=== PATIENT | male | born 1980 | race Caucasian/White ===

== ENCOUNTER 2016-11-18 11:23 | Emergency (ER) | payer BC ==
[~2016-11-18] VITALS: Ht 182.9 cm; Wt 100.0 kg
[2016-11-18 11:23] VITALS: BP 131/85; PULSE 87; RESP 16; TEMP 98.5; O2SAT 97
[~2016-11-18 11:23] MED LIST: ACET500T3 PO; ACIDCAP PO; AMIT100T2 PO; AMIT25TA9 PO; BECL0.07 INH; BENT20TA PO; BUDE9TAB PO; BUTACAP4 PO; CEPH500C PO; CIAL5TAB PO; CITA20TA4 PO; CLIN1CAP6 PO; CLON2TAB PO; CYCL1TAB29 PO; GABA300C5 PO; HUMIKIT SQ; HYDR200T3 PO; IMUR50TA PO; KLON2TAB PO; LEVE500 PO; LEVO-168 PO; MUPI2CRE3 TOP; ONDA1TAB17 PO; PHEN300C3 PO; PILO5TAB3 PO; PRED-503 PO; TAMS5CAP PO; TYLETAB34 PO
[2016-11-18 11:25] VITALS: BP 131/85; PULSE 94; RESP 16; O2SAT 98
[2016-11-18] MEDS ORDERED: SODIUM CHLORIDE 0.9% FLUSH 5 ML FLUSH IVF PRN (11:45)
--- NOTE | 2016-11-18 11:47 | PD ---
HPI Chief Complaint: Syncope/Near-Syncope Time Seen by Provider: 11:43 Travel History International Travel<30 days: No Contact w/Intl Traveler<30days: No Traveled to known affect area: No History of Present Illness HPI 36-year-old male presents to the emergency department for evaluation of generalized weakness. Patient states that he was at his doctor's office when he got weak and slid down the wall. He denies any loss of consciousness or syncope. Patient does report a history of the same. He also reports history of left leg paresthesias and has been ongoing intimately for a year. The patient does report a mild migraine headache, which she states is chronic for him. He denies any chest pain. No shortness of breath. He complains of abdominal pain which is chronic for him as well. He was seen here November 04, 2016 for his abdominal pain. Patient states he has an outpatient CT ordered for his abdominal aorta. Patient does report history Lupus, ankylosing spondylitis, Crohn's disease, rheumatoid arthritis. The patient is followed by his last trimmer, Dr. Gimenez. [facility] Past Medical History Hx Anticoagulant Therapy: No Arthritis: Yes (RA) Asthma: Yes Autoimmune Disease: Yes (RA, LUPUS) Blood Disorders: No Anxiety: Yes Depression: Yes Cancer: Yes (thyroid ) Cardiovascular Problems: Yes (VASCULITIS ) Chemotherapy: Yes (FOR LUPUS) Chest Pain: No Congestive Heart Failure: No COPD: No Cerebrovascular Accident: No Diabetes: No Diminished Hearing: No Endocrine: Yes (LUPUS, ) Gastrointestinal Disorders: Yes (Chrohn's) GERD: Yes Genitourinary: Yes Headaches: Yes Hiatal Hernia: Yes Immune Disorder: Yes (LUPUS; RA; CROHN'S) Implanted Vascular Access Dvce: No Kidney Stones: No Musculoskeletal: Yes (ANKYLOSING SPONDYLITIS NECK AND LOWER BACK) Neurologic: Yes (BELLS PALSY LEFT FACE, ARACHNOIDAL CYST LEFT POSTERIOR NECK) Psychiatric: No Reproductive: No Respiratory: Yes (ASTHMA) Immunizations Current: Yes Migraines: Yes Pancreatitis: Yes Seizures: Yes Sleep Apnea: No Thyroid Disease: Yes Tetanus Vaccination: < 5 Years Influenza Vaccination: Yes PNEUMOCCOCAL Vaccine (Year): 1 Past Surgical History Abdominal Surgery: No Arteriovenous Shunt: No Cardiac Surgery: No Ear Surgery: No Endocrine Surgery: No Eye Surgery: No Genitourinary Surgery: No Gynecologic Surgery: No Hysterectomy: No Insulin Pump: No Joint Replacement: No Neurologic Surgery: No Oral Surgery: No Pacemaker: No Thoracic Surgery: No Other Surgery: No Social History Alcohol Use: No Tobacco Use: No Substance Use: No Allergies-Medications (Allergen,Severity, Reaction): Coded Allergies: Cat Dander (Verified Allergy, Mild, Cough, 11/18/16) Morphine (Verified Allergy, Mild, Rash, 11/18/16) Reported Meds & Prescriptions Reported Meds & Active Scripts Active Bentyl (Dicyclomine HCl) 20 Mg Tab 20 Mg PO TID Flexeril (Cyclobenzaprine HCl) 10 Mg Tab 10 Mg PO TID Clindamycin (Clindamycin HCl) 300 Mg Cap 600 Mg PO Q8H Reported Dilantin (Phenytoin Extended) 100 Mg Cap 300 Mg PO HS Amitriptyline (Amitriptyline HCl) 50 Mg Tab 50 Mg PO HS Esuprkiujr-Ohccvmw-Txeuyaac 50-325-40 Mg Cap 1 Cap PO Q6HR PRN Do not exceed 6 capsules/day. Tylenol-Codeine #3 (Acetaminophen-Codeine) 300-30 mg Tab 1 Tab PO TID PRN Acetaminophen 500 Mg Tab 1,000 Mg PO Q6H PRN Mupirocin (Mupirocin Calcium (Topical)) 2 % Cre 1 Applic TOP DAILY PRN Apply to face Acidophilus (Lactobacillus Acidophilus) 1 Cap Cap 1 Cap PO DAILY Cialis (Tadalafil) 5 Mg Tab 5 Mg PO DAILY Do not exceed 1 dose/day. Ondansetron (Ondansetron HCl) 8 Mg Tab 8 Mg PO TID Uceris ER 24 HR (Budesonide) 9 Mg Valentina 9 Mg PO DAILY Amitriptyline (Amitriptyline HCl) 25 Mg Tab 25 Mg PO AM Clonazepam 2 Mg Tab 2 Mg PO BID Pilocarpine 5 Mg Tab 5 Mg PO Q8HR Citalopram (Citalopram Hydrobromide) 20 Mg Tab 20 Mg PO DAILY Imuran (Azathioprine) 50 Mg Tab 50 Mg PO TID Hazardous agent: use appropriate precautions for handling and disposal. Levothyroxine (Levothyroxine Sodium) 112 Mcg Tab 112 Mcg PO DAILY Flomax (Tamsulosin HCl) 0.4 Mg Cap 0.4 Mg PO BID Gabapentin 300 Mg Cap 600 Mg PO TID Humira Pen Crohns 6-Pack Inj (Adalimumab Pen Crohns 6-Pack Inj) 40 Mg/0.8 Ml Pen 40 Mg SQ [id number] Deltasone (Prednisone) 20 Mg Tab 30 Mg PO HS Hydroxychloroquine (Hydroxychloroquine Sulfate) 200 Mg Tab 200 Mg PO DAILY Take with food Review of Systems Except as stated in HPI: all other systems reviewed are Neg Physical Exam Narrative GENERAL: Well-developed well-nourished male patient, afebrile. SKIN: Warm and dry. HEAD: Normocephalic. Atraumatic. ENT: Mucosa pink and moist. No erythema or exudates. No uvular edema. No uvular , palatal, or tonsillar deviation. Airway patent. Nasal turbinates appear normal without nasal blood, purulent drainage or septal hematoma. Bilateral tympanic membranes are clear without erythema or perforation. EYES: No scleral icterus. No injection or drainage. NECK: Supple, trachea midline. No JVD or lymphadenopathy. CARDIOVASCULAR: Regular rate and rhythm without murmurs, gallops, or rubs. RESPIRATORY: Breath sounds equal bilaterally. No accessory muscle use. Lungs sounds are clear to auscultation. GASTROINTESTINAL: Abdomen soft and nondistended. Patient have tenderness over the left lower and upper quadrants. MUSCULOSKELETAL: No cyanosis, or edema. Bilateral upper and lower extremity strength 5/5. All extremities are neurovascularly intact. BACK: Nontender without obvious deformity. No CVA tenderness. NEUROLOGICAL: Awake and alert. Cranial nerves II through XII intact. Motor and sensory grossly within normal limits. Five out of 5 muscle strength in all muscle groups. Normal speech. Finger to nose is normal bilaterally. Heel-to- reyna is normal bilaterally. Data Data Last Documented VS Vital Signs Date Time Temp Pulse Resp B/P Pulse Ox O2 Delivery O2 Flow Rate FiO2 11/18/16 11:25 94 16 131/85 98 Room Air 11/18/16 11:23 98.5 Orders Electrocardiogram (11/18/16 ) Complete Blood Count With Diff (11/18/16 11:39) Comprehensive Metabolic Panel (11/18/16 11:39) Magnesium (Mg) (11/18/16 11:39) Ckmb (Isoenzyme) Profile (11/18/16 11:39) Troponin I (11/18/16 11:39) Urinalysis - C+S If Indicated (11/18/16 11:39) Ecg Monitoring (11/18/16 11:39) Iv Access Insert/Monitor (11/18/16 11:39) Oximetry (11/18/16 11:39) Sodium Chloride 0.9% Flush (Ns Flush) (11/18/16 11:45) Acetamin-Codeine 300-30 Mg (Tylenol-Code (11/18/16 12:45) CKMB (11/18/16 11:55) CKMB% (11/18/16 11:55) Labs Laboratory Tests Test 11/18/16 11:55 White Blood Count 5.9 TH/MM3 Red Blood Count 4.53 MIL/MM3 Hemoglobin 14.0 GM/DL Hematocrit 40.9 % Mean Corpuscular Volume 90.3 FL Mean Corpuscular Hemoglobin 30.8 PG Mean Corpuscular Hemoglobin 34.1 % Concent Red Cell Distribution Width 15.0 % Platelet Count 165 TH/MM3 Mean Platelet Volume 8.1 FL Neutrophils (%) (Auto) 62.0 % Lymphocytes (%) (Auto) 29.0 % Monocytes (%) (Auto) 5.6 % Eosinophils (%) (Auto) 3.0 % Basophils (%) (Auto) 0.4 % Neutrophils # (Auto) 3.7 TH/MM3 Lymphocytes # (Auto) 1.7 TH/MM3 Monocytes # (Auto) 0.3 TH/MM3 Eosinophils # (Auto) 0.2 TH/MM3 Basophils # (Auto) 0.0 TH/MM3 CBC Comment DIFF FINAL Differential Comment Sodium Level 145 MEQ/L Potassium Level 4.3 MEQ/L Chloride Level 113 MEQ/L Carbon Dioxide Level 24.6 MEQ/L Anion Gap 7 MEQ/L Blood Urea Nitrogen 14 MG/DL Creatinine 0.85 MG/DL Estimat Glomerular Filtration 101 ML/MIN Rate Random Glucose 90 MG/DL Calcium Level 8.3 MG/DL Magnesium Level 2.4 MG/DL Total Bilirubin 0.3 MG/DL Aspartate Amino Transf 23 U/L (AST/SGOT) Alanine Aminotransferase 23 U/L (ALT/SGPT) Alkaline Phosphatase 45 U/L Total Creatine Kinase 129 U/L Creatine Kinase MB LESS THAN 0.5 NG/ML Troponin I LESS THAN 0.02 NG/ML Total Protein 6.7 GM/DL Albumin 4.1 GM/DL MDM Medical Decision Making Medical Screen Exam Complete: Yes Emergency Medical Condition: Yes Medical Record Reviewed: Yes Differential Diagnosis Electrolyte abnormality versus chronic weakness versus chronic abdominal pain versus migraine headache versus cardiac arrhythmia versus ACS Narrative Course 36-year-old male presents to the emergency department for evaluation of generalized weakness. Patient does report a history of the same. Patient also complains of chronic abdominal pain. Based on recent CT of the abdomen/pelvis done on November 12 which showed no acute abnormality. EKG shows sinus rhythm without acute ST changes. CBC, CMP, CK, troponin, magnesium, UA are ordered and pending. CBC is unremarkable. CMP shows no acute abnormalities. CK is 129, CK-MB is less than 0.5. Troponin is less than 0.02. Magnesium is 2.4. UA is still pending, however, patient states he would like to leave. He has an appointment with a neurologist today that he would like to see. Patient is stable for discharge. He is instructed to follow-up as planned. Patient's return for any acute worsening of symptoms. Patient is agreeable to this plan. Diagnosis Primary Impression: Left-sided muscle weakness Referrals: Primary Care Physician call for appointment Patient Instructions: General Instructions, Weakness (ED) Additional Instructions: Follow up with your primary care physician. Return to the emergency department for any acute worsening of symptoms. Med/Other Pt SpecificInfo: No Change to Meds Disposition: 01 DISCHARGE HOME Condition: Stable Cassy Ireland Nov 18, 2016 11:47
[2016-11-18 12:19] LABS: AUTOMATED NEUTROPHIL # 3.7 TH/MM3 (1.8-7.7); BASOPHIL % 0.4 % (0.0-2.0); EOSINOPHIL # 0.2 TH/MM3 (0-0.4); HEMATOCRIT 40.9 % (39.0-51.0); HEMO FLAGS DIFF FINAL; LYMPHOCYTE # 1.7 TH/MM3 (1.0-4.8); MEAN CELL VOLUME 90.3 FL (80.0-100.0); MEAN CORPUSCULAR HEMOGLOBIN 30.8 PG (27.0-34.0); MEAN CORPUSCULAR HGB CONC 34.1 % (32.0-36.0); MONO % 5.6 % (0.0-8.0); PLATELET COUNT 165 TH/MM3 (150-450); RED BLOOD COUNT 4.53 MIL/MM3 (4.50-5.90); WHITE BLOOD COUNT 5.9 TH/MM3 (4.0-11.0)
[2016-11-18] MEDS ORDERED: DILA100C PO (12:44)
[2016-11-18] MEDS ORDERED: AMIT50TA3 PO (12:44)
[2016-11-18 12:45] LABS: ALKALINE PHOSPHATASE 45 U/L (45-117); ALT (GPT) 23 U/L (12-78); ANION GAP 7 MEQ/L (5-15); AST (GOT) 23 U/L (15-37); BICARBONATE 24.6 MEQ/L (21.0-32.0); BLOOD UREA NITROGEN 14 MG/DL (7-18); CHLORIDE 113 MEQ/L (98-107); CREATINE KINASE 129 U/L (39-308); GLOMERULAR FILTRATION RATE 101 ML/MIN (>89); MAGNESIUM 2.4 MG/DL (1.5-2.5); POTASSIUM 4.3 MEQ/L (3.5-5.1); SODIUM (NA) 145 MEQ/L (136-145); TOTAL BILIRUBIN ADULT 0.3 MG/DL (0.2-1.0)
[2016-11-18] MEDS ORDERED: ACETAMINOPHEN/CODEINE 300 MG/30 MG TAB PO ONE (12:45)
[2016-11-18 12:58] LABS: CKMB LESS THAN 0.5 NG/ML (0.5-3.6)
[2016-11-18 13:25] VITALS: BP 138/83; PULSE 86; RESP 16; O2SAT 99
--- NOTE | 2016-11-19 12:07 | EKG ---
Date Performed: 11/18/2016 Time Performed: 11:33:40 PTAGE: 36 years EKG: Sinus rhythm MINIMAL VOLTAGE CRITERIA FOR LVH, CONSIDER NORMAL VARIANT BORDERLINE ECG PREVIOUS TRACING : 11/12/2016 15.54 DOCTOR: Michael Perez Interpretating Date/Time 11/19/2016 12:06:47
== END 2016-11-18 14:32 | disposition home or self-care (01) ==
LOC: NEPC 11:23
DX: M62.81 Muscle weakness (generalized) (principal)
CPT/HCPCS: 80053; 82550; 82552; 83735; 84484; 85025; 93005

== ENCOUNTER 2017-02-19 16:11 | Emergency (ER) | payer BC ==
[~2017-02-19] VITALS: Ht 182.9 cm; Wt 105.9 kg
[~2017-02-19 16:11] MED LIST changes: -AMIT100T2 PO; +AMIT50TA3 PO; -BECL0.07 INH; -CEPH500C PO; +DILA100C PO; -KLON2TAB PO; -PHEN300C3 PO
[2017-02-19 16:13] VITALS: BP 145/100; PULSE 101; RESP 16; TEMP 97.9; O2SAT 96
[2017-02-19] MEDS ORDERED: PANT40TA3 PO (16:39)
[2017-02-19] MEDS ORDERED: META1TAB19 PO (16:39)
[2017-02-19] MEDS ORDERED: HUMI40KI SQ (16:39)
[2017-02-19] MEDS ORDERED: HYDR-3583 PO (16:39)
[2017-02-19] MEDS ORDERED: [UNRECOGNIZED DRUG - CODE] IM (16:39)
[2017-02-19] MEDS ORDERED: PRED50 PO ×3 (16:39→17:34)
[2017-02-19] MEDS ORDERED: CYCL1TAB29 PO (16:39)
[2017-02-19] MEDS ORDERED: DICL1TAB63 PO (16:39)
[2017-02-19] MEDS ORDERED: SODIUM CHLOR 0.9% 1000 ML INJ 1,000 ML IV SCH (16:48)
--- NOTE | 2017-02-19 16:55 | PD ---
HPI Chief Complaint: Pain: Acute or Chronic Time Seen by Provider: 16:34 Travel History International Travel<30 days: No Contact w/Intl Traveler<30days: No Traveled to known affect area: No History of Present Illness HPI 36-year-old male history of multiple autoimmune diagnoses including ankylosing spondylitis, Crohn's, lupus arrives complaining of arthralgias epigastric pain and rash. She is placed on a steroid taper several days prior. He notes some benefit initially however yesterday and today he has been feeling aforementioned symptoms more prominently. He believes it may be due to rapid steroid taper. He also notes Lortab has been less efficacious. He arrives to ER for tx as Drs Rolf and Marty were unable to accommodate him with appointments today. He notes prior diagnosis pancreatitis as well. No etoh or tb. He has been exercising occasionally which he states helps and he might start [employer] as well. Pt states stressful states tend to precipitate autoimmune flares. PFSH Past Medical History Hx Anticoagulant Therapy: No Arthritis: Yes (RA) Asthma: Yes Autoimmune Disease: Yes (RA, LUPUS) Blood Disorders: No Anxiety: Yes Depression: Yes Cancer: Yes (Thyroid ) Cardiovascular Problems: Yes (VASCULITIS ) Chemotherapy: Yes (For lupus) Chest Pain: No Congestive Heart Failure: No COPD: No Cerebrovascular Accident: No Diabetes: No Diminished Hearing: No Endocrine: Yes (LUPUS, ) Gastrointestinal Disorders: Yes (Chrohn's) GERD: Yes Genitourinary: Yes Headaches: Yes Hiatal Hernia: Yes Immune Disorder: Yes (Lupus, Prasad's palsy, vasculitis) Implanted Vascular Access Dvce: No Kidney Stones: No Musculoskeletal: Yes (ANKYLOSING SPONDYLITIS NECK AND LOWER BACK) Neurologic: Yes (BELLS PALSY LEFT FACE, ARACHNOIDAL CYST LEFT POSTERIOR NECK) Psychiatric: No Reproductive: No Respiratory: Yes (ASTHMA) Immunizations Current: Yes Migraines: Yes Pancreatitis: Yes Seizures: Yes Sleep Apnea: No Thyroid Disease: Yes Tetanus Vaccination: < 5 Years Influenza Vaccination: Yes PNEUMOCCOCAL Vaccine (Year): 1 Past Surgical History Abdominal Surgery: No Arteriovenous Shunt: No Cardiac Surgery: No Ear Surgery: No Endocrine Surgery: No Eye Surgery: No Genitourinary Surgery: No Gynecologic Surgery: No Hysterectomy: No Insulin Pump: No Joint Replacement: No Neurologic Surgery: No Oral Surgery: No Pacemaker: No Thoracic Surgery: No Other Surgery: No Social History Alcohol Use: No Tobacco Use: No Substance Use: No Allergies-Medications (Allergen,Severity, Reaction): Coded Allergies: Cat Dander (Verified Allergy, Mild, Cough, 02/19/17) Morphine (Verified Allergy, Mild, Rash, 02/19/17) Reported Meds & Prescriptions Reported Meds & Active Scripts Active Prednisone 50 Mg Tab 50 Mg PO DIRECTED Prednisone 50 Mg Tab 50 Mg PO DAILY Prednisone 20 Mg Tab 20 Mg PO ONCE Percocet (Oxycodone-Acetaminophen) 7.5-325 mg Tab 1 Tab PO Q6H PRN Reported Butorphanol Inj (Butorphanol Tartrate) 1 Mg/Ml Soln 1 Mg IM Q6HR PRN Hydrocodone-Acetaminophen 10-325 mg Tab 1 Tab PO Q6H PRN Pantoprazole (Pantoprazole Sodium) 40 Mg Tab 40 Mg PO DAILY Metaxalone 800 Mg Tab 800 Mg PO TID Flexeril (Cyclobenzaprine HCl) 10 Mg Tab 10 Mg PO BID Diclofenac-Misoprostol 75-0.2 Mg Tab 1 Tab PO BID Humira 2-Pack Inj (Adalimumab 2-Pack Inj) 40 Mg/0.8 Ml Syr 40 Mg SQ Q14D Dilantin (Phenytoin Extended) 100 Mg Cap 300 Mg PO HS Amitriptyline (Amitriptyline HCl) 50 Mg Tab 50 Mg PO HS Buduxaqtaw-Vyqatji-Keodngzz 50-325-40 Mg Cap 1 Cap PO Q6HR PRN Do not exceed 6 capsules/day. Cialis (Tadalafil) 5 Mg Tab 5 Mg PO DAILY Do not exceed 1 dose/day. Ondansetron (Ondansetron HCl) 8 Mg Tab 8 Mg PO Q8HR PRN Uceris ER 24 HR (Budesonide) 9 Mg Valentina 9 Mg PO DAILY Amitriptyline (Amitriptyline HCl) 25 Mg Tab 25 Mg PO AM Clonazepam 2 Mg Tab 2 Mg PO BID Pilocarpine 5 Mg Tab 5 Mg PO TID PRN Citalopram (Citalopram Hydrobromide) 20 Mg Tab 20 Mg PO DAILY Imuran (Azathioprine) 50 Mg Tab 50 Mg PO TID Hazardous agent: use appropriate precautions for handling and disposal. Levothyroxine (Levothyroxine Sodium) 112 Mcg Tab 112 Mcg PO DAILY Flomax (Tamsulosin HCl) 0.4 Mg Cap 0.4 Mg PO BID Gabapentin 300 Mg Cap 600 Mg PO TID Hydroxychloroquine (Hydroxychloroquine Sulfate) 200 Mg Tab 200 Mg PO DAILY Take with food Review of Systems Except as stated in HPI: all other systems reviewed are Neg General / Constitutional: No: Fever Gastrointestinal: Positive: Abdominal Pain (epigastric pain) Physical Exam Narrative GENERAL: 36 yo M, WNWD, mild distress SKIN: Warm and dry. Malar rash present. HEAD: Atraumatic. Normocephalic. EYES: Pupils equal and round. No scleral icterus. No injection or drainage. ENT: No nasal bleeding or discharge. Mucous membranes pink and moist. NECK: Trachea midline. No JVD. CARDIOVASCULAR: Regular rate and rhythm. RESPIRATORY: No accessory muscle use. Clear to auscultation. Breath sounds equal bilaterally. GASTROINTESTINAL: Abdomen soft, non-tender, nondistended. epigastric tenderness present. no peritonitis. MUSCULOSKELETAL: Extremities without clubbing, cyanosis, or edema. No obvious deformities. NEUROLOGICAL: Awake and alert. No obvious cranial nerve deficits. Motor grossly within normal limits. Five out of 5 muscle strength in the arms and legs. Normal speech. PSYCHIATRIC: Appropriate mood and affect; insight and judgment normal. Data Data Last Documented VS Vital Signs Date Time Temp Pulse Resp B/P Pulse Ox O2 Delivery O2 Flow Rate FiO2 02/19/17 17:45 82 16 165/88 98 Room Air 02/19/17 16:13 97.9 VS noted Orders Complete Blood Count With Diff (02/19/17 16:48) Comprehensive Metabolic Panel (02/19/17 16:48) Lipase (02/19/17 16:48) Iv Access Insert/Monitor (02/19/17 16:48) Ecg Monitoring (02/19/17 16:48) Oximetry (02/19/17 16:48) Hydromorphone Pf Inj (Dilaudid Pf Inj) (02/19/17 17:00) Ondansetron Inj (Zofran Inj) (02/19/17 17:00) Sodium Chlor 0.9% 1000 Ml Inj (Ns 1000 M (02/19/17 16:48) Sodium Chloride 0.9% Flush (Ns Flush) (02/19/17 17:00) Al-Mag Hy-Si 40-40-4 Mg/Ml Liq (Mag-Al P (02/19/17 17:00) Lidocaine 2% Viscous (Xylocaine 2% Visco (02/19/17 17:00) Methylprednisolone So Succ Inj (Solumedr (02/19/17 17:00) Potassium Chloride (Kcl) (02/19/17 17:45) Labs Laboratory Tests Test 02/19/17 16:35 White Blood Count 4.8 TH/MM3 Red Blood Count 4.68 MIL/MM3 Hemoglobin 13.6 GM/DL Hematocrit 40.1 % Mean Corpuscular Volume 85.7 FL Mean Corpuscular Hemoglobin 29.1 PG Mean Corpuscular Hemoglobin 34.0 % Concent Red Cell Distribution Width 12.0 % Platelet Count 164 TH/MM3 Mean Platelet Volume 8.5 FL Neutrophils (%) (Auto) 40.2 % Lymphocytes (%) (Auto) 44.2 % Monocytes (%) (Auto) 7.7 % Eosinophils (%) (Auto) 7.1 % Basophils (%) (Auto) 0.8 % Neutrophils # (Auto) 1.9 TH/MM3 Lymphocytes # (Auto) 2.2 TH/MM3 Monocytes # (Auto) 0.4 TH/MM3 Eosinophils # (Auto) 0.3 TH/MM3 Basophils # (Auto) 0.0 TH/MM3 CBC Comment DIFF FINAL Differential Comment Sodium Level 143 MEQ/L Potassium Level 3.3 MEQ/L Chloride Level 104 MEQ/L Carbon Dioxide Level 28.2 MEQ/L Anion Gap 11 MEQ/L Blood Urea Nitrogen 7 MG/DL Creatinine 0.95 MG/DL Estimat Glomerular Filtration 89 ML/MIN Rate Random Glucose 119 MG/DL Calcium Level 8.3 MG/DL Total Bilirubin 0.4 MG/DL Aspartate Amino Transf 15 U/L (AST/SGOT) Alanine Aminotransferase 23 U/L (ALT/SGPT) Alkaline Phosphatase 54 U/L Total Protein 6.8 GM/DL Albumin 3.8 GM/DL Lipase 130 U/L [facility] Medical Decision Making Medical Screen Exam Complete: Yes Emergency Medical Condition: Yes Medical Record Reviewed: Yes Differential Diagnosis autoimmune flare, pancreatitis, infectious disease process Narrative Course CBC & BMP Diagram 02/19/17 16:35 LFTs and lipase normal Pain controlled, 1L NS. Potassium replenished. Pt is well acquainted with his disease processes and medical managements thereof. Scripts and follow up as below. Diagnosis Primary Impression: Syndromic multisystem autoimmune disease Referrals: DR MEYERS call for appointment Shantanu Bansal MD call for appointment Additional Instructions: You have a choice when it comes to health care, and we are glad that you chose [facility]. Hopefully, we have met your expectations on today's visit. You are welcome to return to [facility] at any time, as we are committed to meeting the health care needs of our community. Med/Other Pt SpecificInfo: Prescription(s) given Scripts Prednisone 50 Mg Tab50 Mg PO DIRECTED #18 TAB Ref 0 Prov:Shadi Saba MD 02/19/17 Prednisone 20 Mg Tab20 Mg PO ONCE #10 TAB Ref 0 Prov:Shadi Saba MD 02/19/17 Oxycodone-Acetaminophen (Percocet)7.5-325 mg Tab1 Tab PO Q6H PRN (PAIN SCALE 6 TO 10) #20 TAB Ref 0 Prov:Shadi Saba MD 02/19/17 Disposition: 01 DISCHARGE HOME Condition: Stable Shadi Saba MD Feb 19, 2017 16:55
[2017-02-19 17:00] VITALS: O2SAT 98
[2017-02-19] MEDS ORDERED: HYDROmorphone HCL PF 2 MG/ML VIAL IVS ONE (17:00)
[2017-02-19] MEDS ORDERED: ALUMINUM/MAGNESIUM/SIMETH 30 ML CUP PO ONE (17:00)
[2017-02-19] MEDS ORDERED: LIDOCAINE VISCOUS 2% SOLN 15 ML UDC PO ONE (17:00)
[2017-02-19] MEDS ORDERED: methylPREDNISolone SOD SUCC 125 MG/2 ML VIAL IV PUSH ONE (17:00)
[2017-02-19] MEDS ORDERED: SODIUM CHLORIDE 0.9% FLUSH 10 ML FLUSH IV FLUSH PRN (17:00)
[2017-02-19] MEDS ORDERED: ONDANSETRON HCL 4 MG/2 ML VIAL IVP ONE (17:00)
[2017-02-19 17:01] LABS: AUTOMATED NEUTROPHIL # 1.9 TH/MM3 (1.8-7.7); BASOPHIL % 0.8 % (0.0-2.0); EOSINOPHIL # 0.3 TH/MM3 (0-0.4); EOSINOPHIL % 7.1 % (0.0-4.0); HEMATOCRIT 40.1 % (39.0-51.0); HEMO FLAGS DIFF FINAL; LYMPH % 44.2 % (9.0-44.0); LYMPHOCYTE # 2.2 TH/MM3 (1.0-4.8); MEAN CELL VOLUME 85.7 FL (80.0-100.0); MEAN CORPUSCULAR HEMOGLOBIN 29.1 PG (27.0-34.0); MONO % 7.7 % (0.0-8.0); NEUT % 40.2 % (16.0-70.0); PLATELET COUNT 164 TH/MM3 (150-450); RED BLOOD COUNT 4.68 MIL/MM3 (4.50-5.90); WHITE BLOOD COUNT 4.8 TH/MM3 (4.0-11.0)
[2017-02-19 17:11] LABS: CHLORIDE 104 MEQ/L (98-107); POTASSIUM 3.3 MEQ/L (3.5-5.1); SODIUM (NA) 143 MEQ/L (136-145)
[2017-02-19 17:15] LABS: ANION GAP 11 MEQ/L (5-15); BICARBONATE 28.2 MEQ/L (21.0-32.0); BLOOD UREA NITROGEN 7 MG/DL (7-18)
[2017-02-19 17:18] LABS: ALT (GPT) 23 U/L (12-78); AST (GOT) 15 U/L (15-37); GLOMERULAR FILTRATION RATE 89 ML/MIN (>89)
[2017-02-19 17:19] LABS: TOTAL BILIRUBIN ADULT 0.4 MG/DL (0.2-1.0)
[2017-02-19 17:21] LABS: ALKALINE PHOSPHATASE 54 U/L (45-117)
[2017-02-19] MEDS ORDERED: PRED10PA2 PO (17:27)
[2017-02-19] MEDS ORDERED: PERC7.5T13 PO (17:27)
[2017-02-19] MEDS ORDERED: PRED20 PO (17:31)
[2017-02-19 17:45] VITALS: BP 165/88; PULSE 82; RESP 16; O2SAT 98
[2017-02-19] MEDS ORDERED: POTASSIUM CHLORIDE 20 MEQ CONTROLLED RELEASE TAB PO ONE (17:45)
== END 2017-02-19 18:10 | disposition home or self-care (01) ==
LOC: PHED 16:11
DX: M35.8 Other specified systemic involvement of connective tissue (principal); M25.50 Pain in unspecified joint; R10.13 Epigastric pain; R21 Rash and other nonspecific skin eruption; Z86.2 Personal history of diseases of the blood and blood-forming organs and certain disorders involving the immune mechanism; Z87.19 Personal history of other diseases of the digestive system; Z87.39 Personal history of other diseases of the musculoskeletal system and connective tissue; Z87.09 Personal history of other diseases of the respiratory system; Z86.59 Personal history of other mental and behavioral disorders; Z85.850 Personal history of malignant neoplasm of thyroid; Z86.79 Personal history of other diseases of the circulatory system; Z86.69 Personal history of other diseases of the nervous system and sense organs
CPT/HCPCS: 80053; 83690; 85025; 96361; 96374; 96375; 99284; J1170; J2405; J2930; J7030; 99214; G0463

== ENCOUNTER 2017-02-25 15:50 | Observation (INO) | payer BC ==
[~2017-02-25] VITALS: Ht 182.9 cm; Wt 103.7 kg
[~2017-02-25 15:50] MED LIST changes: -ACET500T3 PO; -ACIDCAP PO; -BENT20TA PO; -CLIN1CAP6 PO; +DICL1TAB63 PO; +HUMI40KI SQ; -HUMIKIT SQ; +HYDR-3583 PO; -LEVE500 PO; +META1TAB19 PO; -MUPI2CRE3 TOP; +PANT40TA3 PO; +PERC7.5T13 PO; -PRED-503 PO; +PRED20 PO; +PRED50 PO; -TYLETAB34 PO; +[UNRECOGNIZED DRUG - CODE] IM
[2017-02-25 16:08] VITALS: BP 146/109; PULSE 140; RESP 20; TEMP 97.9; O2SAT 100
[2017-02-25] MEDS ORDERED: SODIUM CHLOR 0.9% 1000 ML INJ 1,000 ML IV SCH (16:23)
[2017-02-25] MEDS ORDERED: SODIUM CHLORIDE 0.9% FLUSH 10 ML FLUSH IV FLUSH PRN ×2 (16:30→18:30)
[2017-02-25] MEDS ORDERED: DICYCLOMINE HCL 20 MG/2 ML VIAL IM ONE (16:30)
[2017-02-25 16:46] LABS: AUTOMATED NEUTROPHIL # 13.1 TH/MM3 (1.8-7.7); EOSINOPHIL % 0.2 % (0.0-4.0); HEMATOCRIT 43.6 % (39.0-51.0); HEMO FLAGS DIFF FINAL; LYMPH % 9.1 % (9.0-44.0); LYMPHOCYTE # 1.3 TH/MM3 (1.0-4.8); MEAN CELL VOLUME 87.7 FL (80.0-100.0); MEAN CORPUSCULAR HEMOGLOBIN 28.7 PG (27.0-34.0); MEAN CORPUSCULAR HGB CONC 32.7 % (32.0-36.0); MONO % 2.8 % (0.0-8.0); NEUT % 87.9 % (16.0-70.0); PLATELET COUNT 217 TH/MM3 (150-450); RED BLOOD COUNT 4.97 MIL/MM3 (4.50-5.90); RED CELL DISTRIBUTION WIDTH 12.4 % (11.6-17.2); WHITE BLOOD COUNT 14.8 TH/MM3 (4.0-11.0)
--- NOTE | 2017-02-25 16:47 | PD ---
HPI Chief Complaint: General Weakness Time Seen by Provider: 16:14 Travel History International Travel<30 days: No Contact w/Intl Traveler<30days: No Traveled to known affect area: No History of Present Illness HPI 36 yo male arrives complaining of total body pain though predominantly involving the hands and knees and feet. He reports a history of multiple autoimmune disorders. At the time of the patient's prior visit He stated Dr. Bansal Placed him on a steroid taper prior to arrival at 150 mg daily followed by 100 mg followed by 50 mg. He states that only massive doses of steroids can effectively manage his pain. On today's visit the patient notes he was sent here directly by Dr. Ferguson, his histology tech, stating she could not confer additional expertise as the patient was on such large doses of steroids area the patient's Imuran dose was increased from 50 mg twice a day to 100 mg twice a day. Following discharge from the prior visit the aggressive steroid taper was prescribed after the patient reported he would most certainly follow-up this week and that he had multiple times previously been dosed on prednisone at similar levels. PFSH Past Medical History Medical History: Denies Significant Hx Hx Anticoagulant Therapy: No Arthritis: Yes (RA) Asthma: Yes Autoimmune Disease: Yes (RA, LUPUS) Blood Disorders: No Anxiety: Yes Depression: Yes Cancer: Yes (Thyroid ) Cardiovascular Problems: Yes (VASCULITIS ) Chemotherapy: Yes (For lupus) Chest Pain: No Congestive Heart Failure: No COPD: No Cerebrovascular Accident: No Diabetes: No Diminished Hearing: No Endocrine: Yes (LUPUS, ) Gastrointestinal Disorders: Yes (Chrohn's) GERD: Yes Genitourinary: Yes Headaches: Yes Hiatal Hernia: Yes Immune Disorder: Yes (Lupus, Prasad's palsy, vasculitis) Implanted Vascular Access Dvce: No Kidney Stones: No Musculoskeletal: Yes (ANKYLOSING SPONDYLITIS NECK AND LOWER BACK) Neurologic: Yes (BELLS PALSY LEFT FACE, ARACHNOIDAL CYST LEFT POSTERIOR NECK) Psychiatric: No Reproductive: No Respiratory: Yes (ASTHMA) Immunizations Current: Yes Migraines: Yes Pancreatitis: Yes Seizures: Yes Sleep Apnea: No Thyroid Disease: Yes Tetanus Vaccination: < 5 Years Influenza Vaccination: Yes PNEUMOCCOCAL Vaccine (Year): 1 Past Surgical History Surgical History: No Previous Surgery Abdominal Surgery: No Arteriovenous Shunt: No Cardiac Surgery: No Ear Surgery: No Endocrine Surgery: No Eye Surgery: No Genitourinary Surgery: No Gynecologic Surgery: No Hysterectomy: No Insulin Pump: No Joint Replacement: No Neurologic Surgery: No Oral Surgery: No Pacemaker: No Thoracic Surgery: No Other Surgery: No Social History Alcohol Use: No Tobacco Use: No Substance Use: No Allergies-Medications (Allergen,Severity, Reaction): Coded Allergies: Cat Dander (Verified Allergy, Mild, Cough, 02/25/17) Morphine (Verified Allergy, Mild, Rash, 02/25/17) Reported Meds & Prescriptions Reported Meds & Active Scripts Active Prednisone 50 Mg Tab 50 Mg PO DIRECTED Prednisone 20 Mg Tab 20 Mg PO ONCE Percocet (Oxycodone-Acetaminophen) 7.5-325 mg Tab 1 Tab PO Q6H PRN Reported Pantoprazole (Pantoprazole Sodium) 40 Mg Tab 40 Mg PO DAILY Metaxalone 800 Mg Tab 800 Mg PO TID Flexeril (Cyclobenzaprine HCl) 10 Mg Tab 10 Mg PO BID Diclofenac-Misoprostol 75-0.2 Mg Tab 1 Tab PO BID Humira 2-Pack Inj (Adalimumab 2-Pack Inj) 40 Mg/0.8 Ml Syr 40 Mg SQ Q14D Dilantin (Phenytoin Extended) 100 Mg Cap 300 Mg PO HS Amitriptyline (Amitriptyline HCl) 50 Mg Tab 50 Mg PO HS Uljclinmgs-Roykunx-Gujvohsh 50-325-40 Mg Cap 1 Cap PO Q6HR PRN Do not exceed 6 capsules/day. Cialis (Tadalafil) 5 Mg Tab 5 Mg PO DAILY Do not exceed 1 dose/day. Ondansetron (Ondansetron HCl) 8 Mg Tab 8 Mg PO Q8HR PRN Uceris ER 24 HR (Budesonide) 9 Mg Valentina 9 Mg PO DAILY Amitriptyline (Amitriptyline HCl) 25 Mg Tab 25 Mg PO AM Clonazepam 2 Mg Tab 2 Mg PO BID Pilocarpine 5 Mg Tab 5 Mg PO TID PRN Citalopram (Citalopram Hydrobromide) 20 Mg Tab 20 Mg PO DAILY Imuran (Azathioprine) 50 Mg Tab 100 Mg PO BID Hazardous agent: use appropriate precautions for handling and disposal. Levothyroxine (Levothyroxine Sodium) 112 Mcg Tab 112 Mcg PO DAILY Flomax (Tamsulosin HCl) 0.4 Mg Cap 0.4 Mg PO BID Gabapentin 300 Mg Cap 600 Mg PO TID Hydroxychloroquine (Hydroxychloroquine Sulfate) 200 Mg Tab 200 Mg PO DAILY Take with food Review of Systems Except as stated in HPI: all other systems reviewed are Neg General / Constitutional: No: Fever Musculoskeletal: Positive: Myalgias, Arthralgias, Pain Physical Exam Narrative GENERAL: 36-year-old male well-nourished well-developed no obvious distress. SKIN: Focused skin assessment warm/dry. Bimalar facial rash. HEAD: Atraumatic. Normocephalic. EYES: Pupils equal and round. No scleral icterus. No injection or drainage. ENT: No nasal bleeding or discharge. Mucous membranes pink and moist. NECK: Trachea midline. No JVD. CARDIOVASCULAR: Regular rate and rhythm. No murmur appreciated. RESPIRATORY: No accessory muscle use. Clear to auscultation. Breath sounds equal bilaterally. GASTROINTESTINAL: Diffuse guarding. Use tenderness. Nonspecific. MUSCULOSKELETAL: No obvious deformities. No clubbing. No cyanosis. No erythema tenderness deformity about the hands ankles knees elbows or feet. NEUROLOGICAL: Awake and alert. No obvious cranial nerve deficits. Motor grossly within normal limits. Normal speech. PSYCHIATRIC: Appropriate mood and affect; insight and judgment normal. Data Data Last Documented VS Vital Signs Date Time Temp Pulse Resp B/P Pulse Ox O2 Delivery O2 Flow Rate FiO2 02/25/17 16:31 20 99 Room Air 02/25/17 16:08 97.9 140 146/109 Vital signs reviewed and the pulse is 72 at time of d/w Dr Thomson Orders Complete Blood Count With Diff (02/25/17 16:23) Comprehensive Metabolic Panel (02/25/17 16:23) Lipase (02/25/17 16:23) Iv Access Insert/Monitor (02/25/17 16:23) Ecg Monitoring (02/25/17 16:23) Oximetry (02/25/17 16:23) Sodium Chlor 0.9% 1000 Ml Inj (Ns 1000 M (02/25/17 16:23) Sodium Chloride 0.9% Flush (Ns Flush) (02/25/17 16:30) Dicyclomine Inj (Bentyl Inj) (02/25/17 16:30) Methylprednisolone So Succ Inj (Solumedr (02/25/17 17:00) Hydromorphone Pf Inj (Dilaudid Pf Inj) (02/25/17 17:00) Admit Order (Ed Use Only) (02/25/17 17:59) Labs Laboratory Tests Test 02/25/17 02/25/17 16:31 16:35 Erythrocyte Sedimentation Rate 1 mm/hr White Blood Count 14.8 TH/MM3 Red Blood Count 4.97 MIL/MM3 Hemoglobin 14.3 GM/DL Hematocrit 43.6 % Mean Corpuscular Volume 87.7 FL Mean Corpuscular Hemoglobin 28.7 PG Mean Corpuscular Hemoglobin 32.7 % Concent Red Cell Distribution Width 12.4 % Platelet Count 217 TH/MM3 Mean Platelet Volume 7.7 FL Neutrophils (%) (Auto) 87.9 % Lymphocytes (%) (Auto) 9.1 % Monocytes (%) (Auto) 2.8 % Eosinophils (%) (Auto) 0.2 % Basophils (%) (Auto) 0.0 % Neutrophils # (Auto) 13.1 TH/MM3 Lymphocytes # (Auto) 1.3 TH/MM3 Monocytes # (Auto) 0.4 TH/MM3 Eosinophils # (Auto) 0.0 TH/MM3 Basophils # (Auto) 0.0 TH/MM3 CBC Comment DIFF FINAL Differential Comment Sodium Level 141 MEQ/L Potassium Level 4.0 MEQ/L Chloride Level 104 MEQ/L Carbon Dioxide Level 28.4 MEQ/L Anion Gap 9 MEQ/L Blood Urea Nitrogen 14 MG/DL Creatinine 0.84 MG/DL Estimat Glomerular Filtration 103 ML/MIN Rate Random Glucose 119 MG/DL Calcium Level 8.5 MG/DL Total Bilirubin 0.4 MG/DL Aspartate Amino Transf 11 U/L (AST/SGOT) Alanine Aminotransferase 20 U/L (ALT/SGPT) Alkaline Phosphatase 53 U/L Total Protein 7.3 GM/DL Albumin 3.9 GM/DL Lipase 98 U/L [facility] Medical Decision Making Medical Screen Exam Complete: Yes Emergency Medical Condition: Yes Differential Diagnosis Nonspecific exacerbation of autoimmune disease Narrative Course The case was discussed with Dr. Bansal. Dr. Ferguson was paged however never returned the call. Dr. Bansal states the patient has a diagnosis of lupus disease made at the [facility]. He's also been worked up at [facility] in [place] where a diagnosis of lupus was made. This patient evidently suffers with a severe variant and has required large doses of steroids previously. Prior to the patient's admission today he had been on 150 mg tapered down to 100 and then to 50mg/day. This was the patient's second course of aggressive steroid administration. Dr. Bansal reports the patient has had benefit previously from hospital admission with every 6 hours 100 mg IV methylprednisolone dosing. In this scenario will provide the same for the patient. Case discussed with Dr. Thomson for the [facility] hospitalist service. CBC & BMP Diagram 02/25/17 16:35 LFTs normal Lipase normal Diagnosis Primary Impression: Autoimmune disease Admitting Information Admitting Physician Requests: Observation Additional Instructions: You have a choice when it comes to health care, and we are glad that you chose [facility]. Hopefully, we have met your expectations on today's visit. You are welcome to return to [facility] at any time, as we are committed to meeting the health care needs of our community. Shadi Saba MD Feb 25, 2017 16:47
[2017-02-25 16:55] LABS: CHLORIDE 104 MEQ/L (98-107); SODIUM (NA) 141 MEQ/L (136-145)
[2017-02-25 16:58] LABS: ANION GAP 9 MEQ/L (5-15); BICARBONATE 28.4 MEQ/L (21.0-32.0)
[2017-02-25 16:59] LABS: BLOOD UREA NITROGEN 14 MG/DL (7-18)
[2017-02-25] MEDS ORDERED: HYDROmorphone HCL PF 1 MG/ML VIAL IV PUSH ONE ×2 (17:00→19:15)
[2017-02-25] MEDS ORDERED: methylPREDNISolone SOD SUCC 125 MG/2 ML VIAL IV PUSH ONE (17:00)
[2017-02-25 17:01] LABS: ALT (GPT) 20 U/L (12-78); AST (GOT) 11 U/L (15-37); GLOMERULAR FILTRATION RATE 103 ML/MIN (>89)
[2017-02-25 17:03] LABS: TOTAL BILIRUBIN ADULT 0.4 MG/DL (0.2-1.0)
[2017-02-25 17:04] LABS: ALKALINE PHOSPHATASE 53 U/L (45-117)
[2017-02-25 18:27] VITALS: O2SAT 100
[2017-02-25] MEDS ORDERED: NALOXONE HCL 0.4 MG/ML AMP IV PRN (18:30)
[2017-02-25] MEDS ORDERED: BISACODYL 10 MG SUPP RECTAL PRN (18:30)
[2017-02-25] MEDS ORDERED: KETOROLAC TROMETHAMINE 30 MG/ML (IVP) VIAL IV PUSH PRN (19:30)
[2017-02-25 20:06] VITALS: BP 156/84; TEMP 98.3
[2017-02-25 20:20] VITALS: BP 154/99; PULSE 68; RESP 20; TEMP 97.1; O2SAT 96
[2017-02-25] MEDS ORDERED: DOCUSATE SODIUM 100 MG CAP PO PRN (21:00)
[2017-02-25] MEDS ORDERED: ACETAMINOPHEN 325 MG TAB PO PRN (21:00)
[2017-02-25] MEDS ORDERED: CALCIUM CARBONATE 500 MG CHEWABLE TAB CHEW PRN (21:00)
[2017-02-25] MEDS ORDERED: MAGNESIUM HYDROXIDE SUSP 30 ML CUP PO PRN (21:00)
[2017-02-25] MEDS: SODIUM CHLORIDE 0.9% FLUSH 10 ML FLUSH IV FLUSH SCH (21:00)
[2017-02-25] MEDS ORDERED: ONDANSETRON HCL 4 MG/2 ML VIAL IV PRN (21:00)
[2017-02-25] MEDS ORDERED: ALUMINUM/MAGNESIUM/SIMETH 30 ML CUP PO PRN (21:00)
[2017-02-25] MEDS ORDERED: oxyCODONE/ACETAMINOPHEN 7.5 MG/325 MG TAB PO PRN (23:00)
[2017-02-26] VITALS: BP 154/99; PULSE 84; RESP 20; TEMP 96.2; O2SAT 99
[2017-02-26] MEDS: methylPREDNISolone SOD SUCC 125 MG/2 ML VIAL IV PUSH SCH ×5 (00:17→21:47)
[2017-02-26] MEDS: PHENYTOIN SODIUM 100 MG CAP PO SCH ×2 (00:19→21:42)
[2017-02-26] MEDS: HYDROmorphone HCL PF 1 MG/ML VIAL IV PUSH PRN ×3 (00:22→11:33)
[2017-02-26] MEDS: oxyCODONE/ACETAMINOPHEN 7.5 MG/325 MG TAB PO PRN ×4 (05:57→21:45)
[2017-02-26] MEDS: SODIUM CHLORIDE 0.9% FLUSH 10 ML FLUSH IV FLUSH SCH ×2 (06:05→21:47)
[2017-02-26 06:11] LABS: BASOPHIL % 0.1 % (0.0-2.0); HEMO FLAGS DIFF FINAL; LYMPHOCYTE # 0.8 TH/MM3 (1.0-4.8); MEAN CORPUSCULAR HEMOGLOBIN 30.4 PG (27.0-34.0); MEAN CORPUSCULAR HGB CONC 34.6 % (32.0-36.0); NEUT % 91.9 % (16.0-70.0); PLATELET COUNT 185 TH/MM3 (150-450); RED BLOOD COUNT 4.54 MIL/MM3 (4.50-5.90); RED CELL DISTRIBUTION WIDTH 12.3 % (11.6-17.2); WHITE BLOOD COUNT 14.1 TH/MM3 (4.0-11.0)
[2017-02-26 06:17] LABS: CHLORIDE 105 MEQ/L (98-107); SODIUM (NA) 142 MEQ/L (136-145)
[2017-02-26 06:22] LABS: ANION GAP 10 MEQ/L (5-15); BICARBONATE 27.3 MEQ/L (21.0-32.0)
[2017-02-26 06:23] LABS: BLOOD UREA NITROGEN 16 MG/DL (7-18)
[2017-02-26 06:24] LABS: GLOMERULAR FILTRATION RATE 119 ML/MIN (>89)
[2017-02-26 08:00] VITALS: BP 146/105; PULSE 72; RESP 22; TEMP 96.3; O2SAT 96
[2017-02-26 12:00] VITALS: BP 148/90; PULSE 60; RESP 20; TEMP 97; O2SAT 96
[2017-02-26] MEDS ORDERED: ASPIRIN 325 MG/CAFFEINE 40 MG/BUTALBITAL 50 MG CAP PO PRN (12:45)
[2017-02-26] MEDS: AMITRIPTYLINE HCL 25 MG TAB PO SCH (12:45)
[2017-02-26] MEDS ORDERED: PILOCARPINE HCL 5 MG TAB PO PRN (12:45)
--- NOTE | 2017-02-26 12:59 | HHI.HP ---
[facility] Primary Care Physician Shantanu Bansal MD Admission Diagnosis SLE Exacerbation Diagnoses: Chief Complaint: Joint pains Travel History International Travel<30 Days: No Contact w/Intl Traveler <30 Da: No Traveled to Known Affected Are: No History of Present Illness This is a 36 yo male who presented to the emergency department complaining of generalized pain predominantly involving the hands, knees and ankles. He reports a history of multiple autoimmune disorders SLE, rheumatoid arthritis and vasculitis. Started last when he developed malar rash and initiated on high-dose prednisone 150 mg daily tapered every 3 days. Imuran was also increased from 50 mg twice a day to 100 mg twice a day . He states that his pain is not any better and was recommended by Dr. Ferguson, his assistant foreman to present to the emergency department. Denies fever, chills, cough, UTI symptoms and diarrhea. According to his PCP Dr. Bansal, patient has severe variant and required large doses of steroids in the past which helped him. He was started on methylprednisolone 100 g IV every 6 hours and patient reports of improved symptoms at least 50%. I have left a message for his assistant foreman to return my call Review of Systems Constitutional: DENIES: Diaphoretic episodes, Fatigue, Fever, Weight gain, Weight loss, Chills, Dizziness, Change in appetite, Night Sweats Endocrine: DENIES: Heat/cold intolerance, Polydipsia, Polyuria, Polyphagia Eyes: DENIES: Blurred vision, Diplopia, Vision loss, Photosensitivity Ears, nose, mouth, throat: DENIES: Tinnitus, Vertigo, Throat pain, Hoarseness, Epistaxis, Odynophagia Respiratory: DENIES: Cough, Wheezing, Hemoptysis, Sputum production, Shortness of breath Cardiovascular: DENIES: Chest pain, Palpitations, Syncope, Dyspnea on Exertion , PND, Lower Extremity Edema, Orthopnea, Claudication Gastrointestinal: COMPLAINS OF: Nausea, DENIES: Abdominal pain, Black stools, Bloody stools, Constipation, Diarrhea, Vomiting, Difficulty Swallowing, Anorexia Genitourinary: DENIES: Urinary frequency, Urinary incontinence, Urgency, Hematuria, Dysuria, Nocturia, Penile Discharge Musculoskeletal: COMPLAINS OF: Joint pain, Muscle aches, Stiffness, Joint Swelling, Back pain, Neck pain Integumentary: COMPLAINS OF: Rash Neurologic: DENIES: Headache, Localized weakness, Seizures, Tremor, Poor Balance Psychiatric: DENIES: Anxiety, Confusion, Depression, Hallucinations, Agitation , Suicidal Ideation, Homicidal Ideation, Delusions Past Family Social History Past Medical History As previously mentioned. History of asthma, anxiety, depression, thyroid cancer , Crohn's, GERD, migraines, Prasad's palsy, ankylosing spondylitis involving the neck and lower back, arachnoid cyst left posterior neck, pancreatitis and seizure disorder Past Surgical History Left wrist surgery Reported Medications Prednisone 50 Mg Tab 50 Mg PO DIRECTED Prednisone 20 Mg Tab 20 Mg PO ONCE Percocet (Oxycodone-Acetaminophen) 7.5-325 mg Tab 1 Tab PO Q6H PRN Pantoprazole (Pantoprazole Sodium) 40 Mg Tab 40 Mg PO DAILY Metaxalone 800 Mg Tab 800 Mg PO TID Flexeril (Cyclobenzaprine HCl) 10 Mg Tab 10 Mg PO BID Diclofenac-Misoprostol 75-0.2 Mg Tab 1 Tab PO BID Humira 2-Pack Inj (Adalimumab 2-Pack Inj) 40 Mg/0.8 Ml Syr 40 Mg SQ Q14D Dilantin (Phenytoin Extended) 100 Mg Cap 300 Mg PO HS Amitriptyline (Amitriptyline HCl) 50 Mg Tab 50 Mg PO HS Fdvxltiyhe-Sauzoil-Ueahbxoc 50-325-40 Mg Cap 1 Cap PO Q6HR PRN Do not exceed 6 capsules/day. Cialis (Tadalafil) 5 Mg Tab 5 Mg PO DAILY Do not exceed 1 dose/day. Ondansetron (Ondansetron HCl) 8 Mg Tab 8 Mg PO Q8HR PRN Uceris ER 24 HR (Budesonide) 9 Mg Valentina 9 Mg PO DAILY Amitriptyline (Amitriptyline HCl) 25 Mg Tab 25 Mg PO AM Clonazepam 2 Mg Tab 2 Mg PO BID Pilocarpine 5 Mg Tab 5 Mg PO TID PRN Citalopram (Citalopram Hydrobromide) 20 Mg Tab 20 Mg PO DAILY Imuran (Azathioprine) 50 Mg Tab 100 Mg PO BID Hazardous agent: use appropriate precautions for handling and disposal. Levothyroxine (Levothyroxine Sodium) 112 Mcg Tab 112 Mcg PO DAILY Flomax (Tamsulosin HCl) 0.4 Mg Cap 0.4 Mg PO BID Gabapentin 300 Mg Cap 600 Mg PO TID Hydroxychloroquine (Hydroxychloroquine Sulfate) 200 Mg Tab 200 Mg PO DAILY Take with food Allergies: Coded Allergies: Cat Dander (Verified Allergy, Mild, Cough, 02/25/17) Morphine (Verified Allergy, Mild, Rash, 02/25/17) Family History Lupus Social History Does not smoke or drink Physical Exam Vital Signs Vital Signs Date Time Temp Pulse Resp B/P Pulse Ox O2 Delivery O2 Flow Rate FiO2 02/26/17 12:00 97.0 60 20 148/90 96 02/26/17 08:00 96.3 72 22 146/105 96 02/26/17 00:00 96.2 84 20 154/99 99 02/25/17 20:20 97.1 68 20 154/99 96 02/25/17 20:08 71 20 98 02/25/17 20:06 98.3 71 2 156/84 98 02/25/17 18:27 100 02/25/17 16:31 20 99 Room Air 02/25/17 16:08 97.9 140 20 146/109 100 Physical Exam GENERAL: This is a well-nourished, well-developed patient, in no apparent distress. SKIN: No rashes, ecchymoses or lesions. Cool and dry. HEAD: Atraumatic. Normocephalic. No temporal or scalp tenderness. EYES: Pupils equal round and reactive. Extraocular motions intact. No scleral icterus. No injection or drainage. ENT: Nose without bleeding, purulent drainage or septal hematoma. Throat without erythema, tonsillar hypertrophy or exudate. Uvula midline. Airway patent. NECK: Trachea midline. No JVD or lymphadenopathy. Supple, nontender, no meningeal signs. CARDIOVASCULAR: Regular rate and rhythm without murmurs, gallops, or rubs. RESPIRATORY: Clear to auscultation. Breath sounds equal bilaterally. No wheezes , rales, or rhonchi. GASTROINTESTINAL: Abdomen soft, non-tender, nondistended.. No guarding. MUSCULOSKELETAL: Extremities without clubbing, cyanosis, or edema. Proximal PIPs slightly swollen and tender but not warm and red. No calf tenderness. Negative Homans sign bilaterally. NEUROLOGICAL: Awake and alert. Left facial droop. Motor and sensory grossly within normal limits. Five out of 5 muscle strength in all muscle groups. Normal speech. Laboratory Laboratory Tests Test 02/25/17 02/25/17 02/26/17 16:31 16:35 05:30 Erythrocyte Sedimentation Rate 1 White Blood Count 14.8 14.1 Red Blood Count 4.97 4.54 Hemoglobin 14.3 13.8 Hematocrit 43.6 40.0 Mean Corpuscular Volume 87.7 88.0 Mean Corpuscular Hemoglobin 28.7 30.4 Mean Corpuscular Hemoglobin 32.7 34.6 Concent Red Cell Distribution Width 12.4 12.3 Platelet Count 217 185 Mean Platelet Volume 7.7 8.1 Neutrophils (%) (Auto) 87.9 91.9 Lymphocytes (%) (Auto) 9.1 6.0 Monocytes (%) (Auto) 2.8 2.0 Eosinophils (%) (Auto) 0.2 0.0 Basophils (%) (Auto) 0.0 0.1 Neutrophils # (Auto) 13.1 13.0 Lymphocytes # (Auto) 1.3 0.8 Monocytes # (Auto) 0.4 0.3 Eosinophils # (Auto) 0.0 0.0 Basophils # (Auto) 0.0 0.0 CBC Comment DIFF FINAL DIFF FINAL Differential Comment Sodium Level 141 142 Potassium Level 4.0 4.0 Chloride Level 104 105 Carbon Dioxide Level 28.4 27.3 Anion Gap 9 10 Blood Urea Nitrogen 14 16 Creatinine 0.84 0.74 Estimat Glomerular Filtration 103 119 Rate Random Glucose 119 153 Calcium Level 8.5 8.5 Total Bilirubin 0.4 Aspartate Amino Transf 11 (AST/SGOT) Alanine Aminotransferase 20 (ALT/SGPT) Alkaline Phosphatase 53 Total Protein 7.3 Albumin 3.9 Lipase 98 C-Reactive Protein LESS THAN 0.29 Result Diagram: 02/26/1752902/26/17529 Assessment and Plan Problem List: (1) RA (rheumatoid arthritis) ICD Code: M06.9 Status: Acute (2) Autoimmune disease ICD Code: M35.9 Status: Acute Assessment and Plan This is a 36 yo male who presented to the emergency department complaining of generalized pain predominantly involving the hands, knees and ankles. He reports a history of multiple autoimmune disorders SLE, rheumatoid arthritis and vasculitis. Started last when he developed malar rash and initiated on high-dose prednisone 150 mg daily tapered every 3 days. Imuran was also increased from 50 mg twice a day to 100 mg twice a day . He states that his pain is not any better and was recommended by Dr. Ferguson, his assistant foreman to present to the emergency department. Denies fever, chills, cough, UTI symptoms and diarrhea. According to his PCP Dr. Bansal, patient has severe variant and required large doses of steroids in the past which helped him. He was started on methylprednisolone 100 g IV every 6 hours and patient reports of improved symptoms at least 50%. Acute exacerbation of chronic pain involving hands, knees and ankle joints with a history of SLE, rheumatoid arthritis and vasculitis. He is clinically improving on high-dose IV methylprednisolone daily which we will continue for another day. He will be also on Imuran and pain management with Percocet. Counseled regarding narcotics. Awaiting return call from his assistant foreman. Of note he has normal ESR and CRP Leukocytosis and hyperglycemia likely secondary to steroid use. We'll continue to monitor Chronic medical conditions of asthma, anxiety, depression, thyroid cancer, Crohn 's, GERD, migraines, Prasad's palsy, ankylosing spondylitis involving the neck and lower back, arachnoid cyst left posterior neck, pancreatitis and seizure disorder. Stable continue outpatient medications as appropriate DVT prophylaxis with SCD and early ambulation Discussed Condition With Patient Jas Alejandra MD Feb 26, 2017 12:59
[2017-02-26] MEDS: METAXALONE 800 MG TAB PO SCH ×2 (13:00→18:04)
[2017-02-26] MEDS: TAMSULOSIN HCL 0.4 MG CAP PO SCH ×2 (13:37→21:43)
[2017-02-26] MEDS: CITALOPRAM HYDROBROMIDE 20 MG TAB PO SCH (13:37)
[2017-02-26] MEDS: azaTHIOprine 50 MG TAB PO SCH ×2 (13:38→21:44)
[2017-02-26] MEDS: GABAPENTIN 300 MG CAP PO SCH ×2 (13:38→18:04)
[2017-02-26] MEDS: HYDROXYCHLOROQUINE SULFATE 200 MG TAB PO SCH (13:38)
[2017-02-26] MEDS: PANTOPRAZOLE SOD 40 MG DELAYED RELEASE TAB PO SCH (13:38)
[2017-02-26] MEDS: clonazePAM 1 MG TAB PO PRN (13:39)
[2017-02-26] MEDS ORDERED: BUDESONIDE 9 MG PO SCH (13:45)
[2017-02-26] MEDS ORDERED: ACETAMIN 325 MG/BUTALBITAL 50 MG/CAFFEINE 40 MG TAB PO PRN (15:30)
[2017-02-26 16:00] VITALS: BP 138/89; PULSE 71; RESP 20; TEMP 96.6; O2SAT 98
[2017-02-26 20:00] VITALS: BP 149/83; PULSE 70; RESP 20; TEMP 96.4; O2SAT 96
[2017-02-26] MEDS ORDERED: AMITRIPTYLINE HCL 50 MG TAB PO SCH (21:00)
[2017-02-26] MEDS ORDERED: DICLOFENAC MISOPROSTOL PO SCH (21:00)
[2017-02-26] MEDS: CYCLOBENZAPRINE HCL 10 MG TAB PO SCH (21:42)
[2017-02-26] MEDS: MISOPROSTOL 100 MCG TAB PO SCH (21:44)
[2017-02-26] MEDS: DICLOFENAC SODIUM 75 MG DELAYED RELEASE TAB PO SCH (21:44)
[2017-02-27] VITALS: BP 147/93; PULSE 70; RESP 20; TEMP 96.2; O2SAT 98
[2017-02-27] MEDS ORDERED: LEVOTHYROXINE SODIUM 112 MCG TAB PO SCH (06:00)
[2017-02-27] MEDS ORDERED: methylPREDNISolone SOD SUCC 40 MG/1 ML VIAL IV PUSH SCH (06:00)
[2017-02-27] MEDS: oxyCODONE/ACETAMINOPHEN 7.5 MG/325 MG TAB PO PRN ×2 (06:40→10:34)
[2017-02-27 07:50] VITALS: BP 150/88; PULSE 50; RESP 18; TEMP 96.6; O2SAT 98
[2017-02-27] MEDS ORDERED: OXYC1TAB35 PO (08:23)
--- NOTE | 2017-02-27 08:24 | HHI.DCPOC ---
Discharge Care Plan Diagnosis: (1) RA (rheumatoid arthritis) (2) Autoimmune disease Your Health Problems Are: Difficulty with ADL Inflammation Chronic Pain Goals to Promote Your Health * To prevent worsening of your condition and complications * To maintain your health at the optimal level Directions to Meet Your Goals Take your medications as prescribed Follow your dietary instruction Follow activity as directed Keep your appointments as scheduled Take your immunizations and boosters as scheduled If your symptoms worsen call your PCP, if no PCP go to Urgent Care Center or Emergency Room Smoking is Dangerous to Your Health. Avoid second hand smoke Call the 24-hour hour crisis hotline for domestic abuse at Jas Alejandra MD Feb 27, 2017 08:24
--- NOTE | 2017-02-27 08:28 | HHI.PR ---
Subjective Remarks Follow-up joint pains. Much improved states he is ready to go home. He has prednisone at home aware he has to take 40 mg daily for one week then taper by 10 mg every week until seen by Dr. Gimenez in 2 weeks. He is requesting pain medicine as he has been counseled regarding narcotics. Objective Vitals Vital Signs Date Time Temp Pulse Resp B/P Pulse Ox O2 Delivery O2 Flow Rate FiO2 02/27/17 07:50 96.6 50 18 150/88 98 02/27/17 00:00 96.2 70 20 147/93 98 02/26/17 20:00 96.4 70 20 149/83 96 02/26/17 16:00 96.6 71 20 138/89 98 02/26/17 12:00 97.0 60 20 148/90 96 I/O 02/26/17 02/26/17 02/26/17 02/27/17 02/27/17 02/27/17 07:00 15:00 23:00 07:00 15:00 23:00 Intake Total 480 ml 800 ml 960 ml 60 ml Output Total 450 ml Balance 30 ml 800 ml 960 ml 60 ml Intake Oral 480 ml 800 ml 960 ml 60 ml IV Total 0 ml 0 ml Output Urine Total 450 ml # Voids 2 4 2 1 # Bowel Movements 0 1 1 0 Result Diagram: 02/26/1752902/26/17 0530 Objective Remarks GENERAL: This is a well-nourished, well-developed patient, in no apparent distress. SKIN: No rashes, ecchymoses or lesions. Cool and dry. HEAD: Atraumatic. Normocephalic. No temporal or scalp tenderness. EYES: Pupils equal round and reactive. Extraocular motions intact. No scleral icterus. No injection or drainage. ENT: Nose without bleeding, purulent drainage or septal hematoma. Throat without erythema, tonsillar hypertrophy or exudate. Uvula midline. Airway patent. NECK: Trachea midline. No JVD or lymphadenopathy. Supple, nontender, no meningeal signs. CARDIOVASCULAR: Regular rate and rhythm without murmurs, gallops, or rubs. RESPIRATORY: Clear to auscultation. Breath sounds equal bilaterally. No wheezes , rales, or rhonchi. GASTROINTESTINAL: Abdomen soft, non-tender, nondistended. No guarding. MUSCULOSKELETAL: Extremities without clubbing, cyanosis, or edema. Proximal PIPs improved swelling and tenderness not warm and red. No calf tenderness. Negative Homans sign bilaterally. NEUROLOGICAL: Awake and alert. Left facial droop. Motor and sensory grossly within normal limits. Five out of 5 muscle strength in all muscle groups. Normal speech. Procedures None A/P Problem List: (1) RA (rheumatoid arthritis) ICD Code: M06.9 Status: Chronic (2) Autoimmune disease ICD Code: M35.9 Status: Acute Assessment and Plan This is a 36 yo male who presented to the emergency department complaining of generalized pain predominantly involving the hands, knees and ankles. He reports a history of multiple autoimmune disorders SLE, rheumatoid arthritis and vasculitis. Started last when he developed malar rash and initiated on high-dose prednisone 150 mg daily tapered every 3 days. Imuran was also increased from 50 mg twice a day to 100 mg twice a day . He states that his pain is not any better and was recommended by Dr. Ferguson, his potato seed cutter to present to the emergency department. Denies fever, chills, cough, UTI symptoms and diarrhea. According to his PCP Dr. Bansal, patient has severe variant and required large doses of steroids in the past which helped him. He was started on methylprednisolone 100 g IV every 6 hours and patient reports of improved symptoms at least 50%. Acute exacerbation of chronic pain involving hands, knees and ankle joints with a history of SLE, rheumatoid arthritis and vasculitis. He is much improved on high-dose IV methylprednisolone which will be switched to prednisone 40 mg daily taper by 10 mg every week until seen by rheumatology in 2 weeks. He will be also on Imuran and pain management with Percocet. Counseled regarding narcotics. Leukocytosis and hyperglycemia likely secondary to steroid use. We'll continue to monitor Chronic medical conditions of asthma, anxiety, depression, thyroid cancer, Crohn 's, GERD, migraines, Prasad's palsy, ankylosing spondylitis involving the neck and lower back, arachnoid cyst left posterior neck, pancreatitis and seizure disorder. Stable continue outpatient medications as appropriate DVT prophylaxis with SCD and early ambulation Discharge Planning Discharge patient to home Condition on discharge: Improved Regular Diet as tolerated Ad Marifer activity no driving Rx written: Percocet Follow-up with primary care physician in one week, rheumatology in 2 weeks Jas Alejandra MD Feb 27, 2017 08:28
[2017-02-27] MEDS ORDERED: predniSONE 20 MG TAB PO SCH (09:00)
[2017-02-27] MEDS ORDERED: TADALAFIL 5 MG PO SCH (09:00)
[2017-02-27] MEDS: AMITRIPTYLINE HCL 25 MG TAB PO SCH (09:00)
[2017-02-27] MEDS: SODIUM CHLORIDE 0.9% FLUSH 10 ML FLUSH IV FLUSH SCH (09:57)
[2017-02-27] MEDS: DICLOFENAC SODIUM 75 MG DELAYED RELEASE TAB PO SCH (09:58)
[2017-02-27] MEDS: PANTOPRAZOLE SOD 40 MG DELAYED RELEASE TAB PO SCH (09:59)
[2017-02-27] MEDS: METAXALONE 800 MG TAB PO SCH (09:59)
[2017-02-27] MEDS: GABAPENTIN 300 MG CAP PO SCH (10:00)
[2017-02-27] MEDS: HYDROXYCHLOROQUINE SULFATE 200 MG TAB PO SCH (10:00)
[2017-02-27] MEDS: CYCLOBENZAPRINE HCL 10 MG TAB PO SCH (10:00)
[2017-02-27] MEDS: TAMSULOSIN HCL 0.4 MG CAP PO SCH (10:00)
[2017-02-27] MEDS: CITALOPRAM HYDROBROMIDE 20 MG TAB PO SCH (10:01)
[2017-02-27] MEDS: clonazePAM 1 MG TAB PO PRN (10:01)
[2017-02-27] MEDS: azaTHIOprine 50 MG TAB PO SCH (10:01)
[2017-02-27] MEDS: MISOPROSTOL 100 MCG TAB PO SCH (10:03)
== END 2017-02-27 12:00 | disposition home or self-care (01) ==
LOC: PHED 15:50 → PHEDA 18:03 → PH3B 20:19
PROVIDERS: ADMIT Internal Medicine; ATTEND Internal Medicine
DX: M06.9 Rheumatoid arthritis, unspecified (principal); M32.9 Systemic lupus erythematosus, unspecified; I77.6 Arteritis, unspecified; D72.829 Elevated white blood cell count, unspecified; R73.9 Hyperglycemia, unspecified; J45.909 Unspecified asthma, uncomplicated; F41.9 Anxiety disorder, unspecified; F32.9 Major depressive disorder, single episode, unspecified; K21.9 Gastro-esophageal reflux disease without esophagitis; G43.909 Migraine, unspecified, not intractable, without status migrainosus; G40.909 Epilepsy, unspecified, not intractable, without status epilepticus; K85.90 Acute pancreatitis without necrosis or infection, unspecified; M45.9 Ankylosing spondylitis of unspecified sites in spine; G51.0 Bell's palsy; Z85.850 Personal history of malignant neoplasm of thyroid; Z79.51 Long term (current) use of inhaled steroids; Z88.5 Allergy status to narcotic agent; Z91.09 Other allergy status, other than to drugs and biological substances; Z87.19 Personal history of other diseases of the digestive system
CPT/HCPCS: 80048; 80053; 82948; 83690; 85025; 85652; 86038; 86140; 96361; 96372; 96374; 96375; 97162; 99284; G0378; G8987; G8988; J0500; J1170; J2930; J7030; J7500; J7512

== ENCOUNTER 2017-03-18 16:16 | Emergency (ER) | payer BC ==
[~2017-03-18] VITALS: Ht 182.9 cm; Wt 120.7 kg
[~2017-03-18 16:16] MED LIST changes: -HYDR-3583 PO; +OXYC1TAB35 PO; -[UNRECOGNIZED DRUG - CODE] IM
[2017-03-18 16:22] VITALS: PULSE 118; RESP 16; TEMP 98; O2SAT 100
[2017-03-18] MEDS ORDERED: SODIUM CHLOR 0.9% 1000 ML INJ 1,000 ML IV SCH (16:49)
[2017-03-18] MEDS ORDERED: PRED5TAB PO (17:00)
[2017-03-18] MEDS ORDERED: HYDROmorphone HCL PF 1 MG/ML VIAL IVS ONE (17:00)
[2017-03-18] MEDS ORDERED: SODIUM CHLORIDE 0.9% FLUSH 10 ML FLUSH IV FLUSH PRN (17:00)
[2017-03-18] MEDS ORDERED: ONDANSETRON HCL 4 MG/2 ML VIAL IVP ONE (17:00)
[2017-03-18] MEDS ORDERED: TRAM50TA PO (17:02)
[2017-03-18] MEDS ORDERED: TYLETAB34 PO (17:02)
[2017-03-18 17:11] VITALS: BP 140/101; PULSE 104; RESP 16; O2SAT 100
[2017-03-18] MEDS ORDERED: IOHEXOL 350 MG/ML 10 ML VIAL (for RAD DIAG) IV ONE (17:18)
[2017-03-18 17:23] LABS: AUTOMATED NEUTROPHIL # 6.4 TH/MM3 (1.8-7.7); BASOPHIL % 0.5 % (0.0-2.0); EOSINOPHIL # 0.2 TH/MM3 (0-0.4); EOSINOPHIL % 2.9 % (0.0-4.0); HEMO FLAGS DIFF FINAL; LYMPH % 16.7 % (9.0-44.0); LYMPHOCYTE # 1.4 TH/MM3 (1.0-4.8); MEAN CELL VOLUME 85.9 FL (80.0-100.0); MEAN CORPUSCULAR HEMOGLOBIN 29.5 PG (27.0-34.0); MEAN CORPUSCULAR HGB CONC 34.3 % (32.0-36.0); MONO % 3.6 % (0.0-8.0); NEUT % 76.3 % (16.0-70.0); PLATELET COUNT 206 TH/MM3 (150-450); RED BLOOD COUNT 4.77 MIL/MM3 (4.50-5.90); RED CELL DISTRIBUTION WIDTH 12.7 % (11.6-17.2); WHITE BLOOD COUNT 8.3 TH/MM3 (4.0-11.0)
[2017-03-18 17:40] LABS: CHLORIDE 107 MEQ/L (98-107); POTASSIUM 3.7 MEQ/L (3.5-5.1); SODIUM (NA) 143 MEQ/L (136-145)
[2017-03-18 17:44] LABS: ANION GAP 7 MEQ/L (5-15); BICARBONATE 28.7 MEQ/L (21.0-32.0); BLOOD UREA NITROGEN 11 MG/DL (7-18)
[2017-03-18 17:47] LABS: ALT (GPT) 23 U/L (12-78); AST (GOT) 14 U/L (15-37); GLOMERULAR FILTRATION RATE 97 ML/MIN (>89)
[2017-03-18 17:48] LABS: TOTAL BILIRUBIN ADULT 0.3 MG/DL (0.2-1.0)
[2017-03-18 17:50] LABS: ALKALINE PHOSPHATASE 52 U/L (45-117)
--- NOTE | 2017-03-18 17:50 | PD ---
HPI Chief Complaint: GI Complaint Time Seen by Provider: 16:29 Travel History International Travel<30 days: No Contact w/Intl Traveler<30days: No Traveled to known affect area: No History of Present Illness HPI This is a 36-year-old male who was a history of multiple autoimmune disorders including lupus, rheumatoid arthritis, Crohn's disease and vasculitis who presents to the emergency department with left-sided abdominal pain, moderate severity, constant for over a week, associated with loose stools. He says he's had about 20 watery stools today. He denies any blood in his stool. He denies any fevers or chills. He says this feels similar to when he said Crohn's flares in the past. He recently was hospitalized in the setting of a lupus flare during which she had joint pains and a malar rash. He was on high dose steroids at that time. He's been tapered down and currently he is taking 5 mg of prednisone per day. He follows with Dr. Bansal who saw him a week ago in the setting of his abdominal discomfort and ordered a plain film of the abdomen which was reassuring. At that time he put him on ciprofloxacin, Flagyl and Lortab the patient's symptoms are only getting worse. PFSH Past Medical History Hx Anticoagulant Therapy: No Arthritis: Yes (Rheumatoid Arthritis) Asthma: No Autoimmune Disease: Yes (lupus, RA, crohns disease, Vasculitis) Blood Disorders: No Anxiety: Yes Depression: Yes Heart Rhythm Problems: No Cancer: Yes (thyroid , used radioactive iodine) Cardiovascular Problems: No High Cholesterol: No Chemotherapy: Yes (Imuran) Chest Pain: No Congestive Heart Failure: No COPD: No Cerebrovascular Accident: No Diabetes: No Diminished Hearing: No Endocrine: Yes Gastrointestinal Disorders: Yes (Chrohn's) GERD: No Genitourinary: No Headaches: Yes Hiatal Hernia: No Immune Disorder: Yes Implanted Vascular Access Dvce: No Kidney Stones: No Musculoskeletal: No Neurologic: No Psychiatric: No Reproductive: No Respiratory: No Immunizations Current: Yes Migraines: Yes Pancreatitis: Yes Radiation Therapy: No Renal Failure: No Seizures: Yes Sickle Cell Disease: No Sleep Apnea: No Thyroid Disease: Yes Ulcer: Yes PNEUMOCCOCAL Vaccine (Year): 1 Past Surgical History Abdominal Surgery: No AICD: No Arteriovenous Shunt: No Cardiac Surgery: No Ear Surgery: No Endocrine Surgery: No Eye Surgery: No Genitourinary Surgery: No Gynecologic Surgery: No Hysterectomy: No Insulin Pump: No Joint Replacement: No Neurologic Surgery: No Oral Surgery: No Pacemaker: No Thoracic Surgery: No Other Surgery: Yes (Left hand surgery Aug 2016) Social History Alcohol Use: No Tobacco Use: No Substance Use: No Allergies-Medications (Allergen,Severity, Reaction): Coded Allergies: Cat Dander (Verified Allergy, Mild, Cough, 03/18/17) Morphine (Verified Allergy, Mild, Rash, 03/18/17) Reported Meds & Prescriptions Reported Meds & Active Scripts Active Reported Tramadol (Tramadol HCl) 50 Mg Tab 50 Mg PO Q6H PRN Tylenol-Codeine #3 (Acetaminophen-Codeine) 300-30 mg Tab 1 Tab PO Q4H PRN Prednisone 5 Mg Tab 5 Mg PO DAILY Pantoprazole (Pantoprazole Sodium) 40 Mg Tab 40 Mg PO DAILY Metaxalone 800 Mg Tab 800 Mg PO TID Flexeril (Cyclobenzaprine HCl) 10 Mg Tab 10 Mg PO BID Diclofenac-Misoprostol 75-0.2 Mg Tab 1 Tab PO BID Humira 2-Pack Inj (Adalimumab 2-Pack Inj) 40 Mg/0.8 Ml Syr 40 Mg SQ Q14D Dilantin (Phenytoin Extended) 100 Mg Cap 300 Mg PO HS Amitriptyline (Amitriptyline HCl) 50 Mg Tab 50 Mg PO HS Dsxyvaphim-Dpafznb-Aawuigzq 50-325-40 Mg Cap 1 Cap PO Q6HR PRN Do not exceed 6 capsules/day. Cialis (Tadalafil) 5 Mg Tab 5 Mg PO DAILY Do not exceed 1 dose/day. Ondansetron (Ondansetron HCl) 8 Mg Tab 8 Mg PO Q8HR PRN Amitriptyline (Amitriptyline HCl) 25 Mg Tab 25 Mg PO AM Clonazepam 2 Mg Tab 2 Mg PO BID Pilocarpine 5 Mg Tab 5 Mg PO TID PRN Citalopram (Citalopram Hydrobromide) 20 Mg Tab 20 Mg PO DAILY Imuran (Azathioprine) 50 Mg Tab 100 Mg PO BID Hazardous agent: use appropriate precautions for handling and disposal. Levothyroxine (Levothyroxine Sodium) 112 Mcg Tab 112 Mcg PO DAILY Flomax (Tamsulosin HCl) 0.4 Mg Cap 0.4 Mg PO BID Gabapentin 300 Mg Cap 600 Mg PO TID Hydroxychloroquine (Hydroxychloroquine Sulfate) 200 Mg Tab 200 Mg PO DAILY Take with food Review of Systems Except as stated in HPI: all other systems reviewed are Neg Physical Exam Narrative GENERAL:Well appearing, no acute distress SKIN: Focused skin assessment warm and dry. HEAD: Atraumatic. Normocephalic. EYES: Pupils equal and round. No injection or drainage. ENT: Moist mucous membranes NECK: Trachea midline. CARDIOVASCULAR: Regular rate and rhythm. No murmur appreciated. RESPIRATORY: Clear to auscultation. Breath sounds equal bilaterally. GASTROINTESTINAL: Abdomen soft, tender to palpation in the left upper quadrant and left lower quadrants with no rebound or guarding. MUSCULOSKELETAL: No obvious deformities. NEUROLOGICAL: Awake and alert. No obvious cranial nerve deficits. Moving all extremities. PSYCHIATRIC: Appropriate mood and affect; insight and judgment normal. Data Data Last Documented VS Vital Signs Date Time Temp Pulse Resp B/P Pulse Ox O2 Delivery O2 Flow Rate FiO2 03/18/17 17:56 105 16 136/100 97 Room Air 03/18/17 16:22 98.0 Orders Complete Blood Count With Diff (03/18/17 16:49) Comprehensive Metabolic Panel (03/18/17 16:49) Lipase (03/18/17 16:49) Urinalysis - C+S If Indicated (03/18/17 16:49) Ct Abd/Pel W Iv Contrast(Rout) (03/18/17 16:49) Iv Access Insert/Monitor (03/18/17 16:49) Ecg Monitoring (03/18/17 16:49) Oximetry (03/18/17 16:49) Ondansetron Inj (Zofran Inj) (03/18/17 17:00) Sodium Chlor 0.9% 1000 Ml Inj (Ns 1000 M (03/18/17 16:49) Sodium Chloride 0.9% Flush (Ns Flush) (03/18/17 17:00) Hydromorphone Pf Inj (Dilaudid Pf Inj) (03/18/17 17:00) Iohexol 350 Inj (Omnipaque 350 Inj) (03/18/17 17:18) Methylprednisolone So Succ Inj (Solumedr (03/18/17 18:00) Labs Laboratory Tests Test 03/18/17 17:05 White Blood Count 8.3 TH/MM3 Red Blood Count 4.77 MIL/MM3 Hemoglobin 14.1 GM/DL Hematocrit 41.0 % Mean Corpuscular Volume 85.9 FL Mean Corpuscular Hemoglobin 29.5 PG Mean Corpuscular Hemoglobin 34.3 % Concent Red Cell Distribution Width 12.7 % Platelet Count 206 TH/MM3 Mean Platelet Volume 7.7 FL Neutrophils (%) (Auto) 76.3 % Lymphocytes (%) (Auto) 16.7 % Monocytes (%) (Auto) 3.6 % Eosinophils (%) (Auto) 2.9 % Basophils (%) (Auto) 0.5 % Neutrophils # (Auto) 6.4 TH/MM3 Lymphocytes # (Auto) 1.4 TH/MM3 Monocytes # (Auto) 0.3 TH/MM3 Eosinophils # (Auto) 0.2 TH/MM3 Basophils # (Auto) 0.0 TH/MM3 CBC Comment DIFF FINAL Differential Comment Sodium Level 143 MEQ/L Potassium Level 3.7 MEQ/L Chloride Level 107 MEQ/L Carbon Dioxide Level 28.7 MEQ/L Anion Gap 7 MEQ/L Blood Urea Nitrogen 11 MG/DL Creatinine 0.88 MG/DL Estimat Glomerular Filtration 97 ML/MIN Rate Random Glucose 103 MG/DL Calcium Level 8.1 MG/DL Total Bilirubin 0.3 MG/DL Aspartate Amino Transf 14 U/L (AST/SGOT) Alanine Aminotransferase 23 U/L (ALT/SGPT) Alkaline Phosphatase 52 U/L Total Protein 7.0 GM/DL Albumin 3.7 GM/DL Lipase 131 U/L MDM Medical Decision Making Medical Screen Exam Complete: Yes Emergency Medical Condition: Yes Medical Record Reviewed: Yes (patient has a history of multiple autoimmune conditions including SLE, rheumatoid arthritis, vasculitis and Crohn's disease. He was recently admitted to the hospital in the setting of a lupus flare and was on high-dose steroids) Interpretation(s) Tachycardic, afebrile No leukocytosis Electrolytes are reassuring Lipase is normal Last 24 hours Impressions Abdomen/Pelvis CT 03/18/17 0128 Signed Impressions: Service Date/Time: Saturday, March 18, 2017 17:08 - CONCLUSION: Tiny fat-containing umbilical hernia. Occasional colonic diverticula. No acute CT findings Trevor Galvan MD Differential Diagnosis Crohn's flare, abscess, fistula, bowel obstruction, colitis Narrative Course This is a 36-year-old male who presents to the emergency department with a complicated medical history reporting that he has left-sided abdominal pain which is been persistent despite completing treatment with ciprofloxacin, Flagyl and supplemental opiates. He follows with Dr. Bansal who seems to know him well. He had an abdominal x-ray performed earlier this week which was reassuring. He was sent here today because his symptoms are persistent despite outpatient treatment. He was placed on a monitor and an IV was established. Labs are obtained which are all reassuring. We discussed risks versus benefits of CT imaging as he rarely has acute findings however given his refractory symptoms despite treatment, we elected to pursue imaging to ensure he doesn't have a complication of Crohn's disease. CT imaging was reassuring. I suggested patient follow-up with Dr. Bansal tomorrow morning and see if Dr. Bansal wants to put him on pulse steroids. He was given a dose of same at all here in the emergency Department. Otherwise I don't think he meets criteria for admission. Patient will be discharged home. Diagnosis Primary Impression: Chronic abdominal pain Patient Instructions: General Instructions Additional Instructions: If you develop severe or worsening abdominal pain, fever>100.4, persistent vomiting or inability to eat or drink return to the emergency department immediately. Follow up with your primary care physician in 1-2 days for a check-up. Med/Other Pt SpecificInfo: No Change to Meds Disposition: 01 DISCHARGE HOME Condition: Stable Anne Krause MD March 18, 2017 17:50
[2017-03-18 17:56] VITALS: BP 136/100; PULSE 105; RESP 16; O2SAT 97
--- NOTE | 2017-03-18 17:58 | RADHPO ---
EXAM DATE/TIME: 03/18/2017 17:08 [facility] COMPARISON: No previous studies available for comparison. INDICATIONS : Left side abdomen pain with nausea, vomiting, and diarrhea. IV CONTRAST: 100 cc Omnipaque 350 (iohexol) IV ORAL CONTRAST: No oral contrast ingested. RADIATION DOSE: 20.60 CTDIvol (mGy) MEDICAL HISTORY : Crohn's disease. Pancreatitis. Rheumatoid arthritis.Lupus. SURGICAL HISTORY : None. ENCOUNTER: Initial ACUITY: 4 - 6 days PAIN SCALE: 8/10 LOCATION: Left abdomen TECHNIQUE: Volumetric scanning of the abdomen and pelvis was performed. Using automated exposure control and ad justment of the mA and/or kV according to patient size, radiation dose was kept as low as reasonably achievable to obtain optimal diagnostic quality images. FINDINGS: LOWER LUNGS: The visualized lower lungs are clear. LIVER: Homogeneous density without lesion. There is no dilation of the biliary tree. No calcified gallston es. SPLEEN: Normal size without lesion. PANCREAS: Within normal limits. KIDNEYS: Normal in size and shape. There is no mass, stone or hydronephrosis. ADRENAL GLANDS: Within normal limits. VASCULAR: There is no aortic aneurysm. BOWEL/MESENTERY: Occasional distal colonic diverticula. No evidence of abnormal dilatation, wall thickening or focal i nflammatory changes. ABDOMINAL WALL: Small fat containing umbilical hernia without evidence of incarceration. RETROPERITONEUM: There is no lymphadenopathy. BLADDER: No wall thickening or mass. REPRODUCTIVE: Within normal limits. INGUINAL: There is no lymphadenopathy or hernia. MUSCULOSKELETAL: Within normal limits for patient age. CONCLUSION: Tiny fat-containing umbilical hernia. Occasional colonic diverticula. No acute CT findings Trevor Galvan MD on March 18, 2017 at 17:52 Board Certified Radiologist. This report was verified electronically.
[2017-03-18] MEDS ORDERED: methylPREDNISolone SOD SUCC 125 MG/2 ML VIAL IV PUSH ONE (18:00)
== END 2017-03-18 18:37 | disposition home or self-care (01) ==
LOC: PHED 16:16
DX: R10.9 Unspecified abdominal pain (principal); G89.29 Other chronic pain; K50.90 Crohn's disease, unspecified, without complications; M32.9 Systemic lupus erythematosus, unspecified; E07.9 Disorder of thyroid, unspecified
CPT/HCPCS: 74177; 80053; 83690; 85025; 96361; 96374; 96375; 99284; J1170; J2405; J2930; J7030; Q9967

== ENCOUNTER 2017-04-12 18:09 | Emergency (ER) | payer BC ==
[~2017-04-12] VITALS: Ht 182.9 cm; Wt 103.0 kg
[2017-04-12] VITALS (8 sets, daily range): BP systolic 108–174; BP diastolic 77–102; PULSE 88–112; RESP 18; TEMP 97.9–98.3; O2SAT 97–100
[~2017-04-12 18:09] MED LIST changes: -BUDE9TAB PO; -OXYC1TAB35 PO; -PERC7.5T13 PO; -PRED20 PO; -PRED50 PO; +PRED5TAB PO; +TRAM50TA PO; +TYLETAB34 PO
[2017-04-12] MEDS ORDERED: GABA600T PO (18:37)
[2017-04-12] MEDS ORDERED: PROT40TA PO (18:37)
[2017-04-12] MEDS ORDERED: PRED50 PO (18:37)
[2017-04-12] MEDS ORDERED: FOLI400T PO (18:49)
[2017-04-12] MEDS ORDERED: METH2.5T PO (18:49)
[2017-04-12] MEDS ORDERED: SODIUM CHLOR 0.9% 1000 ML INJ 1,000 ML IV SCH ×2 (19:14→21:00)
[2017-04-12] MEDS ORDERED: ONDANSETRON HCL 4 MG/2 ML VIAL IVP ONE (19:15)
[2017-04-12] MEDS ORDERED: HYDROmorphone HCL PF 1 MG/ML VIAL IVS ONE (19:15)
[2017-04-12] MEDS ORDERED: SODIUM CHLORIDE 0.9% FLUSH 10 ML FLUSH IV FLUSH PRN (19:15)
--- NOTE | 2017-04-12 19:21 | PD ---
HPI Chief Complaint: GI Complaint Time Seen by Provider: 19:14 Travel History International Travel<30 days: No Contact w/Intl Traveler<30days: No Traveled to known affect area: No History of Present Illness HPI The patient is a 37-year-old male who comes in complaining of left upper quadrant pain and bleeding from his mouth. The patient has had this pain in the abdomen for approximately 10 years. He has lupus, ankylosing spondylitis and Crohn's disease. He has been worked up extensively by [facility] and is currently seeing the [facility] for his abdominal pain. He states he has had "too many" CAT scans. The bleeding from the mouth has been going on for years as well, it is from the gums. Both the abdominal pain and bleeding of the mouth of increased in this way came in today. He is a patient of Dr. Dobbins. He states he may want to go to [place] to be seen for this. He states he is nauseated but not vomiting today, he states he took his Zofran before that happens. PFSH Past Medical History Hx Anticoagulant Therapy: No Arthritis: Yes (Rheumatoid Arthritis) Asthma: No Autoimmune Disease: Yes (lupus, RA, crohns disease, Vasculitis) Blood Disorders: No Anxiety: Yes Depression: Yes Heart Rhythm Problems: No Cancer: Yes (thyroid , used radioactive iodine) Cardiovascular Problems: No High Cholesterol: No Chemotherapy: Yes (Imuran) Chest Pain: No Congestive Heart Failure: No COPD: No Cerebrovascular Accident: No Diabetes: No Diminished Hearing: No Endocrine: Yes Gastrointestinal Disorders: Yes (Chrohn's) GERD: No Genitourinary: No Headaches: Yes Hiatal Hernia: No Hypertension: No (WHEN IN PAIN ONLY) Immune Disorder: Yes Implanted Vascular Access Dvce: No Kidney Stones: No Musculoskeletal: No Neurologic: No Psychiatric: No Reproductive: No Respiratory: No Immunizations Current: Yes Migraines: Yes Pancreatitis: Yes Radiation Therapy: No Renal Failure: No Seizures: Yes Sickle Cell Disease: No Sleep Apnea: No Thyroid Disease: Yes Ulcer: Yes PNEUMOCCOCAL Vaccine (Year): 1 Past Surgical History Abdominal Surgery: No AICD: No Arteriovenous Shunt: No Cardiac Surgery: No Ear Surgery: No Endocrine Surgery: No Eye Surgery: No Genitourinary Surgery: No Gynecologic Surgery: No Hysterectomy: No Insulin Pump: No Joint Replacement: No Neurologic Surgery: No Oral Surgery: No Pacemaker: No Thoracic Surgery: No Other Surgery: Yes (Left hand surgery Aug 2016) Social History Alcohol Use: No Tobacco Use: No Substance Use: No Allergies-Medications (Allergen,Severity, Reaction): Coded Allergies: Cat Dander (Verified Allergy, Mild, Cough, 04/12/17) Morphine (Verified Allergy, Mild, Rash, 04/12/17) Reported Meds & Prescriptions Reported Meds & Active Scripts Active Reported Folic Acid 400 Mcg Tab Unknown Dose PO DAILY Methotrexate 2.5 Mg Tab 4 Tab PO Q7D Prednisone 50 Mg Tab 50 Mg PO DIRECTED TAPER DOSE Gabapentin 600 Mg Tab 600 Mg PO TID Protonix (Pantoprazole Sodium) 40 Mg Tab 40 Mg PO AC LUNCH Tramadol (Tramadol HCl) 50 Mg Tab 50 Mg PO Q6H PRN Tylenol-Codeine #3 (Acetaminophen-Codeine) 300-30 mg Tab 1 Tab PO Q4H PRN Prednisone 5 Mg Tab 5 Mg PO DAILY Metaxalone 800 Mg Tab 800 Mg PO TID Flexeril (Cyclobenzaprine HCl) 10 Mg Tab 10 Mg PO BID Diclofenac-Misoprostol 75-0.2 Mg Tab 1 Tab PO BID Humira 2-Pack Inj (Adalimumab 2-Pack Inj) 40 Mg/0.8 Ml Syr 40 Mg SQ Q14D Dilantin (Phenytoin Extended) 100 Mg Cap 300 Mg PO HS Amitriptyline (Amitriptyline HCl) 50 Mg Tab 50 Mg PO HS Exuazihkhs-Btbkgwi-Cxmhfngi 50-325-40 Mg Cap 1 Cap PO Q6HR PRN Do not exceed 6 capsules/day. Cialis (Tadalafil) 5 Mg Tab 5 Mg PO DAILY Do not exceed 1 dose/day. Ondansetron (Ondansetron HCl) 8 Mg Tab 8 Mg PO Q8HR PRN Amitriptyline (Amitriptyline HCl) 25 Mg Tab 25 Mg PO HS Clonazepam 2 Mg Tab 2 Mg PO BID Pilocarpine 5 Mg Tab 5 Mg PO TID PRN Citalopram (Citalopram Hydrobromide) 20 Mg Tab 20 Mg PO DAILY Imuran (Azathioprine) 50 Mg Tab 100 Mg PO BID Hazardous agent: use appropriate precautions for handling and disposal. Levothyroxine (Levothyroxine Sodium) 112 Mcg Tab 112 Mcg PO DAILY Flomax (Tamsulosin HCl) 0.4 Mg Cap 0.4 Mg PO BID Hydroxychloroquine (Hydroxychloroquine Sulfate) 200 Mg Tab 200 Mg PO DAILY Take with food Review of Systems Except as stated in HPI: all other systems reviewed are Neg Physical Exam Narrative GENERAL: The patient is alert, oriented 3 in moderate apparent distress with his abdominal pain. He appears to be moderately dehydrated. His vital signs show pulse rate of 112 with blood pressure 136/102 but are otherwise normal. SKIN: Focused skin assessment warm/dry. HEAD: Atraumatic. Normocephalic. EYES: Pupils equal and round. No scleral icterus. No injection or drainage. ENT: No nasal bleeding or discharge. Mucous membranes pink and moist. There is bleeding from the gums. NECK: Trachea midline. No JVD. CARDIOVASCULAR: Regular rate and rhythm. No murmur appreciated. RESPIRATORY: No accessory muscle use. Clear to auscultation. Breath sounds equal bilaterally. GASTROINTESTINAL: Abdomen soft, with tenderness to direct palpation in the left upper quadrant, nondistended. Hepatic and splenic margins not palpable. No guarding or rebound is present. MUSCULOSKELETAL: No obvious deformities. No clubbing. No cyanosis. No edema. NEUROLOGICAL: Awake and alert. No obvious cranial nerve deficits. Motor grossly within normal limits. Normal speech. PSYCHIATRIC: Appropriate mood and affect; insight and judgment normal. Data Data Last Documented VS Vital Signs Date Time Temp Pulse Resp B/P Pulse Ox O2 Delivery O2 Flow Rate FiO2 04/12/17 22:51 92 18 108/77 99 Room Air 04/12/17 18:17 98.3 Orders Complete Blood Count With Diff (04/12/17 19:14) Comprehensive Metabolic Panel (04/12/17 19:14) Lipase (04/12/17 19:14) Urinalysis - C+S If Indicated (04/12/17 19:14) Iv Access Insert/Monitor (04/12/17 19:14) Ecg Monitoring (04/12/17 19:14) Oximetry (04/12/17 19:14) Ondansetron Inj (Zofran Inj) (04/12/17 19:15) Sodium Chlor 0.9% 1000 Ml Inj (Ns 1000 M (04/12/17 19:14) Sodium Chloride 0.9% Flush (Ns Flush) (04/12/17 19:15) Hydromorphone Pf Inj (Dilaudid Pf Inj) (04/12/17 19:15) Prothrombin Time / Inr (Pt) (04/12/17 20:47) Act Partial Throm Time (Ptt) (04/12/17 20:47) Sodium Chlor 0.9% 1000 Ml Inj (Ns 1000 M (04/12/17 21:00) Mri Abdomen W&W/O Contrast (04/12/17 ) Lorazepam Inj (Ativan Inj) (04/12/17 22:00) Gadodiamide Pf Inj (Omniscan Pf Inj) (04/12/17 22:43) Labs Laboratory Tests Test 04/12/17 04/12/17 19:20 21:04 White Blood Count 10.0 TH/MM3 Red Blood Count 4.07 MIL/MM3 Hemoglobin 11.9 GM/DL Hematocrit 35.5 % Mean Corpuscular Volume 87.1 FL Mean Corpuscular Hemoglobin 29.2 PG Mean Corpuscular Hemoglobin 33.5 % Concent Red Cell Distribution Width 14.9 % Platelet Count 190 TH/MM3 Mean Platelet Volume 7.7 FL Neutrophils (%) (Auto) 60.5 % Lymphocytes (%) (Auto) 32.2 % Monocytes (%) (Auto) 5.8 % Eosinophils (%) (Auto) 1.3 % Basophils (%) (Auto) 0.2 % Neutrophils # (Auto) 6.1 TH/MM3 Lymphocytes # (Auto) 3.2 TH/MM3 Monocytes # (Auto) 0.6 TH/MM3 Eosinophils # (Auto) 0.1 TH/MM3 Basophils # (Auto) 0.0 TH/MM3 CBC Comment DIFF FINAL Differential Comment Urine Color YELLOW Urine Turbidity CLEAR Urine pH 5.5 Urine Specific [place] 1.025 Urine Protein NEG mg/dL Urine Glucose (UA) NEG mg/dL Urine Ketones NEG mg/dL Urine Occult Blood NEG Urine Nitrite NEG Urine Bilirubin NEG Urine Leukocyte Esterase NEG Urine Squamous Epithelial 0-5 /hpf Cells Urine Mucus OCC /lpf Microscopic Urinalysis Comment CULT NOT INDICATED Sodium Level 144 MEQ/L Potassium Level 3.6 MEQ/L Chloride Level 109 MEQ/L Carbon Dioxide Level 26.8 MEQ/L Anion Gap 8 MEQ/L Blood Urea Nitrogen 26 MG/DL Creatinine 0.91 MG/DL Estimat Glomerular Filtration 93 ML/MIN Rate Random Glucose 97 MG/DL Calcium Level 8.5 MG/DL Total Bilirubin 0.5 MG/DL Aspartate Amino Transf 14 U/L (AST/SGOT) Alanine Aminotransferase 20 U/L (ALT/SGPT) Alkaline Phosphatase 50 U/L Total Protein 6.5 GM/DL Albumin 3.9 GM/DL Lipase 265 U/L Prothrombin Time 11.4 SEC Prothromb Time International 1.0 RATIO Ratio Activated Partial 23.6 SEC Thromboplast Time MDM Medical Decision Making Medical Screen Exam Complete: Yes Emergency Medical Condition: Yes Medical Record Reviewed: Yes Interpretation(s) The urine is normal. The CBC shows a hemoglobin of 11.9 and hematocrit of 35.5 but is otherwise unremarkable. The complete metabolic profile shows a BUN of 26 but is otherwise normal. The lipase is normal. The MRI shows no acute intra -abdominal process. There is scattered uncomplicated colonic diverticulosis and a tiny umbilical hernia containing only fat. Differential Diagnosis Anemia, intractable abdominal pain, colitis, exacerbation of Crohn's disease, platelet abnormality, coagulopathy Narrative Course The patient has abdominal pain etiology undetermined. He also has bleeding from his gums. It is now 11:12 PM and the gum bleeding has subsided considerably. Plan: The patient will follow-up with Dr. Bansal on Thursday. He is given Percocet 5/325 #15 tablets. He states he has plenty of Zofran at home. Diagnosis Primary Impression: Abdominal pain of unknown etiology Additional Impression: Bleeding gums Additional Instructions: As we discussed, follow-up with Dr. Bansal on Thursday. Med/Other Pt SpecificInfo: Prescription(s) given Scripts Oxycodone-Acetaminophen (Percocet)5-325 mg Tab1 Tab PO Q4H PRN (PAIN) #15 TAB Ref 0 Prov:Ward Peter MD 04/12/17 Disposition: 01 DISCHARGE HOME Condition: Stable Ward Peter MD April 12, 2017 19:21
[2017-04-12 19:42] LABS: AUTOMATED NEUTROPHIL # 6.1 TH/MM3 (1.8-7.7); BASOPHIL % 0.2 % (0.0-2.0); BLOOD, URINE NEG (NEG); EOSINOPHIL # 0.1 TH/MM3 (0-0.4); EOSINOPHIL % 1.3 % (0.0-4.0); GLUCOSE,URINE NEG (NEG); HEMATOCRIT 35.5 % (39.0-51.0); HEMO FLAGS DIFF FINAL; KETONE, URINE NEG (NEG); LYMPH % 32.2 % (9.0-44.0); LYMPHOCYTE # 3.2 TH/MM3 (1.0-4.8); MEAN CELL VOLUME 87.1 FL (80.0-100.0); MEAN CORPUSCULAR HEMOGLOBIN 29.2 PG (27.0-34.0); MEAN CORPUSCULAR HGB CONC 33.5 % (32.0-36.0); MONO % 5.8 % (0.0-8.0); NEUT % 60.5 % (16.0-70.0); NITRITE,URINE NEG (NEG); PH, URINE 5.5 (5.0-8.5); PLATELET COUNT 190 TH/MM3 (150-450); RED BLOOD COUNT 4.07 MIL/MM3 (4.50-5.90); RED CELL DISTRIBUTION WIDTH 14.9 % (11.6-17.2)
[2017-04-12 19:52] LABS: CHLORIDE 109 MEQ/L (98-107); POTASSIUM 3.6 MEQ/L (3.5-5.1); SODIUM (NA) 144 MEQ/L (136-145)
[2017-04-12 19:56] LABS: ANION GAP 8 MEQ/L (5-15); BICARBONATE 26.8 MEQ/L (21.0-32.0); BLOOD UREA NITROGEN 26 MG/DL (7-18)
[2017-04-12 19:58] LABS: ALT (GPT) 20 U/L (12-78); AST (GOT) 14 U/L (15-37)
[2017-04-12 19:59] LABS: GLOMERULAR FILTRATION RATE 93 ML/MIN (>89)
[2017-04-12 20:00] LABS: TOTAL BILIRUBIN ADULT 0.5 MG/DL (0.2-1.0)
[2017-04-12 20:01] LABS: ALKALINE PHOSPHATASE 50 U/L (45-117)
[2017-04-12 20:14] LABS: MUCUS URINE OCC /lpf (OCC); SQUAMOUS EPITHELIAL CELL URINE 0-5 /hpf (0-5); URINE COLOR YELLOW (YELLW/STRAW)
[2017-04-12 20:16] LABS: COMMENT (UR) CULT NOT INDICATED; CULTURE IF INDICATED CULT NOT INDICATED
[2017-04-12 21:31] LABS: APTT (PATIENT) 23.6 SEC (24.3-30.1); PROTHROMBIN TIME - PATIENT 11.4 SEC (9.8-11.6)
[2017-04-12] MEDS ORDERED: LORazepam 2 MG/ML VIAL IV PUSH ONE (22:00)
[2017-04-12] MEDS ORDERED: GADODIAMIDE PF 287 MG/ML 20 ML VIAL (for RAD MRI) IV ONE (22:43)
--- NOTE | 2017-04-12 22:52 | RADHPO ---
EXAM DATE/TIME: 04/12/2017 22:13 [facility] COMPARISON: CT ABDOMEN & PELVIS W CONTRAST, March 18, 2017, 17:08. INDICATIONS : Abdominal pain. Left upper quadrant pain. Vomiting blood. Blood in stool. CONTRAST: 20 cc Omniscan (gadodiamide) IV MEDICAL HISTORY : Hyperthyroidism. Crohn's disease. Lupus. SURGICAL HISTORY : Orthopedic. ENCOUNTER: [facility] ACUITY: > 1 year PAIN SCORE: 4/10 LOCATION: Left upper quadrant TECHNIQUE: Multiplanar, multisequence magnetic resonance imaging of the abdomen was performed without and with i ntravenous contrast. FINDINGS: LIVER: Normal size with normal signal intensity. No lesion is identified. Portal vein is within normal limi ts. BILIARY: There is no intra- or extra-hepatic biliary ductal dilatation. Gallbladder contains no stones. SPLEEN: Within normal limits. PANCREAS: Within normal limits. ADRENALS: Within normal limits. KIDNEYS: Normal size and signal intensity. There is no hydronephrosis or mass. OTHER: Aorta is nonaneurysmal. There is no lymphadenopathy. Tiny umbilical hernia containing only fat is not ed. Scattered uncomplicated colonic diverticula are noted. CONCLUSION: 1. No acute intra-abdominal process. 2. Scattered uncomplicated colonic diverticulosis. 3. Tiny umbilical hernia containing only fat. Sanjiv Caceres MD on April 12, 2017 at 22:47 Board Certified Radiologist. This report was verified electronically.
[2017-04-12] MEDS ORDERED: PERC5TAB12 PO (23:13)
[2017-04-12] MEDS ORDERED: HYDROmorphone HCL PF 1 MG/ML VIAL IVP ONE (23:15)
[2017-04-12] MEDS ORDERED: ONDANSETRON HCL 4 MG/2 ML VIAL IV ONE (23:15)
== END 2017-04-13 00:09 | disposition home or self-care (01) ==
LOC: PHED 18:09
DX: R10.9 Unspecified abdominal pain (principal); K06.8 Other specified disorders of gingiva and edentulous alveolar ridge; M45.9 Ankylosing spondylitis of unspecified sites in spine; M32.9 Systemic lupus erythematosus, unspecified; K50.90 Crohn's disease, unspecified, without complications; M06.9 Rheumatoid arthritis, unspecified; I77.6 Arteritis, unspecified; F41.8 Other specified anxiety disorders; K85.90 Acute pancreatitis without necrosis or infection, unspecified
CPT/HCPCS: 74183; 80053; 81001; 83690; 85025; 85610; 85730; 96361; 96374; 96375; 96376; 99285; A9579; J1170; J2060; J2405; J7030

== ENCOUNTER 2017-04-15 15:27 | Emergency (ER) | payer BC ==
[~2017-04-15 15:27] MED LIST changes: +FOLI400T PO; -GABA300C5 PO; +GABA600T PO; +METH2.5T PO; -PANT40TA3 PO; +PERC5TAB12 PO; +PRED50 PO; +PROT40TA PO
[2017-04-15 15:30] VITALS: BP 137/99; PULSE 123; RESP 16; TEMP 97.8; O2SAT 97
[2017-04-15] MEDS ORDERED: SODIUM CHLOR 0.9% 1000 ML INJ 1,000 ML IV SCH (16:27)
[2017-04-15] MEDS ORDERED: HYDROmorphone HCL PF 2 MG/ML VIAL IVS ONE (16:30)
[2017-04-15] MEDS ORDERED: ONDANSETRON HCL 4 MG/2 ML VIAL IVP ONE (16:30)
[2017-04-15] MEDS ORDERED: ALUMINUM/MAGNESIUM/SIMETH 30 ML CUP PO ONE (16:30)
[2017-04-15] MEDS ORDERED: SODIUM CHLORIDE 0.9% FLUSH 10 ML FLUSH IV FLUSH PRN (16:30)
[2017-04-15] MEDS ORDERED: LIDOCAINE VISCOUS 2% SOLN 15 ML UDC PO ONE (16:30)
[2017-04-15 16:51] LABS: AUTOMATED NEUTROPHIL # 4.9 TH/MM3 (1.8-7.7); BASOPHIL % 0.3 % (0.0-2.0); EOSINOPHIL # 0.2 TH/MM3 (0-0.4); EOSINOPHIL % 2.2 % (0.0-4.0); HEMATOCRIT 35.7 % (39.0-51.0); HEMO FLAGS DIFF FINAL; LYMPH % 27.6 % (9.0-44.0); LYMPHOCYTE # 2.2 TH/MM3 (1.0-4.8); MEAN CORPUSCULAR HEMOGLOBIN 28.8 PG (27.0-34.0); MEAN CORPUSCULAR HGB CONC 32.7 % (32.0-36.0); MONO % 7.7 % (0.0-8.0); NEUT % 62.2 % (16.0-70.0); PLATELET COUNT 189 TH/MM3 (150-450); RED BLOOD COUNT 4.05 MIL/MM3 (4.50-5.90); RED CELL DISTRIBUTION WIDTH 14.2 % (11.6-17.2); WHITE BLOOD COUNT 7.9 TH/MM3 (4.0-11.0)
[2017-04-15 16:57] VITALS: O2SAT 98
[2017-04-15 17:02] LABS: CHLORIDE 107 MEQ/L (98-107); POTASSIUM 3.7 MEQ/L (3.5-5.1); SODIUM (NA) 143 MEQ/L (136-145)
[2017-04-15 17:06] LABS: ANION GAP 8 MEQ/L (5-15); BICARBONATE 28.3 MEQ/L (21.0-32.0)
[2017-04-15 17:19] LABS: ALKALINE PHOSPHATASE 47 U/L (45-117); ALT (GPT) 23 U/L (12-78); AST (GOT) 13 U/L (15-37); BLOOD UREA NITROGEN 12 MG/DL (7-18); GLOMERULAR FILTRATION RATE 100 ML/MIN (>89); TOTAL BILIRUBIN ADULT 0.5 MG/DL (0.2-1.0)
--- NOTE | 2017-04-15 17:23 | PD ---
HPI Chief Complaint: Abdominal Pain Time Seen by Provider: 15:44 Travel History International Travel<30 days: No Contact w/Intl Traveler<30days: No Traveled to known affect area: No History of Present Illness HPI 37-year-old male returns to the ER complaining of today what initially was a sensation of feeling overheated and dizziness after working outside in the hot sun. He walked up a flight of stairs and became pale and diaphoretic. He was also dizzy at that time. His coworkers mandated to come to the ER. He states he ate a normal lunch of mixed fruit, cheese sticks and crackers and water. He states he drinks water on the order of 4 L per day. He is well known to our department suffering with rheumatologic disease presumably lupus although there has been some vague regarding a actual diagnosis. He takes large doses of steroids at 100 mg daily or more. His most recent steroid usage just 2 weeks ago. At the conclusion of the initial exam narrative the patient notes that he has abdominal pain as well. He states it's constant. He states that severe. It's in the region of the right abdomen. He has MRI of the abdomen with and without contrast from 2 days ago which is normal. A CT scan from approx 1 month prior was normal. PFSH Past Medical History Hx Anticoagulant Therapy: No Arthritis: Yes (Rheumatoid Arthritis) Asthma: No Autoimmune Disease: Yes (lupus, RA, crohns disease, Vasculitis) Blood Disorders: No Anxiety: Yes Depression: Yes Heart Rhythm Problems: No Cancer: Yes (thyroid , used radioactive iodine) Cardiovascular Problems: No High Cholesterol: No Chemotherapy: Yes (Imuran) Chest Pain: No Congestive Heart Failure: No COPD: No Cerebrovascular Accident: No Diabetes: No Diminished Hearing: No Endocrine: Yes Gastrointestinal Disorders: Yes (Chrohn's) GERD: No Genitourinary: No Headaches: Yes Hiatal Hernia: No Heparin Induced Thrombocytopen: No Hypertension: No (WHEN IN PAIN ONLY) Immune Disorder: Yes Implanted Vascular Access Dvce: No Kidney Stones: No Musculoskeletal: No Neurologic: No Psychiatric: No Reproductive: No Respiratory: No Immunizations Current: Yes Migraines: Yes Pancreatitis: Yes Radiation Therapy: No Renal Failure: No Seizures: Yes Sickle Cell Disease: No Sleep Apnea: No Thyroid Disease: Yes Ulcer: Yes PNEUMOCCOCAL Vaccine (Year): 1 Past Surgical History Abdominal Surgery: No AICD: No Arteriovenous Shunt: No Cardiac Surgery: No Ear Surgery: No Endocrine Surgery: No Eye Surgery: No Genitourinary Surgery: No Gynecologic Surgery: No Hysterectomy: No Insulin Pump: No Joint Replacement: No Neurologic Surgery: No Oral Surgery: No Pacemaker: No Thoracic Surgery: No Other Surgery: Yes (Left hand surgery Aug 2016) Social History Alcohol Use: No Tobacco Use: No Substance Use: No Allergies-Medications (Allergen,Severity, Reaction): Coded Allergies: Cat Dander (Verified Allergy, Mild, Cough, 04/12/17) Morphine (Verified Allergy, Mild, Rash, 04/12/17) Reported Meds & Prescriptions Reported Meds & Active Scripts Active Percocet (Oxycodone-Acetaminophen) 5-325 mg Tab 1 Tab PO Q4H PRN Reported Folic Acid 400 Mcg Tab Unknown Dose PO DAILY Methotrexate 2.5 Mg Tab 4 Tab PO Q7D Prednisone 50 Mg Tab 50 Mg PO DIRECTED TAPER DOSE Gabapentin 600 Mg Tab 600 Mg PO TID Protonix (Pantoprazole Sodium) 40 Mg Tab 40 Mg PO AC LUNCH Tramadol (Tramadol HCl) 50 Mg Tab 50 Mg PO Q6H PRN Tylenol-Codeine #3 (Acetaminophen-Codeine) 300-30 mg Tab 1 Tab PO Q4H PRN Prednisone 5 Mg Tab 5 Mg PO DAILY Metaxalone 800 Mg Tab 800 Mg PO TID Flexeril (Cyclobenzaprine HCl) 10 Mg Tab 10 Mg PO BID Diclofenac-Misoprostol 75-0.2 Mg Tab 1 Tab PO BID Humira 2-Pack Inj (Adalimumab 2-Pack Inj) 40 Mg/0.8 Ml Syr 40 Mg SQ Q14D Dilantin (Phenytoin Extended) 100 Mg Cap 300 Mg PO HS Amitriptyline (Amitriptyline HCl) 50 Mg Tab 50 Mg PO HS Zvnylhtwoh-Abitoxk-Gzsgdkvo 50-325-40 Mg Cap 1 Cap PO Q6HR PRN Do not exceed 6 capsules/day. Cialis (Tadalafil) 5 Mg Tab 5 Mg PO DAILY Do not exceed 1 dose/day. Ondansetron (Ondansetron HCl) 8 Mg Tab 8 Mg PO Q8HR PRN Amitriptyline (Amitriptyline HCl) 25 Mg Tab 25 Mg PO HS Clonazepam 2 Mg Tab 2 Mg PO BID Pilocarpine 5 Mg Tab 5 Mg PO TID PRN Citalopram (Citalopram Hydrobromide) 20 Mg Tab 20 Mg PO DAILY Imuran (Azathioprine) 50 Mg Tab 100 Mg PO BID Hazardous agent: use appropriate precautions for handling and disposal. Levothyroxine (Levothyroxine Sodium) 112 Mcg Tab 112 Mcg PO DAILY Flomax (Tamsulosin HCl) 0.4 Mg Cap 0.4 Mg PO BID Hydroxychloroquine (Hydroxychloroquine Sulfate) 200 Mg Tab 200 Mg PO DAILY Take with food Review of Systems Except as stated in HPI: all other systems reviewed are Neg General / Constitutional: No: Fever Gastrointestinal: Positive: Abdominal Pain Physical Exam Narrative GENERAL: 37 yo F, WNWD, NAD, speaking full sentences SKIN: Warm and dry. HEAD: Atraumatic. Normocephalic. EYES: Pupils equal and round. No scleral icterus. No injection or drainage. ENT: No nasal bleeding or discharge. Mucous membranes pink and moist. NECK: Trachea midline. No JVD. CARDIOVASCULAR: Tachycardia. Regular. RESPIRATORY: No accessory muscle use. Clear to auscultation. Breath sounds equal bilaterally. GASTROINTESTINAL: Abdomen soft, non-tender, nondistended. Hepatic and splenic margins not palpable. MUSCULOSKELETAL: Extremities without clubbing, cyanosis, or edema. No obvious deformities. NEUROLOGICAL: Awake and alert. No obvious cranial nerve deficits. Motor grossly within normal limits. Five out of 5 muscle strength in the arms and legs. Normal speech. PSYCHIATRIC: Appropriate mood and affect; insight and judgment normal. Data Data Last Documented VS Vital Signs Date Time Temp Pulse Resp B/P Pulse Ox O2 Delivery O2 Flow Rate FiO2 04/15/17 16:57 98 Room Air 04/15/17 15:30 97.8 123 16 137/99 VS reviewed Orders Complete Blood Count With Diff (04/15/17 16:27) Comprehensive Metabolic Panel (04/15/17 16:27) Lipase (04/15/17 16:27) Iv Access Insert/Monitor (04/15/17 16:27) Ecg Monitoring (04/15/17 16:27) Oximetry (04/15/17 16:27) Hydromorphone Pf Inj (Dilaudid Pf Inj) (04/15/17 16:30) Ondansetron Inj (Zofran Inj) (04/15/17 16:30) Sodium Chlor 0.9% 1000 Ml Inj (Ns 1000 M (04/15/17 16:27) Sodium Chloride 0.9% Flush (Ns Flush) (04/15/17 16:30) Electrocardiogram (04/15/17 16:27) Chest, Single Ap (04/15/17 16:27) Al-Mag Hy-Si 40-40-4 Mg/Ml Liq (Mag-Al P (04/15/17 16:30) Lidocaine 2% Viscous (Xylocaine 2% Visco (04/15/17 16:30) Labs Laboratory Tests Test 04/15/17 16:41 White Blood Count 7.9 TH/MM3 Red Blood Count 4.05 MIL/MM3 Hemoglobin 11.7 GM/DL Hematocrit 35.7 % Mean Corpuscular Volume 88.0 FL Mean Corpuscular Hemoglobin 28.8 PG Mean Corpuscular Hemoglobin 32.7 % Concent Red Cell Distribution Width 14.2 % Platelet Count 189 TH/MM3 Mean Platelet Volume 7.5 FL Neutrophils (%) (Auto) 62.2 % Lymphocytes (%) (Auto) 27.6 % Monocytes (%) (Auto) 7.7 % Eosinophils (%) (Auto) 2.2 % Basophils (%) (Auto) 0.3 % Neutrophils # (Auto) 4.9 TH/MM3 Lymphocytes # (Auto) 2.2 TH/MM3 Monocytes # (Auto) 0.6 TH/MM3 Eosinophils # (Auto) 0.2 TH/MM3 Basophils # (Auto) 0.0 TH/MM3 CBC Comment DIFF FINAL Differential Comment Sodium Level 143 MEQ/L Potassium Level 3.7 MEQ/L Chloride Level 107 MEQ/L Carbon Dioxide Level 28.3 MEQ/L Anion Gap 8 MEQ/L Random Glucose 109 MG/DL Calcium Level 8.2 MG/DL Albumin 3.6 GM/DL Lipase 160 U/L MDM Medical Decision Making Medical Screen Exam Complete: Yes Emergency Medical Condition: Yes Medical Record Reviewed: Yes Differential Diagnosis Constipation, Gastritis, Acute Cholecystitis, Biliary Colic, Pancreatitis, BARRIOS , Hepatitis, Bowel Obstruction, Cystitis, Mesenteric Ischemia, AAA, Appendicitis , Renal Stone/Hydronephrosis, GERD, perforated viscous Narrative Course CBC & BMP Diagram 04/15/17 16:41 BUN/Cr 12/0.86 LFTs normal Lipase normal EKG: Sinus rate 103, sinus, normal axis/intervals The patient is resting comfortably and feels better, is alert and in no distress. The patients results and examination findings were discussed. The repeat examination is unremarkable and benign. The history, exam, diagnostic testing, and current condition do not suggest any significant pathology to warrant further testing, continued ED treatment, admission, or surgical evaluation at this point. The vital signs have been stable. The patient does not have uncontrollable pain, intractable vomiting, or other significant symptoms. The patient's condition is stable and appropriate for discharge. The patient will pursue further outpatient evaluation with a primary care physician or other designated or consulting physician as indicated in the discharge instructions. The patient expressed understanding and was agreeable with this plan. Diagnosis Primary Impression: Abdominal pain Qualified Code: R10.84 - Generalized abdominal pain Referrals: DR PAULINO 2 days Pain Management Additional Instructions: You have a choice when it comes to health care, and we are glad that you chose [facility]. Hopefully, we have met your expectations on today's visit. You are welcome to return to [facility] at any time, as we are committed to meeting the health care needs of our community. Med/Other Pt SpecificInfo: No Change to Meds Disposition: 01 DISCHARGE HOME Condition: Stable Shadi Saba MD April 15, 2017 17:23
[2017-04-15 17:45] VITALS: BP 136/72; PULSE 96; RESP 18; O2SAT 98
--- NOTE | 2017-04-15 18:13 | RADHPO ---
EXAM DATE/TIME: 04/15/2017 16:39 [facility] COMPARISON: CHEST SINGLE AP, June 18, 2016, 17:21. INDICATIONS : Syncopal episode today MEDICAL HISTORY : None. SURGICAL HISTORY : None. ENCOUNTER: Initial ACUITY: 1 day PAIN SCORE: Non-responsive. LOCATION: Bilateral chest FINDINGS: Single AP view of the chest. Low lung volumes. The lungs are clear. Cardiomediastinal silhouette with in normal limits. No evidence of pleural effusion or pneumothorax. CONCLUSION: No acute cardiopulmonary disease identified. Bola Florian MD on April 15, 2017 at 18:11 Board Certified Radiologist. This report was verified electronically.
--- NOTE | 2017-04-16 07:54 | EKG ---
Date Performed: 04/15/2017 Time Performed: 16:41:22 PTAGE: 37 years EKG: Sinus tachycardia Poor R wave progression - probable normal variant Anterior T wave changes are nonspecific Borderline ECG PREVIOUS TRACING : 11/18/2016 11.33 Compared to prior tracing no significant change DOCTOR: Manpreet Saba Interpretating Date/Time 04/16/2017 07:52:41
== END 2017-04-15 17:47 | disposition home or self-care (01) ==
LOC: PHED 15:27
DX: R10.84 Generalized abdominal pain (principal); R42 Dizziness and giddiness; R61 Generalized hyperhidrosis; M06.9 Rheumatoid arthritis, unspecified; M32.9 Systemic lupus erythematosus, unspecified; K50.90 Crohn's disease, unspecified, without complications; F41.9 Anxiety disorder, unspecified; F32.9 Major depressive disorder, single episode, unspecified; R56.9 Unspecified convulsions
CPT/HCPCS: 71010; 80053; 83690; 85025; 93005; 96374; 96375; 99285; J1170; J2405; J7030

== ENCOUNTER 2017-04-19 17:08 | Observation (INO) | payer BC ==
[~2017-04-19] VITALS: Ht 182.9 cm; Wt 108.7 kg
[2017-04-19 17:21] VITALS: BP 132/92; PULSE 118; RESP 16; TEMP 98.2; O2SAT 97
[2017-04-19] MEDS ORDERED: VANCOMYCIN INJ 1,600 MG in SODIUM CHLORID 0.9% 500 ML INJ 500 ML IV STA (18:02)
[2017-04-19] MEDS ORDERED: PIPERACIL-TAZO 4.5 GM PREMIX 100 ML IV STA (18:02)
[2017-04-19] MEDS ORDERED: SODIUM CHLOR 0.9% 1000 ML INJ 1,000 ML IV STA (18:02)
--- NOTE | 2017-04-19 18:10 | PD ---
HPI Chief Complaint: Fall Time Seen by Provider: 18:02 Travel History International Travel<30 days: No Contact w/Intl Traveler<30days: No Traveled to known affect area: No History of Present Illness HPI This 37-year-old male is complaining of pain in his left hip and left tib-fib. He had a fall 2 days ago. He fell down some stairs and hit his leg and the back of his chest. He has been having pain in his left hip since then and also pain in the left tib-fib. He sustained a wound to the front of his reyna. It has become painful and the surrounding skin has become red and swollen. He is not aware of any fever. He has a history of lupus and has recently been having a flare. He is currently taking 100 mg of prednisone. He is also on methotrexate and Imuran and Humira. He has a history of a Prasad's palsy for 3 years. 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 He has a history of MRSA cellulitis PFSH Past Medical History Hx Anticoagulant Therapy: No Arthritis: Yes (Rheumatoid Arthritis) Asthma: No Autoimmune Disease: Yes (lupus, RA, crohns disease, Vasculitis) Blood Disorders: No Anxiety: Yes Depression: Yes Heart Rhythm Problems: No Cancer: Yes (thyroid , used radioactive iodine) Cardiovascular Problems: No High Cholesterol: No Chemotherapy: Yes (Imuran) Chest Pain: No Congestive Heart Failure: No COPD: No Cerebrovascular Accident: No Diabetes: No Diminished Hearing: No Endocrine: Yes Gastrointestinal Disorders: Yes (Chrohn's) GERD: No Genitourinary: No Headaches: Yes Hiatal Hernia: No Heparin Induced Thrombocytopen: No Hypertension: No (WHEN IN PAIN ONLY) Immune Disorder: Yes Implanted Vascular Access Dvce: No Kidney Stones: No Musculoskeletal: No Neurologic: No Psychiatric: No Reproductive: No Respiratory: No Immunizations Current: Yes Migraines: Yes Pancreatitis: Yes Radiation Therapy: No Renal Failure: No Seizures: Yes Sickle Cell Disease: No Sleep Apnea: No Thyroid Disease: Yes Ulcer: Yes Tetanus Vaccination: < 5 Years PNEUMOCCOCAL Vaccine (Year): 1 Past Surgical History Abdominal Surgery: No AICD: No Arteriovenous Shunt: No Cardiac Surgery: No Ear Surgery: No Endocrine Surgery: No Eye Surgery: No Genitourinary Surgery: No Gynecologic Surgery: No Hysterectomy: No Insulin Pump: No Joint Replacement: No Neurologic Surgery: No Oral Surgery: No Pacemaker: No Thoracic Surgery: No Other Surgery: Yes (Left hand surgery Aug 2016) Social History Alcohol Use: No Tobacco Use: No Substance Use: No Allergies-Medications (Allergen,Severity, Reaction): Coded Allergies: Cat Dander (Verified Allergy, Mild, Cough, 04/19/17) Morphine (Verified Allergy, Mild, Rash, 04/19/17) Reported Meds & Prescriptions Reported Meds & Active Scripts Active Percocet (Oxycodone-Acetaminophen) 5-325 mg Tab 1 Tab PO Q4H PRN Reported Folic Acid 400 Mcg Tab Unknown Dose PO DAILY Methotrexate 2.5 Mg Tab 4 Tab PO Q7D Prednisone 50 Mg Tab 50 Mg PO DIRECTED TAPER DOSE Gabapentin 600 Mg Tab 600 Mg PO TID Protonix (Pantoprazole Sodium) 40 Mg Tab 40 Mg PO AC LUNCH Tramadol (Tramadol HCl) 50 Mg Tab 50 Mg PO Q6H PRN Tylenol-Codeine #3 (Acetaminophen-Codeine) 300-30 mg Tab 1 Tab PO Q4H PRN Prednisone 5 Mg Tab 5 Mg PO DAILY Metaxalone 800 Mg Tab 800 Mg PO TID Flexeril (Cyclobenzaprine HCl) 10 Mg Tab 10 Mg PO BID Diclofenac-Misoprostol 75-0.2 Mg Tab 1 Tab PO BID Humira 2-Pack Inj (Adalimumab 2-Pack Inj) 40 Mg/0.8 Ml Syr 40 Mg SQ Q14D Dilantin (Phenytoin Extended) 100 Mg Cap 300 Mg PO HS Amitriptyline (Amitriptyline HCl) 50 Mg Tab 50 Mg PO HS Bwtutfjlst-Eihdvsa-Ebyvramn 50-325-40 Mg Cap 1 Cap PO Q6HR PRN Do not exceed 6 capsules/day. Cialis (Tadalafil) 5 Mg Tab 5 Mg PO DAILY Do not exceed 1 dose/day. Ondansetron (Ondansetron HCl) 8 Mg Tab 8 Mg PO Q8HR PRN Amitriptyline (Amitriptyline HCl) 25 Mg Tab 25 Mg PO HS Clonazepam 2 Mg Tab 2 Mg PO BID Pilocarpine 5 Mg Tab 5 Mg PO TID PRN Citalopram (Citalopram Hydrobromide) 20 Mg Tab 20 Mg PO DAILY Imuran (Azathioprine) 50 Mg Tab 100 Mg PO BID Hazardous agent: use appropriate precautions for handling and disposal. Levothyroxine (Levothyroxine Sodium) 112 Mcg Tab 112 Mcg PO DAILY Flomax (Tamsulosin HCl) 0.4 Mg Cap 0.4 Mg PO BID Hydroxychloroquine (Hydroxychloroquine Sulfate) 200 Mg Tab 200 Mg PO DAILY Take with food Review of Systems General / Constitutional: No: Fever, Chills Eyes: No: Diploplia, Blurred Vision HENT: No: Headaches, Vertigo Cardiovascular: No: Chest Pain or Discomfort, Palpitations Respiratory: No: Cough, Shortness of Breath Gastrointestinal: No: Nausea, Vomiting Genitourinary: No: Urgency, Frequency Musculoskeletal: Positive: Pain Skin: Positive Rash, No Itching Neurologic: No: Weakness, Dizziness Endocrine: No: Cold Intolerance Physical Exam Narrative GENERAL: Well-developed male SKIN: Focused skin assessment warm/dry. HEAD: Atraumatic. Normocephalic. EYES: Pupils equal and round. No scleral icterus. No injection or drainage. ENT: No nasal bleeding or discharge. Mucous membranes pink and moist. NECK: Trachea midline. No JVD. CARDIOVASCULAR: Regular rate and rhythm. No murmur appreciated. RESPIRATORY: No accessory muscle use. Clear to auscultation. Breath sounds equal bilaterally. GASTROINTESTINAL: Abdomen soft, non-tender, nondistended. Hepatic and splenic margins not palpable. MUSCULOSKELETAL: No obvious deformities. No clubbing. No cyanosis. No edema. Is extensive bruising of the left hip. He complains of pain with palpation. His pain with movement of the hip. There is a small wound in the midportion overlying the mid tibia. There is surrounding erythema and swelling of the skin. There is a small amount of serosanguineous drainage NEUROLOGICAL: Awake and alert. There is a left sided facial palsy. Motor grossly within normal limits. Normal speech. PSYCHIATRIC: Appropriate mood and affect; insight and judgment normal. Data Data Last Documented VS Vital Signs Date Time Temp Pulse Resp B/P Pulse Ox O2 Delivery O2 Flow Rate FiO2 04/19/17 19:25 92 16 97 Nasal Cannula 2 04/19/17 19:12 120/81 04/19/17 17:21 98.2 Orders Complete Blood Count With Diff (04/19/17 18:02) Comprehensive Metabolic Panel (04/19/17 18:02) Lactic Acid Sepsis Protocol (04/19/17 18:02) Urinalysis - C+S If Indicated (04/19/17 18:02) Blood Culture (04/19/17 18:02) Wound Culture And Gram Stain (04/19/17 18:02) Chest, Single Ap (04/19/17 18:02) Iv Access Insert/Monitor (04/19/17 18:02) Oximetry (04/19/17 18:02) Oxygen Administration (04/19/17 18:02) Hydromorphone Pf Inj (Dilaudid Pf Inj) (04/19/17 18:15) Ondansetron Inj (Zofran Inj) (04/19/17 18:15) Piperacil-Tazo 4.5 Gm Premix (Zosyn 4.5 (04/19/17 18:02) Vancomycin Inj (Vancomycin Inj) (04/19/17 18:02) Sodium Chlor 0.9% 1000 Ml Inj (Ns 1000 M (04/19/17 18:02) Hip, Uni(Ap&Lat) W Ap Pelvis (04/19/17 18:06) Tibia/Fibula (Ap/Lat) (04/19/17 18:06) Potassium Chloride (Kcl) (04/19/17 19:15) Labs Laboratory Tests Test 04/19/17 04/19/17 18:25 18:29 Lactic Acid Level 0.9 mmol/L White Blood Count 8.6 TH/MM3 Red Blood Count 3.76 MIL/MM3 Hemoglobin 11.1 GM/DL Hematocrit 33.0 % Mean Corpuscular Volume 87.8 FL Mean Corpuscular Hemoglobin 29.6 PG Mean Corpuscular Hemoglobin 33.8 % Concent Red Cell Distribution Width 14.3 % Platelet Count 169 TH/MM3 Mean Platelet Volume 7.1 FL Neutrophils (%) (Auto) 73.4 % Lymphocytes (%) (Auto) 18.0 % Monocytes (%) (Auto) 6.5 % Eosinophils (%) (Auto) 1.9 % Basophils (%) (Auto) 0.2 % Neutrophils # (Auto) 6.2 TH/MM3 Lymphocytes # (Auto) 1.6 TH/MM3 Monocytes # (Auto) 0.6 TH/MM3 Eosinophils # (Auto) 0.2 TH/MM3 Basophils # (Auto) 0.0 TH/MM3 CBC Comment DIFF FINAL Differential Comment Sodium Level 144 MEQ/L Potassium Level 3.4 MEQ/L Chloride Level 107 MEQ/L Carbon Dioxide Level 30.1 MEQ/L Anion Gap 7 MEQ/L Blood Urea Nitrogen 8 MG/DL Creatinine 0.79 MG/DL Estimat Glomerular Filtration 110 ML/MIN Rate Random Glucose 118 MG/DL Calcium Level 8.4 MG/DL Total Bilirubin 0.5 MG/DL Aspartate Amino Transf 9 U/L (AST/SGOT) Alanine Aminotransferase 21 U/L (ALT/SGPT) Alkaline Phosphatase 44 U/L Total Protein 6.4 GM/DL Albumin 3.6 GM/DL MDM Medical Decision Making Medical Screen Exam Complete: Yes Emergency Medical Condition: Yes Medical Record Reviewed: Yes Differential Diagnosis Differential includes cellulitis, sepsis, Narrative Course Clinically the patient does have a fairly extensive cellulitis. His white count is normal and his lactate is normal at this time. He is immunocompromised. He is on prednisone and Imuran and Humira. He has been started on Zosyn and vancomycin. Diagnosis Primary Impression: Cellulitis of left anterior lower leg Additional Impression: Immunocompromised patient Admitting Information Admitting Physician Requests: Brad Caballero MD Apr 19, 2017 18:10
[2017-04-19] MEDS ORDERED: HYDROmorphone HCL PF 1 MG/ML VIAL IV ONE (18:15)
[2017-04-19] MEDS ORDERED: ONDANSETRON HCL 4 MG/2 ML VIAL IV ONE (18:15)
[2017-04-19 18:34] VITALS: O2SAT 97
[2017-04-19 18:38] LABS: AUTOMATED NEUTROPHIL # 6.2 TH/MM3 (1.8-7.7); BASOPHIL % 0.2 % (0.0-2.0); EOSINOPHIL # 0.2 TH/MM3 (0-0.4); EOSINOPHIL % 1.9 % (0.0-4.0); HEMO FLAGS DIFF FINAL; LYMPHOCYTE # 1.6 TH/MM3 (1.0-4.8); MEAN CELL VOLUME 87.8 FL (80.0-100.0); MEAN CORPUSCULAR HEMOGLOBIN 29.6 PG (27.0-34.0); MEAN CORPUSCULAR HGB CONC 33.8 % (32.0-36.0); MONO % 6.5 % (0.0-8.0); NEUT % 73.4 % (16.0-70.0); PLATELET COUNT 169 TH/MM3 (150-450); RED BLOOD COUNT 3.76 MIL/MM3 (4.50-5.90); RED CELL DISTRIBUTION WIDTH 14.3 % (11.6-17.2); WHITE BLOOD COUNT 8.6 TH/MM3 (4.0-11.0)
[2017-04-19 19:12] VITALS: BP 120/81; PULSE 97; O2SAT 94
[2017-04-19 19:13] LABS: CHLORIDE 107 MEQ/L (98-107); POTASSIUM 3.4 MEQ/L (3.5-5.1); SODIUM (NA) 144 MEQ/L (136-145)
--- NOTE | 2017-04-19 19:14 | RADHPO ---
EXAM DATE/TIME: 04/19/2017 18:55 [facility] COMPARISON: CHEST SINGLE AP, April 15, 2017, 16:39. INDICATIONS : Fell on stairs 3 days ago MEDICAL HISTORY : Lupus. Crohn's disease. SURGICAL HISTORY : None. ENCOUNTER: Initial ACUITY: 3 days PAIN SCORE: 7/10 LOCATION: Bilateral chest FINDINGS: A single view of the chest demonstrates the lungs to be hypoaerated without evidence of mass, infiltr ate or effusion. Cardiomegaly. The cardiomediastinal contours are unremarkable. Osseous structures are intact. CONCLUSION: Diminished lung volumes with clear lungs. Az Bullard MD on April 19, 2017 at 19:12 Board Certified Radiologist. This report was verified electronically.
--- NOTE | 2017-04-19 19:14 | RADHPO ---
EXAM DATE/TIME: 04/19/2017 18:34 [facility] COMPARISON: No previous studies available for comparison. INDICATIONS : Fell on stairs 3 days ago MEDICAL HISTORY : Lupus. Crohn's disease. SURGICAL HISTORY : None. ENCOUNTER: Initial ACUITY: 3 days PAIN SCORE: 9/10 LOCATION: Left hip FINDINGS: Examination of the left hip was performed with AP Pelvis. The primary and secondary trabecular patte rn of the femoral neck is intact. The hip joint is of normal width without significant sclerosis or bony hypertrophy. The acetabulum is grossly intact. CONCLUSION: No acute fracture. Az Bullard MD on April 19, 2017 at 19:13 Board Certified Radiologist. This report was verified electronically.
[2017-04-19] MEDS ORDERED: POTASSIUM CHLORIDE 20 MEQ CONTROLLED RELEASE TAB PO ONE (19:15)
--- NOTE | 2017-04-19 19:15 | RADHPO ---
EXAM DATE/TIME: 04/19/2017 18:41 [facility] COMPARISON: No previous studies available for comparison. INDICATIONS : Fell on stairs 3 days ago, has puncture wound to leg with possible infection MEDICAL HISTORY : Crohn's disease. Lupus. SURGICAL HISTORY : None. ENCOUNTER: Initial ACUITY: 3 days PAIN SCORE: 9/10 LOCATION: Left lower leg FINDINGS: Two view examination of the left tibia demonstrates no evidence of fracture or dislocation. Bony min eralization is normal. Soft tissue swelling. CONCLUSION: Soft tissue swelling without fracture. Az Bullard MD on April 19, 2017 at 19:13 Board Certified Radiologist. This report was verified electronically.
[2017-04-19 19:17] LABS: ANION GAP 7 MEQ/L (5-15); BICARBONATE 30.1 MEQ/L (21.0-32.0); BLOOD UREA NITROGEN 8 MG/DL (7-18)
[2017-04-19 19:20] LABS: ALT (GPT) 21 U/L (12-78); AST (GOT) 9 U/L (15-37); GLOMERULAR FILTRATION RATE 110 ML/MIN (>89)
[2017-04-19 19:22] LABS: TOTAL BILIRUBIN ADULT 0.5 MG/DL (0.2-1.0)
[2017-04-19 19:23] LABS: ALKALINE PHOSPHATASE 44 U/L (45-117)
[2017-04-19 19:25] VITALS: PULSE 92; RESP 16; O2SAT 97
[2017-04-19] MEDS ORDERED: SENNOSIDES 8.6 MG TAB PO PRN (20:00)
[2017-04-19] MEDS ORDERED: MAGNESIUM HYDROXIDE SUSP 30 ML CUP PO PRN (20:00)
[2017-04-19] MEDS ORDERED: PILOCARPINE HCL 5 MG TAB PO PRN (20:00)
[2017-04-19] MEDS ORDERED: Vancomycin Consult Pharmacy 1 EA OTHER SCH (20:00)
[2017-04-19] MEDS ORDERED: BISACODYL 10 MG SUPP RECTAL PRN (20:00)
[2017-04-19] MEDS ORDERED: ACETAMINOPHEN 325 MG TAB PO PRN (20:00)
[2017-04-19] MEDS ORDERED: ONDANSETRON HCL 4 MG/2 ML VIAL IVP PRN (20:00)
[2017-04-19] MEDS ORDERED: ACETAMINOPHEN/HYDROcodone 325 MG/5 MG TAB PO PRN (20:00)
[2017-04-19] MEDS ORDERED: LACTULOSE SYRUP 20 GM/30 ML CUP PO PRN (20:00)
[2017-04-19] MEDS ORDERED: SODIUM CHLORIDE 0.9% FLUSH 10 ML FLUSH IV FLUSH PRN (20:00)
[2017-04-19 20:12] LABS: BLOOD, URINE NEG (NEG); GLUCOSE,URINE NEG (NEG); KETONE, URINE NEG (NEG); NITRITE,URINE NEG (NEG); PH, URINE 5.5 (5.0-8.5)
[2017-04-19 20:45] LABS: URINE COLOR YELLOW (YELLW/STRAW)
[2017-04-19 20:47] LABS: SQUAMOUS EPITHELIAL CELL URINE 0-5 /hpf (0-5)
[2017-04-19 20:48] LABS: COMMENT (UR) CULT NOT INDICATED; CULTURE IF INDICATED CULT NOT INDICATED
[2017-04-19] MEDS ORDERED: AMITRIPTYLINE HCL 25 MG TAB PO SCH (21:00)
[2017-04-19] MEDS ORDERED: azaTHIOprine 50 MG TAB PO SCH (21:00)
[2017-04-19] MEDS ORDERED: HYDROmorphone HCL PF 1 MG/ML VIAL IV PUSH ONE (21:15)
[2017-04-19] MEDS: AMITRIPTYLINE HCL 50 MG TAB PO SCH (21:29)
[2017-04-19] MEDS: CYCLOBENZAPRINE HCL 10 MG TAB PO SCH (21:29)
[2017-04-19] MEDS: clonazePAM 1 MG TAB PO SCH (21:29)
[2017-04-19] MEDS: TAMSULOSIN HCL 0.4 MG CAP PO SCH (21:34)
[2017-04-19] MEDS: PHENYTOIN SODIUM 100 MG CAP PO SCH (21:34)
[2017-04-19] MEDS: SODIUM CHLORIDE 0.9% FLUSH 10 ML FLUSH IV FLUSH SCH (21:38)
[2017-04-19 21:40] VITALS: BP 142/86; PULSE 106; RESP 16; TEMP 98.1; O2SAT 100
[2017-04-19 22:56] VITALS: BP 137/83; PULSE 92; RESP 12; O2SAT 93
[2017-04-19] MEDS: DOCUSATE SODIUM 50 MG/SENNA 8.6 MG TAB PO SCH (22:56)
[2017-04-20] VITALS (7 sets, daily range): BP systolic 121–142; BP diastolic 72–90; PULSE 68–96; RESP 17–20; TEMP 96.7–98; O2SAT 95–99
[2017-04-20] MEDS: PIPERACIL-TAZO 4.5 GM PREMIX 100 ML IV SCH ×3 (00:47→12:51)
[2017-04-20] MEDS: VANCOMYCIN INJ 1,400 MG in SODIUM CHLORID 0.9% 500 ML INJ 500 ML IV SCH ×3 (05:09→20:11)
[2017-04-20] MEDS: HYDROmorphone HCL PF 1 MG/ML VIAL IV PRN ×5 (05:10→20:31)
[2017-04-20] MEDS: LEVOTHYROXINE SODIUM 112 MCG TAB PO SCH (05:11)
[2017-04-20 08:11] LABS: AUTOMATED NEUTROPHIL # 8.4 TH/MM3 (1.8-7.7); BASOPHIL % 0.2 % (0.0-2.0); EOSINOPHIL # 0.2 TH/MM3 (0-0.4); EOSINOPHIL % 1.6 % (0.0-4.0); HEMATOCRIT 32.7 % (39.0-51.0); HEMO FLAGS DIFF FINAL; LYMPH % 13.8 % (9.0-44.0); LYMPHOCYTE # 1.5 TH/MM3 (1.0-4.8); MEAN CELL VOLUME 88.5 FL (80.0-100.0); MEAN CORPUSCULAR HGB CONC 32.8 % (32.0-36.0); MONO % 5.7 % (0.0-8.0); NEUT % 78.7 % (16.0-70.0); PLATELET COUNT 149 TH/MM3 (150-450); WHITE BLOOD COUNT 10.7 TH/MM3 (4.0-11.0)
[2017-04-20 08:20] LABS: CHLORIDE 107 MEQ/L (98-107); POTASSIUM 3.8 MEQ/L (3.5-5.1); SODIUM (NA) 144 MEQ/L (136-145)
[2017-04-20 08:24] LABS: ANION GAP 4 MEQ/L (5-15); BICARBONATE 33.4 MEQ/L (21.0-32.0); BLOOD UREA NITROGEN 7 MG/DL (7-18)
[2017-04-20 08:27] LABS: ALT (GPT) 20 U/L (12-78); AST (GOT) 10 U/L (15-37); GLOMERULAR FILTRATION RATE 89 ML/MIN (>89)
[2017-04-20 08:28] LABS: TOTAL BILIRUBIN ADULT 0.7 MG/DL (0.2-1.0)
[2017-04-20 08:29] LABS: ALKALINE PHOSPHATASE 36 U/L (45-117)
--- NOTE | 2017-04-20 08:31 | HHI.HP ---
[facility] Service [facility] Primary Care Physician Shantanu Bansal MD Admission Diagnosis CELLULITIS LEFT LEG, IMMUNOCOMPRIMIZED Diagnoses: (1) Cellulitis of left anterior lower leg Diagnosis: Principal Chief Complaint: left hip pain Travel History International Travel<30 Days: No Contact w/Intl Traveler <30 Da: No Traveled to Known Affected Are: No History of Present Illness patient is a 37 y/o male with history of lupus, ankylosing spondylitis,Crohn's disease and RA, presented to ER with pain to the left hip. he says that he fell off a few stairs three days ago , landed on his left side and started to have left hip pain afterwards. he says that he noticed some redness on the left leg which got worse yesterday and made him to come to ER. he's complaining of moderate pain to the left hip and left leg.he had some chills at home but no definite report of fever. Review of Systems Constitutional: COMPLAINS OF: Chills, DENIES: Fever, Weight loss, Night Sweats Eyes: DENIES: Blurred vision, Diplopia, Vision loss, Double Vision Ears, nose, mouth, throat: DENIES: Tinnitus, Vertigo, Throat pain, Epistaxis Respiratory: DENIES: Apneas, Cough, Snoring, Wheezing, Hemoptysis, Sputum production, Shortness of breath Cardiovascular: COMPLAINS OF: Lower Extremity Edema, DENIES: Chest pain, Palpitations, Syncope, Dyspnea on Exertion, PND, Orthopnea, Claudication Gastrointestinal: DENIES: Abdominal pain, Black stools, Bloody stools, Constipation, Diarrhea, Nausea, Vomiting, Difficulty Swallowing, Anorexia Genitourinary: DENIES: Urinary frequency, Urgency, Hematuria, Dysuria Musculoskeletal: COMPLAINS OF: Joint pain (left leg), DENIES: Muscle aches, Stiffness, Joint Swelling Integumentary: DENIES: Rash Neurologic: DENIES: Abnormal gait, Headache, Localized weakness, Paresthesias, Seizures, Speech Problems, Tremor, Poor Balance Psychiatric: DENIES: Anxiety, Confusion, Mood changes, Depression, Hallucinations, Agitation, Suicidal Ideation, Homicidal Ideation, Delusions Past Family Social History Past Medical History Crohn's disease ankylosing spondylitis RA prasad's palsy lupus Past Surgical History hand surgery Reported Medications Folic Acid 400 Mcg Tab Unknown Dose PO DAILY Methotrexate 2.5 Mg Tab 4 Tab PO Q7D Prednisone 50 Mg Tab 50 Mg PO DIRECTED TAPER DOSE Gabapentin 600 Mg Tab 600 Mg PO TID Protonix (Pantoprazole Sodium) 40 Mg Tab 40 Mg PO AC LUNCH Tramadol (Tramadol HCl) 50 Mg Tab 50 Mg PO Q6H PRN Tylenol-Codeine #3 (Acetaminophen-Codeine) 300-30 mg Tab 1 Tab PO Q4H PRN Prednisone 5 Mg Tab 5 Mg PO DAILY Metaxalone 800 Mg Tab 800 Mg PO TID Flexeril (Cyclobenzaprine HCl) 10 Mg Tab 10 Mg PO BID Diclofenac-Misoprostol 75-0.2 Mg Tab 1 Tab PO BID Humira 2-Pack Inj (Adalimumab 2-Pack Inj) 40 Mg/0.8 Ml Syr 40 Mg SQ Q14D Dilantin (Phenytoin Extended) 100 Mg Cap 300 Mg PO HS Amitriptyline (Amitriptyline HCl) 50 Mg Tab 50 Mg PO HS Rhtugouqmv-Tfkijwb-Luycqiek 50-325-40 Mg Cap 1 Cap PO Q6HR PRN Do not exceed 6 capsules/day. Cialis (Tadalafil) 5 Mg Tab 5 Mg PO DAILY Do not exceed 1 dose/day. Ondansetron (Ondansetron HCl) 8 Mg Tab 8 Mg PO Q8HR PRN Amitriptyline (Amitriptyline HCl) 25 Mg Tab 25 Mg PO HS Clonazepam 2 Mg Tab 2 Mg PO BID Pilocarpine 5 Mg Tab 5 Mg PO TID PRN Citalopram (Citalopram Hydrobromide) 20 Mg Tab 20 Mg PO DAILY Imuran (Azathioprine) 50 Mg Tab 100 Mg PO BID Hazardous agent: use appropriate precautions for handling and disposal. Levothyroxine (Levothyroxine Sodium) 112 Mcg Tab 112 Mcg PO DAILY Flomax (Tamsulosin HCl) 0.4 Mg Cap 0.4 Mg PO BID Hydroxychloroquine (Hydroxychloroquine Sulfate) 200 Mg Tab 200 Mg PO DAILY Take with food Allergies: Coded Allergies: Cat Dander (Verified Allergy, Mild, Cough, 04/19/17) Morphine (Verified Allergy, Mild, Rash, 04/19/17) Active Ordered Medications Current Medications Hydromorphone HCl (Dilaudid Pf Inj) 1 mg ONCE ONCE IV Last administered on 04/19 19:05; Start 04/19/17 at 18:15; Stop 04/19/17 at 18:16; Status DC Ondansetron HCl 4 mg 4 mg ONCE ONCE IV Last administered on 04/19/17 19:03; Start 04/19/17 at 18:15; Stop 04/19/17 at 18:16; Status DC Piperacillin Sod/ Tazobactam Sod 100 ml @ 200 mls/hr ONCE STAT IV Last administered on 04/19/17 19:06; Start 04/19/17 at 18:02; Stop 04/19/17 at 18:31; Status DC Vancomycin HCl 1600 mg/Sodium Chloride 516 ml @ 257.5 mls/ hr ONCE STAT IV Last administered on 04/19/17 19:53; Start 04/19/17 at 18:02; Stop 04/19/17 at 20: 02; Status DC Sodium Chloride (NS 1000 ml Inj) 1,000 ml @ 250 mls/hr Q4H STAT IV Last administered on 04/19/17 19:02; Start 04/19/17 at 18:02; Stop 04/19/17 at 22:01; Status DC Potassium Chloride 20 meq 20 meq ONCE ONCE PO Last administered on 04/19/17 19 :28; Start 04/19/17 at 19:15; Stop 04/19/17 at 19:16; Status DC Pharmacy Profile Note 0 ml @ 0 mls/hr UNSCH OTHER ; Start 04/19/17 at 20:00 Piperacillin Sod/ Tazobactam Sod (Zosyn 4.5 Gm Premix) 100 ml @ 200 mls/hr Q6H IV Last administered on 04/20/17 05:09; Start 04/20/17 at 00:00 Sodium Chloride (NS Flush) 2 ml UNSCH PRN IV FLUSH FLUSH AFTER USING IV ACCESS ; Start 04/19/17 at 20:00 Sodium Chloride (NS Flush) 2 ml BID IV FLUSH ; Start 04/19/17 at 21:00 Ondansetron HCl (Zofran Inj) 4 mg Q6H PRN IVP NAUSEA OR VOMITING; Start at 20:00 Acetaminophen (Tylenol) 650 mg Q6H PRN PO FEVER/PAIN SCALE 1 TO 2; Start at 20:00 Acetaminophen/ Hydrocodone Bitart ([place] 5-325 Mg) 1 tab Q4H PRN PO PAIN SCALE 3 TO 5; Start 04/19/17 at 20:00 Hydromorphone HCl (Dilaudid Pf Inj) 1 mg Q3H PRN IV Pain 6-10 Last administered on 04/20/17 05:10; Start 04/19/17 at 20:00 Senna/Docusate Sodium (Mariel-Colace) 1 tab BID PO Last administered on 04/19/17 22:56; Start 04/19/17 at 21:00 Magnesium Hydroxide (Milk Of Magnesia Liq) 30 ml Q12H PRN PO MILD - MODERATE CONSTIPATION; Start 04/19/17 at 20:00 Sennosides (Senokot) 17.2 mg Q12H PRN PO MODERATE - SEVERE CONSTIPATION; Start 04/19/17 at 20:00 Bisacodyl (Dulcolax Supp) 10 mg DAILY PRN RECTAL SEVERE CONSITIPATION; Start at 20:00 Lactulose (Lactulose Liq) 30 ml DAILY PRN PO SEVERE CONSITIPATION; Start at 20:00 Amitriptyline HCl (Elavil) 25 mg HS PO ; Start 04/19/17 at 21:00; Stop 04/19/17 at 21:00; Status DC Amitriptyline HCl (Elavil) 50 mg HS PO Last administered on 04/19/17 21:29; Start 04/19/17 at 21:00 Azathioprine (Imuran) 100 mg BID PO Last administered on 04/19/17 21:29; Start 04/19/17 at 21:00 Citalopram Hydrobromide (CeleXA) 20 mg DAILY PO ; Start 04/20/17 at 09:00 Clonazepam (KlonoPIN) 2 mg BID PO Last administered on 04/19/17 21:29; Start at 21:00 Cyclobenzaprine HCl (Flexeril) 10 mg BID PO Last administered on 04/19/17 21:29 ; Start 04/19/17 at 21:00 Gabapentin (Neurontin) 600 mg TID PO ; Start 04/20/17 at 09:00 Hydroxychloroquine Sulfate (Plaquenil) 200 mg DAILY PO ; Start 04/20/17 at 09:00 Levothyroxine Sodium (Synthroid) 112 mcg DAILY@06 PO Last administered on 05:11; Start 04/20/17 at 06:00 Metaxalone (Skelaxin) 800 mg TID PO ; Start 04/20/17 at 09:00 Pantoprazole Sodium (Protonix) 40 mg AC LUNCH PO ; Start 04/20/17 at 11:00 Phenytoin (Dilantin) 300 mg HS PO Last administered on 04/19/17 21:34; Start at 21:00 Pilocarpine (Salagen) 5 mg TID PRN PO DRY MOUTH; Start 04/19/17 at 20:00 Prednisone (Deltasone) 5 mg DAILY PO ; Start 04/20/17 at 09:00; Stop 04/20/17 at 09:00; Status DC Prednisone (Deltasone) 50 mg DAILY PO ; Start 04/20/17 at 09:00 Tamsulosin HCl (Flomax) 0.4 mg BID PO Last administered on 04/19/17 21:34; Start 04/19/17 at 21:00 Non-Formulary Medication 5 mg 5 mg DAILY PO ERECTILE DYSFUNCTION; Start 04/20/17 at 09:00; Stop 04/20/17 at 09:00; Status DC Vancomycin HCl/ Sodium Chloride (Vancomycin Inj/ NS 500 ml Inj) 514 ml @ 250 mls/hr Q8H IV Last administered on 04/20/17 05:09; Start 04/20/17 at 05:00 Miscellaneous Information SPECIFIC LAB TO BE ... ONCE ONCE .XX ; Start at 20:45; Stop 04/20/17 at 20:46 Hydromorphone HCl (Dilaudid Pf Inj) 1 mg ONCE ONCE IV PUSH Last administered on 04/19/17 21:36; Start 04/19/17 at 21:15; Stop 04/19/17 at 21:16; Status DC Family History lupus in mother Social History no smoking or drinking. Physical Exam Vital Signs Vital Signs Date Time Temp Pulse Resp B/P Pulse Ox O2 Delivery O2 Flow Rate FiO2 04/20/17 01:25 96.7 96 20 137/84 98 04/20/17 00:50 94 121/72 99 Nasal Cannula 2 04/19/17 23:17 89 Nasal Cannula 04/19/17 22:56 92 12 137/83 93 Nasal Cannula 2 04/19/17 21:40 98.1 106 16 142/86 100 Nasal Cannula 2 04/19/17 19:25 92 16 97 Nasal Cannula 2 04/19/17 19:23 Nasal Cannula 2 04/19/17 19:12 97 120/81 94 Room Air 04/19/17 18:34 97 04/19/17 17:21 98.2 118 16 132/92 97 Physical Exam GENERAL: This is a well-nourished, well-developed patient, in no apparent distress. SKIN: No rashes, ecchymoses or lesions. Cool and dry. HEAD: Atraumatic. Normocephalic. No temporal or scalp tenderness. EYES: Pupils equal round and reactive. Extraocular motions intact. No scleral icterus. No injection or drainage. ENT: Nose without bleeding, purulent drainage or septal hematoma. Throat without erythema, tonsillar hypertrophy or exudate. Uvula midline. Airway patent. NECK: Trachea midline. No JVD or lymphadenopathy. Supple, nontender, no meningeal signs. CARDIOVASCULAR: Regular rate and rhythm without murmurs, gallops, or rubs. RESPIRATORY: Clear to auscultation. Breath sounds equal bilaterally. No wheezes , rales, or rhonchi. GASTROINTESTINAL: Abdomen soft, non-tender, nondistended. No hepato-splenomegaly , or palpable masses. No guarding. MUSCULOSKELETAL: erythema, swelling, warmth and tenderness noted over the left leg- from left foot up to upper one third of the leg. NEUROLOGICAL: Awake and alert. Five out of 5 muscle strength in all muscle groups. Normal speech. Laboratory Laboratory Tests Test 04/19/17 04/19/17 04/19/17 18:25 18:29 19:50 Lactic Acid Level 0.9 White Blood Count 8.6 Red Blood Count 3.76 Hemoglobin 11.1 Hematocrit 33.0 Mean Corpuscular Volume 87.8 Mean Corpuscular Hemoglobin 29.6 Mean Corpuscular Hemoglobin 33.8 Concent Red Cell Distribution Width 14.3 Platelet Count 169 Mean Platelet Volume 7.1 Neutrophils (%) (Auto) 73.4 Lymphocytes (%) (Auto) 18.0 Monocytes (%) (Auto) 6.5 Eosinophils (%) (Auto) 1.9 Basophils (%) (Auto) 0.2 Neutrophils # (Auto) 6.2 Lymphocytes # (Auto) 1.6 Monocytes # (Auto) 0.6 Eosinophils # (Auto) 0.2 Basophils # (Auto) 0.0 CBC Comment DIFF FINAL Differential Comment Sodium Level 144 Potassium Level 3.4 Chloride Level 107 Carbon Dioxide Level 30.1 Anion Gap 7 Blood Urea Nitrogen 8 Creatinine 0.79 Estimat Glomerular Filtration 110 Rate Random Glucose 118 Calcium Level 8.4 Total Bilirubin 0.5 Aspartate Amino Transf 9 (AST/SGOT) Alanine Aminotransferase 21 (ALT/SGPT) Alkaline Phosphatase 44 Total Protein 6.4 Albumin 3.6 Urine Color YELLOW Urine Turbidity CLEAR Urine pH 5.5 Urine Specific [place] 1.013 Urine Protein NEG Urine Glucose (UA) NEG Urine Ketones NEG Urine Occult Blood NEG Urine Nitrite NEG Urine Bilirubin NEG Urine Leukocyte Esterase NEG Urine Squamous Epithelial 0-5 Cells Microscopic Urinalysis Comment CULT NOT INDICATED Date/Time Procedure Status Source Growth 04/19/17 18:29 Gram Stain Received Wound Leg Pending 04/19/17 18:29 Wound Culture Received Wound Leg Pending 04/19/17 18:28 Aerobic Blood Culture Received Blood Peripheral Pending 04/19/17 18:28 Anaerobic Blood Culture Received Blood Peripheral Pending Result Diagram: 04/19/17182804/19/171828 Imaging Last Impressions Tibia/Fibula X-Ray 04/19/171805 Signed Impressions: Service Date/Time: Wednesday, April 19, 2017 18:41 - CONCLUSION: Soft tissue swelling without fracture. Az Bullard MD Hip and Pelvis X-Ray 04/19/171805 Signed Impressions: Service Date/Time: Wednesday, April 19, 2017 18:34 - CONCLUSION: No acute fracture. Az Bullard MD Chest X-Ray 04/19/171801 Signed Impressions: Service Date/Time: Wednesday, April 19, 2017 18:55 - CONCLUSION: Diminished lung volumes with clear lungs. Az Bullard MD Assessment and Plan Assessment and Plan A/P - cellulitis of the left leg continue with IV antibiotics- continue pain control- keep the left leg elevated- check the venous doppler of the left leg to r/o DVT follow the cultures and consult ID -history of lupus/ ankylosing spondylitis/RA; hold immunosuppressants for now -mild hypokalemia; replaced -history of Prasad's palsy -DVT prophylaxis with lovenox Discussed Condition With the patient. Physician Certification 2 Midnight Certification Type: Admission for Inpatient Services Order for Inpatient Services The services are ordered in accordance with Medicare regulations or non- Medicare payer requirements, as applicable. In the case of services not specified as inpatient-only, they are appropriately provided as inpatient services in accordance with the 2-midnight benchmark. Estimated LOS (days): 2 days is the estimated time the patient will need to remain in the hospital, assuming treatment plan goals are met and no additional complications. Post-Hospital Plan: Home Sonia Clark MD Apr 20, 2017 08:31
[2017-04-20] MEDS ORDERED: ACETAMINOPHEN 325 MG TAB PO PRN (08:45)
[2017-04-20] MEDS: METAXALONE 800 MG TAB PO SCH ×3 (09:00→17:20)
[2017-04-20] MEDS: DOCUSATE SODIUM 50 MG/SENNA 8.6 MG TAB PO SCH ×2 (09:00→20:12)
[2017-04-20] MEDS ORDERED: predniSONE 5 MG TAB PO SCH (09:00)
[2017-04-20] MEDS: SODIUM CHLORIDE 0.9% FLUSH 10 ML FLUSH IV FLUSH SCH ×2 (09:00→20:12)
[2017-04-20] MEDS ORDERED: NON-FORMULARY DRUG (Tadalafil (Cialis) 5 MG) PO SCH (09:00)
[2017-04-20] MEDS: HYDROXYCHLOROQUINE SULFATE 200 MG TAB PO SCH (09:05)
[2017-04-20] MEDS: predniSONE 50 MG TAB PO SCH (09:05)
[2017-04-20] MEDS: CITALOPRAM HYDROBROMIDE 20 MG TAB PO SCH (09:06)
[2017-04-20] MEDS: CYCLOBENZAPRINE HCL 10 MG TAB PO SCH ×2 (09:06→20:12)
[2017-04-20] MEDS: TAMSULOSIN HCL 0.4 MG CAP PO SCH ×2 (09:06→20:11)
[2017-04-20] MEDS: GABAPENTIN 300 MG CAP PO SCH ×3 (09:06→17:20)
[2017-04-20] MEDS: clonazePAM 1 MG TAB PO SCH ×2 (09:06→20:11)
[2017-04-20] MEDS: ENOXAPARIN SODIUM 40 MG/0.4 ML SYRINGE SQ SCH (09:19)
--- NOTE | 2017-04-20 10:01 | RADHPO ---
EXAM DATE/TIME: 04/20/2017 09:39 [place] COMPARISON: No previous studies available for comparison. INDICATIONS : Left leg pain, redness, and swelling. MEDICAL HISTORY : Hypothyroidism. Rheumatoid arthritis. Hypertension. Ulcer. Pancreatitis. BPH. UTI. Crohn's disease . lupus. thyroid cancer. SURGICAL HISTORY : Chemotherapy. Radiation therapy. ENCOUNTER: Initial ACUITY: 1 week PAIN SCORE: 9/10 LOCATION: Left leg. TECHNIQUE: Venous ultrasound of the leg was performed from the inguinal ligament to the proximal calf. Real-hayden e, color Doppler and spectral tracing, compression and augmentation techniques were used. FINDINGS: There is normal compressibility of the deep venous system from the inguinal region to the proximal ca lf. No echogenic clot is seen in the lumen of the common femoral, femoral, popliteal, and posterior tibial veins. There is a normal response of the venous system to proximal and distal augmentation an d respiration. CONCLUSION: Negative for deep venous thrombosis. Martin Brown MD FACR on April 20, 2017 at 9:58 Board Certified Radiologist. This report was verified electronically.
[2017-04-20] MEDS: PANTOPRAZOLE SOD 40 MG DELAYED RELEASE TAB PO SCH (12:50)
--- NOTE | 2017-04-20 14:33 | PD.CONS ---
History of Present Illness Service ID CONSULT DR GARDNER Consult Requested By Reason for Consult LEFT LG CELLULITIS Primary Care Physician Shantanu Bansal MD Diagnoses: (1) Cellulitis of left anterior lower leg (2) Immunocompromised patient (3) Autoimmune disease (4) Left-sided muscle weakness History of Present Illness 37 Y/O MALE W/ A HISTORY OF SLE AND CROHNS ON METHOTREXATE AND HUMIRA AND IMURAN. HE FELL DOWN THE STAIRS IN HIS HOME 3 DAYS AGO. HE STATES HE DID HAVE A FOREIGN BODY AND REMOVED IT HOWEVER HE DEVELOPED REDNESS AND SWELLING TO HIS LEFT REYNA. HE HAS HAD CHILLS AND PAIN . HE HAD A SIMILIAR INJURY TO HIS LEFT HAND IN SEPTEMBER AND REQUIRED I&D. HE STATES HE HAS NEUROPATHY TO HIS LEFT SIDE AND THUS LOOSES FEELING AND HAS HAD MULTIPLE FALLS A RESULT. WOUND CULTURE IS + COAG POSITIVE STAPH. (Marni Rollins) History of Present Illness Fell 3 days ago and fell down steps hitting left leg Past h/o MSSA infection in wrist (Halle Gardner MD) Review of Systems Constitutional: COMPLAINS OF: Chills, DENIES: Fever Endocrine: DENIES: Heat/cold intolerance Eyes: DENIES: Blurred vision Ears, nose, mouth, throat: DENIES: Hearing loss Respiratory: DENIES: Cough Cardiovascular: DENIES: Palpitations Gastrointestinal: DENIES: Black stools Genitourinary: DENIES: Urinary frequency Musculoskeletal: DENIES: Stiffness Integumentary: DENIES: Nail changes Hematologic/lymphatic: DENIES: Lymphadenopathy Immunologic/allergic: DENIES: Urticaria Neurologic: COMPLAINS OF: Localized weakness, Paresthesias, DENIES: Headache Psychiatric: DENIES: Mood changes Except as stated in HPI: all other systems reviewed are Neg LEFT LEG PAIN AND REDNESS (Marni Rollins) Past Family Social History Allergies: Coded Allergies: Cat Dander (Verified Allergy, Mild, Cough, 04/19/17) Morphine (Verified Allergy, Mild, Rash, 04/19/17) Past Medical History Past Medical History Crohn's disease ankylosing spondylitis RA jj's palsy lupus Past Surgical History Past Surgical History hand surgery Reported Medications Reported Medications Folic Acid 400 Mcg Tab Unknown Dose PO DAILY Methotrexate 2.5 Mg Tab 4 Tab PO Q7D Prednisone 50 Mg Tab 50 Mg PO DIRECTED TAPER DOSE Gabapentin 600 Mg Tab 600 Mg PO TID Protonix (Pantoprazole Sodium) 40 Mg Tab 40 Mg PO AC LUNCH Tramadol (Tramadol HCl) 50 Mg Tab 50 Mg PO Q6H PRN Tylenol-Codeine #3 (Acetaminophen-Codeine) 300-30 mg Tab 1 Tab PO Q4H PRN Prednisone 5 Mg Tab 5 Mg PO DAILY Metaxalone 800 Mg Tab 800 Mg PO TID Flexeril (Cyclobenzaprine HCl) 10 Mg Tab 10 Mg PO BID Diclofenac-Misoprostol 75-0.2 Mg Tab 1 Tab PO BID Humira 2-Pack Inj (Adalimumab 2-Pack Inj) 40 Mg/0.8 Ml Syr 40 Mg SQ Q14D Dilantin (Phenytoin Extended) 100 Mg Cap 300 Mg PO HS Amitriptyline (Amitriptyline HCl) 50 Mg Tab 50 Mg PO HS Cshozsscds-Iwkwpdg-Kqcnzgoh 50-325-40 Mg Cap 1 Cap PO Q6HR PRN Do not exceed 6 capsules/day. Cialis (Tadalafil) 5 Mg Tab 5 Mg PO DAILY Do not exceed 1 dose/day. Ondansetron (Ondansetron HCl) 8 Mg Tab 8 Mg PO Q8HR PRN Amitriptyline (Amitriptyline HCl) 25 Mg Tab 25 Mg PO HS Clonazepam 2 Mg Tab 2 Mg PO BID Pilocarpine 5 Mg Tab 5 Mg PO TID PRN Citalopram (Citalopram Hydrobromide) 20 Mg Tab 20 Mg PO DAILY Imuran (Azathioprine) 50 Mg Tab 100 Mg PO BID Hazardous agent: use appropriate precautions for handling and disposal. Levothyroxine (Levothyroxine Sodium) 112 Mcg Tab 112 Mcg PO DAILY Flomax (Tamsulosin HCl) 0.4 Mg Cap 0.4 Mg PO BID Hydroxychloroquine (Hydroxychloroquine Sulfate) 200 Mg Tab 200 Mg PO DAILY Take with food no smoking or drinking. Active Ordered Medications Allergies: Coded Allergies: Cat Dander (Verified Allergy, Mild, Cough, 04/19/17) Morphine (Verified Allergy, Mild, Rash, 04/19/17) Active Ordered Medications Current Medications Hydromorphone HCl (Dilaudid Pf Inj) 1 mg ONCE ONCE IV Last administered on 04/19t 19:05; Start 04/19/17 at 18:15; Stop 04/19/17 at 18:16; Status DC Ondansetron HCl 4 mg 4 mg ONCE ONCE IV Last administered on 04/19/17 19:03; Start 04/19/17 at 18:15; Stop 04/19/17 at 18:16; Status DC Piperacillin Sod/ Tazobactam Sod 100 ml @ 200 mls/hr ONCE STAT IV Last administered on 04/19/17 19:06; Start 04/19/17 at 18:02; Stop 04/19/17 at 18:31; Status DC Vancomycin HCl 1600 mg/Sodium Chloride 516 ml @ 257.5 mls/ hr ONCE STAT IV Last administered on 04/19/17 19:53; Start 04/19/17 at 18:02; Stop 04/19/17 at 20: 02; Status DC Sodium Chloride (NS 1000 ml Inj) 1,000 ml @ 250 mls/hr Q4H STAT IV Last administered on 04/19/17 19:02; Start 04/19/17 at 18:02; Stop 04/19/17 at 22:01; Status DC Potassium Chloride 20 meq 20 meq ONCE ONCE PO Last administered on 04/19/17 19 :28; Start 04/19/17 at 19:15; Stop 04/19/17 at 19:16; Status DC Pharmacy Profile Note 0 ml @ 0 mls/hr UNSCH OTHER ; Start 04/19/17 at 20:00 Piperacillin Sod/ Tazobactam Sod (Zosyn 4.5 Gm Premix) 100 ml @ 200 mls/hr Q6H IV Last administered on 04/20/17 05:09; Start 04/20/17 at 00:00 Sodium Chloride (NS Flush) 2 ml UNSCH PRN IV FLUSH FLUSH AFTER USING IV ACCESS ; Start 04/19/17 at 20:00 Sodium Chloride (NS Flush) 2 ml BID IV FLUSH ; Start 04/19/17 at 21:00 Ondansetron HCl (Zofran Inj) 4 mg Q6H PRN IVP NAUSEA OR VOMITING; Start at 20:00 Acetaminophen (Tylenol) 650 mg Q6H PRN PO FEVER/PAIN SCALE 1 TO 2; Start at 20:00 Acetaminophen/ Hydrocodone Bitart ([place] 5-325 Mg) 1 tab Q4H PRN PO PAIN SCALE 3 TO 5; Start 04/19/17 at 20:00 Hydromorphone HCl (Dilaudid Pf Inj) 1 mg Q3H PRN IV Pain 6-10 Last administered on 04/20/17 05:10; Start 04/19/17 at 20:00 Senna/Docusate Sodium (Mariel-Colace) 1 tab BID PO Last administered on 04/19/17 22:56; Start 04/19/17 at 21:00 Magnesium Hydroxide (Milk Of Magnesia Liq) 30 ml Q12H PRN PO MILD - MODERATE CONSTIPATION; Start 04/19/17 at 20:00 Sennosides (Senokot) 17.2 mg Q12H PRN PO MODERATE - SEVERE CONSTIPATION; Start 04/19/17 at 20:00 Bisacodyl (Dulcolax Supp) 10 mg DAILY PRN RECTAL SEVERE CONSITIPATION; Start at 20:00 Lactulose (Lactulose Liq) 30 ml DAILY PRN PO SEVERE CONSITIPATION; Start at 20:00 Amitriptyline HCl (Elavil) 25 mg HS PO ; Start 04/19/17 at 21:00; Stop 04/19/17 at 21:00; Status DC Amitriptyline HCl (Elavil) 50 mg HS PO Last administered on 04/19/17 21:29; Start 04/19/17 at 21:00 Azathioprine (Imuran) 100 mg BID PO Last administered on 04/19/17 21:29; Start 04/19/17 at 21:00 Citalopram Hydrobromide (CeleXA) 20 mg DAILY PO ; Start 04/20/17 at 09:00 Clonazepam (KlonoPIN) 2 mg BID PO Last administered on 04/19/17 21:29; Start at 21:00 Cyclobenzaprine HCl (Flexeril) 10 mg BID PO Last administered on 04/19/17 21:29 ; Start 04/19/17 at 21:00 Gabapentin (Neurontin) 600 mg TID PO ; Start 04/20/17 at 09:00 Hydroxychloroquine Sulfate (Plaquenil) 200 mg DAILY PO ; Start 04/20/17 at 09:00 Levothyroxine Sodium (Synthroid) 112 mcg DAILY@06 PO Last administered on 05:11; Start 04/20/17 at 06:00 Metaxalone (Skelaxin) 800 mg TID PO ; Start 04/20/17 at 09:00 Pantoprazole Sodium (Protonix) 40 mg AC LUNCH PO ; Start 04/20/17 at 11:00 Phenytoin (Dilantin) 300 mg HS PO Last administered on 04/19/17 21:34; Start at 21:00 Pilocarpine (Salagen) 5 mg TID PRN PO DRY MOUTH; Start 04/19/17 at 20:00 Prednisone (Deltasone) 5 mg DAILY PO ; Start 04/20/17 at 09:00; Stop 04/20/17 at 09:00; Status DC Prednisone (Deltasone) 50 mg DAILY PO ; Start 04/20/17 at 09:00 Tamsulosin HCl (Flomax) 0.4 mg BID PO Last administered on 04/19/17 21:34; Start 04/19/17 at 21:00 Non-Formulary Medication 5 mg 5 mg DAILY PO ERECTILE DYSFUNCTION; Start 04/20/17 at 09:00; Stop 04/20/17 at 09:00; Status DC Vancomycin HCl/ Sodium Chloride (Vancomycin Inj/ NS 500 ml Inj) 514 ml @ 250 mls/hr Q8H IV Last administered on 04/20/17 05:09; Start 04/20/17 at 05:00 Miscellaneous Information SPECIFIC LAB TO BE .. 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 NO ETOH (Rollins,Marni [employer]PER[employer]) Physical Exam Vital Signs Vital Signs Date Time Temp Pulse Resp B/P Pulse Ox O2 Delivery O2 Flow Rate FiO2 04/20/17 12:00 97.6 68 18 129/87 96 04/20/17 09:37 14 04/20/17 08:00 97.7 71 19 132/85 96 04/20/17 01:25 96.7 96 20 137/84 98 04/20/17 00:50 94 121/72 99 Nasal Cannula 2 04/19/17 23:17 89 Nasal Cannula 04/19/17 22:56 92 12 137/83 93 Nasal Cannula 2 04/19/17 21:40 98.1 106 16 142/86 100 Nasal Cannula 2 04/19/17 19:25 92 16 97 Nasal Cannula 2 04/19/17 19:23 Nasal Cannula 2 04/19/17 19:12 97 120/81 94 Room Air 04/19/17 18:34 97 04/19/17 17:21 98.2 118 16 132/92 97 Physical Exam GENERAL: This is a well-nourished, well-developed patient, in no apparent distress. SKIN: No rashes, ecchymoses or lesions. Cool and dry. HEAD: Atraumatic. Normocephalic. No temporal or scalp tenderness. EYES: Pupils equal round and reactive. Extraocular motions intact. No scleral icterus. No injection or drainage. LEFT SIDED FACIAL DROOP 9 H/O BELLS PALSEY) ENT: Nose without bleeding, purulent drainage or septal hematoma. Throat without erythema, tonsillar hypertrophy or exudate. Uvula midline. Airway patent. NECK: Trachea midline. No JVD or lymphadenopathy. Supple, nontender, no meningeal signs. CARDIOVASCULAR: Regular rate and rhythm without murmurs, gallops, or rubs. RESPIRATORY: Clear to auscultation. Breath sounds equal bilaterally. No wheezes , rales, or rhonchi. GASTROINTESTINAL: Abdomen soft, non-tender, nondistended. No hepato-splenomegaly , or palpable masses. No guarding. MUSCULOSKELETAL: Extremities left leg swollen v tender and red with a scab to the reyna. no drainage NEUROLOGICAL: Lethargic but arouses and is o x 3. Cranial nerves II through XII intact. Motor and sensory grossly within normal limits. Five out of 5 muscle strength in all muscle groups. Normal speech. Laboratory Laboratory Tests Test 04/19/17 04/19/17 04/19/17 04/20/17 18:25 18:29 19:50 08:00 Lactic Acid Level 0.9 White Blood Count 8.6 10.7 Red Blood Count 3.76 3.70 Hemoglobin 11.1 10.7 Hematocrit 33.0 32.7 Mean Corpuscular Volume 87.8 88.5 Mean Corpuscular Hemoglobin 29.6 29.0 Mean Corpuscular Hemoglobin 33.8 32.8 Concent Red Cell Distribution Width 14.3 15.0 Platelet Count 169 149 Mean Platelet Volume 7.1 7.2 Neutrophils (%) (Auto) 73.4 78.7 Lymphocytes (%) (Auto) 18.0 13.8 Monocytes (%) (Auto) 6.5 5.7 Eosinophils (%) (Auto) 1.9 1.6 Basophils (%) (Auto) 0.2 0.2 Neutrophils # (Auto) 6.2 8.4 Lymphocytes # (Auto) 1.6 1.5 Monocytes # (Auto) 0.6 0.6 Eosinophils # (Auto) 0.2 0.2 Basophils # (Auto) 0.0 0.0 CBC Comment DIFF FINAL DIFF FINAL Differential Comment Sodium Level 144 144 Potassium Level 3.4 3.8 Chloride Level 107 107 Carbon Dioxide Level 30.1 33.4 Anion Gap 7 4 Blood Urea Nitrogen 8 7 Creatinine 0.79 0.95 Estimat Glomerular Filtration 110 89 Rate Random Glucose 118 103 Calcium Level 8.4 7.8 Total Bilirubin 0.5 0.7 Aspartate Amino Transf 9 10 (AST/SGOT) Alanine Aminotransferase 21 20 (ALT/SGPT) Alkaline Phosphatase 44 36 Total Protein 6.4 6.2 Albumin 3.6 3.3 Urine Color YELLOW Urine Turbidity CLEAR Urine pH 5.5 Urine Specific [place] 1.013 Urine Protein NEG Urine Glucose (UA) NEG Urine Ketones NEG Urine Occult Blood NEG Urine Nitrite NEG Urine Bilirubin NEG Urine Leukocyte Esterase NEG Urine Squamous Epithelial 0-5 Cells Microscopic Urinalysis Comment CULT NOT INDICATED Date/Time Procedure Status Source Growth 04/19/17 18:29 Gram Stain - Final Resulted Wound Leg 04/19/17 18:29 Wound Culture - Preliminary Resulted Staph Sp Coagulase Positive 04/19/17 18:28 Aerobic Blood Culture - Preliminary Resulted Blood Peripheral NO GROWTH IN 1 DAY 04/19/17 18:28 Anaerobic Blood Culture - Preliminary Resulted Blood Peripheral NO GROWTH IN 1 DAY (Marni Rollins) Physical Exam Alert Oriented x 3 Chest Clear- no wound on back Ecchymoses left thigh Left leg anteriorly with cellulitis and indurated area with some bloody drainage on tibia- very tender (Halle Gardner MD) Result Diagram: 04/20/17 0800 04/20/17 0800 Assessment and Plan Problem List: (1) Cellulitis of left anterior lower leg Status: Acute Plan: plan to continue vancomycin and stop zosyn start ancef pending cultures he may need ct scan of the left leg if swelling worsens. seems it could be in early abscess formation seen exam with Dr Gardner (2) Immunocompromised patient Status: Acute (Marni Rollins) Problem List: (1) Cellulitis of left anterior lower leg Status: Acute Plan: plan to continue vancomycin and stop zosyn start ancef pending cultures he may need ct scan of the left leg if swelling worsens. seems it could be in early abscess formation seen exam with Dr Gardner IV Vancomycin and Cefazolin Check MRI left leg (2) Immunocompromised patient Status: Acute (Halle Gardner MD) Marni Rollins Apr 20, 2017 14:33 Halle Gardner MD Apr 20, 2017 15:24
[2017-04-20] MEDS: ceFAZolin 2 GM PREMIX 50 ML IV SCH ×2 (16:15→23:31)
[2017-04-20] MEDS: PHENYTOIN SODIUM 100 MG CAP PO SCH (20:11)
[2017-04-20] MEDS: AMITRIPTYLINE HCL 50 MG TAB PO SCH (20:11)
[2017-04-20] MEDS ORDERED: PHARMACY ORDERED LAB ONE (20:45)
[2017-04-21 03:58] VITALS: BP 138/92; PULSE 72; RESP 16; TEMP 97.6; O2SAT 96
[2017-04-21] MEDS: HYDROmorphone HCL PF 1 MG/ML VIAL IV PRN ×5 (04:04→21:35)
[2017-04-21] MEDS: VANCOMYCIN INJ 1,400 MG in SODIUM CHLORID 0.9% 500 ML INJ 500 ML IV SCH ×4 (04:30→21:00)
[2017-04-21] MEDS: LEVOTHYROXINE SODIUM 112 MCG TAB PO SCH (05:17)
[2017-04-21 06:24] LABS: AUTOMATED NEUTROPHIL # 5.8 TH/MM3 (1.8-7.7); BASOPHIL % 0.3 % (0.0-2.0); EOSINOPHIL # 0.1 TH/MM3 (0-0.4); EOSINOPHIL % 1.2 % (0.0-4.0); HEMATOCRIT 31.8 % (39.0-51.0); HEMO FLAGS DIFF FINAL; LYMPH % 22.2 % (9.0-44.0); LYMPHOCYTE # 1.8 TH/MM3 (1.0-4.8); MEAN CELL VOLUME 88.9 FL (80.0-100.0); MEAN CORPUSCULAR HEMOGLOBIN 29.2 PG (27.0-34.0); MEAN CORPUSCULAR HGB CONC 32.9 % (32.0-36.0); NEUT % 69.3 % (16.0-70.0); PLATELET COUNT 161 TH/MM3 (150-450); RED BLOOD COUNT 3.57 MIL/MM3 (4.50-5.90); RED CELL DISTRIBUTION WIDTH 15.1 % (11.6-17.2); WHITE BLOOD COUNT 8.3 TH/MM3 (4.0-11.0)
[2017-04-21] MEDS: ceFAZolin 2 GM PREMIX 50 ML IV SCH ×3 (06:37→22:07)
[2017-04-21 07:45] VITALS: BP 123/88; PULSE 75; RESP 18; TEMP 97.8; O2SAT 100
[2017-04-21] MEDS: SODIUM CHLORIDE 0.9% FLUSH 10 ML FLUSH IV FLUSH SCH ×2 (09:00→21:39)
[2017-04-21] MEDS: DOCUSATE SODIUM 50 MG/SENNA 8.6 MG TAB PO SCH ×2 (09:00→21:39)
[2017-04-21] MEDS: TAMSULOSIN HCL 0.4 MG CAP PO SCH ×2 (10:39→21:39)
[2017-04-21] MEDS: GABAPENTIN 300 MG CAP PO SCH ×3 (10:39→18:00)
[2017-04-21] MEDS: ENOXAPARIN SODIUM 40 MG/0.4 ML SYRINGE SQ SCH (10:39)
[2017-04-21] MEDS: HYDROXYCHLOROQUINE SULFATE 200 MG TAB PO SCH (10:40)
[2017-04-21] MEDS: clonazePAM 1 MG TAB PO SCH ×2 (10:40→21:40)
[2017-04-21] MEDS: CITALOPRAM HYDROBROMIDE 20 MG TAB PO SCH (10:40)
[2017-04-21] MEDS: predniSONE 50 MG TAB PO SCH (10:40)
[2017-04-21] MEDS: CYCLOBENZAPRINE HCL 10 MG TAB PO SCH ×2 (10:40→21:39)
[2017-04-21] MEDS: METAXALONE 800 MG TAB PO SCH ×3 (10:41→18:00)
--- NOTE | 2017-04-21 11:13 | HHI.PR ---
Subjective Remarks Patient says he is feeling all right. Reports pain controlled. Denies any chest pain or shortness of breath. He does report the left leg erythema improving. Positive bowel movement Objective Vital Signs Date Time Temp Pulse Resp B/P Pulse Ox O2 Delivery O2 Flow Rate FiO2 04/21/17 07:45 97.8 75 18 123/88 100 04/21/17 04:34 16 04/21/17 03:58 97.6 72 16 138/92 96 04/20/17 23:58 97.0 84 18 141/90 95 04/20/17 20:00 97.2 93 18 142/80 96 04/20/17 16:00 98.0 76 17 127/80 95 04/20/17 12:00 97.6 68 18 129/87 96 I/O 04/20/17 04/20/17 04/20/17 04/21/17 04/21/17 04/21/17 07:00 15:00 23:00 07:00 15:00 23:00 Intake Total 1420 ml 1094 ml 240 ml 1177 ml 386 ml Output Total 2000 ml 1300 ml 1000 ml Balance 1420 ml -906 ml -1060 ml 177 ml 386 ml Intake Oral 420 ml 650 ml 240 ml 320 ml IV Total 1000 ml 444 ml 857 ml 386 ml Output Urine Total 2000 ml 1300 ml 1000 ml # Voids 4 # Bowel Movements 0 1 Result Diagram: 04/21/17 0540 04/20/17 0800 Objective Remarks GENERAL: Sitting up in bed. Appears comfortable. Alert and oriented 3. SKIN: Warm and dry. HEAD: Normocephalic. EYES: No scleral icterus. No injection or drainage. NECK: Supple, trachea midline. No JVD or lymphadenopathy. CARDIOVASCULAR: Regular rate and rhythm without murmurs, gallops, or rubs. RESPIRATORY: Breath sounds equal bilaterally. No accessory muscle use. GASTROINTESTINAL: Abdomen soft, non-tender, nondistended. MUSCULOSKELETAL: No cyanosis. Left lower extremity with 1 x 1 cm abrasion over the anterior reyna. Induration, with 3 cm of surrounding erythema. BACK: Nontender without obvious deformity. No CVA tenderness. A/P Assessment and Plan // cellulitis of the left leg continue with IV antibiotics -Negative for DVT. Continue to keep elevated ID following. Appreciate assistance. -Pansensitive staph aureus on wound culture. -Continue antibiotics as per infectious disease. -MRI left leg pending. //history of lupus/ ankylosing spondylitis/RA; continue to hold immunosuppressants for now //mild hypokalemia; resolved after replacement. //history of Prasad's palsy. No acute issues. Continue to monitor //DVT prophylaxis with lovenox Discharge Planning Home When cleared by infectious disease. Arie Thomson MD Apr 21, 2017 11:13
[2017-04-21 11:26] VITALS: BP 118/69; PULSE 86
[2017-04-21] MEDS: PANTOPRAZOLE SOD 40 MG DELAYED RELEASE TAB PO SCH (13:06)
[2017-04-21 14:47] VITALS: BP 156/96; PULSE 82
[2017-04-21] MEDS ORDERED: GADODIAMIDE PF 287 MG/ML 5 ML VIAL (for RAD MRI) IV ONE (15:50)
[2017-04-21 16:00] VITALS: BP 120/80; PULSE 78; RESP 18; TEMP 97.4; O2SAT 99
--- NOTE | 2017-04-21 16:32 | HHI.IDPN ---
Note Infectious Disease Note ID COVERAGE: Chart reviewed. Patient seen and examined. Feels okay. No fever. Has chills prior to admission. Wound culture from the left tibia has MSSA. Past Family Social History Allergies: Coded Allergies: Cat Dander (Verified Allergy, Mild, Cough, 04/19/17) Morphine (Verified Allergy, Mild, Rash, 04/19/17) Past Medical History Past Medical History Crohn's disease ankylosing spondylitis RA jj's palsy lupus Past Surgical History hand surgery Family History lupus in mother Physical Exam Vital Signs Date Time Temp Pulse Resp B/P Pulse Ox O2 Delivery O2 Flow Rate FiO2 04/21/17 14:47 82 156/96 04/21/17 11:53 18 04/21/17 11:26 86 118/69 04/21/17 07:45 97.8 75 18 123/88 100 04/21/17 03:58 97.6 72 16 138/92 96 04/20/17 23:58 97.0 84 18 141/90 95 04/20/17 20:00 97.2 93 18 142/80 96 04/20/17 04/20/17 04/21/17 15:00 23:00 07:00 Intake Total 1094 ml 240 ml 1177 ml Output Total 2000 ml 1300 ml 1000 ml Balance -906 ml -1060 ml 177 ml Intake Oral 650 ml 240 ml 320 ml IV Total 444 ml 857 ml Output Urine Total 2000 ml 1300 ml 1000 ml # Bowel Movements 1 Laboratory Tests Test 04/19/17 04/20/17 04/21/17 18:29 08:00 05:40 White Blood Count 8.6 TH/MM3 10.7 TH/MM3 8.3 TH/MM3 Red Blood Count 3.76 MIL/MM3 3.70 MIL/MM3 3.57 MIL/MM3 Hemoglobin 11.1 GM/DL 10.7 GM/DL 10.4 GM/DL Hematocrit 33.0 % 32.7 % 31.8 % Mean Corpuscular Volume 87.8 FL 88.5 FL 88.9 FL Mean Corpuscular Hemoglobin 29.6 PG 29.0 PG 29.2 PG Mean Corpuscular Hemoglobin 33.8 % 32.8 % 32.9 % Concent Red Cell Distribution Width 14.3 % 15.0 % 15.1 % Platelet Count 169 TH/MM3 149 TH/MM3 161 TH/MM3 Mean Platelet Volume 7.1 FL 7.2 FL 7.7 FL Neutrophils (%) (Auto) 73.4 % 78.7 % 69.3 % Lymphocytes (%) (Auto) 18.0 % 13.8 % 22.2 % Monocytes (%) (Auto) 6.5 % 5.7 % 7.0 % Eosinophils (%) (Auto) 1.9 % 1.6 % 1.2 % Basophils (%) (Auto) 0.2 % 0.2 % 0.3 % Neutrophils # (Auto) 6.2 TH/MM3 8.4 TH/MM3 5.8 TH/MM3 Lymphocytes # (Auto) 1.6 TH/MM3 1.5 TH/MM3 1.8 TH/MM3 Monocytes # (Auto) 0.6 TH/MM3 0.6 TH/MM3 0.6 TH/MM3 Eosinophils # (Auto) 0.2 TH/MM3 0.2 TH/MM3 0.1 TH/MM3 Basophils # (Auto) 0.0 TH/MM3 0.0 TH/MM3 0.0 TH/MM3 CBC Comment DIFF FINAL DIFF FINAL DIFF FINAL Differential Comment Laboratory Tests Test 04/19/17 04/19/17 04/20/17 18:25 18:29 08:00 Lactic Acid Level 0.9 mmol/L Sodium Level 144 MEQ/L 144 MEQ/L Potassium Level 3.4 MEQ/L 3.8 MEQ/L Chloride Level 107 MEQ/L 107 MEQ/L Carbon Dioxide Level 30.1 MEQ/L 33.4 MEQ/L Anion Gap 7 MEQ/L 4 MEQ/L Blood Urea Nitrogen 8 MG/DL 7 MG/DL Creatinine 0.79 MG/DL 0.95 MG/DL Estimat Glomerular Filtration 110 ML/MIN 89 ML/MIN Rate Random Glucose 118 MG/DL 103 MG/DL Calcium Level 8.4 MG/DL 7.8 MG/DL Total Bilirubin 0.5 MG/DL 0.7 MG/DL Aspartate Amino Transf 9 U/L 10 U/L (AST/SGOT) Alanine Aminotransferase 21 U/L 20 U/L (ALT/SGPT) Alkaline Phosphatase 44 U/L 36 U/L Total Protein 6.4 GM/DL 6.2 GM/DL Albumin 3.6 GM/DL 3.3 GM/DL Microbiology Date/Time Procedure Status Source Growth 04/19/17 18:23 Aerobic Blood Culture - Preliminary Resulted Blood Peripheral NO GROWTH IN 2 DAYS 04/19/17 18:23 Anaerobic Blood Culture - Preliminary Resulted Blood Peripheral NO GROWTH IN 2 DAYS 04/19/17 18:28 Aerobic Blood Culture - Preliminary Resulted Blood Peripheral NO GROWTH IN 2 DAYS 04/19/17 18:28 Anaerobic Blood Culture - Preliminary Resulted Blood Peripheral NO GROWTH IN 2 DAYS 04/19/17 18:29 Gram Stain - Final Complete Wound Leg 04/19/17 18:29 Wound Culture - Final Complete Staphylococcus Aureus Physical Exam GENERAL: Patient is in no acute distress. HEENT: EOMI, No icterus. NECK: Supple. LUNGS: Clear breath sounds. CARDIAC: Regular rate and rhythm ABDOMEN: Soft, non tender. Bruise at the left flank. EXTREMITIES: Erythema and swelling at the left tibia. (+) tenderness. Ecchymosis at the left thigh. SKIN: No rash. Assessment and Plan Problem List: (1) Cellulitis of left anterior lower leg. MSSA. ? abscess. Status: Acute Plan: Stop vancomycin. Continue Ancef. Monitor MRI. Consider Surgical drainage if abscess on MRI. (2) Immunocompromised patient Status: Acute Leon Meza MD Apr 21, 2017 16:32
--- NOTE | 2017-04-21 16:45 | RADHPO ---
EXAM DATE/TIME: 04/21/2017 15:09 [facility] COMPARISON: TIBIA/FIBULA LEFT (AP/LAT), April 19, 2017, 18:41. INDICATIONS : Wound on anterior mid left tibia for 4 days after falling and cutting leg on a piece of wood. CONTRAST: 21 cc Omniscan (gadodiamide) IV MEDICAL HISTORY : Crohn's disease. Lupus. Rheumatoid arthritis. SURGICAL HISTORY : renal transplant, wrist surgery ENCOUNTER: Subsequent ACUITY: 4-6 days PAIN SCORE: 3/10 LOCATION: Left TECHNIQUE: Multiplanar multisequence MRI examination of the lower leg was performed with and without contrast. FINDINGS: The area of injury is located in the mid to proximal one third anterior leg adjacent to the tibia. T here is some mild induration of the fat in this area and there is some enhancement in the indurated f at, but no focal fluid collections seen. There is normal signal in the adjacent tibia. There is dif fuse soft tissue subcutaneous edema about the medial lateral aspect of the mid leg with greater edema present medial and lateral than at the site of injury. CONCLUSION: Minimal inflammatory change in the subcutaneous fat adjacent to the proximal anterior leg injury. N o drainable fluid collection seen. No abnormal signal in the osseous structures or in the muscular c ompartments. Hany Aponte MD on April 21, 2017 at 16:37 Board Certified Radiologist. This report was verified electronically.
[2017-04-21 20:00] VITALS: BP 146/90; PULSE 94; RESP 20; TEMP 97.6; O2SAT 97
[2017-04-21] MEDS: AMITRIPTYLINE HCL 50 MG TAB PO SCH (21:39)
[2017-04-21] MEDS: PHENYTOIN SODIUM 100 MG CAP PO SCH (21:39)
[2017-04-22] VITALS: BP 157/91; PULSE 72; RESP 20; TEMP 97.7; O2SAT 98
[2017-04-22] MEDS: HYDROmorphone HCL PF 1 MG/ML VIAL IV PRN ×5 (00:42→15:31)
[2017-04-22 04:00] VITALS: BP 129/95; PULSE 86; RESP 20; TEMP 96; O2SAT 98
[2017-04-22] MEDS ORDERED: PHARMACY ORDERED LAB ONE (04:45)
[2017-04-22] MEDS: VANCOMYCIN INJ 1,400 MG in SODIUM CHLORID 0.9% 500 ML INJ 500 ML IV SCH ×2 (05:05→12:25)
[2017-04-22 05:10] LABS: POTASSIUM 3.4 MEQ/L (3.5-5.1)
[2017-04-22 05:12] LABS: AUTOMATED NEUTROPHIL # 5.5 TH/MM3 (1.8-7.7); BASOPHIL % 0.3 % (0.0-2.0); EOSINOPHIL # 0.1 TH/MM3 (0-0.4); EOSINOPHIL % 0.7 % (0.0-4.0); HEMATOCRIT 33.9 % (39.0-51.0); HEMO FLAGS DIFF FINAL; LYMPH % 21.9 % (9.0-44.0); LYMPHOCYTE # 1.7 TH/MM3 (1.0-4.8); MEAN CELL VOLUME 89.1 FL (80.0-100.0); MEAN CORPUSCULAR HEMOGLOBIN 29.7 PG (27.0-34.0); MEAN CORPUSCULAR HGB CONC 33.4 % (32.0-36.0); NEUT % 70.1 % (16.0-70.0); PLATELET COUNT 184 TH/MM3 (150-450); RED BLOOD COUNT 3.81 MIL/MM3 (4.50-5.90); RED CELL DISTRIBUTION WIDTH 14.9 % (11.6-17.2); WHITE BLOOD COUNT 7.8 TH/MM3 (4.0-11.0)
[2017-04-22 05:13] LABS: BICARBONATE 31.3 MEQ/L (21.0-32.0); MAGNESIUM 2.2 MG/DL (1.5-2.5)
[2017-04-22] MEDS: LEVOTHYROXINE SODIUM 112 MCG TAB PO SCH (05:38)
[2017-04-22] MEDS: SODIUM CHLORIDE 0.9% FLUSH 10 ML FLUSH IV FLUSH SCH (07:55)
[2017-04-22] MEDS: ceFAZolin 2 GM PREMIX 50 ML IV SCH ×2 (07:55→15:31)
[2017-04-22 08:00] VITALS: BP 154/93; PULSE 72; RESP 16; TEMP 96.3; O2SAT 99
[2017-04-22] MEDS: CYCLOBENZAPRINE HCL 10 MG TAB PO SCH (08:43)
[2017-04-22] MEDS: clonazePAM 1 MG TAB PO SCH (08:43)
[2017-04-22] MEDS: predniSONE 50 MG TAB PO SCH (08:43)
[2017-04-22] MEDS: CITALOPRAM HYDROBROMIDE 20 MG TAB PO SCH (08:43)
[2017-04-22] MEDS: HYDROXYCHLOROQUINE SULFATE 200 MG TAB PO SCH (08:44)
[2017-04-22] MEDS: TAMSULOSIN HCL 0.4 MG CAP PO SCH (08:44)
[2017-04-22] MEDS: GABAPENTIN 300 MG CAP PO SCH ×2 (08:44→12:23)
[2017-04-22] MEDS: ENOXAPARIN SODIUM 40 MG/0.4 ML SYRINGE SQ SCH (08:46)
[2017-04-22] MEDS: DOCUSATE SODIUM 50 MG/SENNA 8.6 MG TAB PO SCH (08:47)
[2017-04-22] MEDS: METAXALONE 800 MG TAB PO SCH ×2 (08:47→12:24)
[2017-04-22] MEDS ORDERED: POTASSIUM CHLORIDE 10 MEQ CONTROLLED RELEASE TAB PO ONE (11:30)
[2017-04-22 12:00] VITALS: BP 160/93; PULSE 82; RESP 20; TEMP 96.9; O2SAT 97
[2017-04-22] MEDS: PANTOPRAZOLE SOD 40 MG DELAYED RELEASE TAB PO SCH (12:23)
--- NOTE | 2017-04-22 15:06 | HHI.PR ---
Subjective Remarks Patient says he is feeling little better. Pain is improving. Denies any chest pain or shortness of breath. Objective Vital Signs Date Time Temp Pulse Resp B/P Pulse Ox O2 Delivery O2 Flow Rate FiO2 04/22/17 12:00 96.9 82 20 160/93 97 04/22/17 08:24 16 04/22/17 08:00 96.3 72 16 154/93 99 04/22/17 04:00 96.0 86 20 129/95 98 04/22/17 00:00 97.7 72 20 157/91 98 04/21/17 20:00 97.6 94 20 146/90 97 04/21/17 16:00 97.4 78 18 120/80 99 I/O 04/21/17 04/21/17 04/21/17 04/22/17 04/22/17 04/22/17 07:00 15:00 23:00 07:00 15:00 23:00 Intake Total 1177 ml 636 ml 1030 ml 350 ml 240 ml Output Total 1000 ml 300 ml Balance 177 ml 336 ml 1030 ml 350 ml 240 ml Intake Oral 320 ml 250 ml 480 ml 240 ml IV Total 857 ml 386 ml 550 ml 350 ml Output Urine Total 1000 ml 300 ml # Voids 3 1 2 # Bowel Movements 0 1 Result Diagram: 04/22/17 0450 04/22/17 0450 Objective Remarks GENERAL: Sitting up in bed. Appears comfortable. Alert and oriented 3. SKIN: Warm and dry. HEAD: Normocephalic. EYES: No scleral icterus. No injection or drainage. NECK: Supple, trachea midline. No JVD or lymphadenopathy. CARDIOVASCULAR: Regular rate and rhythm without murmurs, gallops, or rubs. RESPIRATORY: Breath sounds equal bilaterally. No accessory muscle use. GASTROINTESTINAL: Abdomen soft, non-tender, nondistended. MUSCULOSKELETAL: No cyanosis. Left lower extremity with 1 x 1 cm abrasion over the anterior reyna. It is on review today, draining serosanguineous fluid.. Now with 1/2 cm of surrounding erythema.. BACK: Nontender without obvious deformity. No CVA tenderness. A/P Assessment and Plan =====04/22/17======== Hypokalemia. Mild. Replaced. MRI negative for osteomyelitis. Call placed to ID. May be able to discharge home on by mouth on biotics // cellulitis of the left leg continue with IV antibiotics -Negative for DVT. Continue to keep elevated ID following. Appreciate assistance. -Pansensitive staph aureus on wound culture. -Continue antibiotics as per infectious disease. -MRI left leg negative for osteomyelitis. Erythema improving. //history of lupus/ ankylosing spondylitis/RA; continue to hold immunosuppressants for now //mild hypokalemia; resolved after replacement. //history of Prasad's palsy. No acute issues. Continue to monitor //DVT prophylaxis with lovenox Discharge Planning Home When cleared by infectious disease. Arie Thomson MD Apr 22, 2017 15:06
[2017-04-22] MEDS ORDERED: PERC5TAB12 PO (15:59)
[2017-04-22 16:00] VITALS: BP 148/96; PULSE 92; RESP 18; TEMP 96.7; O2SAT 97
[2017-04-22] MEDS ORDERED: CEPH500T PO (16:00)
--- NOTE | 2017-04-22 16:17 | HHI.DS ---
Discharge Summary Admission Date Apr 19, 2017 at 19:54 Discharge Date: Apr 22, 2017 Admitting Diagnosis CELLULITIS LEFT LEG, IMMUNOCOMPRIMIZED (1) Cellulitis of left anterior lower leg ICD Code: L03.116 Diagnosis: Principal Procedures Wound culture. No invasive procedures. Brief History - From Admission patient is a 37 y/o male with history of lupus, ankylosing spondylitis,Crohn's disease and RA, presented to ER with pain to the left hip. he says that he fell off a few stairs three days ago , landed on his left side and started to have left hip pain afterwards. he says that he noticed some redness on the left leg which got worse yesterday and made him to come to ER. he's complaining of moderate pain to the left hip and left leg.he had some chills at home but no definite report of fever. CBC/BMP: 04/22/17 0450 04/22/17 0450 Significant Findings Laboratory Tests Test 04/19/17 04/20/17 04/20/17 04/21/17 18:29 08:00 20:30 05:40 Red Blood Count 3.76 MIL/MM3 3.70 MIL/MM3 3.57 MIL/MM3 (4.50-5.90) (4.50-5.90) (4.50-5.90) Hemoglobin 11.1 GM/DL 10.7 GM/DL 10.4 GM/DL (13.0-17.0) (13.0-17.0) (13.0-17.0) Hematocrit 33.0 % 32.7 % 31.8 % (39.0-51.0) (39.0-51.0) (39.0-51.0) Neutrophils (%) (Auto) 73.4 % 78.7 % (16.0-70.0) (16.0-70.0) Potassium Level 3.4 MEQ/L (3.5-5.1) Random Glucose 118 MG/DL (74-106) Calcium Level 8.4 MG/DL 7.8 MG/DL (8.5-10.1) (8.5-10.1) Aspartate Amino Transf 9 U/L (15-37) 10 U/L (15-37) (AST/SGOT) Alkaline Phosphatase 44 U/L (45-117) 36 U/L (45-117) Platelet Count 149 TH/MM3 (150-450) Neutrophils # (Auto) 8.4 TH/MM3 (1.8-7.7) Carbon Dioxide Level 33.4 MEQ/L (21.0-32.0) Anion Gap 4 MEQ/L (5-15) Total Protein 6.2 GM/DL (6.4-8.2) Albumin 3.3 GM/DL (3.4-5.0) Vancomycin Level Trough 12.4 MCG/ML (5.0-10.0) Test 04/22/17 04:50 Red Blood Count 3.81 MIL/MM3 (4.50-5.90) Hemoglobin 11.3 GM/DL (13.0-17.0) Hematocrit 33.9 % (39.0-51.0) Neutrophils (%) (Auto) 70.1 % (16.0-70.0) Potassium Level 3.4 MEQ/L (3.5-5.1) Calcium Level 7.8 MG/DL (8.5-10.1) Imaging Last Impressions Lower Extremity MRI 04/21/17 0000 Signed Impressions: Service Date/Time: Friday, April 21, 2017 15:09 - CONCLUSION: Minimal inflammatory change in the subcutaneous fat adjacent to the proximal anterior leg injury. No drainable fluid collection seen. No abnormal signal in the osseous structures or in the muscular compartments. Hany Aponte MD Lower Extremity Ultrasound 04/20/17 0000 Signed Impressions: Service Date/Time: Thursday, April 20, 2017 09:39 - CONCLUSION: Negative for deep venous thrombosis. Martin Brown MD FACR Tibia/Fibula X-Ray 04/19/171805 Signed Impressions: Service Date/Time: Wednesday, April 19, 2017 18:41 - CONCLUSION: Soft tissue swelling without fracture. Az Bullard MD Hip and Pelvis X-Ray 04/19/171805 Signed Impressions: Service Date/Time: Wednesday, April 19, 2017 18:34 - CONCLUSION: No acute fracture. Az Bullard MD Chest X-Ray 04/19/17 3330 Signed Impressions: Service Date/Time: Wednesday, April 19, 2017 18:55 - CONCLUSION: Diminished lung volumes with clear lungs. Az Bullard MD Hospital Course Patient was admitted and treated with broad-spectrum IV antibiotics. Wound culture was obtained, and eventually returned positive for MSSA. Patient experienced improvement in erythema, however slowly improving around the area of injury. Infectious disease was consulted. MRI was ordered and negative for osteo-myelitis or tendon involvement. Patient was discharged home with antibiotics to complete treatment course. verbally cleared for Discharge as per ID. Patient will need to follow-up with primary care and infectious disease as outpatient. =====04/22/17======== Hypokalemia. Mild. Replaced. MRI negative for osteomyelitis. Call placed to ID. May be able to discharge home on by mouth on biotics // cellulitis of the left leg continue with IV antibiotics -Negative for DVT. Continue to keep elevated ID following. Appreciate assistance. -Pansensitive staph aureus on wound culture. -Continue antibiotics as per infectious disease. -MRI left leg negative for osteomyelitis. Erythema improving. //history of lupus/ ankylosing spondylitis/RA; continue to hold immunosuppressants for now //mild hypokalemia; resolved after replacement. //history of Prasad's palsy. No acute issues. Continue to monitor //DVT prophylaxis with lovenox Discharge Planning Home When cleared by infectious disease. Pt Condition on Discharge: Good Discharge Disposition: Discharge Home Discharge Time: > 30 minutes Discharge Instructions DIET: Follow Instructions for: Heart Healthy Diet Activities you can perform: Regular-No Restrictions Follow up Referrals: Infectious Disease - 1 Week with Halle Gardner MD PCP Follow-up - 1 Week with Shantanu Bansal MD New Medications: Cephalexin (Cephalexin) 500 Mg Tab 500 MG PO Q6H Infection #44 Ref 0 TAB Continued Medications: Acetaminophen-Codeine (Tylenol-Codeine #3) 300-30 mg Tab 1 TAB PO Q4H PRN PAIN Ref 0 TAB Adalimumab 2-Pack Inj (Humira 2-Pack Inj) 40 Mg/0.8 Ml Syr 40 MG SQ Q14D #1 Ref 0 KIT Amitriptyline (Amitriptyline) 25 Mg Tab 25 MG PO HS Control Depression #30 Ref 0 TAB Amitriptyline (Amitriptyline) 50 Mg Tab 50 MG PO HS Control Depression #30 Ref 0 TAB Azathioprine (Imuran) 50 Mg Tab 100 MG PO BID Hazardous agent: use appropriate precautions for handling and disposal. Immunosuppression #30 Ref 0 TAB Bqokdaqcsm-Ecuypvg-Juotgsoj (Ruxphxxdpb-Fvcatni-Zjefnuyx) 50-325-40 Mg Cap 1 CAP PO Q6HR Do not exceed 6 capsules/day. PRN HEADACHE CAP Citalopram (Citalopram) 20 Mg Tab 20 MG PO DAILY Control Depression #30 Ref 0 TAB Clonazepam (Clonazepam) 2 Mg Tab 2 MG PO BID #60 Ref 0 TAB Cyclobenzaprine (Flexeril) 10 Mg Tab 10 MG PO BID Muscle Spasm #90 Ref 0 TAB Diclofenac-Misoprostol (Diclofenac-Misoprostol) 75-0.2 Mg Tab 1 TAB PO BID Pain Management #60 Ref 0 TAB Folic Acid (Folic Acid) 400 Mcg Tab Unknown Dose PO DAILY Nutritional Supplement Ref 0 TAB Gabapentin (Gabapentin) 600 Mg Tab 600 MG PO TID #90 Ref 0 TAB Hydroxychloroquine (Hydroxychloroquine) 200 Mg Tab 200 MG PO DAILY Take with food #60 Ref 0 TAB Levothyroxine (Levothyroxine) 112 Mcg Tab 112 MCG PO DAILY #30 Ref 0 TAB Metaxalone (Metaxalone) 800 Mg Tab 800 MG PO TID Muscle Spasm Ref 0 TAB Methotrexate (Methotrexate) 2.5 Mg Tab 4 TAB PO Q7D Ref 0 TAB Ondansetron (Ondansetron) 8 Mg Tab 8 MG PO Q8HR PRN NAUSEA OR VOMITING Ref 0 TAB Oxycodone-Acetaminophen (Percocet) 5-325 mg Tab 1 TAB PO Q4H PRN PAIN #15 Ref 0 TAB (This prescription has been renewed) Pantoprazole (Protonix) 40 Mg Tab 40 MG PO AC LUNCH Reflux #30 Ref 0 TAB Phenytoin Extended (Dilantin) 100 Mg Cap 300 MG PO HS Control Seizures #270 Ref 0 CAP Pilocarpine (Pilocarpine) 5 Mg Tab 5 MG PO TID PRN DRY MOUTH #90 Ref 0 TAB Prednisone (Prednisone) 5 Mg Tab 5 MG PO DAILY Ref 0 TAB Prednisone (Prednisone) 50 Mg Tab 50 MG PO DIRECTED TAPER DOSE Ref 0 TAB Tadalafil (Cialis) 5 Mg Tab 5 MG PO DAILY Do not exceed 1 dose/day. Ref 0 TAB Tamsulosin (Flomax) 0.4 Mg Cap 0.4 MG PO BID Manage Prostate Problems #30 Ref 0 CAP Tramadol (Tramadol) 50 Mg Tab 50 MG PO Q6H PRN PAIN Ref 0 TAB Arie Thomson MD Apr 22, 2017 16:17
== END 2017-04-22 17:30 | disposition home or self-care (01) ==
LOC: PHEFT 17:08 → PHEDA 19:54 → PH3B 04-20 01:25
PROVIDERS: ADMIT Internal Medicine; ATTEND Internal Medicine
DX: L03.116 Cellulitis of left lower limb (principal); M25.552 Pain in left hip; E87.6 Hypokalemia; M06.9 Rheumatoid arthritis, unspecified; M45.9 Ankylosing spondylitis of unspecified sites in spine; M32.9 Systemic lupus erythematosus, unspecified; F32.9 Major depressive disorder, single episode, unspecified; F41.9 Anxiety disorder, unspecified; K50.90 Crohn's disease, unspecified, without complications; B95.61 Methicillin susceptible Staphylococcus aureus infection as the cause of diseases classified elsewhere; Z91.048 Other nonmedicinal substance allergy status; Z88.5 Allergy status to narcotic agent; Z85.850 Personal history of malignant neoplasm of thyroid; Z92.21 Personal history of antineoplastic chemotherapy; Z86.14 Personal history of Methicillin resistant Staphylococcus aureus infection; Z86.69 Personal history of other diseases of the nervous system and sense organs; Z79.899 Other long term (current) drug therapy
CPT/HCPCS: 71010; 73502; 73590; 73720; 76937; 80048; 80053; 80202; 81001; 83605; 83735; 85025; 86403; 87040; 87070; 87186; 87205; 93971; 96361; 96365; 96366; 96367; 96368; 96372; 96375; 96376; 99285; A9579; G0378; J0690; J1170; J1650; J2405; J2543; J3370; J7030; J7040; J7500; J7512

== ENCOUNTER 2017-05-06 21:33 | Inpatient (IN) | payer BC ==
[~2017-05-06] VITALS: Ht 182.9 cm; Wt 103.4 kg
[~2017-05-06 21:33] MED LIST changes: +CEPH500T PO
[2017-05-06 21:40] VITALS: BP 132/102; PULSE 98; RESP 18; TEMP 98.3; O2SAT 98
[2017-05-06] MEDS ORDERED: VANCOMYCIN INJ 1,250 MG in SODIUM CHLOR 0.9% 250 ML INJ 250 ML IV ONE (22:15)
[2017-05-06] MEDS ORDERED: PIPERACIL-TAZO 3.375 GM PREMIX 50 ML IV ONE (22:15)
[2017-05-06 22:45] VITALS: BP 144/95; PULSE 82; RESP 18; O2SAT 96
[2017-05-06 22:45] LABS: AUTOMATED NEUTROPHIL # 2.8 TH/MM3 (1.8-7.7); BASOPHIL # 0.1 TH/MM3 (0-0.2); BASOPHIL % 1.1 % (0.0-2.0); EOSINOPHIL # 0.2 TH/MM3 (0-0.4); EOSINOPHIL % 3.1 % (0.0-4.0); HEMATOCRIT 33.8 % (39.0-51.0); HEMO FLAGS DIFF FINAL; LYMPH % 37.2 % (9.0-44.0); LYMPHOCYTE # 2.1 TH/MM3 (1.0-4.8); MEAN CORPUSCULAR HEMOGLOBIN 28.7 PG (27.0-34.0); MEAN CORPUSCULAR HGB CONC 33.8 % (32.0-36.0); MONO % 7.2 % (0.0-8.0); NEUT % 51.4 % (16.0-70.0); PLATELET COUNT 218 TH/MM3 (150-450); RED BLOOD COUNT 3.98 MIL/MM3 (4.50-5.90); RED CELL DISTRIBUTION WIDTH 13.9 % (11.6-17.2); WHITE BLOOD COUNT 5.6 TH/MM3 (4.0-11.0)
--- NOTE | 2017-05-06 22:45 | RADRPT ---
EXAM DATE/TIME: 05/06/2017 22:15 [facility] COMPARISON: TIBIA/FIBULA LEFT (AP/LAT), April 19, 2017, 18:41. INDICATIONS : Left lower leg pain post fall. MEDICAL HISTORY : Lupus. Crohn's disease. Rheumatoid arthritis. SURGICAL HISTORY : renal transplant, wrist surgery ENCOUNTER: [facility] ACUITY: 3 weeks PAIN SCORE: 6/10 LOCATION: Left anterior lower leg FINDINGS: 4 views of the left leg demonstrate no fracture or dislocation. Mineralization is within normal limit s. No soft tissue abnormality or radiopaque foreign body is identified. CONCLUSION: No acute abnormality is identified. Trevor Garcia MD on May 06, 2017 at 22:41 Board Certified Radiologist. This report was verified electronically.
[2017-05-06 22:51] LABS: CHLORIDE 107 MEQ/L (98-107); POTASSIUM 3.5 MEQ/L (3.5-5.1); SODIUM (NA) 142 MEQ/L (136-145)
[2017-05-06 22:53] LABS: ANION GAP 9 MEQ/L (5-15); BICARBONATE 25.9 MEQ/L (21.0-32.0)
[2017-05-06 22:54] LABS: BLOOD UREA NITROGEN 14 MG/DL (7-18)
[2017-05-06 22:57] LABS: GLOMERULAR FILTRATION RATE 102 ML/MIN (>89)
--- NOTE | 2017-05-06 23:04 | RADRPT ---
EXAM DATE/TIME: 05/06/2017 22:47 [facility] COMPARISON: US LEG LEFT VENOUS DOPPLER, April 20, 2017, 9:39. INDICATIONS : Left leg pain. MEDICAL HISTORY : Rheumatoid arthritis. Pancreatitis. Crohn's disease. Carcinoma, thyroid. LUPUS. Vasculitis. Seizur es. Migraines. Numbness. Ulcer. HTN. UTI. Prostate swelling. Depression. Anxiety. SURGICAL HISTORY : Kidney transplant. Chemotherapy. Radiation therapy. ENCOUNTER: Subsequent ACUITY: 3 days PAIN SCORE: 8/10 LOCATION: Left leg. TECHNIQUE: Venous ultrasound of the leg was performed from the inguinal ligament to the proximal calf. Real-hayden e, color Doppler and spectral tracing, compression and augmentation techniques were used. FINDINGS: There is normal compressibility of the deep venous system from the inguinal region to the proximal ca lf. No echogenic clot is seen in the lumen of the common femoral, femoral, popliteal, and posterior tibial veins. There is a normal response of the venous system to proximal and distal augmentation an d respiration. CONCLUSION: No DVT is identified in the left lower extremity. Trevor Garcia MD on May 06, 2017 at 23:01 Board Certified Radiologist. This report was verified electronically.
[2017-05-06 23:15] VITALS: BP 145/90; PULSE 80; RESP 18; O2SAT 95
[2017-05-06 23:45] VITALS: BP 131/76; PULSE 80; RESP 18; TEMP 97.5; O2SAT 97
[2017-05-07] VITALS (7 sets, daily range): BP systolic 120–145; BP diastolic 59–99; PULSE 77–97; RESP 12–20; TEMP 96.3–98.4; O2SAT 96–100
[2017-05-07] MEDS ORDERED: SODIUM CHLORIDE 0.9% FLUSH 10 ML FLUSH IVF PRN
[2017-05-07] MEDS ORDERED: CEPH500C PO (00:09)
--- NOTE | 2017-05-07 00:11 | PD ---
HPI Chief Complaint: Skin Problem Time Seen by Provider: 22:04 Travel History International Travel<30 days: No Contact w/Intl Traveler<30days: No Traveled to known affect area: No History of Present Illness HPI 37 year-old male presents to the emergency department for recurrent swelling and redness and pain to the anterior left lower leg. Patient is currently on antibiotic. Patient recently treated for in the hospital with IV antibiotics for cellulitis and found to have methicillin sensitive staph aureus cellulitis. MRI was performed which revealed no evidence for vasculitis or abscess. Patient was discharged on antibiotic which she has taken daily. Patient states that he is currently on antibiotic called his primary care provider today to add additional antibiotic to his regimen as he was developing recurrent swelling redness and tenderness at the site. Patient's had outpatient chills without fever. Patient denies recurrent injury. PFSH Past Medical History Hx Anticoagulant Therapy: No Arthritis: Yes Asthma: No Autoimmune Disease: Yes (lupus, RA, crohns disease, Vasculitis, Ankylosing spondilits) Blood Disorders: No Anxiety: Yes Depression: Yes Heart Rhythm Problems: No Cancer: Yes (Thyroid) Cardiovascular Problems: No High Cholesterol: No Chemotherapy: Yes Chest Pain: No Congestive Heart Failure: No COPD: No Cerebrovascular Accident: No Diabetes: No Diminished Hearing: No Endocrine: No GERD: No Genitourinary: No Headaches: Yes Hiatal Hernia: No Heparin Induced Thrombocytopen: No Immune Disorder: No Implanted Vascular Access Dvce: No Kidney Stones: No Musculoskeletal: Yes Neurologic: Yes Psychiatric: No Reproductive: No Respiratory: No Immunizations Current: Yes Migraines: Yes Pancreatitis: Yes Radiation Therapy: Yes Renal Failure: No Seizures: Yes Sickle Cell Disease: No Sleep Apnea: No Thyroid Disease: Yes Ulcer: Yes Tetanus Vaccination: < 5 Years Influenza Vaccination: Yes PNEUMOCCOCAL Vaccine (Year): 1 ?: Not Past Surgical History Abdominal Surgery: No AICD: No Arteriovenous Shunt: No Cardiac Surgery: No Ear Surgery: No Endocrine Surgery: No Eye Surgery: No Genitourinary Surgery: No Gynecologic Surgery: No Hysterectomy: No Insulin Pump: No Joint Replacement: No Neurologic Surgery: No Oral Surgery: No Pacemaker: No Thoracic Surgery: No Other Surgery: Yes (Left hand surgery Aug 2016) Social History Alcohol Use: No Tobacco Use: No Substance Use: No Allergies-Medications (Allergen,Severity, Reaction): Coded Allergies: Cat Dander (Verified Allergy, Mild, Cough, 6/21/17) Morphine (Verified Allergy, Mild, Rash, 05/06/17) Reported Meds & Prescriptions Reported Meds & Active Scripts Active Reported Cephalexin 500 Mg Cap 500 Mg PO Q6H Folic Acid 400 Mcg Tab Unknown Dose PO DAILY Methotrexate 2.5 Mg Tab 4 Tab PO Q7D Gabapentin 600 Mg Tab 600 Mg PO TID Protonix (Pantoprazole Sodium) 40 Mg Tab 40 Mg PO AC LUNCH Tramadol (Tramadol HCl) 50 Mg Tab 50 Mg PO Q6H PRN Tylenol-Codeine #3 (Acetaminophen-Codeine) 300-30 mg Tab 1 Tab PO Q4H PRN Prednisone 5 Mg Tab 5 Mg PO DAILY Metaxalone 800 Mg Tab 800 Mg PO TID Flexeril (Cyclobenzaprine HCl) 10 Mg Tab 10 Mg PO BID Diclofenac-Misoprostol 75-0.2 Mg Tab 1 Tab PO BID Humira 2-Pack Inj (Adalimumab 2-Pack Inj) 40 Mg/0.8 Ml Syr 40 Mg SQ Q14D Dilantin (Phenytoin Extended) 100 Mg Cap 300 Mg PO HS Amitriptyline (Amitriptyline HCl) 50 Mg Tab 50 Mg PO HS Gzblglhaoq-Hyfphbg-Sdokhixk 50-325-40 Mg Cap 1 Cap PO Q6HR PRN Do not exceed 6 capsules/day. Cialis (Tadalafil) 5 Mg Tab 5 Mg PO DAILY Do not exceed 1 dose/day. Ondansetron (Ondansetron HCl) 8 Mg Tab 8 Mg PO Q8HR PRN Amitriptyline (Amitriptyline HCl) 25 Mg Tab 25 Mg PO HS Clonazepam 2 Mg Tab 2 Mg PO BID Pilocarpine 5 Mg Tab 5 Mg PO TID PRN Citalopram (Citalopram Hydrobromide) 20 Mg Tab 20 Mg PO DAILY Imuran (Azathioprine) 50 Mg Tab 100 Mg PO BID Hazardous agent: use appropriate precautions for handling and disposal. Levothyroxine (Levothyroxine Sodium) 112 Mcg Tab 112 Mcg PO DAILY Flomax (Tamsulosin HCl) 0.4 Mg Cap 0.4 Mg PO BID Hydroxychloroquine (Hydroxychloroquine Sulfate) 200 Mg Tab 200 Mg PO DAILY Take with food Review of Systems General / Constitutional: Positive: Chills, No: Fever HENT: No: Congestion Cardiovascular: No: Chest Pain or Discomfort Respiratory: No: Shortness of Breath Gastrointestinal: No: Abdominal Pain Genitourinary: No: Flank Pain Musculoskeletal: Positive: Edema, Pain (LLE lower leg anterior aspect/edema/ erythema), No: Myalgias, Arthralgias Skin: Positive Rash (erythema) Neurologic: Positive: Weakness, No: Dizziness, Syncope, Focal Abnormalities, Coordination Problem Psychiatric: No: Anxiety Hematologic/Lymphatic: No: Lymph Node Enlargement Physical Exam Narrative GENERAL: Well-developed well-nourished male in no acute distress no respiratory distress SKIN: Warm and dry. HEAD: Normocephalic. EYES: No scleral icterus. No injection or drainage. NECK: Supple, trachea midline. No JVD or lymphadenopathy. CARDIOVASCULAR: Regular rate and rhythm without murmurs, gallops, or rubs. RESPIRATORY: Breath sounds equal bilaterally. No accessory muscle use. GASTROINTESTINAL: Abdomen soft, non-tender, nondistended. MUSCULOSKELETAL: No cyanosis, or edema. Left lower leg anterior aspect midshaft scab in place with soft tissue swelling mild warmth and mild erythema mild pitting edema nonfluctuant tender to palpation distally circumferential edema capillary refill brisk and less than 2 seconds dorsalis pedis pulse 2+ to palpation no palmar or coolness. Approximately femoral pulses 2+ to palpation no lymphadenopathy. BACK: Nontender without obvious deformity. No CVA tenderness. Data Data Last Documented VS Vital Signs Date Time Temp Pulse Resp B/P Pulse Ox O2 Delivery O2 Flow Rate FiO2 05/06/17 23:45 97.5 80 18 131/76 97 Room Air Orders Basic Metabolic Panel (Bmp) (05/06/17 22:04) Complete Blood Count With Diff (05/06/17 22:04) Blood Culture (05/06/17 22:04) Iv Access Insert/Monitor (05/06/17 22:04) Lactic Acid Sepsis Protocol (05/06/17 22:04) Us Leg Venous Doppler (05/06/17 ) Vancomycin Inj (Vancomycin Inj) (05/06/17 22:15) Tibia/Fibula (Ap/Lat) (05/06/17 ) Piperacil-Tazo 3.375 Gm Premix (Zosyn 3. (05/06/17 22:15) Admit Order (Ed Use Only) (05/07/17 ) ^ Saline Lock (05/07/17 00:00) Resp Oxygen Javid C Titrat 1-4 L (05/07/17 ) Notify Dr: Other (05/07/17 00:00) Sodium Chloride 0.9% Flush (Ns Flush) (05/07/17 09:00) Sodium Chloride 0.9% Flush (Ns Flush) (05/07/17 00:00) Phenytoin (Dilantin) (05/06/17 22:30) Labs Laboratory Tests Test 05/06/17 22:30 Lactic Acid Level 1.0 mmol/L White Blood Count 5.6 TH/MM3 Red Blood Count 3.98 MIL/MM3 Hemoglobin 11.4 GM/DL Hematocrit 33.8 % Mean Corpuscular Volume 85.0 FL Mean Corpuscular Hemoglobin 28.7 PG Mean Corpuscular Hemoglobin 33.8 % Concent Red Cell Distribution Width 13.9 % Platelet Count 218 TH/MM3 Mean Platelet Volume 7.6 FL Neutrophils (%) (Auto) 51.4 % Lymphocytes (%) (Auto) 37.2 % Monocytes (%) (Auto) 7.2 % Eosinophils (%) (Auto) 3.1 % Basophils (%) (Auto) 1.1 % Neutrophils # (Auto) 2.8 TH/MM3 Lymphocytes # (Auto) 2.1 TH/MM3 Monocytes # (Auto) 0.4 TH/MM3 Eosinophils # (Auto) 0.2 TH/MM3 Basophils # (Auto) 0.1 TH/MM3 CBC Comment DIFF FINAL Differential Comment Sodium Level 142 MEQ/L Potassium Level 3.5 MEQ/L Chloride Level 107 MEQ/L Carbon Dioxide Level 25.9 MEQ/L Anion Gap 9 MEQ/L Blood Urea Nitrogen 14 MG/DL Creatinine 0.84 MG/DL Estimat Glomerular Filtration 102 ML/MIN Rate Random Glucose 93 MG/DL Calcium Level 8.3 MG/DL Phenytoin (Dilantin) Level LESS THAN 0.4 MCG/ML MDM Medical Decision Making Medical Screen Exam Complete: Yes Emergency Medical Condition: Yes Medical Record Reviewed: Yes Differential Diagnosis Recurrent cellulitis, failed outpatient therapy, abscess, osteomyelitis Narrative Course Patient placed on monitor IV access obtained imaging study for plain film and ultrasound obtained to evaluate for DVT and retained foreign body; patient administered IV antibiotic after blood cultures obtained Lab values in normal range patient remains afebrile here review of medical records indicates patient was treated for cellulitis immunocompromised on Humira prednisone and Imuran currently receiving oral antibiotic with recurrent soft tissue swelling. Patient during auscultation was identified to have cultures positive for methicillin sensitive staphylococcal aureus with MRI of leg without evidence of abscess or osteomyelitis. Patient rates pain as 8-10/ 10. Patient administered Zosyn and vancomycin. Claudia Bruce MD May 07, 2017 00:11
[2017-05-07] MEDS ORDERED: MAGNESIUM HYDROXIDE SUSP 30 ML CUP PO PRN (00:15)
[2017-05-07] MEDS ORDERED: ONDANSETRON HCL 4 MG/2 ML VIAL IVP PRN (00:15)
[2017-05-07] MEDS ORDERED: ACETAMINOPHEN 325 MG TAB PO PRN (00:15)
[2017-05-07] MEDS ORDERED: Vancomycin Consult Pharmacy 1 EA OTHER SCH (00:15)
[2017-05-07] MEDS ORDERED: NALOXONE HCL 0.4 MG/ML AMP IV PRN (00:15)
[2017-05-07] MEDS ORDERED: ENOXAPARIN SODIUM 40 MG/0.4 ML SYRINGE SQ SCH (00:15)
[2017-05-07] MEDS ORDERED: ONDANSETRON HCL 4 MG/2 ML VIAL IV PUSH ONE (00:15)
[2017-05-07] MEDS ORDERED: BISACODYL 10 MG SUPP RECTAL PRN (00:15)
[2017-05-07] MEDS ORDERED: SODIUM CHLORIDE 0.9% FLUSH 10 ML FLUSH IV FLUSH PRN (00:15)
[2017-05-07] MEDS ORDERED: POTASSIUM CHLORIDE 20 MEQ CONTROLLED RELEASE TAB PO ONE (01:30)
[2017-05-07] MEDS: HYDROmorphone HCL PF 1 MG/ML VIAL IV PUSH PRN ×3 (01:45→13:43)
[2017-05-07] MEDS: PIPERACIL-TAZO 3.375 GM PREMIX 50 ML IV SCH ×2 (04:29→10:21)
[2017-05-07] MEDS ORDERED: HYDROmorphone HCL PF 1 MG/ML VIAL IV PUSH ONE (04:45)
[2017-05-07] MEDS ORDERED: VANCOMYCIN INJ 2,200 MG in SODIUM CHLORID 0.9% 500 ML INJ 500 ML IV SCH (06:00)
[2017-05-07] MEDS ORDERED: SODIUM CHLORIDE 0.9% FLUSH 10 ML FLUSH IV FLUSH SCH ×2 (09:00)
[2017-05-07] MEDS ORDERED: DOCUSATE SODIUM 50 MG/SENNA 8.6 MG TAB PO SCH (09:00)
--- NOTE | 2017-05-07 13:54 | PD.CONS ---
History of Present Illness Consult Requested By Primary Care Physician Shantanu Bansal MD Diagnoses: Review of Systems Constitutional: DENIES: Fever, Chills Eyes: DENIES: Eye pain Ears, nose, mouth, throat: COMPLAINS OF: Oral lesions, DENIES: Ear Pain, Running Nose Respiratory: DENIES: Cough, Shortness of breath Cardiovascular: DENIES: Chest pain, Palpitations Gastrointestinal: DENIES: Abdominal pain, Diarrhea, Nausea, Vomiting Genitourinary: DENIES: Urgency, Dysuria Musculoskeletal: COMPLAINS OF: Stiffness Psychiatric: DENIES: Confusion Past Family Social History Allergies: Coded Allergies: Cat Dander (Verified Allergy, Mild, Cough, 05/06/17) Morphine (Verified Allergy, Mild, Rash, 05/06/17) Past Medical History Crohn's disease Ankylosing spondylitis RA Prasad's palsy Lupus Recent UGIB - EGD with ulcers and gastritis Recent Dx arachnoid cyst (?) - causing his L sided paralysis Past Surgical History Hand surgery L Active Ordered Medications Tylenol Dulcolax Lovenox Dilaudid MOM Zofran Dilantin Zosyn Mariel-Colace Vancomycin Family History Lupus in mother Otherwise, non-contributory to current ID problem Social History No smoking No ETOH abuse No illicit drug use Physical Exam Vital Signs Vital Signs Date Time Temp Pulse Resp B/P Pulse Ox O2 Delivery O2 Flow Rate FiO2 05/07/17 12:00 96.3 95 20 127/76 100 05/07/17 10:17 18 05/07/17 08:00 96.8 84 20 120/80 99 05/07/17 03:00 98.3 77 12 127/59 98 05/07/17 01:48 98 21 05/07/17 01:09 98.4 97 18 145/90 97 05/07/17 00:15 97.9 86 18 140/99 96 Room Air 05/06/17 23:45 97.5 80 18 131/76 97 Room Air 05/06/17 23:15 80 18 145/90 95 Room Air 05/06/17 22:45 82 18 144/95 96 Room Air 05/06/17 21:40 98.3 98 18 132/102 98 Physical Exam GENERAL: Patient is a well-nourished, well-developed CM, awake and alert, not in respiratory distress. SKIN: Warm and dry. No generalized rash, no ecchymoses and no evidence of embolic lesions. HEAD: Atraumatic. Normocephalic. No temporal wasting, or tenderness. EYES: [place] conjunctiva. No petechia or hemorrhage. Pupils equal, round and reactive to light. Extraocular movements full and intact. No scleral icterus. No injection or drainage. EARS, NOSE AND THROAT: Nose without bleeding or purulent nasal discharge. No sinus tenderness. Mucous membranes pink and moist. No oral thrush. NECK: Trachea midline. Supple and not tender, no meningeal signs CARDIOVASCULAR: Regular rate and rhythm. No murmurs, rubs or gallops heard RESPIRATORY: Clear to auscultation. Breath sounds equal bilaterally. No rales , wheezing or rhonchi ABDOMEN: Soft, non-tender, nondistended. Bowel sounds present and normoactive. No guarding. No rebound. No organomegaly. EXTREMITIES: No clubbing, cyanosis, or edema.No joint effusion, has good ROM. No calf tenderness. Well perfused and warm. There is a small scab on his L reyna with small area of induration around it, no significant redness noted. NEUROLOGICAL: Awake and alert. [place] palsy L. Motor grossly within normal limits. PSYCHIATRIC: Normal affect, calm and cooperative. LINE: No evidence of infection Laboratory Laboratory Tests Test 05/06/17 22:30 Lactic Acid Level 1.0 White Blood Count 5.6 Red Blood Count 3.98 Hemoglobin 11.4 Hematocrit 33.8 Mean Corpuscular Volume 85.0 Mean Corpuscular Hemoglobin 28.7 Mean Corpuscular Hemoglobin 33.8 Concent Red Cell Distribution Width 13.9 Platelet Count 218 Mean Platelet Volume 7.6 Neutrophils (%) (Auto) 51.4 Lymphocytes (%) (Auto) 37.2 Monocytes (%) (Auto) 7.2 Eosinophils (%) (Auto) 3.1 Basophils (%) (Auto) 1.1 Neutrophils # (Auto) 2.8 Lymphocytes # (Auto) 2.1 Monocytes # (Auto) 0.4 Eosinophils # (Auto) 0.2 Basophils # (Auto) 0.1 CBC Comment DIFF FINAL Differential Comment Sodium Level 142 Potassium Level 3.5 Chloride Level 107 Carbon Dioxide Level 25.9 Anion Gap 9 Blood Urea Nitrogen 14 Creatinine 0.84 Estimat Glomerular Filtration 102 Rate Random Glucose 93 Calcium Level 8.3 Phenytoin (Dilantin) Level LESS THAN 0.4 Date/Time Procedure Status Source Growth 05/06/17 22:30 Aerobic Blood Culture - Preliminary Resulted Blood Peripheral NO GROWTH IN 1 DAY 05/06/17 22:30 Anaerobic Blood Culture - Preliminary Resulted Blood Peripheral NO GROWTH IN 1 DAY Result Diagram: 05/06/17222905/06/170 Imaging RADIOLOGY STUDIES/FILMS REVIEWED Tibia/Fibula X-Ray 05/06/17 0000 Signed Impressions: Service Date/Time: Saturday, May 06, 2017 22:15 - CONCLUSION: No acute abnormality is identified. Trevor Garcia MD Lower Extremity Ultrasound 05/06/17 0000 Signed Impressions: Service Date/Time: Thursday, May 06, 2017 22:47 - CONCLUSION: No DVT is identified in the left lower extremity. Trevor Garcia MD Assessment and Plan Assessment and Plan IMPRESSION S/P Rx LLE cellulitis, currently no evidence of cellulitis Hx multiple CTD - lupus, RA, ankylosing spondylitis Hx Crohns Prasad's palsy, ?due to enlarging arachnoid cyst Recent GIB RECOMMENDATION Control edema - D/W patient about leg levation and FCO stockings to wear during day Stop all Abx No need for any further Abx at this time I will be available prn Thank you for this consultation Discussed Condition With D/W patient D/W J Leisa Breen PA-C, MD May 07, 2017 13:54
--- NOTE | 2017-05-07 15:37 | HHI.DCPOC ---
Discharge Care Plan Diagnosis: (1) Cellulitis of left anterior lower leg Goals to Promote Your Health * To prevent worsening of your condition and complications * To maintain your health at the optimal level Directions to Meet Your Goals Take your medications as prescribed Follow your dietary instruction Follow activity as directed Keep your appointments as scheduled Take your immunizations and boosters as scheduled If your symptoms worsen call your PCP, if no PCP go to Urgent Care Center or Emergency Room Smoking is Dangerous to Your Health. Avoid second hand smoke Call the 24-hour hour crisis hotline for domestic abuse at Fabio Peter May 07, 2017 15:37
--- NOTE | 2017-05-07 15:52 | HHI.HP ---
[facility] Shantanu Bansal MD Admission Diagnosis Recurrent LLE celluitis failed outpatient therapy; immunocompromised Diagnoses: (1) Cellulitis of left anterior lower leg Diagnosis: Principal Chief Complaint: Left leg pain and swelling Travel History International Travel<30 Days: No Contact w/Intl Traveler <30 Da: No Traveled to Known Affected Are: No History of Present Illness Written by Fabio Peter, acting as scribe for Dr. Mckinnon on 05/07/17 at 15:40. This is a 37 year-old male with rather complex medical history of lupus, ankylosing spondylitis, rheumatoid arthritis, history of seizures, Crohn' s disease, who presented to hospital because of left lower extremity swelling and pain. Patient was just admitted the hospital on April 19, 2007 for cellulitis of left lower extremity in immunocompromised patient. At that time the patient has chronic problems with neuropathy and falls due to weakness in the left lower extremity. He fell down stairs and injured his left leg at that time. Patient was found to have cellulitis with staph aureus. He was discharged home with Keflex for 11 days. Patient indicates that he did improve. However approximately 2 days ago he started developing redness and swelling in the area which had cellulitis before. He is very concerned because he is had previous hospitalization for infected synovitis of the left wrist and he did not want to have to go through surgery again. So he came back to the hospital for evaluation. Patient did use only antibiotics from previous admission. He recently was in the hospital up at [facility] for upper GI bleed secondary to his Crohn's disease. He just gotten out of the hospital on Thursday. The patient denies any fever, chills, open wound, fluctuance of wound, exudates. The patient was evaluated in emergency department and ER physician recommended patient be admitted the hospital for further evaluation and management. Patient was evaluated today and upon evaluation there has been apparently significant improvement because there is no swelling, erythema, fluctuance of the wound today. It looks completely benign. Patient states that he did get better overnight with elevation. Review of Systems Constitutional: DENIES: Diaphoretic episodes, Fatigue, Fever, Weight gain, Weight loss, Chills, Dizziness, Change in appetite, Night Sweats Eyes: DENIES: Blurred vision, Diplopia, Eye inflammation, Eye pain, Vision loss , Double Vision Ears, nose, mouth, throat: DENIES: Hearing loss, Nasal discharge, Throat pain, Ear Pain, Running Nose, Sinus Pain Respiratory: DENIES: Apneas, Cough, Snoring, Wheezing, Hemoptysis, Sputum production, Shortness of breath Cardiovascular: DENIES: Chest pain, Palpitations, Syncope, Dyspnea on Exertion , Lower Extremity Edema, Orthopnea Gastrointestinal: DENIES: Abdominal pain, Black stools, Bloody stools, Constipation, Diarrhea, Nausea, Vomiting, Difficulty Swallowing, Anorexia Neurologic: COMPLAINS OF: Localized weakness, Poor Balance, DENIES: Abnormal gait, Headache, Paresthesias, Seizures, Speech Problems, Tremor Past Family Social History Past Medical History Crohn's disease Rheumatoid arthritis lupus Ankylosing spondylolysis Hypothyroidism Enlarged prostate Seizure history Past Surgical History Multiple endoscopies Left wrist surgery Reported Medications Reported Meds & Active Scripts Active Reported Cephalexin 500 Mg Cap 500 Mg PO Q6H Folic Acid 400 Mcg Tab Unknown Dose PO DAILY Methotrexate 2.5 Mg Tab 4 Tab PO Q7D Gabapentin 600 Mg Tab 600 Mg PO TID Protonix (Pantoprazole Sodium) 40 Mg Tab 40 Mg PO AC LUNCH Tramadol (Tramadol HCl) 50 Mg Tab 50 Mg PO Q6H PRN Tylenol-Codeine #3 (Acetaminophen-Codeine) 300-30 mg Tab 1 Tab PO Q4H PRN Prednisone 5 Mg Tab 5 Mg PO DAILY Metaxalone 800 Mg Tab 800 Mg PO TID Flexeril (Cyclobenzaprine HCl) 10 Mg Tab 10 Mg PO BID Diclofenac-Misoprostol 75-0.2 Mg Tab 1 Tab PO BID Humira 2-Pack Inj (Adalimumab 2-Pack Inj) 40 Mg/0.8 Ml Syr 40 Mg SQ Q14D Dilantin (Phenytoin Extended) 100 Mg Cap 300 Mg PO HS Amitriptyline (Amitriptyline HCl) 50 Mg Tab 50 Mg PO HS Rfdfypfkhp-Nqxkeus-Rslvsbxv 50-325-40 Mg Cap 1 Cap PO Q6HR PRN Do not exceed 6 capsules/day. Cialis (Tadalafil) 5 Mg Tab 5 Mg PO DAILY Do not exceed 1 dose/day. Ondansetron (Ondansetron HCl) 8 Mg Tab 8 Mg PO Q8HR PRN Amitriptyline (Amitriptyline HCl) 25 Mg Tab 25 Mg PO HS Clonazepam 2 Mg Tab 2 Mg PO BID Pilocarpine 5 Mg Tab 5 Mg PO TID PRN Citalopram (Citalopram Hydrobromide) 20 Mg Tab 20 Mg PO DAILY Imuran (Azathioprine) 50 Mg Tab 100 Mg PO BID Hazardous agent: use appropriate precautions for handling and disposal. Levothyroxine (Levothyroxine Sodium) 112 Mcg Tab 112 Mcg PO DAILY Flomax (Tamsulosin HCl) 0.4 Mg Cap 0.4 Mg PO BID Hydroxychloroquine (Hydroxychloroquine Sulfate) 200 Mg Tab 200 Mg PO DAILY Take with food Allergies: Coded Allergies: Cat Dander (Verified Allergy, Mild, Cough, 05/06/17) Morphine (Verified Allergy, Mild, Rash, 05/06/17) Family History Reviewed is significant for lupus with his mother Social History Patient denies any tobacco, alcohol or illicit drugs Physical Exam Vital Signs Vital Signs Date Time Temp Pulse Resp B/P Pulse Ox O2 Delivery O2 Flow Rate FiO2 05/07/17 14:31 18 05/07/17 14:31 18 05/07/17 12:00 96.3 95 20 127/76 100 05/07/17 08:00 96.8 84 20 120/80 99 05/07/17 03:00 98.3 77 12 127/59 98 05/07/17 01:48 98 21 05/07/17 01:09 98.4 97 18 145/90 97 05/07/17 00:15 97.9 86 18 140/99 96 Room Air 05/06/17 23:45 97.5 80 18 131/76 97 Room Air 05/06/17 23:15 80 18 145/90 95 Room Air 05/06/17 22:45 82 18 144/95 96 Room Air 05/06/17 21:40 98.3 98 18 132/102 98 Physical Exam GENERAL: Well-developed, well-nourished, in no acute distress. alert and orientated HEENT: Head is normocephalic without any lesions or masses noted. Patient has obvious left facial droop. Eyes: Pupils equal round reactive to light. Extraocular muscles are intact. Conjunctivae were clear. Oropharyngeal: Pharynx without any erythema edema. Tongue is midline without deviation. Buccal mucosa is moist without any masses or lesions NECK: Supple without any masses. Trachea midline no deviation. No JVD, no bruits are appreciated CARDIAC: Regular rhythm, regular rate. S1/S2 are heard. No murmurs gallops or rubs. LUNGS: Clear to auscultation bilaterally. No wheeze, rhonchi or rales. No use of accessory muscles on inspiration or expiration. ABDOMEN: Soft, nontender. Nondistended. Bowel sounds heard in all 4 quadrants. No organomegaly or masses. Negative rebound, negative guarding EXTREMITIES: No edema, pulses are equal bilaterally. No cyanosis or clubbing NEUROLOGY: Mood and affect appear appropriate. Cranial nerves II through XII grossly intact. Muscle strength 5/5 in Right upper and lower extremities bilaterally. Muscle strength 4/5 in left upper and lower extremities Deep tendon reflexes are 2+ in upper and lower extremities bilaterally. LEFT LOWER EXTREMITY: Patient does have a very small 1 cm eschar noted over the tibial shaft of the mid tibia. No signs of erythema, edema, exudate or fluctuance Laboratory Laboratory Tests Test 05/06/17 22:30 Lactic Acid Level 1.0 White Blood Count 5.6 Red Blood Count 3.98 Hemoglobin 11.4 Hematocrit 33.8 Mean Corpuscular Volume 85.0 Mean Corpuscular Hemoglobin 28.7 Mean Corpuscular Hemoglobin 33.8 Concent Red Cell Distribution Width 13.9 Platelet Count 218 Mean Platelet Volume 7.6 Neutrophils (%) (Auto) 51.4 Lymphocytes (%) (Auto) 37.2 Monocytes (%) (Auto) 7.2 Eosinophils (%) (Auto) 3.1 Basophils (%) (Auto) 1.1 Neutrophils # (Auto) 2.8 Lymphocytes # (Auto) 2.1 Monocytes # (Auto) 0.4 Eosinophils # (Auto) 0.2 Basophils # (Auto) 0.1 CBC Comment DIFF FINAL Differential Comment Sodium Level 142 Potassium Level 3.5 Chloride Level 107 Carbon Dioxide Level 25.9 Anion Gap 9 Blood Urea Nitrogen 14 Creatinine 0.84 Estimat Glomerular Filtration 102 Rate Random Glucose 93 Calcium Level 8.3 Phenytoin (Dilantin) Level LESS THAN 0.4 Date/Time Procedure Status Source Growth 05/06/17 22:30 Aerobic Blood Culture - Preliminary Resulted Blood Peripheral NO GROWTH IN 1 DAY 05/06/17 22:30 Anaerobic Blood Culture - Preliminary Resulted Blood Peripheral NO GROWTH IN 1 DAY Result Diagram: 05/06/17222905/06/172229 Imaging Last Impressions Tibia/Fibula X-Ray 05/06/17 0000 Signed Impressions: Service Date/Time: Saturday, May 06, 2017 22:15 - CONCLUSION: No acute abnormality is identified. Trevor Garcia MD Lower Extremity Ultrasound 05/06/17 0000 Signed Impressions: Service Date/Time: Saturday, May 06, 2017 22:47 - CONCLUSION: No DVT is identified in the left lower extremity. Trevor Garcia MD Assessment and Plan Assessment and Plan Left lower extremity cellulitis and immunocompromise patient, resolved Patient had x-ray and lower extremity ultrasound performed which did not indicate any acute abnormalities Patient started on vancomycin/Zosyn for empirical antibiotics Infectious disease was consulted, who indicates that there is no need for antibiotics at this time. Would recommend FCO hose and limit walking with periodic elevation of his lower extremity Left-sided weakness, left facial droop. Recurrent falls Patient has had chronic weakness with recurrent falls. 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 Diet: Healthy heart diet Medications per medication reconciliation Follow-up primary medical doctor one week This note was transcribed by elaine Peter I, Dr. Fortino Ravi personally performed the history, physical exam, and medical decision making; and confirmed the accuracy of the information in the transcribed note. Authenticated by Dr. Fortino Ravi on 05/07/17 at 15:40 . Fabio Peter May 07, 2017 15:52 Fortino Dolan MD May 12, 2017 00:36
[2017-05-07] MEDS ORDERED: KETO10 PO (16:06)
[2017-05-07] MEDS ORDERED: PHENYTOIN SODIUM 100 MG CAP PO SCH (21:00)
[2017-05-08] MEDS ORDERED: PHARMACY ORDERED LAB ONE (17:45)
== END 2017-05-07 16:48 | disposition home or self-care (01) | DRG 603 ==
LOC: PHED 21:33 → PHEDA 05-07 00:01 → PH3B 05-07 01:03 → OBSVTOIN 05-07 13:30
PROVIDERS: ADMIT Hospitalist; ATTEND Hospitalist
DX: L03.116 Cellulitis of left lower limb (principal); M32.9 Systemic lupus erythematosus, unspecified; K50.90 Crohn's disease, unspecified, without complications; M06.9 Rheumatoid arthritis, unspecified; M45.9 Ankylosing spondylitis of unspecified sites in spine; E03.9 Hypothyroidism, unspecified; N40.0 Benign prostatic hyperplasia without lower urinary tract symptoms; R29.6 Repeated falls; G51.0 Bell's palsy
CPT/HCPCS: 73590; 80048; 80185; 83605; 85025; 87040; 93971; 96365; G8987-GP; G8988-GP; J1170; J1650; J2405; J2543; J3370; J7040; J7050

== ENCOUNTER 2017-05-18 12:36 | Emergency (ER) | payer BC ==
[~2017-05-18] VITALS: Ht 182.9 cm; Wt 102.0 kg
[~2017-05-18 12:36] MED LIST changes: +CEPH500C PO; -CEPH500T PO; +KETO10 PO; -PERC5TAB12 PO; -PRED50 PO
[2017-05-18 12:39] VITALS: BP 146/109; PULSE 105; RESP 16; TEMP 98.1; O2SAT 100
[2017-05-18] MEDS ORDERED: BUTO10SO NASAL (12:56)
[2017-05-18] MEDS ORDERED: SODIUM CHLOR 0.9% 1000 ML INJ 1,000 ML IV SCH (13:15)
[2017-05-18] MEDS ORDERED: LIDOCAINE VISCOUS 2% SOLN 15 ML UDC PO ONE (13:15)
[2017-05-18] MEDS ORDERED: HYDROmorphone HCL PF 2 MG/ML VIAL IV PUSH ONE (13:15)
[2017-05-18] MEDS ORDERED: ONDANSETRON HCL 4 MG/2 ML VIAL IV PUSH ONE (13:15)
[2017-05-18] MEDS ORDERED: ALUMINUM/MAGNESIUM/SIMETH 30 ML CUP PO ONE (13:15)
[2017-05-18] MEDS ORDERED: PERC10TA27 PO (13:18)
[2017-05-18] MEDS ORDERED: CARA1TAB6 PO (13:18)
--- NOTE | 2017-05-18 13:19 | PD ---
HPI Chief Complaint: Abdominal Pain Time Seen by Provider: 12:44 Travel History International Travel<30 days: No Contact w/Intl Traveler<30days: No Traveled to known affect area: No History of Present Illness HPI This 37-year-old male is complaining of epigastric pain. She's been having pain for about 3 days. He has a history of lupus which has been quite complicated. He is currently on Humira and Imuran methotrexate and prednisone. He is only on 5 mg of prednisone at present. He has been evaluated for this abdominal pain both here and at the [facility] he has had multiple CAT scans which have been unremarkable as well as MRIs. He had endoscopy at the [facility] which showed ulcerations and scar tissue he has been on proton pump inhibitors. He is having fairly persistent epigastric pain. He is also noted his malar rash has been more prominent the last few days and is getting some ulcerations in his mouth. PFSH Past Medical History Hx Anticoagulant Therapy: No Arthritis: Yes Asthma: No Autoimmune Disease: Yes (lupus, RA, crohns disease, Vasculitis, Ankylosing spondilits) Blood Disorders: No Anxiety: Yes Depression: Yes Heart Rhythm Problems: No Cancer: Yes (Thyroid) Cardiovascular Problems: No High Cholesterol: No Chemotherapy: Yes Chest Pain: No Congestive Heart Failure: No COPD: No Cerebrovascular Accident: No Diabetes: Yes (TYPE 2 ?) Patient Takes Glucophage: No Diminished Hearing: No Endocrine: No GERD: No Genitourinary: No Headaches: Yes Hiatal Hernia: No Heparin Induced Thrombocytopen: No Hypertension: Yes (WHEN IN PAIN ONLY) Immune Disorder: No Implanted Vascular Access Dvce: No Kidney Stones: No Musculoskeletal: Yes Neurologic: Yes Psychiatric: No Reproductive: No Respiratory: No Immunizations Current: Yes Migraines: Yes Pancreatitis: Yes Radiation Therapy: Yes Renal Failure: No Seizures: Yes Sickle Cell Disease: No Sleep Apnea: No Thyroid Disease: Yes Ulcer: Yes Tetanus Vaccination: < 5 Years Influenza Vaccination: Yes PNEUMOCCOCAL Vaccine (Year): 1 Past Surgical History Abdominal Surgery: No AICD: No Arteriovenous Shunt: No Cardiac Surgery: No Ear Surgery: No Endocrine Surgery: No Eye Surgery: No Genitourinary Surgery: No Gynecologic Surgery: No Hysterectomy: No Insulin Pump: No Joint Replacement: No Neurologic Surgery: No Oral Surgery: No Pacemaker: No Thoracic Surgery: No Other Surgery: Yes (Left hand surgery Aug 2016) Social History Alcohol Use: No Tobacco Use: No Substance Use: No Allergies-Medications (Allergen,Severity, Reaction): Coded Allergies: Cat Dander (Verified Allergy, Mild, Cough, 05/18/17) Morphine (Verified Allergy, Mild, Rash, 05/18/17) Reported Meds & Prescriptions Reported Meds & Active Scripts Active Percocet (Oxycodone-Acetaminophen) 10-325 mg Tab 1 Tab PO Q4H PRN Carafate (Sucralfate) 1 Gm Tab 1 Gm PO QID On empty stomach Reported Butorphanol Nasal [place] (Butorphanol Tartrate) 10 Mg/Ml Soln 1 [place] NASAL Q3HR PRN in one nostril (1 mg). If pain not reliefed in 60-90 minutes, a 1 mg repeat dose may be given. May repeat this in 3-4 hrs if needed. Folic Acid 400 Mcg Tab Unknown Dose PO DAILY Methotrexate 2.5 Mg Tab 4 Tab PO Q7D Gabapentin 600 Mg Tab 600 Mg PO TID Protonix (Pantoprazole Sodium) 40 Mg Tab 40 Mg PO AC LUNCH Tramadol (Tramadol HCl) 50 Mg Tab 50 Mg PO Q6H PRN Tylenol-Codeine #3 (Acetaminophen-Codeine) 300-30 mg Tab 1 Tab PO Q4H PRN Prednisone 5 Mg Tab 5 Mg PO DAILY Metaxalone 800 Mg Tab 800 Mg PO TID Flexeril (Cyclobenzaprine HCl) 10 Mg Tab 10 Mg PO BID Diclofenac-Misoprostol 75-0.2 Mg Tab 1 Tab PO BID PRN Humira 2-Pack Inj (Adalimumab 2-Pack Inj) 40 Mg/0.8 Ml Syr 40 Mg SQ Q14D Dilantin (Phenytoin Extended) 100 Mg Cap 300 Mg PO HS Ebrwgnicug-Nlstkxv-Zxmosvaw 50-325-40 Mg Cap 1 Cap PO Q6HR PRN Do not exceed 6 capsules/day. Cialis (Tadalafil) 5 Mg Tab 5 Mg PO DAILY Do not exceed 1 dose/day. Ondansetron (Ondansetron HCl) 8 Mg Tab 8 Mg PO Q8HR PRN Amitriptyline (Amitriptyline HCl) 25 Mg Tab 75 Mg PO HS Clonazepam 2 Mg Tab 2 Mg PO BID Pilocarpine 5 Mg Tab 5 Mg PO TID PRN Citalopram (Citalopram Hydrobromide) 20 Mg Tab 20 Mg PO DAILY Imuran (Azathioprine) 50 Mg Tab 100 Mg PO BID Hazardous agent: use appropriate precautions for handling and disposal. Levothyroxine (Levothyroxine Sodium) 112 Mcg Tab 112 Mcg PO DAILY Flomax (Tamsulosin HCl) 0.4 Mg Cap 0.4 Mg PO BID Hydroxychloroquine (Hydroxychloroquine Sulfate) 200 Mg Tab 200 Mg PO DAILY Take with food Review of Systems General / Constitutional: No: Fever, Chills Eyes: No: Diploplia, Blurred Vision HENT: No: Vertigo, Rhinitis Cardiovascular: No: Chest Pain or Discomfort, Palpitations Respiratory: No: Cough, Shortness of Breath Gastrointestinal: Positive: Abdominal Pain Genitourinary: No: Urgency, Frequency Musculoskeletal: No: Myalgias, Arthralgias Skin: Positive Rash Endocrine: No: Heat Intolerance, Cold Intolerance Hematologic/Lymphatic: No: Easy Bruising Physical Exam Narrative GENERAL: Well-developed male SKIN: Focused skin assessment warm/dry. He is a prominent malar rash HEAD: Atraumatic. Normocephalic. EYES: Pupils equal and round. No scleral icterus. No injection or drainage. ENT: No nasal bleeding or discharge. Mucous membranes pink and moist. NECK: Trachea midline. No JVD. CARDIOVASCULAR: Regular rate and rhythm. No murmur appreciated. RESPIRATORY: No accessory muscle use. Clear to auscultation. Breath sounds equal bilaterally. GASTROINTESTINAL: Abdomen soft, non-tender, nondistended. Hepatic and splenic margins not palpable. MUSCULOSKELETAL: No obvious deformities. No clubbing. No cyanosis. No edema. NEUROLOGICAL: Awake and alert. There is a left seventh nerve palsy. Motor grossly within normal limits. Normal speech. PSYCHIATRIC: Appropriate mood and affect; insight and judgment normal. Data Data Last Documented VS Vital Signs Date Time Temp Pulse Resp B/P Pulse Ox O2 Delivery O2 Flow Rate FiO2 05/18/17 12:39 98.1 105 16 146/109 100 Orders Complete Blood Count With Diff (05/18/17 13:10) Comprehensive Metabolic Panel (05/18/17 13:10) Sodium Chlor 0.9% 1000 Ml Inj (Ns 1000 M (05/18/17 13:15) Hydromorphone Pf Inj (Dilaudid Pf Inj) (05/18/17 13:15) Ondansetron Inj (Zofran Inj) (05/18/17 13:15) Al-Mag Hy-Si 40-40-4 Mg/Ml Liq (Mag-Al P (05/18/17 13:15) Lidocaine 2% Viscous (Xylocaine 2% Visco (05/18/17 13:15) Labs Laboratory Tests Test 05/18/17 13:25 White Blood Count 6.6 TH/MM3 Red Blood Count 4.24 MIL/MM3 Hemoglobin 12.0 GM/DL Hematocrit 37.0 % Mean Corpuscular Volume 87.2 FL Mean Corpuscular Hemoglobin 28.4 PG Mean Corpuscular Hemoglobin 32.5 % Concent Red Cell Distribution Width 14.7 % Platelet Count 205 TH/MM3 Mean Platelet Volume 7.7 FL Neutrophils (%) (Auto) 64.3 % Lymphocytes (%) (Auto) 28.5 % Monocytes (%) (Auto) 6.3 % Eosinophils (%) (Auto) 0.6 % Basophils (%) (Auto) 0.3 % Neutrophils # (Auto) 4.3 TH/MM3 Lymphocytes # (Auto) 1.9 TH/MM3 Monocytes # (Auto) 0.4 TH/MM3 Eosinophils # (Auto) 0.0 TH/MM3 Basophils # (Auto) 0.0 TH/MM3 CBC Comment DIFF FINAL Differential Comment Sodium Level 144 MEQ/L Potassium Level 3.8 MEQ/L Chloride Level 106 MEQ/L Carbon Dioxide Level 28.4 MEQ/L Anion Gap 10 MEQ/L Blood Urea Nitrogen 9 MG/DL Creatinine 0.76 MG/DL Estimat Glomerular Filtration 115 ML/MIN Rate Random Glucose 104 MG/DL Calcium Level 9.1 MG/DL Total Bilirubin 0.5 MG/DL Aspartate Amino Transf 15 U/L (AST/SGOT) Alanine Aminotransferase 22 U/L (ALT/SGPT) Alkaline Phosphatase 47 U/L Total Protein 7.2 GM/DL Albumin 4.1 GM/DL [facility] Medical Decision Making Medical Screen Exam Complete: Yes Emergency Medical Condition: Yes Medical Record Reviewed: Yes Differential Diagnosis Differential includes gastritis, lupus flare, ulcer disease, Narrative Course This pain has been ongoing for some time. The patient has had repeated CT scans and MRIs which have been negative. Endoscopy has shown ulcerations. He is currently on a proton pump inhibitor. I will add sucralfate to his regimen. I'm reluctant to increase steroids as this may aggravate his ulcer disease though this pain could also be related to a lupus flare Diagnosis Primary Impression: Peptic ulcer disease Scripts Oxycodone-Acetaminophen (Percocet)10-325 mg Tab1 Tab PO Q4H PRN (PAIN) #30 TAB Ref 0 Prov:Brad Chauhan MD 05/18/17 Sucralfate (Carafate)1 Gm Tab1 Gm PO QID #120 TAB Ref 0 On empty stomach Prov:Brad Chauhan MD 05/18/17 Disposition: 01 DISCHARGE HOME Condition: Stable Brad Chauhan MD May 18, 2017 13:19
[2017-05-18 13:40] LABS: AUTOMATED NEUTROPHIL # 4.3 TH/MM3 (1.8-7.7); BASOPHIL % 0.3 % (0.0-2.0); EOSINOPHIL % 0.6 % (0.0-4.0); HEMO FLAGS DIFF FINAL; LYMPH % 28.5 % (9.0-44.0); LYMPHOCYTE # 1.9 TH/MM3 (1.0-4.8); MEAN CELL VOLUME 87.2 FL (80.0-100.0); MEAN CORPUSCULAR HEMOGLOBIN 28.4 PG (27.0-34.0); MEAN CORPUSCULAR HGB CONC 32.5 % (32.0-36.0); MONO % 6.3 % (0.0-8.0); NEUT % 64.3 % (16.0-70.0); PLATELET COUNT 205 TH/MM3 (150-450); RED BLOOD COUNT 4.24 MIL/MM3 (4.50-5.90); RED CELL DISTRIBUTION WIDTH 14.7 % (11.6-17.2); WHITE BLOOD COUNT 6.6 TH/MM3 (4.0-11.0)
[2017-05-18 13:50] LABS: CHLORIDE 106 MEQ/L (98-107); POTASSIUM 3.8 MEQ/L (3.5-5.1); SODIUM (NA) 144 MEQ/L (136-145)
[2017-05-18 13:53] LABS: ANION GAP 10 MEQ/L (5-15); BICARBONATE 28.4 MEQ/L (21.0-32.0)
[2017-05-18 13:54] LABS: BLOOD UREA NITROGEN 9 MG/DL (7-18)
[2017-05-18 13:56] LABS: ALT (GPT) 22 U/L (12-78); AST (GOT) 15 U/L (15-37)
[2017-05-18 13:57] LABS: GLOMERULAR FILTRATION RATE 115 ML/MIN (>89)
[2017-05-18 13:58] LABS: TOTAL BILIRUBIN ADULT 0.5 MG/DL (0.2-1.0)
[2017-05-18 13:59] LABS: ALKALINE PHOSPHATASE 47 U/L (45-117)
[2017-05-18 14:14] VITALS: BP 152/97; PULSE 76; RESP 16; O2SAT 97
[2017-05-18 14:16] VITALS: RESP 16
== END 2017-05-18 14:48 | disposition home or self-care (01) ==
LOC: PHED 12:36
DX: K27.9 Peptic ulcer, site unspecified, unspecified as acute or chronic, without hemorrhage or perforation (principal); R21 Rash and other nonspecific skin eruption; E11.9 Type 2 diabetes mellitus without complications; K50.90 Crohn's disease, unspecified, without complications; M32.9 Systemic lupus erythematosus, unspecified
CPT/HCPCS: 80053; 85025; 96361; 96374; 96375; 99284; J1170; J2405; J7030

== ENCOUNTER 2017-06-01 12:39 | Emergency (ER) | payer BC ==
[~2017-06-01 12:39] MED LIST changes: -AMIT50TA3 PO; +BUTO10SO NASAL; +CARA1TAB6 PO; -CEPH500C PO; -KETO10 PO; +PERC10TA27 PO
[2017-06-01 12:49] VITALS: BP 139/103; PULSE 120; RESP 22; TEMP 97.9; O2SAT 98
[2017-06-01] MEDS ORDERED: POTASSIUM PO (13:19)
[2017-06-01] MEDS ORDERED: LEVE500T8 PO (13:19)
[2017-06-01] MEDS ORDERED: HYDR-3535 PO (13:19)
[2017-06-01] MEDS ORDERED: MULT-267 PO (13:19)
[2017-06-01] MEDS ORDERED: PROB1CAP12 PO (13:19)
[2017-06-01] MEDS ORDERED: GABA300C5 PO (13:19)
[2017-06-01] MEDS ORDERED: OMEP20TA PO (13:19)
[2017-06-01 13:20] VITALS: BP 139/103; PULSE 104; RESP 16; TEMP 97.9; O2SAT 98
[2017-06-01] MEDS ORDERED: SODIUM CHLOR 0.9% 1000 ML INJ 1,000 ML IV SCH (13:29)
[2017-06-01] MEDS ORDERED: SODIUM CHLORIDE 0.9% FLUSH 10 ML FLUSH IV FLUSH PRN (13:30)
[2017-06-01] MEDS ORDERED: ALUMINUM/MAGNESIUM/SIMETH 30 ML CUP PO ONE (13:30)
[2017-06-01] MEDS ORDERED: HYDROmorphone HCL PF 2 MG/ML VIAL IVS ONE (13:30)
[2017-06-01] MEDS ORDERED: ONDANSETRON HCL 4 MG/2 ML VIAL IVP ONE (13:30)
[2017-06-01] MEDS ORDERED: LIDOCAINE VISCOUS 2% SOLN 15 ML UDC PO ONE (13:30)
[2017-06-01 13:32] VITALS: O2SAT 98
[2017-06-01 13:44] LABS: AUTOMATED NEUTROPHIL # 2.3 TH/MM3 (1.8-7.7); BASOPHIL % 0.5 % (0.0-2.0); EOSINOPHIL # 0.3 TH/MM3 (0-0.4); EOSINOPHIL % 6.8 % (0.0-4.0); HEMATOCRIT 35.7 % (39.0-51.0); HEMO FLAGS DIFF FINAL; LYMPH % 41.6 % (9.0-44.0); LYMPHOCYTE # 2.1 TH/MM3 (1.0-4.8); MEAN CELL VOLUME 86.8 FL (80.0-100.0); MEAN CORPUSCULAR HGB CONC 33.4 % (32.0-36.0); MONO % 6.7 % (0.0-8.0); NEUT % 44.4 % (16.0-70.0); PLATELET COUNT 160 TH/MM3 (150-450); RED BLOOD COUNT 4.12 MIL/MM3 (4.50-5.90); RED CELL DISTRIBUTION WIDTH 13.9 % (11.6-17.2)
--- NOTE | 2017-06-01 13:48 | PD ---
HPI Chief Complaint: Abdominal Pain Time Seen by Provider: 13:23 Travel History International Travel<30 days: No Contact w/Intl Traveler<30days: No Traveled to known affect area: No History of Present Illness HPI 37-year-old male with history of Crohn's disease, lupus, ankylosing spondylitis , here for evaluation of epigastric abdominal pain. Patient reports that the symptoms started yesterday evening. Describes the pain as burning. Pain is associated with nausea and vomiting. He states that there was blood in his emesis today. He has also had some was bowel movements which are nonbloody. He denies history of abdominal surgeries. He reports extensive history of peptic ulcer disease, stating that he had an upper endoscopy last month at the [facility]. Chart review shows that he has been here several times in the past and has had several CT scans. He was seen here in March of this year and had a CT abdomen pelvis as well as an MRI of his abdomen pelvis that showed no acute intra-abdominal process, scattered uncomplicated colonic diverticulosis, tiny umbilical hernia containing only fat. PFSH Past Medical History Hx Anticoagulant Therapy: No Arthritis: Yes (RA) Asthma: No Autoimmune Disease: Yes (Lupus, RA, Vasculitis, Ankylosing spondylitis ) Blood Disorders: No Anxiety: Yes Depression: Yes Heart Rhythm Problems: No Cancer: Yes (Thyroid) Cardiovascular Problems: No High Cholesterol: No Chemotherapy: Yes (Pill) Chest Pain: No Congestive Heart Failure: No COPD: No Cerebrovascular Accident: No Diabetes: Yes (Steroid-induced ) Patient Takes Glucophage: No Diminished Hearing: No Endocrine: No GERD: Yes Genitourinary: No Headaches: Yes Hiatal Hernia: No Heparin Induced Thrombocytopen: No Hypertension: Yes (Pain-related ) Immune Disorder: No Implanted Vascular Access Dvce: No Kidney Stones: No Medical other: Yes (LUPUS, SPONDYLITIS ANKLE) Musculoskeletal: Yes Neurologic: Yes Psychiatric: No Reproductive: No Respiratory: No Immunizations Current: Yes Migraines: Yes Pancreatitis: Yes Radiation Therapy: Yes (Radioactive iodine for thyroid ) Renal Failure: No Seizures: Yes Sickle Cell Disease: No Sleep Apnea: No Thyroid Disease: Yes Ulcer: Yes Tetanus Vaccination: < 5 Years Influenza Vaccination: Yes PNEUMOCCOCAL Vaccine (Year): 1 Past Surgical History Abdominal Surgery: No AICD: No Arteriovenous Shunt: No Cardiac Surgery: No Ear Surgery: No Endocrine Surgery: No Eye Surgery: No Genitourinary Surgery: No Gynecologic Surgery: No Hysterectomy: No Insulin Pump: No Joint Replacement: No Neurologic Surgery: No Oral Surgery: No Pacemaker: No Thoracic Surgery: No Other Surgery: Yes (Left hand surgery Aug 2016) Social History Alcohol Use: No Tobacco Use: No Substance Use: No Allergies-Medications (Allergen,Severity, Reaction): Coded Allergies: Cat Dander (Verified Allergy, Mild, Cough, 06/01/17) Morphine (Verified Allergy, Mild, Rash, 06/01/17) Reported Meds & Prescriptions Reported Meds & Active Scripts Active Percocet (Oxycodone-Acetaminophen) 10-325 mg Tab 1 Tab PO Q4H PRN Carafate (Sucralfate) 1 Gm Tab 1 Gm PO QID On empty stomach Reported Men's Multi-Vitamin (Multivitamin) 1 Each Tablet 1 Tab PO DAILY Omeprazole 20 Mg Tab 20 Mg PO DAILY Acidophilus (Probiotic Product) 1 Cap Cap 1 Cap PO DAILY [Potassium] 99 Mg PO BID Lortab (Hydrocodone-Acetaminophen) 10-325 Mg Tab 1 Tab PO Q6H PRN Levetiracetam 500 Mg Tab 1,000 Mg PO DAILY Gabapentin 300 Mg Cap 300 Mg PO TID Butorphanol Nasal [place] (Butorphanol Tartrate) 10 Mg/Ml Soln 1 [place] NASAL Q3HR PRN in one nostril (1 mg). If pain not reliefed in 60-90 minutes, a 1 mg repeat dose may be given. May repeat this in 3-4 hrs if needed. Folic Acid 400 Mcg Tab Unknown Dose PO DAILY Methotrexate 2.5 Mg Tab 4 Tab PO Q7D Protonix (Pantoprazole Sodium) 40 Mg Tab 40 Mg PO AC LUNCH Tramadol (Tramadol HCl) 50 Mg Tab 50 Mg PO Q6H PRN Tylenol-Codeine #3 (Acetaminophen-Codeine) 300-30 mg Tab 1 Tab PO Q4H PRN Prednisone 5 Mg Tab 5 Mg PO DAILY Metaxalone 800 Mg Tab 800 Mg PO TID Flexeril (Cyclobenzaprine HCl) 10 Mg Tab 10 Mg PO BID Diclofenac-Misoprostol 75-0.2 Mg Tab 1 Tab PO BID PRN Humira 2-Pack Inj (Adalimumab 2-Pack Inj) 40 Mg/0.8 Ml Syr 40 Mg SQ Q14D Dilantin (Phenytoin Extended) 100 Mg Cap 300 Mg PO HS Ehbobmfqrx-Pvkjzkt-Pjdyzzfl 50-325-40 Mg Cap 1 Cap PO Q6HR PRN Do not exceed 6 capsules/day. Cialis (Tadalafil) 5 Mg Tab 5 Mg PO DAILY Do not exceed 1 dose/day. Ondansetron (Ondansetron HCl) 8 Mg Tab 8 Mg PO Q8HR PRN Amitriptyline (Amitriptyline HCl) 25 Mg Tab 75 Mg PO HS Clonazepam 2 Mg Tab 2 Mg PO BID Pilocarpine 5 Mg Tab 5 Mg PO TID PRN Citalopram (Citalopram Hydrobromide) 20 Mg Tab 20 Mg PO DAILY Imuran (Azathioprine) 50 Mg Tab 100 Mg PO BID Hazardous agent: use appropriate precautions for handling and disposal. Levothyroxine (Levothyroxine Sodium) 112 Mcg Tab 112 Mcg PO DAILY Flomax (Tamsulosin HCl) 0.4 Mg Cap 0.4 Mg PO BID Review of Systems Except as stated in HPI: all other systems reviewed are Neg Physical Exam Narrative GENERAL: Well-developed, well-nourished, comfortable, no apparent distress. SKIN: Focused skin assessment warm/dry. Slight erythema to bilateral cheeks. HEAD: Atraumatic. Normocephalic. EYES: Pupils equal and round. No scleral icterus. No injection or drainage. ENT: Mucous membranes pink and moist. NECK: Trachea midline. No JVD. CARDIOVASCULAR: Regular rate and rhythm. No murmur appreciated. RESPIRATORY: No accessory muscle use. Clear to auscultation. Breath sounds equal bilaterally. GASTROINTESTINAL: Abdomen soft, nondistended. Moderate epigastric tenderness without peritoneal signs. MUSCULOSKELETAL: No obvious deformities. No clubbing. No cyanosis. No edema. NEUROLOGICAL: Awake and alert. No obvious cranial nerve deficits. Motor grossly within normal limits. Normal speech. PSYCHIATRIC: Appropriate mood and affect; insight and judgment normal. Data Data Last Documented VS Vital Signs Date Time Temp Pulse Resp B/P Pulse Ox O2 Delivery O2 Flow Rate FiO2 06/01/17 13:32 98 Room Air 06/01/17 13:20 97.9 104 16 139/103 Orders Complete Blood Count With Diff (06/01/17 13:29) Comprehensive Metabolic Panel (06/01/17 13:29) Lipase (06/01/17 13:29) Prothrombin Time / Inr (Pt) (06/01/17 13:29) Act Partial Throm Time (Ptt) (06/01/17 13:29) Iv Access Insert/Monitor (06/01/17 13:29) Ecg Monitoring (06/01/17 13:29) Oximetry (06/01/17 13:29) Hydromorphone Pf Inj (Dilaudid Pf Inj) (06/01/17 13:30) Ondansetron Inj (Zofran Inj) (06/01/17 13:30) Sodium Chlor 0.9% 1000 Ml Inj (Ns 1000 M (06/01/17 13:29) Sodium Chloride 0.9% Flush (Ns Flush) (06/01/17 13:30) Al-Mag Hy-Si 40-40-4 Mg/Ml Liq (Mag-Al P (06/01/17 13:30) Lidocaine 2% Viscous (Xylocaine 2% Visco (06/01/17 13:30) Labs Laboratory Tests Test 06/01/17 13:35 White Blood Count 5.0 TH/MM3 Red Blood Count 4.12 MIL/MM3 Hemoglobin 11.9 GM/DL Hematocrit 35.7 % Mean Corpuscular Volume 86.8 FL Mean Corpuscular Hemoglobin 29.0 PG Mean Corpuscular Hemoglobin 33.4 % Concent Red Cell Distribution Width 13.9 % Platelet Count 160 TH/MM3 Mean Platelet Volume 8.1 FL Neutrophils (%) (Auto) 44.4 % Lymphocytes (%) (Auto) 41.6 % Monocytes (%) (Auto) 6.7 % Eosinophils (%) (Auto) 6.8 % Basophils (%) (Auto) 0.5 % Neutrophils # (Auto) 2.3 TH/MM3 Lymphocytes # (Auto) 2.1 TH/MM3 Monocytes # (Auto) 0.3 TH/MM3 Eosinophils # (Auto) 0.3 TH/MM3 Basophils # (Auto) 0.0 TH/MM3 CBC Comment DIFF FINAL Differential Comment Prothrombin Time 10.6 SEC Prothromb Time International 1.0 RATIO Ratio Activated Partial 28.0 SEC Thromboplast Time Sodium Level 144 MEQ/L Potassium Level 3.4 MEQ/L Chloride Level 109 MEQ/L Carbon Dioxide Level 27.5 MEQ/L Anion Gap 8 MEQ/L Blood Urea Nitrogen 10 MG/DL Creatinine 1.10 MG/DL Estimat Glomerular Filtration 75 ML/MIN Rate Random Glucose 117 MG/DL Calcium Level 8.1 MG/DL Total Bilirubin 0.5 MG/DL Aspartate Amino Transf 22 U/L (AST/SGOT) Alanine Aminotransferase 25 U/L (ALT/SGPT) Alkaline Phosphatase 61 U/L Total Protein 7.3 GM/DL Albumin 4.0 GM/DL Lipase 356 U/L [facility] Medical Decision Making Medical Screen Exam Complete: Yes Emergency Medical Condition: Yes Differential Diagnosis Gastritis, peptic ulcer disease, pancreatitis, hepatobiliary disease, lupus flare Narrative Course Vital signs reviewed. Initial heart rate was 120 which improved after a liter normal saline and pain control. CBC shows WBC 5.0, hemoglobin 11.9, hematocrit 35.7 which are around his baseline, platelets 160. CMP is unremarkable. Lipase is 356. Patient was made aware of all findings. He is dry heaving into an emesis bag. He has not produced any emesis while in the emergency department. His dry heaving immediately stops when spoken to. He is requesting a prescription for pain medication. He is is playing some symptoms of drug-seeking behavior. Initially, when I told him I will be giving him something for pain, he told me that he is allergic to morphine. He has an extensive list of medications, one medication includes Percocet 10/325. Patient states that the reason that this is on his list is because he gets them only as needed. He has been here several times in the past for abdominal pain and had MRI and CT abdomen pelvis in March of this year which showed no acute intra-abdominal pathology. Today I do not believe that there is an acute abdominal process to warrant imaging. He states he has already made an appointment with his insole and outsole preparer in 2 days. He is stable for discharge home with outpatient follow-up. I am reluctant to start him on prednisone for possible lupus flare as this may be what is aggravating his symptoms currently. He was informed on when to return to the emergency department. He verbalizes understanding and agreement with plan. Diagnosis Primary Impression: Abdominal pain Qualified Code: R10.13 - Epigastric pain Additional Impression: Peptic ulcer disease Referrals: Primary Care Physician 2 days Additional Instructions: Follow-up with your primary care physician and your insole and outsole preparer this week. Return to the emergency department for worsening symptoms or any other concerns. Scripts Oxycodone-Acetaminophen (Percocet)10-325 mg Tab1 Tab PO Q6H PRN (PAIN) #10 TAB Ref 0 Prov:Kendell Noland MD 06/01/17 Disposition: 01 DISCHARGE HOME Condition: Stable Kendell Noland MD Jun 01, 2017 13:48
[2017-06-01 13:55] LABS: CHLORIDE 109 MEQ/L (98-107); POTASSIUM 3.4 MEQ/L (3.5-5.1); SODIUM (NA) 144 MEQ/L (136-145)
[2017-06-01 13:59] LABS: ANION GAP 8 MEQ/L (5-15); BICARBONATE 27.5 MEQ/L (21.0-32.0)
[2017-06-01 14:00] LABS: BLOOD UREA NITROGEN 10 MG/DL (7-18)
[2017-06-01 14:02] LABS: ALT (GPT) 25 U/L (12-78); AST (GOT) 22 U/L (15-37); GLOMERULAR FILTRATION RATE 75 ML/MIN (>89); PROTHROMBIN TIME - PATIENT 10.6 SEC (9.8-11.6)
[2017-06-01 14:04] LABS: TOTAL BILIRUBIN ADULT 0.5 MG/DL (0.2-1.0)
[2017-06-01 14:05] LABS: ALKALINE PHOSPHATASE 61 U/L (45-117)
[2017-06-01] MEDS ORDERED: PERC10TA27 PO (14:45)
[2017-06-01] MEDS ORDERED: METOCLOPRAMIDE HCL 10 MG/2 ML VIAL IV PUSH ONE (14:45)
[2017-06-01 15:17] VITALS: BP 133/80; PULSE 72; RESP 16; O2SAT 98
[2017-06-02] MEDS ORDERED: POTA99TA4 PO (21:12)
== END 2017-06-01 15:22 | disposition home or self-care (01) ==
LOC: PHED 12:39
DX: R10.13 Epigastric pain (principal); K27.9 Peptic ulcer, site unspecified, unspecified as acute or chronic, without hemorrhage or perforation; M32.9 Systemic lupus erythematosus, unspecified; M06.9 Rheumatoid arthritis, unspecified; I10 Essential (primary) hypertension; E09.8 Drug or chemical induced diabetes mellitus with unspecified complications
CPT/HCPCS: 80053; 83690; 85025; 85610; 85730; 96361; 96374; 96375; 99284; J1170; J2405; J2765; J7030

== ENCOUNTER 2017-06-24 12:05 | Emergency (ER) | payer BC ==
[~2017-06-24] VITALS: Ht 182.9 cm; Wt 100.0 kg
[~2017-06-24 12:05] MED LIST changes: +GABA300C5 PO; -GABA600T PO; +HYDR-3535 PO; -HYDR200T3 PO; +LEVE500T8 PO; +MULT-267 PO; +OMEP20TA PO; +POTA99TA4 PO; +PROB1CAP12 PO
[2017-06-24 12:07] VITALS: BP 160/100; PULSE 100; RESP 24; TEMP 98.4; O2SAT 100
--- NOTE | 2017-06-24 12:37 | PD ---
HPI Chief Complaint: Flank/Kidney Pain Time Seen by Provider: 12:14 Travel History International Travel<30 days: No Contact w/Intl Traveler<30days: No Traveled to known affect area: No History of Present Illness HPI This patient complains of right flank and right lower quadrant abdominal pain. Started yesterday at 6 PM. Duration 18 hours. Reports that he developed hematuria this morning with his urine being grossly bloody. Denies fever or injury. History of frequent visits to the ER for abdominal pain. He has according to him Crohn's and lupus. Severity is moderate. No alleviating factors. PFSH Past Medical History Hx Anticoagulant Therapy: No Arthritis: Yes (RA) Asthma: No Autoimmune Disease: Yes (Lupus, RA, Vasculitis, Ankylosing spondylitis ) Blood Disorders: No Anxiety: Yes Depression: Yes Heart Rhythm Problems: No Cancer: Yes (Thyroid) Cardiovascular Problems: No High Cholesterol: No Chemotherapy: Yes Chest Pain: No Congestive Heart Failure: No COPD: No Cerebrovascular Accident: No Diabetes: Yes (Steroid-induced ) Patient Takes Glucophage: No Diminished Hearing: No Endocrine: No Gastrointestinal Disorders: Yes (Chrohn's) GERD: Yes Genitourinary: No Headaches: Yes Hiatal Hernia: No Heparin Induced Thrombocytopen: No Hypertension: Yes Immune Disorder: No Implanted Vascular Access Dvce: No Kidney Stones: No Musculoskeletal: Yes Neurologic: Yes Psychiatric: No Reproductive: No Respiratory: No Immunizations Current: Yes Migraines: Yes Pancreatitis: Yes Radiation Therapy: Yes (Radioactive iodine for thyroid ) Renal Failure: No Seizures: Yes Sickle Cell Disease: No Sleep Apnea: No Thyroid Disease: Yes Ulcer: Yes Tetanus Vaccination: < 5 Years Influenza Vaccination: Yes PNEUMOCCOCAL Vaccine (Year): 1 Past Surgical History Abdominal Surgery: No AICD: No Arteriovenous Shunt: No Cardiac Surgery: No Ear Surgery: No Endocrine Surgery: No Eye Surgery: No Genitourinary Surgery: No Gynecologic Surgery: No Hysterectomy: No Insulin Pump: No Joint Replacement: No Neurologic Surgery: No Oral Surgery: No Pacemaker: No Thoracic Surgery: No Other Surgery: Yes (Left hand surgery Aug 2016) Social History Alcohol Use: No Tobacco Use: No Substance Use: No Allergies-Medications (Allergen,Severity, Reaction): Coded Allergies: Cat Dander (Verified Allergy, Mild, Cough, 06/24/17) Morphine (Verified Allergy, Mild, Rash, 8/9/17) Reported Meds & Prescriptions Reported Meds & Active Scripts Active Carafate (Sucralfate) 1 Gm Tab 1 Gm PO QID On empty stomach Reported Percocet (Oxycodone-Acetaminophen) 10-325 mg Tab 1 Tab PO TID Omeprazole 40 Mg Cap 40 Mg PO DAILY Gabapentin 600 Mg Tab 600 Mg PO TID Folic Acid 1 Mg Tablet 1 Mg PO DAILY Methotrexate Inj 50 Mg/2 Ml Inj 0.6 Ml IM WEEKLY Potassium 99 Mg Tablet 99 Mg PO BID Men's Multi-Vitamin (Multivitamin) 1 Each Tablet 1 Tab PO DAILY Acidophilus (Probiotic Product) 1 Cap Cap 1 Cap PO DAILY Levetiracetam 500 Mg Tab 1,000 Mg PO DAILY Butorphanol Nasal [place] (Butorphanol Tartrate) 10 Mg/Ml Soln 1 [place] NASAL Q3HR PRN in one nostril (1 mg). If pain not reliefed in 60-90 minutes, a 1 mg repeat dose may be given. May repeat this in 3-4 hrs if needed. Protonix (Pantoprazole Sodium) 40 Mg Tab 40 Mg PO AC LUNCH Tramadol (Tramadol HCl) 50 Mg Tab 50 Mg PO Q6H PRN Prednisone 5 Mg Tab 5 Mg PO DAILY Metaxalone 800 Mg Tab 800 Mg PO TID Flexeril (Cyclobenzaprine HCl) 10 Mg Tab 10 Mg PO BID Diclofenac-Misoprostol 75-0.2 Mg Tab 1 Tab PO BID PRN Humira 2-Pack Inj (Adalimumab 2-Pack Inj) 40 Mg/0.8 Ml Syr 40 Mg SQ Q14D Dilantin (Phenytoin Extended) 100 Mg Cap 300 Mg PO HS Cialis (Tadalafil) 5 Mg Tab 5 Mg PO DAILY Do not exceed 1 dose/day. Ondansetron (Ondansetron HCl) 8 Mg Tab 8 Mg PO Q8HR PRN Amitriptyline (Amitriptyline HCl) 25 Mg Tab 75 Mg PO HS Clonazepam 2 Mg Tab 2 Mg PO BID [place]ocarpine 5 Mg Tab 5 Mg PO TID PRN Citalopram (Citalopram Hydrobromide) 20 Mg Tab 20 Mg PO HS Levothyroxine (Levothyroxine Sodium) 112 Mcg Tab 112 Mcg PO DAILY Flomax (Tamsulosin HCl) 0.4 Mg Cap 0.4 Mg PO BID Review of Systems General / Constitutional: No: Fever Eyes: No: Visual changes HENT: No: Headaches Cardiovascular: No: Chest Pain or Discomfort Respiratory: No: Shortness of Breath Gastrointestinal: Positive: Abdominal Pain Genitourinary: Positive: Hematuria, Flank Pain, No: Dysuria Musculoskeletal: No: Pain Skin: No Rash Neurologic: No: Weakness Psychiatric: No: Depression Endocrine: No: Polydipsia Hematologic/Lymphatic: No: Easy Bruising Physical Exam Narrative GENERAL: Well-nourished, well-developed patient in no apparent distress. SKIN: Focused skin assessment reveals no rash and nodules. Skin is Warm and dry. HEAD: Atraumatic. Normocephalic. EYES: Pupils equal and round. No scleral icterus. No injection or drainage. ENT: No nasal bleeding or discharge. Mucous membranes pink and moist. NECK: Trachea midline. No JVD. CARDIOVASCULAR: Regular rate and rhythm. No murmur appreciated. RESPIRATORY: No accessory muscle use. Clear to auscultation. Breath sounds equal bilaterally. GASTROINTESTINAL: Abdomen soft, non-tender, nondistended. Hepatic and splenic margins not palpable. MUSCULOSKELETAL: No obvious deformities. No clubbing. No cyanosis. No edema. NEUROLOGICAL: Awake and alert. No obvious cranial nerve deficits. Motor grossly within normal limits. Normal speech. PSYCHIATRIC: Appropriate mood and affect; insight and judgment normal. Data Data Last Documented VS Vital Signs Date Time Temp Pulse Resp B/P Pulse Ox O2 Delivery O2 Flow Rate FiO2 06/24/17 14:04 88 20 136/91 94 Room Air 06/24/17 12:07 98.4 Orders Basic Metabolic Panel (Bmp) (06/24/17 12:31) Complete Blood Count With Diff (06/24/17 12:31) Urinalysis - C+S If Indicated (06/24/17 12:31) Ct Abd/Pel W/O Iv Contrast (06/24/17 12:31) Iv Access Insert/Monitor (06/24/17 12:31) NPO (06/24/17 12:31) Sodium Chloride 0.9% Flush (Ns Flush) (06/24/17 12:45) Labs Laboratory Tests Test 06/24/17 12:45 White Blood Count 4.3 TH/MM3 Red Blood Count 3.98 MIL/MM3 Hemoglobin 11.7 GM/DL Hematocrit 35.1 % Mean Corpuscular Volume 88.2 FL Mean Corpuscular Hemoglobin 29.4 PG Mean Corpuscular Hemoglobin 33.4 % Concent Red Cell Distribution Width 14.4 % Platelet Count 186 TH/MM3 Mean Platelet Volume 8.0 FL Neutrophils (%) (Auto) 48.5 % Lymphocytes (%) (Auto) 39.3 % Monocytes (%) (Auto) 6.9 % Eosinophils (%) (Auto) 4.6 % Basophils (%) (Auto) 0.7 % Neutrophils # (Auto) 2.1 TH/MM3 Lymphocytes # (Auto) 1.7 TH/MM3 Monocytes # (Auto) 0.3 TH/MM3 Eosinophils # (Auto) 0.2 TH/MM3 Basophils # (Auto) 0.0 TH/MM3 CBC Comment DIFF FINAL Differential Comment Urine Color YELLOW Urine Turbidity CLEAR Urine pH 6.5 Urine Specific [place] 1.012 Urine Protein NEG mg/dL Urine Glucose (UA) NEG mg/dL Urine Ketones NEG mg/dL Urine Occult Blood NEG Urine Nitrite NEG Urine Bilirubin NEG Urine Urobilinogen LESS THAN 2.0 MG/DL Urine Leukocyte Esterase NEG Urine RBC LESS THAN 1 /hpf Urine WBC LESS THAN 1 /hpf Microscopic Urinalysis Comment CULT NOT INDICATED Sodium Level 142 MEQ/L Potassium Level 3.6 MEQ/L Chloride Level 108 MEQ/L Carbon Dioxide Level 27.2 MEQ/L Anion Gap 7 MEQ/L Blood Urea Nitrogen 8 MG/DL Creatinine 0.80 MG/DL Estimat Glomerular Filtration 108 ML/MIN Rate Random Glucose 88 MG/DL Calcium Level 8.6 MG/DL MDM Medical Decision Making Medical Screen Exam Complete: Yes Emergency Medical Condition: Yes Medical Record Reviewed: Yes Differential Diagnosis Kidney stone, colitis, pyelonephritis Narrative Course I have reviewed the patient's electronic medical record. Patient is a frequent visitor to the ER for abdominal pain. He's had both CT and MRI of the abdomen at this facility earlier this shear, both without any significant findings IV placed CBC is normal Metabolic profile is normal Urinalysis is clean CT of abdomen and pelvis shows nothing emergent. Has bilateral nonobstructive renal calculus which would be incidental findings Stable for outpatient follow-up I went to reevaluate him he was sound asleep. Diagnosis Primary Impression: Abdominal pain of unknown etiology Additional Instructions: The patient was advised to follow up with their physician and return if they worsen. Med/Other Pt SpecificInfo: Other Disposition: 01 DISCHARGE HOME Condition: Stable [facility],Fabio J. MD Jun 24, 2017 12:37
[2017-06-24] MEDS ORDERED: SODIUM CHLORIDE 0.9% FLUSH 10 ML FLUSH IV FLUSH PRN (12:45)
[2017-06-24] MEDS ORDERED: METH5INJ IM (12:49)
[2017-06-24] MEDS ORDERED: FOLI1TAB6 PO (12:49)
[2017-06-24] MEDS ORDERED: GABA600T PO (12:49)
[2017-06-24] MEDS ORDERED: PERC10TA27 PO (12:49)
[2017-06-24] MEDS ORDERED: OMEP40CA2 PO (12:49)
[2017-06-24 13:01] LABS: AUTOMATED NEUTROPHIL # 2.1 TH/MM3 (1.8-7.7); BASOPHIL % 0.7 % (0.0-2.0); EOSINOPHIL # 0.2 TH/MM3 (0-0.4); EOSINOPHIL % 4.6 % (0.0-4.0); HEMATOCRIT 35.1 % (39.0-51.0); HEMO FLAGS DIFF FINAL; LYMPH % 39.3 % (9.0-44.0); LYMPHOCYTE # 1.7 TH/MM3 (1.0-4.8); MEAN CELL VOLUME 88.2 FL (80.0-100.0); MEAN CORPUSCULAR HEMOGLOBIN 29.4 PG (27.0-34.0); MEAN CORPUSCULAR HGB CONC 33.4 % (32.0-36.0); MONO % 6.9 % (0.0-8.0); NEUT % 48.5 % (16.0-70.0); PLATELET COUNT 186 TH/MM3 (150-450); RED BLOOD COUNT 3.98 MIL/MM3 (4.50-5.90); RED CELL DISTRIBUTION WIDTH 14.4 % (11.6-17.2); WHITE BLOOD COUNT 4.3 TH/MM3 (4.0-11.0)
[2017-06-24 13:17] LABS: BLOOD, URINE NEG (NEG); GLUCOSE,URINE NEG (NEG); KETONE, URINE NEG (NEG); NITRITE,URINE NEG (NEG); PH, URINE 6.5 (5.0-8.5); URINE COLOR YELLOW (YELLW/STRAW)
[2017-06-24 13:19] LABS: BICARBONATE 27.2 MEQ/L (21.0-32.0); POTASSIUM 3.6 MEQ/L (3.5-5.1)
[2017-06-24 13:21] LABS: COMMENT (UR) CULT NOT INDICATED; CULTURE IF INDICATED CULT NOT INDICATED
--- NOTE | 2017-06-24 13:35 | RADRPT ---
EXAM DATE/TIME: 06/24/2017 13:11 [place] COMPARISON: CT ABDOMEN & PELVIS W/O CONTRAST, November 04, 2016, 20:23. INDICATIONS : Right flank pain, blood in urine. ORAL CONTRAST: No oral contrast ingested. RADIATION DOSE: 19.83 CTDIvol (mGy) MEDICAL HISTORY : Cirrhosis. Pancreatitis. Lupus.Ulcers, thyroid cancer. SURGICAL HISTORY : None. ENCOUNTER: Initial ACUITY: 1 day PAIN SCALE: 8/10 LOCATION: Right flank TECHNIQUE: Volumetric scanning of the abdomen and pelvis was performed. Using automated exposure control and ad justment of the mA and/or kV according to patient size, radiation dose was kept as low as reasonably achievable to obtain optimal diagnostic quality images. DICOM format image data is available electro nically for review and comparison. FINDINGS: LOWER LUNGS: The visualized lower lungs are clear. LIVER: Homogeneous density without lesion. There is no dilation of the biliary tree. No calcified gallston es. SPLEEN: Normal size without lesion. PANCREAS: Within normal limits. KIDNEYS: Small nonobstructing calculi remain evident in both kidneys. The measured calculi in each kidney is s lightly larger. A 1.8 mm calculus is identified in the midpole of the right kidney. There is a 1.8 mm calculus in the lower pole of the left kidney. There is no evidence of hydronephrosis or hydroureter . ADRENAL GLANDS: Within normal limits. VASCULAR: There is no aortic aneurysm. BOWEL/MESENTERY: The stomach, small bowel, and colon demonstrate no acute abnormality. There is no free intraperitone al air or fluid. ABDOMINAL WALL: Within normal limits. RETROPERITONEUM: There is no lymphadenopathy. BLADDER: No wall thickening or mass. No internal calculi are noted. REPRODUCTIVE: Within normal limits. INGUINAL: There is no lymphadenopathy or hernia. MUSCULOSKELETAL: Within normal limits for patient age. CONCLUSION: 1. Bilateral non-obstructing renal calculi which are slightly larger compared to the prior study. 2. No evidence of hydronephrosis or either ureter. 3. No evidence of acute process. Jonas Gilbert MD on June 24, 2017 at 13:28 Board Certified Radiologist. This report was verified electronically.
[2017-06-24 14:04] VITALS: BP 136/91; PULSE 88; RESP 20; O2SAT 94
[2017-06-24 14:38] VITALS: BP 142/90
== END 2017-06-24 14:56 | disposition home or self-care (01) ==
LOC: NEPE 12:05
DX: R10.31 Right lower quadrant pain (principal); E11.9 Type 2 diabetes mellitus without complications; I10 Essential (primary) hypertension; K21.9 Gastro-esophageal reflux disease without esophagitis
CPT/HCPCS: 74176; 80048; 81001; 85025; 99282

== ENCOUNTER 2017-06-24 15:19 | Emergency (ER) | payer BC ==
[~2017-06-24] VITALS: Ht 182.9 cm; Wt 100.0 kg
[~2017-06-24 15:19] MED LIST changes: +FOLI1TAB6 PO; +GABA600T PO; +METH5INJ IM; +OMEP40CA2 PO
[2017-06-24 15:22] VITALS: BP 166/114; PULSE 92; RESP 20; TEMP 97.8; O2SAT 100
--- NOTE | 2017-06-24 16:26 | PD ---
HPI Chief Complaint: Complaint Time Seen by Provider: 16:23 Travel History International Travel<30 days: No Contact w/Intl Traveler<30days: No Traveled to known affect area: No History of Present Illness HPI Patient is a 37-year-old male presents emergency department for evaluation of blood in the urine as well as low back pain and cramping generalized abdominal pain.. Patient states he has a history of lupus and chronic pain. Patient was evaluated earlier today at the [facility] hospital by Dr. Doran and had a full workup for his hematuria/abdominal pain including CAT scan and basic labs as well as UA. The CAT scan did show some very small (less than 2mm) kidney stones which are nonobstructing in the renal collecting system. No other abnormalities are seen on his CAT scan lab work, his UA was clear. Patient states that he presented today because his suggested he get another opinion. The patient states he is not looking for medication and took some pain medicine and Tylenol No. 3 prior to coming to the emergency department. Denies any changes in his symptoms since leaving the hospital. He states his pain is cramping intermittent but since the past 4 days. He states he didn't think anything of it until hematuria started. States symptoms been waxing and waning no associated fever, mild nausea without vomiting, no diarrhea no constipation Patient has a secondary complaint of bilateral leg swelling for the past few months. He states he has not been wearing his FCO hose is frequently and thinks this cause of it. Denies any long trips recently denies any shortness of breath denies any history of congestive heart failure, liver disease or kidney disease. PFSH Past Medical History Hx Anticoagulant Therapy: No Arthritis: Yes (RA) Asthma: No Autoimmune Disease: Yes (Lupus, RA, Vasculitis, Ankylosing spondylitis ) Blood Disorders: No Anxiety: Yes Depression: Yes Heart Rhythm Problems: No Cancer: Yes (Thyroid) Cardiovascular Problems: No High Cholesterol: No Chemotherapy: Yes Chest Pain: No Congestive Heart Failure: No COPD: No Cerebrovascular Accident: No Diabetes: Yes (Steroid-induced ) Patient Takes Glucophage: No Diminished Hearing: No Endocrine: No Gastrointestinal Disorders: Yes (Chrohn's) GERD: Yes Genitourinary: No Headaches: No Hiatal Hernia: No Heparin Induced Thrombocytopen: No Hypertension: Yes Immune Disorder: No Implanted Vascular Access Dvce: No Kidney Stones: No Musculoskeletal: Yes Neurologic: Yes Psychiatric: No Reproductive: No Respiratory: No Immunizations Current: Yes Migraines: Yes Pancreatitis: Yes Radiation Therapy: Yes (Radioactive iodine for thyroid ) Renal Failure: No Seizures: Yes Sickle Cell Disease: No Sleep Apnea: No Thyroid Disease: Yes Ulcer: Yes PNEUMOCCOCAL Vaccine (Year): 1 ?: Not Past Surgical History Abdominal Surgery: No AICD: No Arteriovenous Shunt: No Cardiac Surgery: No Ear Surgery: No Endocrine Surgery: No Eye Surgery: No Genitourinary Surgery: No Gynecologic Surgery: No Hysterectomy: No Insulin Pump: No Joint Replacement: No Neurologic Surgery: No Oral Surgery: No Pacemaker: No Thoracic Surgery: No Other Surgery: Yes (Left hand surgery Aug 2016) Social History Alcohol Use: No Tobacco Use: No Substance Use: No Allergies-Medications (Allergen,Severity, Reaction): Coded Allergies: Cat Dander (Verified Allergy, Mild, Cough, 06/24/17) Morphine (Verified Allergy, Mild, Rash, 06/24/17) Reported Meds & Prescriptions Reported Meds & Active Scripts Active Carafate (Sucralfate) 1 Gm Tab 1 Gm PO QID On empty stomach Reported Percocet (Oxycodone-Acetaminophen) 10-325 mg Tab 1 Tab PO TID Omeprazole 40 Mg Cap 40 Mg PO DAILY Gabapentin 600 Mg Tab 600 Mg PO TID Folic Acid 1 Mg Tablet 1 Mg PO DAILY Methotrexate Inj 50 Mg/2 Ml Inj 0.6 Ml IM WEEKLY Potassium 99 Mg Tablet 99 Mg PO BID Men's Multi-Vitamin (Multivitamin) 1 Each Tablet 1 Tab PO DAILY Acidophilus (Probiotic Product) 1 Cap Cap 1 Cap PO DAILY Levetiracetam 500 Mg Tab 1,000 Mg PO DAILY Butorphanol Nasal [place] (Butorphanol Tartrate) 10 Mg/Ml Soln 1 [place] NASAL Q3HR PRN in one nostril (1 mg). If pain not reliefed in 60-90 minutes, a 1 mg repeat dose may be given. May repeat this in 3-4 hrs if needed. Protonix (Pantoprazole Sodium) 40 Mg Tab 40 Mg PO AC LUNCH Tramadol (Tramadol HCl) 50 Mg Tab 50 Mg PO Q6H PRN Prednisone 5 Mg Tab 5 Mg PO DAILY Metaxalone 800 Mg Tab 800 Mg PO TID Flexeril (Cyclobenzaprine HCl) 10 Mg Tab 10 Mg PO BID Diclofenac-Misoprostol 75-0.2 Mg Tab 1 Tab PO BID PRN Humira 2-Pack Inj (Adalimumab 2-Pack Inj) 40 Mg/0.8 Ml Syr 40 Mg SQ Q14D Dilantin (Phenytoin Extended) 100 Mg Cap 300 Mg PO HS Cialis (Tadalafil) 5 Mg Tab 5 Mg PO DAILY Do not exceed 1 dose/day. Ondansetron (Ondansetron HCl) 8 Mg Tab 8 Mg PO Q8HR PRN Amitriptyline (Amitriptyline HCl) 25 Mg Tab 75 Mg PO HS Clonazepam 2 Mg Tab 2 Mg PO BID Pilocarpine 5 Mg Tab 5 Mg PO TID PRN Citalopram (Citalopram Hydrobromide) 20 Mg Tab 20 Mg PO HS Levothyroxine (Levothyroxine Sodium) 112 Mcg Tab 112 Mcg PO DAILY Flomax (Tamsulosin HCl) 0.4 Mg Cap 0.4 Mg PO BID Review of Systems Except as stated in HPI: all other systems reviewed are Neg Physical Exam Narrative GENERAL: Well-developed, overweight but in no obvious distress. SKIN: Focused skin assessment warm/dry. HEAD: Atraumatic. Normocephalic. EYES: Pupils equal and round. No scleral icterus. No injection or drainage. ENT: No nasal bleeding or discharge. Mucous membranes pink and moist. NECK: Trachea midline. No JVD. CARDIOVASCULAR: Regular rate and rhythm. No murmur appreciated. RESPIRATORY: No accessory muscle use. Clear to auscultation. Breath sounds equal bilaterally. GASTROINTESTINAL: Abdomen soft, non-tender, nondistended. Hepatic and splenic margins not palpable. No CVA tenderness abdomen totally benign, no masses, no rebound no percussive tenderness. MUSCULOSKELETAL: No obvious deformities. No clubbing. No cyanosis. Trace nonpitting edema bilateral lower extremities from the knee down. ,No midline CT or L-spine tenderness. NEUROLOGICAL: Awake and alert. No obvious cranial nerve deficits. Motor grossly within normal limits. Normal speech. PSYCHIATRIC: Appropriate mood and affect; insight and judgment normal. Data Data Last Documented VS Vital Signs Date Time Temp Pulse Resp B/P Pulse Ox O2 Delivery O2 Flow Rate FiO2 06/24/17 15:22 97.8 92 20 166/114 100 MDM Medical Decision Making Medical Screen Exam Complete: Yes Emergency Medical Condition: Yes Differential Diagnosis Acute on chronic abdominal pain, kidney stone, Crohn's flare, lupus flare, Narrative Course As above a review the patient's records he has been here multiple times for similar symptoms and no definitive cause of abdominal pain is been identified. It my count this is his seventh visit to our hospital for abdominal pain this year. Multiple CAT scans in the past. Labs and CAT scan were reassuring and I see no indication to repeat them at this time as he has had a benign exam at this time. The patient was offered Tylenol and declined. The patient is taking Tylenol 3 at home according to her CD4 she's not had a prescription for it. I've asked him about his Percocet prescription need states that his last prescription for that was from Dr. Victor over a month ago. Discussed with him that according to the ED for suture he did have a prescription on June 16 42 pills. He states that he's run out of those because his been prescribed 4 times a day. According to ED forces 14 day prescription therefore he should only be taking them at a max of 3 times per day. On my coagulation is taking formula half per day certainly he has been running out of these early. This was all discussed with the patient as well as his butorphanol prescription clonazepam scripts and certainly there is an element of dependence. I discussed with him that ultimately he should consider cutting back on his need for narcotic pain medication. He states this time that he does not want any pain medicine that he just came for second opinion and I certainly can appreciate that. He is very calm and accepted my advice and is going to following up with his primary care physician at this time. I think this is a reasonable course of action. He is stable for discharge. Diagnosis Primary Impression: Chronic abdominal pain Additional Impressions: Pedal edema Hematuria Additional Instructions: Follow up with your regular physicians by phone today for further instruction. Wear FCO/Compression stockings for swelling in your legs and keep them elevated at night. Disposition: 01 DISCHARGE HOME Condition: Stable Sanjiv Joel MD Jun 24, 2017 16:26
== END 2017-06-24 17:26 | disposition home or self-care (01) ==
LOC: PHED 15:19
DX: R10.84 Generalized abdominal pain (principal); G89.29 Other chronic pain; R60.0 Localized edema; R31.9 Hematuria, unspecified; M54.5 Low back pain; N20.0 Calculus of kidney; I10 Essential (primary) hypertension; Z86.2 Personal history of diseases of the blood and blood-forming organs and certain disorders involving the immune mechanism; Z87.39 Personal history of other diseases of the musculoskeletal system and connective tissue; Z86.59 Personal history of other mental and behavioral disorders; Z85.850 Personal history of malignant neoplasm of thyroid; Z87.19 Personal history of other diseases of the digestive system; Z86.69 Personal history of other diseases of the nervous system and sense organs
CPT/HCPCS: 99282

== ENCOUNTER 2017-07-13 13:16 | Emergency (ER) | payer BC ==
[~2017-07-13] VITALS: Ht 182.9 cm; Wt 103.0 kg
[~2017-07-13 13:16] MED LIST changes: -BUTACAP4 PO; -FOLI400T PO; -GABA300C5 PO; -HYDR-3535 PO; -IMUR50TA PO; -METH2.5T PO; -OMEP20TA PO; -TYLETAB34 PO
[2017-07-13 13:20] VITALS: BP 167/111; PULSE 107; RESP 16; TEMP 98.3; O2SAT 97
--- NOTE | 2017-07-13 15:05 | PD ---
HPI Chief Complaint: Headache Time Seen by Provider: 14:53 Travel History International Travel<30 days: No Contact w/Intl Traveler<30days: No Traveled to known affect area: No History of Present Illness HPI This 37-year-old male is complaining of pain all over his body. He has a history of severe lupus and is on multiple medications. He is currently on methotrexate, Humira and Imuran. He was started on a prednisone burst last Kiran was taking [address] 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. 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 He feels like he is having a lupus flare. He's had a prominent rash. He's been aching all over. He is also having headache. He saw Dr. Bansal last Thursday and was given prescription for Stadol nasal spray and this is helped his headache. He is now having primarily pain all over her body. PFSH Past Medical History Hx Anticoagulant Therapy: No Arthritis: Yes (RA) Asthma: No Autoimmune Disease: Yes (Lupus, RA, Vasculitis, Ankylosing spondylitis ) Blood Disorders: No Anxiety: Yes Depression: Yes Heart Rhythm Problems: No Cancer: Yes (Thyroid) Cardiovascular Problems: No High Cholesterol: No Chemotherapy: Yes Chest Pain: No Congestive Heart Failure: No COPD: No Cerebrovascular Accident: No Diabetes: Yes (Steroid-induced ) Diminished Hearing: No Endocrine: No Gastrointestinal Disorders: Yes (Chrohn's) GERD: Yes Genitourinary: No Headaches: No Hiatal Hernia: No Heparin Induced Thrombocytopen: No Hypertension: Yes Immune Disorder: No Implanted Vascular Access Dvce: No Kidney Stones: No Musculoskeletal: Yes Neurologic: Yes Psychiatric: No Reproductive: No Respiratory: No Immunizations Current: Yes Migraines: Yes Pancreatitis: Yes Radiation Therapy: Yes (Radioactive iodine for thyroid ) Renal Failure: No Seizures: Yes Sickle Cell Disease: No Sleep Apnea: No Thyroid Disease: Yes Ulcer: Yes PNEUMOCCOCAL Vaccine (Year): 1 Past Surgical History Abdominal Surgery: No AICD: No Arteriovenous Shunt: No Cardiac Surgery: No Ear Surgery: No Endocrine Surgery: No Eye Surgery: No Genitourinary Surgery: No Gynecologic Surgery: No Hysterectomy: No Insulin Pump: No Joint Replacement: No Neurologic Surgery: No Oral Surgery: No Pacemaker: No Thoracic Surgery: No Other Surgery: Yes (Left hand surgery Aug 2016) Social History Alcohol Use: No Tobacco Use: No Substance Use: No Allergies-Medications (Allergen,Severity, Reaction): Coded Allergies: cat dander (Unverified Allergy, Mild, Cough, 07/13/17) morphine (Unverified Allergy, Mild, Rash, 07/13/17) Reported Meds & Prescriptions Reported Meds & Active Scripts Active Carafate (Sucralfate) 1 Gm Tab 1 Gm PO QID On empty stomach Reported Percocet (Oxycodone-Acetaminophen) 10-325 mg Tab 1 Tab PO TID Omeprazole 40 Mg Cap 40 Mg PO DAILY Gabapentin 600 Mg Tab 600 Mg PO TID Folic Acid 1 Mg Tablet 1 Mg PO DAILY Methotrexate Inj 50 Mg/2 Ml Inj 0.6 Ml IM WEEKLY Potassium 99 Mg Tablet 99 Mg PO BID Men's Multi-Vitamin (Multivitamin) 1 Each Tablet 1 Tab PO DAILY Acidophilus (Probiotic Product) 1 Cap Cap 1 Cap PO DAILY Levetiracetam 500 Mg Tab 1,000 Mg PO DAILY Butorphanol Nasal [place] (Butorphanol Tartrate) 10 Mg/Ml Soln 1 [place] NASAL Q3HR PRN in one nostril (1 mg). If pain not reliefed in 60-90 minutes, a 1 mg repeat dose may be given. May repeat this in 3-4 hrs if needed. Protonix (Pantoprazole Sodium) 40 Mg Tab 40 Mg PO AC LUNCH Tramadol (Tramadol HCl) 50 Mg Tab 50 Mg PO Q6H PRN Prednisone 5 Mg Tab 5 Mg PO DAILY Metaxalone 800 Mg Tab 800 Mg PO TID Flexeril (Cyclobenzaprine HCl) 10 Mg Tab 10 Mg PO BID Diclofenac-Misoprostol 75-0.2 Mg Tab 1 Tab PO BID PRN Humira 2-Pack Inj (Adalimumab 2-Pack Inj) 40 Mg/0.8 Ml Syr 40 Mg SQ Q14D Dilantin (Phenytoin Extended) 100 Mg Cap 300 Mg PO HS Cialis (Tadalafil) 5 Mg Tab 5 Mg PO DAILY Do not exceed 1 dose/day. Ondansetron (Ondansetron HCl) 8 Mg Tab 8 Mg PO Q8HR PRN Amitriptyline (Amitriptyline HCl) 25 Mg Tab 75 Mg PO HS Clonazepam 2 Mg Tab 2 Mg PO BID [place] 5 Mg Tab 5 Mg PO TID PRN Citalopram (Citalopram Hydrobromide) 20 Mg Tab 20 Mg PO HS Levothyroxine (Levothyroxine Sodium) 112 Mcg Tab 112 Mcg PO DAILY Flomax (Tamsulosin HCl) 0.4 Mg Cap 0.4 Mg PO BID Review of Systems General / Constitutional: No: Fever, Chills Eyes: No: Diploplia, Blurred Vision HENT: Positive: Headaches, No: Vertigo Cardiovascular: No: Chest Pain or Discomfort, Palpitations Respiratory: No: Cough, Shortness of Breath Gastrointestinal: No: Nausea Genitourinary: No: Urgency Musculoskeletal: Positive: Myalgias Skin: Positive Rash Neurologic: Positive: Weakness Hematologic/Lymphatic: No: Easy Bruising Physical Exam Narrative GENERAL: Well-developed male SKIN: He has a prominent malar rash HEAD: Atraumatic. Normocephalic. EYES: Pupils equal and round. No scleral icterus. No injection or drainage. ENT: No nasal bleeding or discharge. Mucous membranes pink and moist. NECK: Trachea midline. No JVD. CARDIOVASCULAR: Regular rate and rhythm. No murmur appreciated. RESPIRATORY: No accessory muscle use. Clear to auscultation. Breath sounds equal bilaterally. GASTROINTESTINAL: Abdomen soft, non-tender, nondistended. Hepatic and splenic margins not palpable. MUSCULOSKELETAL: No obvious deformities. No clubbing. No cyanosis. No edema. NEUROLOGICAL: Awake and alert. No obvious cranial nerve deficits. Motor grossly within normal limits. Normal speech. PSYCHIATRIC: Appropriate mood and affect; insight and judgment normal. Data Data Last Documented VS Vital Signs Date Time Temp Pulse Resp B/P (MAP) Pulse Ox O2 Delivery O2 Flow Rate FiO2 07/13/17 13:20 98.3 107 16 167/111 (129) 97 Orders Orders Complete Blood Count With Diff (07/13/17 15:01) Basic Metabolic Panel (Bmp) (07/13/17 15:01) [place] Sedimentation Rate (07/13/17 15:01) Hydromorphone Pf Inj (Dilaudid Pf Inj) (07/13/17 15:15) MDM Medical Decision Making Medical Screen Exam Complete: Yes Emergency Medical Condition: Yes Medical Record Reviewed: Yes Differential Diagnosis Differential includes lupus flare, hypokalemia Narrative Course Blood work has been done to assess for possible hyperkalemia. I have ordered some pain medication. Patient is currently on maximal immunosuppressants Diagnosis Primary Impression: Lupus (systemic lupus erythematosus) Qualified Codes: M32.9 - Systemic lupus erythematosus, unspecified Brad Chauhan MD Jul 13, 2017 15:05
[2017-07-13] MEDS ORDERED: HYDROmorphone HCL PF 2 MG/ML VIAL IV PUSH ONE (15:15)
[2017-07-13] MEDS ORDERED: TYLETAB34 PO (15:22)
[2017-07-13 15:57] LABS: AUTOMATED NEUTROPHIL # 11.1 TH/MM3 (1.8-7.7); BASOPHIL % 0.1 % (0.0-2.0); EOSINOPHIL % 0.1 % (0.0-4.0); HEMATOCRIT 37.8 % (39.0-51.0); HEMO FLAGS DIFF FINAL; LYMPH % 7.9 % (9.0-44.0); MEAN CELL VOLUME 87.1 FL (80.0-100.0); MEAN CORPUSCULAR HEMOGLOBIN 28.3 PG (27.0-34.0); MEAN CORPUSCULAR HGB CONC 32.5 % (32.0-36.0); MONO % 2.5 % (0.0-8.0); NEUT % 89.4 % (16.0-70.0); PLATELET COUNT 202 TH/MM3 (150-450); RED BLOOD COUNT 4.34 MIL/MM3 (4.50-5.90); RED CELL DISTRIBUTION WIDTH 13.8 % (11.6-17.2); WHITE BLOOD COUNT 12.4 TH/MM3 (4.0-11.0)
[2017-07-13] MEDS ORDERED: GABA600T PO (15:57)
[2017-07-13 16:02] LABS: POTASSIUM 3.5 MEQ/L (3.5-5.1)
[2017-07-13 16:05] LABS: BICARBONATE 26.5 MEQ/L (21.0-32.0)
[2017-07-13 16:27] LABS: BLOOD, URINE NEG (NEG); GLUCOSE,URINE NEG (NEG); KETONE, URINE NEG (NEG); NITRITE,URINE NEG (NEG)
[2017-07-13 16:41] VITALS: BP 181/99; PULSE 88; RESP 18; O2SAT 98
--- NOTE | 2017-07-13 16:42 | PD ---
Data Data Last Documented VS Vital Signs Date Time Temp Pulse Resp B/P (MAP) Pulse Ox O2 Delivery O2 Flow Rate FiO2 07/13/17 17:56 07/13/17 16:41 88 18 98 07/13/17 13:20 98.3 Orders Orders Complete Blood Count With Diff (07/13/17 15:01) Basic Metabolic Panel (Bmp) (07/13/17 15:01) [place] Sedimentation Rate (07/13/17 15:01) Hydromorphone Pf Inj (Dilaudid Pf Inj) (07/13/17 15:15) Urinalysis - C+S If Indicated (07/13/17 16:00) Hydromorphone Pf Inj (Dilaudid Pf Inj) (07/13/17 17:00) Labs Laboratory Tests Test 07/13/17 15:37 07/13/17 16:12 White Blood Count 12.4 TH/MM3 Red Blood Count 4.34 MIL/MM3 Hemoglobin 12.3 GM/DL Hematocrit 37.8 % Mean Corpuscular Volume 87.1 FL Mean Corpuscular Hemoglobin 28.3 PG Mean Corpuscular Hemoglobin Concent 32.5 % Red Cell Distribution Width 13.8 % Platelet Count 202 TH/MM3 Mean Platelet Volume 7.6 FL Neutrophils (%) (Auto) 89.4 % Lymphocytes (%) (Auto) 7.9 % Monocytes (%) (Auto) 2.5 % Eosinophils (%) (Auto) 0.1 % Basophils (%) (Auto) 0.1 % Neutrophils # (Auto) 11.1 TH/MM3 Lymphocytes # (Auto) 1.0 TH/MM3 Monocytes # (Auto) 0.3 TH/MM3 Eosinophils # (Auto) 0.0 TH/MM3 Basophils # (Auto) 0.0 TH/MM3 CBC Comment DIFF FINAL Differential Comment Erythrocyte Sedimentation Rate 1 mm/hr Blood Urea Nitrogen 18 MG/DL Creatinine 0.91 MG/DL Random Glucose 119 MG/DL Calcium Level 8.7 MG/DL Sodium Level 143 MEQ/L Potassium Level 3.5 MEQ/L Chloride Level 111 MEQ/L Carbon Dioxide Level 26.5 MEQ/L Anion Gap 6 MEQ/L Estimat Glomerular Filtration Rate 93 ML/MIN Urine Collection Type CLEAN CATCH Urine Color YELLOW Urine Turbidity CLEAR Urine pH 6.0 Urine Specific [place] 1.022 Urine Protein NEG mg/dL Urine Glucose (UA) NEG mg/dL Urine Ketones NEG mg/dL Urine Occult Blood NEG Urine Nitrite NEG Urine Bilirubin NEG Urine Leukocyte Esterase NEG Urine WBC 0-2 /hpf Urine Uric Acid Crystals FEW /hpf Urine Mucus RARE /lpf Microscopic Urinalysis Comment CULT NOT INDICATED MDM Medical Record Reviewed: Yes Supervised Visit with CRISTI: No Narrative Course CBC & BMP Diagram 07/13/17 15:37 Calcium Level 8.7 ESR 1 Urinalysis shows no blood Please refer to the outgoing provider note. The patient is well-known to me having seen him several times facility, [facility], and typically arrives with pain related to a rheumatologic disease. He follows with Dr. Bansal and Dr. Ferguson and the [facility] for lupus management. His pain has been controlled here. He is an appointment with pain management tomorrow. His workup is unremarkable and he is ready to go home. Diagnosis Primary Impression: Headache Qualified Codes: R51 - Headache Additional Impressions: Pain Rheumatoid disease Qualified Codes: M06.9 - Rheumatoid arthritis, unspecified Referrals: Shantanu Bansal MD Med/Other Pt SpecificInfo: No Change to Meds Disposition: 01 DISCHARGE HOME Condition: Stable Shadi Saba MD Jul 13, 2017 16:42
[2017-07-13 16:46] LABS: METHOD OF COLLECTION CLEAN CATCH; URINE COLOR YELLOW (YELLW/STRAW)
[2017-07-13 16:51] LABS: MUCUS URINE RARE /lpf (OCC); WBC, URINE 0-2 /hpf (0-5)
[2017-07-13 16:52] LABS: COMMENT (UR) CULT NOT INDICATED; CULTURE IF INDICATED CULT NOT INDICATED; URIC ACID CRYSTALS, URINE FEW /hpf
[2017-07-13] MEDS ORDERED: HYDROmorphone HCL PF 1 MG/ML VIAL IV PUSH ONE (17:00)
== END 2017-07-13 17:57 | disposition home or self-care (01) ==
LOC: PHED 13:16
DX: R51 Headache (principal); M06.9 Rheumatoid arthritis, unspecified; M32.9 Systemic lupus erythematosus, unspecified
CPT/HCPCS: 80048; 81001; 85025; 85652; 96374; 96375; 99284; J1170; 96372; J0595; J2550; J2930; J7512

== ENCOUNTER 2017-07-13 23:12 | Emergency (ER) | payer BC ==
[~2017-07-13] VITALS: Ht 182.9 cm; Wt 104.0 kg
[~2017-07-13 23:12] MED LIST changes: +TYLETAB34 PO
[2017-07-13 23:20] VITALS: BP 174/111; PULSE 113; RESP 20; TEMP 97.9; O2SAT 97
--- NOTE | 2017-07-13 23:38 | PD ---
HPI Chief Complaint: recurrent abdominal pain Time Seen by Provider: 23:29 Travel History International Travel<30 days: No Contact w/Intl Traveler<30days: No Traveled to known affect area: No History of Present Illness HPI The patient is a 37-year-old male, extremely frequent visitor to the emergency department for pain symptoms, who complains of pain in the shoulders, abdomen and back which he states is his usual lupus pain. He has an appointment with his pain management physician at 10:[address] Victor in [place]. He denies any fever. The patient comes in today for pain relief. He mentions Dilaudid as a possible medicine he can take. He also takes Stadol nasal spray for his headache. He has Percocet 10 at home. This is the fourth visit this month for this patient, all regarding pain relief. PFSH Past Medical History Hx Anticoagulant Therapy: No Arthritis: Yes (RA) Asthma: No Autoimmune Disease: Yes (Lupus, RA, Vasculitis, Ankylosing spondylitis ) Blood Disorders: No Anxiety: Yes Depression: Yes Heart Rhythm Problems: No Cancer: Yes (Thyroid) Cardiovascular Problems: No High Cholesterol: No Chemotherapy: Yes Chest Pain: No Congestive Heart Failure: No COPD: No Cerebrovascular Accident: No Diabetes: Yes (Steroid-induced ) Diminished Hearing: No Endocrine: No Gastrointestinal Disorders: Yes (Chrohn's) GERD: Yes Genitourinary: No Headaches: No Hiatal Hernia: No Heparin Induced Thrombocytopen: No Hypertension: Yes Immune Disorder: No Implanted Vascular Access Dvce: No Kidney Stones: No Musculoskeletal: Yes Neurologic: Yes Psychiatric: No Reproductive: No Respiratory: No Immunizations Current: Yes Migraines: Yes Pancreatitis: Yes Radiation Therapy: Yes (Radioactive iodine for thyroid ) Renal Failure: No Seizures: Yes Sickle Cell Disease: No Sleep Apnea: No Thyroid Disease: Yes Ulcer: Yes PNEUMOCCOCAL Vaccine (Year): 1 Past Surgical History Abdominal Surgery: No AICD: No Arteriovenous Shunt: No Cardiac Surgery: No Ear Surgery: No Endocrine Surgery: No Eye Surgery: No Genitourinary Surgery: No Gynecologic Surgery: No Hysterectomy: No Insulin Pump: No Joint Replacement: No Neurologic Surgery: No Oral Surgery: No Pacemaker: No Thoracic Surgery: No Other Surgery: Yes (Left hand surgery Aug 2016) Social History Alcohol Use: No Tobacco Use: No Substance Use: No Allergies-Medications (Allergen,Severity, Reaction): Coded Allergies: cat dander (Unverified Allergy, Mild, Cough, 07/13/17) morphine (Unverified Allergy, Mild, Rash, 07/13/17) Reported Meds & Prescriptions Reported Meds & Active Scripts Active Carafate (Sucralfate) 1 Gm Tab 1 Gm PO QID On empty stomach Reported Gabapentin 600 Mg Tab 600 Mg PO 5 TIMES A DAY Tylenol-Codeine #3 (Acetaminophen-Codeine) 300-30 mg Tab 1-2 Tab PO Q6H PRN Percocet (Oxycodone-Acetaminophen) 10-325 mg Tab 1 Tab PO TID Omeprazole 40 Mg Cap 40 Mg PO DAILY Folic Acid 1 Mg Tablet 1 Mg PO DAILY Methotrexate Inj 50 Mg/2 Ml Inj 0.6 Ml IM WEEKLY Potassium 99 Mg Tablet 99 Mg PO BID Men's Multi-Vitamin (Multivitamin) 1 Each Tablet 1 Tab PO DAILY Acidophilus (Probiotic Product) 1 Cap Cap 1 Cap PO DAILY Levetiracetam 500 Mg Tab 1,000 Mg PO DAILY Butorphanol Nasal [place] (Butorphanol Tartrate) 10 Mg/Ml Soln 1 [place] NASAL Q3HR PRN in one nostril (1 mg). If pain not reliefed in 60-90 minutes, a 1 mg repeat dose may be given. May repeat this in 3-4 hrs if needed. Protonix (Pantoprazole Sodium) 40 Mg Tab 40 Mg PO AC LUNCH Tramadol (Tramadol HCl) 50 Mg Tab 50 Mg PO Q6H PRN Prednisone 5 Mg Tab 5 Mg PO DAILY Metaxalone 800 Mg Tab 800 Mg PO TID Flexeril (Cyclobenzaprine HCl) 10 Mg Tab 10 Mg PO BID Diclofenac-Misoprostol 75-0.2 Mg Tab 1 Tab PO BID PRN Humira 2-Pack Inj (Adalimumab 2-Pack Inj) 40 Mg/0.8 Ml Syr 40 Mg SQ Q14D Dilantin (Phenytoin Extended) 100 Mg Cap 300 Mg PO HS Cialis (Tadalafil) 5 Mg Tab 5 Mg PO DAILY Do not exceed 1 dose/day. Ondansetron (Ondansetron HCl) 8 Mg Tab 8 Mg PO Q8HR PRN Amitriptyline (Amitriptyline HCl) 25 Mg Tab 75 Mg PO HS Clonazepam 2 Mg Tab 2 Mg PO BID [place] 5 Mg Tab 5 Mg PO TID PRN Citalopram (Citalopram Hydrobromide) 20 Mg Tab 20 Mg PO HS Levothyroxine (Levothyroxine Sodium) 112 Mcg Tab 112 Mcg PO DAILY Flomax (Tamsulosin HCl) 0.4 Mg Cap 0.4 Mg PO BID Review of Systems Except as stated in HPI: all other systems reviewed are Neg Physical Exam Narrative GENERAL: [-] SKIN: Focused skin assessment warm/dry. HEAD: Atraumatic. Normocephalic. EYES: Pupils equal and round. No scleral icterus. No injection or drainage. ENT: No nasal bleeding or discharge. Mucous membranes pink and moist. NECK: Trachea midline. No JVD. CARDIOVASCULAR: Regular rate and rhythm. No murmur appreciated. RESPIRATORY: No accessory muscle use. Clear to auscultation. Breath sounds equal bilaterally. GASTROINTESTINAL: Abdomen soft, non-tender, nondistended. Hepatic and splenic margins not palpable. MUSCULOSKELETAL: No obvious deformities. No clubbing. No cyanosis. No edema. NEUROLOGICAL: Awake and alert. No obvious cranial nerve deficits. Motor grossly within normal limits. Normal speech. PSYCHIATRIC: Appropriate mood and affect; insight and judgment normal. Data Data Last Documented VS Vital Signs Date Time Temp Pulse Resp B/P (MAP) Pulse Ox O2 Delivery O2 Flow Rate FiO2 07/14/17 01:14 18 07/13/17 23:20 97.9 113 174/111 (132) 97 Orders Orders Butorphanol Inj (Stadol Inj) (07/13/17 23:45) Promethazine Inj (Phenergan Inj) (07/13/17 23:45) Methylprednisolone So Succ Inj (Solumedr (07/14/17 00:30) Prednisone (Deltasone) (07/14/17 01:00) Butorphanol Inj (Stadol Inj) (07/14/17 01:00) MDM Medical Decision Making Medical Screen Exam Complete: Yes Emergency Medical Condition: Yes Medical Record Reviewed: Yes Differential Diagnosis Lupus pain, drug-seeking behavior, abdominal pain etiology undetermined Narrative Course The patient may have lupus pain. He is given by mouth prednisone and a total 4 mg of Stadol. This should last him until later today until he can make his appointment in 10:30 with his primary care physician. Diagnosis Primary Impression: Recurrent abdominal pain Additional Instructions: Make sure you do not miss your appointment at 10:30 later on today. Disposition: 01 DISCHARGE HOME Condition: Ward Manrique MD Jul 13, 2017 23:38
[2017-07-13] MEDS ORDERED: PROMETHAZINE INJ 25 MG/ML VIAL IM ONE (23:45)
[2017-07-13] MEDS ORDERED: BUTORPHANOL TARTRATE INJ 2 MG/ML VIAL IM ONE (23:45)
[2017-07-14] MEDS ORDERED: methylPREDNISolone SOD SUCC 125 MG/2 ML VIAL IV PUSH ONE (00:30)
[2017-07-14] MEDS ORDERED: predniSONE 20 MG TAB PO ONE (01:00)
[2017-07-14] MEDS ORDERED: BUTORPHANOL TARTRATE INJ 2 MG/ML VIAL IM ONE (01:00)
[2017-07-14 01:57] VITALS: BP 125/65; PULSE 63; RESP 16; O2SAT 98
== END 2017-07-14 02:09 | disposition home or self-care (01) ==
LOC: PHED 23:12
DX: R10.9 Unspecified abdominal pain (principal); M32.9 Systemic lupus erythematosus, unspecified
CPT/HCPCS: 96372; 96374; 99284; J0595; J2550; J2930; J7512

== ENCOUNTER 2017-08-05 11:23 | Emergency (ER) | payer BC ==
[~2017-08-05] VITALS: Ht 182.9 cm; Wt 100.3 kg
[2017-08-05 11:29] VITALS: BP 154/100; PULSE 92; RESP 18; TEMP 97.7; O2SAT 98
[2017-08-05] MEDS ORDERED: OXYC-405 PO (11:50)
--- NOTE | 2017-08-05 12:12 | PD ---
HPI Chief Complaint: Respiratory Symptoms Time Seen by Provider: 11:50 Travel History International Travel<30 days: No Contact w/Intl Traveler<30days: No Traveled to known affect area: No History of Present Illness HPI This is a 37-year-old male with a history of lupus, who presents today with complaints of cough and congestion times several days. Patient denies any fevers, chills. He does report that he's had blood-tinged sputum with thick mucus. The patient states he called his primary care physician who recommended he come to the ER for a chest x-ray since he has on immunosuppressive drugs. He reports worsening cough at night. There are no other complaints time my examination. PFSH Past Medical History Hx Anticoagulant Therapy: No Arthritis: Yes (RA) Asthma: No Autoimmune Disease: Yes (Lupus, RA, Vasculitis, Ankylosing spondylitis ) Blood Disorders: No Anxiety: Yes Depression: Yes Heart Rhythm Problems: No Cancer: Yes (Thyroid) Cardiovascular Problems: No High Cholesterol: No Chemotherapy: Yes Chest Pain: No Congestive Heart Failure: No COPD: No Cerebrovascular Accident: No Diabetes: Yes (Steroid-induced ) Patient Takes Glucophage: No Diminished Hearing: No Endocrine: No Gastrointestinal Disorders: Yes (Chrohn's) GERD: Yes Genitourinary: No Headaches: No Hiatal Hernia: No Heparin Induced Thrombocytopen: No Hypertension: Yes Immune Disorder: No Implanted Vascular Access Dvce: No Kidney Stones: No Musculoskeletal: Yes Neurologic: Yes Psychiatric: No Reproductive: No Respiratory: No Immunizations Current: Yes Migraines: Yes Pancreatitis: Yes Radiation Therapy: Yes (Radioactive iodine for thyroid ) Renal Failure: No Seizures: Yes Sickle Cell Disease: No Sleep Apnea: No Thyroid Disease: Yes Ulcer: Yes PNEUMOCCOCAL Vaccine (Year): 1 ?: Not Past Surgical History Abdominal Surgery: No AICD: No Arteriovenous Shunt: No Cardiac Surgery: No Ear Surgery: No Endocrine Surgery: No Eye Surgery: No Genitourinary Surgery: No Gynecologic Surgery: No Hysterectomy: No Insulin Pump: No Joint Replacement: No Neurologic Surgery: No Oral Surgery: No Pacemaker: No Thoracic Surgery: No Other Surgery: Yes (Left hand surgery Aug 2016) Social History Alcohol Use: No Tobacco Use: No Substance Use: No Allergies-Medications (Allergen,Severity, Reaction): Coded Allergies: cat dander (Unverified Allergy, Mild, Cough, 07/13/17) morphine (Unverified Allergy, Mild, Rash, 07/13/17) Reported Meds & Prescriptions Reported Meds & Active Scripts Active Doxycycline Hyclate 100 Mg Tab 100 Mg PO BID 10 Days Carafate (Sucralfate) 1 Gm Tab 1 Gm PO QID On empty stomach Reported Oxycodone ER (Oxycodone HCl) 20 Mg Tab 20 Mg PO HS Gabapentin 600 Mg Tab 600 Mg PO 5 TIMES A DAY Tylenol-Codeine #3 (Acetaminophen-Codeine) 300-30 mg Tab 1-2 Tab PO Q6H PRN Percocet (Oxycodone-Acetaminophen) 10-325 mg Tab 1 Tab PO TID Omeprazole 40 Mg Cap 40 Mg PO DAILY Folic Acid 1 Mg Tablet 1 Mg PO DAILY Methotrexate Inj 50 Mg/2 Ml Inj 0.6 Ml IM WEEKLY Potassium 99 Mg Tablet 99 Mg PO BID Men's Multi-Vitamin (Multivitamin) 1 Each Tablet 1 Tab PO DAILY Acidophilus (Probiotic Product) 1 Cap Cap 1 Cap PO DAILY Levetiracetam 500 Mg Tab 1,000 Mg PO DAILY Butorphanol Nasal [place] (Butorphanol Tartrate) 10 Mg/Ml Soln 1 [place] NASAL Q3HR PRN in one nostril (1 mg). If pain not reliefed in 60-90 minutes, a 1 mg repeat dose may be given. May repeat this in 3-4 hrs if needed. Protonix (Pantoprazole Sodium) 40 Mg Tab 40 Mg PO AC LUNCH Tramadol (Tramadol HCl) 50 Mg Tab 50 Mg PO Q6H PRN Prednisone 5 Mg Tab 5 Mg PO DAILY Metaxalone 800 Mg Tab 800 Mg PO TID Flexeril (Cyclobenzaprine HCl) 10 Mg Tab 10 Mg PO BID Diclofenac-Misoprostol 75-0.2 Mg Tab 1 Tab PO BID PRN Humira 2-Pack Inj (Adalimumab 2-Pack Inj) 40 Mg/0.8 Ml Syr 40 Mg SQ Q14D Dilantin (Phenytoin Extended) 100 Mg Cap 300 Mg PO HS Cialis (Tadalafil) 5 Mg Tab 5 Mg PO DAILY Do not exceed 1 dose/day. Ondansetron (Ondansetron HCl) 8 Mg Tab 8 Mg PO Q8HR PRN Amitriptyline (Amitriptyline HCl) 25 Mg Tab 75 Mg PO HS Clonazepam 2 Mg Tab 2 Mg PO BID [place] 5 Mg Tab 5 Mg PO TID PRN Citalopram (Citalopram Hydrobromide) 20 Mg Tab 20 Mg PO HS Levothyroxine (Levothyroxine Sodium) 112 Mcg Tab 112 Mcg PO DAILY Flomax (Tamsulosin HCl) 0.4 Mg Cap 0.4 Mg PO BID Review of Systems Except as stated in HPI: all other systems reviewed are Neg General / Constitutional: No: Fever, Chills HENT: No: Headaches, Vertigo, Lightheadedness Cardiovascular: No: Chest Pain or Discomfort, Palpitations Respiratory: Positive: Cough, Shortness of Breath, Other (slight blood-tinged phlegm with the last deep coughs), No: Night Sweats Gastrointestinal: No: Nausea, Vomiting, Abdominal Pain Musculoskeletal: No: Weakness, Pain Neurologic: No: Weakness, Dizziness, Headache Physical Exam Narrative GENERAL: Well-nourished, well-developed patient, in no acute rest her distress. SKIN: Focused skin assessment warm/dry. HEAD: Normocephalic/atraumatic. EYES: No scleral icterus. No injection or drainage. NECK: Supple, trachea midline. No JVD or lymphadenopathy. CARDIOVASCULAR: Regular rate and rhythm without murmurs, gallops, or rubs. RESPIRATORY: Mild rhonchi in the upper airways. No wheezes. No Rales. GASTROINTESTINAL: Abdomen soft, non-tender, nondistended. NEUROLOGICAL: Awake and alert. Cranial nerves II through XII intact. Motor sensory grossly within normal limits. Five out of 5 muscle strength in all muscle groups. Normal speech. PSYCHIATRIC: No delusional thought processes. No hallucinations. Data Data Last Documented VS Vital Signs Date Time Temp Pulse Resp B/P (MAP) Pulse Ox O2 Delivery O2 Flow Rate FiO2 08/05/17 11:29 97.7 92 18 154/100 (118) 98 Orders Orders Chest, Pa & Lat (08/05/17 11:58) MDM Medical Decision Making Medical Screen Exam Complete: Yes Emergency Medical Condition: Yes Interpretation(s) Last 24 hours Impressions Chest X-Ray 08/05/17 0903 Signed Impressions: Service Date/Time: Saturday, August 05, 2017 12:23 - CONCLUSION: No acute disease. Martin Brown MD FACR Differential Diagnosis Bronchitis versus pneumonia versus pneumothorax Narrative Course 37-year-old male with a history of lupus, immunosuppressed secondary to lupus medication, presents with cough and congestion times several days. Patient has no fevers, chills. Patient reports productive phlegm with some blood streaked earlier today. The patient chest x-ray is negative for acute findings. Given the patient's immune compromised state, he was started on doxycycline 100 mg twice daily 10 days. He also be given a prescription for Robitussin before meals 10 cc per E0 every 4 hours [place] and for pain he's been dispensed 200 cc. Diagnosis Primary Impression: Bronchitis Additional Impression: Immunocompromised patient Additional Instructions: Return if feeling worse. Do not drive or drink alcohol taking the cough syrup. Med/Other Pt SpecificInfo: Prescription(s) given Scripts Doxycycline Hyclate (Doxycycline Hyclate) 100 Mg Tab 100 MG PO BID for 10 Days, #20 TAB Prov: Romie Herbert MD 08/05/17 Disposition: 01 DISCHARGE HOME Condition: Stable Romie Herbert MD Aug 05, 2017 12:12
[2017-08-05] MEDS ORDERED: DOXY100T PO (12:27)
--- NOTE | 2017-08-05 12:35 | RADRPT ---
EXAM DATE/TIME: 08/05/2017 12:23 [facility] COMPARISON: CHEST PA & LAT, August 24, 2016, 0:46. INDICATIONS : Cough MEDICAL HISTORY : Lupus. Carcinoma, thyroid. Rheumatoid arthritis, Ankylosing spondylitis SURGICAL HISTORY : None. ENCOUNTER: Initial ACUITY: 3 days PAIN SCORE: 7/10 LOCATION: Bilateral chest FINDINGS: PA and lateral views of the chest demonstrate the lungs to be symmetrically aerated without evidence of mass, infiltrate or effusion. The cardiomediastinal contours are unremarkable. Osseous structure s are intact. CONCLUSION: No acute disease. Martin Brown MD FACR on August 05, 2017 at 12:34 Board Certified Radiologist. This report was verified electronically.
== END 2017-08-05 13:03 | disposition home or self-care (01) ==
LOC: PHED 11:23
DX: J40 Bronchitis, not specified as acute or chronic (principal); M32.9 Systemic lupus erythematosus, unspecified; I10 Essential (primary) hypertension
CPT/HCPCS: 71020; 99283

== ENCOUNTER 2017-10-23 12:06 | Inpatient (IN) | payer BC ==
[~2017-10-23] VITALS: Ht 182.9 cm; Wt 94.8 kg
[~2017-10-23 12:06] MED LIST changes: +CYCL10TA PO; -CYCL1TAB29 PO; +DOXY100T PO; -ONDA1TAB17 PO; +ONDA8TAB7 PO; +OXYC-405 PO
[2017-10-23 12:13] VITALS: BP 125/87; PULSE 103; RESP 20; TEMP 98.2; O2SAT 98
--- NOTE | 2017-10-23 12:26 | PD ---
HPI Chief Complaint: Seizure Time Seen by Provider: 12:14 Travel History International Travel<30 days: No Contact w/Intl Traveler<30days: No Traveled to known affect area: No History of Present Illness HPI 37y male with a history of seizures presents to the ED s/p seizure that occurred just prior to arrival. EVAC notified me that they gave him 4 mg of Ativan and the seizing ceased. They did not notice a postictal period. 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 Patient takes medications including Dilantin, gabapentin, and clonidine. States compliance of medication. Patient denies tongue biting or urinary incontinence. He has a history of ankylosing spondylitis, Crohn's disease, and Prasad's palsy. Patient follows Dr. Bansal for his medications. 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 Patient denies any recent trauma, new medications, illness, surgery. PFSH Past Medical History Hx Anticoagulant Therapy: No Arthritis: Yes (RA) Asthma: No Autoimmune Disease: Yes (Lupus, RA, Vasculitis, Ankylosing spondylitis ) Blood Disorders: No Anxiety: Yes Depression: Yes Heart Rhythm Problems: No Cancer: Yes (Thyroid) Cardiovascular Problems: No High Cholesterol: No Chemotherapy: Yes Chest Pain: No Congestive Heart Failure: No COPD: No Cerebrovascular Accident: No Diabetes: Yes (Steroid-induced ) Patient Takes Glucophage: No Diminished Hearing: No Endocrine: No Gastrointestinal Disorders: Yes (Chrohn's) GERD: Yes Genitourinary: No Headaches: No Hiatal Hernia: No Heparin Induced Thrombocytopen: No Hypertension: Yes Immune Disorder: No Implanted Vascular Access Dvce: No Kidney Stones: No Musculoskeletal: Yes Neurologic: Yes (SEIZURES, BRAIN CYST, BELLS PALSY) Psychiatric: No Reproductive: No Respiratory: No Immunizations Current: Yes Migraines: Yes Pancreatitis: Yes Radiation Therapy: Yes (Radioactive iodine for thyroid ) Renal Failure: No Seizures: Yes Sickle Cell Disease: No Sleep Apnea: No Thyroid Disease: Yes Ulcer: Yes Tetanus Vaccination: < 5 Years Influenza Vaccination: No PNEUMOCCOCAL Vaccine (Year): 1 Past Surgical History Abdominal Surgery: No AICD: No Arteriovenous Shunt: No Cardiac Surgery: No Ear Surgery: No Endocrine Surgery: No Eye Surgery: No Genitourinary Surgery: No Gynecologic Surgery: No Hysterectomy: No Insulin Pump: No Joint Replacement: No Neurologic Surgery: No Oral Surgery: No Pacemaker: No Thoracic Surgery: No Other Surgery: Yes (Left hand surgery Aug 2016) Social History Alcohol Use: No Tobacco Use: No Substance Use: No Allergies-Medications (Allergen,Severity, Reaction): Coded Allergies: cat dander (Unverified Allergy, Mild, Cough, 10/23/17) morphine (Unverified Allergy, Mild, Rash, 10/23/17) Reported Meds & Prescriptions Reported Meds & Active Scripts Active Reported [place] (Hydrocodone-Acetaminophen) 10-325 Mg Tab 1 Tab PO Q4HR PRN Oxycodone ER (Oxycodone HCl) 20 Mg Tab 20 Mg PO BID Gabapentin 600 Mg Tab 600 Mg PO 5 TIMES A DAY Omeprazole 40 Mg Cap 40 Mg PO DAILY Folic Acid 1 Mg Tablet 1 Mg PO DAILY Methotrexate Inj 50 Mg/2 Ml Inj 0.6 Ml IM WEEKLY Potassium 99 Mg Tablet 99 Mg PO BID Men's Multi-Vitamin (Multivitamin) 1 Each Tablet 1 Tab PO DAILY Acidophilus (Probiotic Product) 1 Cap Cap 1 Cap PO DAILY Butorphanol Nasal [place] (Butorphanol Tartrate) 10 Mg/Ml Soln 1 [place] NASAL Q3HR PRN in one nostril (1 mg). If pain not reliefed in 60-90 minutes, a 1 mg repeat dose may be given. May repeat this in 3-4 hrs if needed. Protonix (Pantoprazole Sodium) 40 Mg Tab 40 Mg PO AC LUNCH Tramadol (Tramadol HCl) 50 Mg Tab 50 Mg PO Q6H PRN Prednisone 5 Mg Tab 5 Mg PO DAILY Metaxalone 800 Mg Tab 800 Mg PO TID Flexeril (Cyclobenzaprine HCl) 10 Mg Tab 10 Mg PO BID Diclofenac-Misoprostol 75-0.2 Mg Tab 1 Tab PO BID PRN Humira 2-Pack Inj (Adalimumab 2-Pack Inj) 40 Mg/0.8 Ml Syr 40 Mg SQ Q14D Cialis (Tadalafil) 5 Mg Tab 5 Mg PO DAILY Do not exceed 1 dose/day. Amitriptyline (Amitriptyline HCl) 25 Mg Tab 75 Mg PO HS Clonazepam 2 Mg Tab 2 Mg PO BID [place] 5 Mg Tab 5 Mg PO TID PRN Citalopram (Citalopram Hydrobromide) 20 Mg Tab 20 Mg PO HS Levothyroxine (Levothyroxine Sodium) 112 Mcg Tab 112 Mcg PO DAILY Flomax (Tamsulosin HCl) 0.4 Mg Cap 0.4 Mg PO BID Review of Systems Except as stated in HPI: all other systems reviewed are Neg Physical Exam Narrative GENERAL: Well-developed well-nourished in no apparent distress SKIN: Focused skin assessment warm/dry. Lower left lip with hematoma insistent with trauma- patient states this is secondary to his Prasad's palsy. Unable to raise his left eyebrow. HEAD: Atraumatic. Normocephalic. EYES: Pupils equal and round. No scleral icterus. No injection or drainage. ENT: No nasal bleeding or discharge. Mucous membranes pink and moist. NECK: Trachea midline. No JVD. CARDIOVASCULAR: Regular rate and rhythm. No murmur appreciated. RESPIRATORY: No accessory muscle use. Clear to auscultation. Breath sounds equal bilaterally. GASTROINTESTINAL: Abdomen soft, non-tender, nondistended. Hepatic and splenic margins not palpable. MUSCULOSKELETAL: No obvious deformities. No clubbing. No cyanosis. No edema. No CVA tenderness NEUROLOGICAL: Awake and alert. No obvious cranial nerve deficits. Motor grossly within normal limits. Normal speech. PSYCHIATRIC: Appropriate mood and affect; insight and judgment normal. Data Data Last Documented VS Vital Signs Date Time Temp Pulse Resp B/P (MAP) Pulse Ox O2 Delivery O2 Flow Rate FiO2 10/23/17 13:18 101 20 159/83 (108) 99 Nasal Cannula 2.00 10/23/17 12:13 98.2 Orders Orders Complete Blood Count With Diff (10/23/17 12:23) Phenytoin (Dilantin) (10/23/17 12:23) Drug Screen, Random Urine (10/23/17 12:23) Electrocardiogram (10/23/17 ) Blood Glucose (10/23/17 12:23) Ecg Monitoring (10/23/17 12:23) Iv Access Insert/Monitor (10/23/17 12:23) Oximetry (10/23/17 12:23) Comprehensive Metabolic Panel (10/23/17 12:23) Sodium Chloride 0.9% Flush (Ns Flush) (10/23/17 12:30) Urinalysis - C+S If Indicated (10/23/17 12:23) Sodium Chlor 0.9% 1000 Ml Inj (Ns 1000 M (10/23/17 12:45) Acetamin-Hydrocod 325-10 Mg ([place] 10-32 (10/23/17 13:00) Lorazepam Inj (Ativan Inj) (10/23/17 12:57) Lorazepam Inj (Ativan Inj) (10/23/17 13:15) Fosphenytoin Inj (Cerebyx Inj) (10/23/17 13:30) Admit Order (Ed Use Only) (10/23/17 14:38) Consult Neurology (10/23/17 ) Admit To Inpatient (10/23/17 ) Code Status (10/23/17 14:37) Vital Signs (Adult) Q4H (10/23/17 14:37) Activity Oob With Assistance (10/23/17 14:37) Diet Heart Healthy (10/23/17 Dinner) Sodium Chloride 0.9% Flush (Ns Flush) (10/23/17 14:45) Sodium Chloride 0.9% Flush (Ns Flush) (10/23/17 21:00) Acetaminophen (Tylenol) (10/23/17 14:45) Comprehensive Metabolic Panel (10/24/17 06:00) Complete Blood Count With Diff (10/24/17 06:00) Case Management Consult (10/23/17 14:37) Scd Bilateral/Knee High BLANCEH.BID (10/23/17 14:37) Acetaminophen (Tylenol) (10/23/17 14:45) Naloxone Inj (Narcan Inj) (10/23/17 14:45) Magnesium Hydroxide Liq (Milk Of Magnesi (10/23/17 14:45) Inpatient Certification (10/23/17 ) Portable Eeg (10/23/17 ) Neuro Checks Q4H (10/23/17 14:37) Lorazepam Inj (Ativan Inj) (10/23/17 14:45) Ibuprofen (Motrin) (10/23/17 14:45) ^ Seizure Precautions (10/23/17 14:37) Labs Laboratory Tests Test 10/23/17 12:23 10/23/17 12:40 White Blood Count 5.6 TH/MM3 Red Blood Count 4.55 MIL/MM3 Hemoglobin 13.5 GM/DL Hematocrit 38.8 % Mean Corpuscular Volume 85.3 FL Mean Corpuscular Hemoglobin 29.8 PG Mean Corpuscular Hemoglobin Concent 34.9 % Red Cell Distribution Width 13.9 % Platelet Count 194 TH/MM3 Mean Platelet Volume 8.4 FL Neutrophils (%) (Auto) 57.0 % Lymphocytes (%) (Auto) 35.0 % Monocytes (%) (Auto) 5.2 % Eosinophils (%) (Auto) 2.0 % Basophils (%) (Auto) 0.8 % Neutrophils # (Auto) 3.2 TH/MM3 Lymphocytes # (Auto) 2.0 TH/MM3 Monocytes # (Auto) 0.3 TH/MM3 Eosinophils # (Auto) 0.1 TH/MM3 Basophils # (Auto) 0.0 TH/MM3 CBC Comment DIFF FINAL Differential Comment Blood Urea Nitrogen 7 MG/DL Creatinine 0.93 MG/DL Random Glucose 90 MG/DL Total Protein 7.3 GM/DL Albumin 4.1 GM/DL Calcium Level 8.7 MG/DL Alkaline Phosphatase 61 U/L Aspartate Amino Transf (AST/SGOT) 9 U/L Alanine Aminotransferase (ALT/SGPT) 11 U/L Total Bilirubin 0.3 MG/DL Sodium Level 143 MEQ/L Potassium Level 3.3 MEQ/L Chloride Level 108 MEQ/L Carbon Dioxide Level 24.4 MEQ/L Anion Gap 11 MEQ/L Estimat Glomerular Filtration Rate 91 ML/MIN Phenytoin (Dilantin) Level 1.4 MCG/ML Urine Color LIGHT-YELLOW Urine Turbidity CLEAR Urine pH 6.0 Urine Specific [place] 1.010 Urine Protein NEG mg/dL Urine Glucose (UA) NEG mg/dL Urine Ketones NEG mg/dL Urine Occult Blood NEG Urine Nitrite NEG Urine Bilirubin NEG Urine Urobilinogen LESS THAN 2.0 MG/DL Urine Leukocyte Esterase NEG Urine RBC LESS THAN 1 /hpf Urine WBC LESS THAN 1 /hpf Microscopic Urinalysis Comment CULT NOT INDICATED Urine Opiates Screen NEG Urine Barbiturates Screen POS Urine Amphetamines Screen NEG Urine Benzodiazepines Screen NEG Urine Cocaine Screen NEG Urine Cannabinoids Screen NEG MDM Medical Decision Making Medical Screen Exam Complete: Yes Emergency Medical Condition: Yes Differential Diagnosis Breakthrough seizure, inadequate medication use, seizure disorder, epilepsy Narrative Course 37y male with a history of seizures presents to the ED s/p seizure that occurred just prior to arrival. EVAC notified me that they gave him 4 mg of Ativan and the seizing ceased. They did not notice a postictal period. 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 Patient takes medications including Dilantin, gabapentin, and clonidine. States compliance of medication. Patient denies tongue biting or urinary incontinence. He has a history of ankylosing spondylitis, Crohn's disease, and Prasad's palsy. Patient follows Dr. Bansal for his medications. 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 Patient denies any recent trauma, new medications, illness, surgery. Patient had a another seizure in the emergency department so 2 mg Ativan administered with successful the arrest of the seizure. Labs- Dilantin level 1.4. This is the likely cause of his seizures. We'll give a loading dose of fosphenytoin 1500 mg and reassess. During the visit patient requested pain medication for his chronic pain. Administered hydrocodone. We will admit patient for observation to ensure he does not have a recurrent seizure. Patient's Dilantin dose does need to be adjusted prior to discharge. Diagnosis Primary Impression: Seizure disorder Admitting Information Admitting Physician Requests: Admit Scripts Levetiracetam (Keppra) 500 Mg Tab 500 MG PO DAILY for Control Seizures, #60 TAB 3 Refills Prov: Az Navarro MD 10/25/17 Phenytoin Extended (Dilantin) 100 Mg Cap 100 MG PO Q8HR for Control Seizures, #90 CAP 3 Refills Prov: Az Navarro MD 10/25/17 Condition: Stable Shannon Dejesus Oct 23, 2017 12:26
[2017-10-23] MEDS ORDERED: SODIUM CHLORIDE 0.9% FLUSH 10 ML FLUSH IVF PRN (12:30)
[2017-10-23] MEDS ORDERED: SODIUM CHLOR 0.9% 1000 ML INJ 1,000 ML IV ONE (12:45)
[2017-10-23 12:52] LABS: BLOOD, URINE NEG (NEG); GLUCOSE,URINE NEG (NEG); KETONE, URINE NEG (NEG); NITRITE,URINE NEG (NEG); URINE COLOR LIGHT-YELLOW (YELLW/STRAW)
[2017-10-23 12:53] LABS: AUTOMATED NEUTROPHIL # 3.2 TH/MM3 (1.8-7.7); BASOPHIL % 0.8 % (0.0-2.0); EOSINOPHIL # 0.1 TH/MM3 (0-0.4); HEMATOCRIT 38.8 % (39.0-51.0); HEMO FLAGS DIFF FINAL; MEAN CELL VOLUME 85.3 FL (80.0-100.0); MEAN CORPUSCULAR HEMOGLOBIN 29.8 PG (27.0-34.0); MEAN CORPUSCULAR HGB CONC 34.9 % (32.0-36.0); MONO % 5.2 % (0.0-8.0); PLATELET COUNT 194 TH/MM3 (150-450); RED BLOOD COUNT 4.55 MIL/MM3 (4.50-5.90); RED CELL DISTRIBUTION WIDTH 13.9 % (11.6-17.2); WHITE BLOOD COUNT 5.6 TH/MM3 (4.0-11.0)
[2017-10-23 12:55] LABS: COMMENT (UR) CULT NOT INDICATED; CULTURE IF INDICATED CULT NOT INDICATED
[2017-10-23] MEDS ORDERED: LORazepam 2 MG/ML VIAL ONE (12:57)
[2017-10-23] MEDS ORDERED: ACETAMINOPHEN/HYDROcodone 325 MG/10 MG TAB PO ONE (13:00)
[2017-10-23] MEDS ORDERED: LORazepam 2 MG/ML VIAL IV PUSH ONE (13:15)
[2017-10-23 13:16] LABS: ALT (GPT) 11 U/L (12-78); ANION GAP 11 MEQ/L (5-15); BICARBONATE 24.4 MEQ/L (21.0-32.0); BLOOD UREA NITROGEN 7 MG/DL (7-18); CHLORIDE 108 MEQ/L (98-107); POTASSIUM 3.3 MEQ/L (3.5-5.1); SODIUM (NA) 143 MEQ/L (136-145)
[2017-10-23 13:18] VITALS: BP 159/83; PULSE 101; RESP 20; O2SAT 99
[2017-10-23 13:18] LABS: ALKALINE PHOSPHATASE 61 U/L (45-117); AST (GOT) 9 U/L (15-37); GLOMERULAR FILTRATION RATE 91 ML/MIN (>89); TOTAL BILIRUBIN ADULT 0.3 MG/DL (0.2-1.0)
[2017-10-23] MEDS ORDERED: FOSPHENYTOIN INJ 1,500 MGPE in SODIUM CHLORIDE 0.9% INJ 100 ML IV ONE (13:30)
[2017-10-23] MEDS ORDERED: HYDR-3366 PO (13:52)
[2017-10-23] MEDS ORDERED: LORazepam 2 MG/ML VIAL IV PUSH PRN (14:45)
[2017-10-23] MEDS ORDERED: ACETAMINOPHEN 325 MG TAB PO PRN ×2 (14:45)
[2017-10-23] MEDS ORDERED: MAGNESIUM HYDROXIDE SUSP 30 ML CUP PO PRN (14:45)
[2017-10-23] MEDS ORDERED: IBUPROFEN 600 MG TAB PO PRN (14:45)
[2017-10-23] MEDS ORDERED: SODIUM CHLORIDE 0.9% FLUSH 10 ML FLUSH IV FLUSH PRN (14:45)
[2017-10-23] MEDS ORDERED: NALOXONE HCL 0.4 MG/ML AMP IV PUSH PRN (14:45)
[2017-10-23 15:05] VITALS: BP 131/86; PULSE 75; RESP 16; O2SAT 95
--- NOTE | 2017-10-23 15:11 | HHI.HP ---
[facility] Shantanu Bansal MD Admission Diagnosis Seizure disorder Diagnoses: (1) Seizure disorder Chief Complaint: seizure activity and AMS Travel History International Travel<30 Days: No Contact w/Intl Traveler <30 Da: No Traveled to Known Affected Are: No History of Present Illness Patient is unable to communicate at this time during my exam and history is obtained from ED report and chart review below: "37y male with a history of seizures presents to the ED s/p seizure that occurred just prior to arrival. EVAC notified me that they gave him 4 mg of Ativan and the seizing ceased. They did not notice a postictal period. 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 Patient told medications including Dilantin, gabapentin, and clonidine. Patient denies tongue biting or urinary incontinence. He has a history of ankylosing spondylitis, Crohn's disease. Patient follows Dr. Bansal for his medications. 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 Patient denies any recent trauma, new medications, illness, surgery." Review of Systems ROS Limitations: Altered Mental Status Except as stated in HPI: all other systems reviewed are Neg Past Family Social History Past Medical History Crohn's disease Rheumatoid arthritis lupus Ankylosing spondylolysis Hypothyroidism Enlarged prostate Seizure history Past Surgical History Multiple endoscopies Left wrist surgery Reported Medications [address] (Hydrocodone-Acetaminophen) 10-325 Mg Tab 1 Tab PO Q6H PRN Oxycodone ER (Oxycodone HCl) 20 Mg Tab 20 Mg PO HS Gabapentin 600 Mg Tab 600 Mg PO 5 TIMES A DAY Omeprazole 40 Mg Cap 40 Mg PO DAILY Folic Acid 1 Mg Tablet 1 Mg PO DAILY Methotrexate Inj 50 Mg/2 Ml Inj 0.6 Ml IM WEEKLY Potassium 99 Mg Tablet 99 Mg PO BID Men's Multi-Vitamin (Multivitamin) 1 Each Tablet 1 Tab PO DAILY Acidophilus (Probiotic Product) 1 Cap Cap 1 Cap PO DAILY Levetiracetam 500 Mg Tab 500 Mg PO DAILY Butorphanol Nasal [place] (Butorphanol Tartrate) 10 Mg/Ml Soln 1 [place] NASAL Q3HR PRN in one nostril (1 mg). If pain not reliefed in 60-90 minutes, a 1 mg repeat dose may be given. May repeat this in 3-4 hrs if needed. Protonix (Pantoprazole Sodium) 40 Mg Tab 40 Mg PO AC LUNCH Tramadol (Tramadol HCl) 50 Mg Tab 50 Mg PO Q6H PRN Prednisone 5 Mg Tab 5 Mg PO DAILY Metaxalone 800 Mg Tab 800 Mg PO TID Flexeril (Cyclobenzaprine HCl) 10 Mg Tab 10 Mg PO BID Diclofenac-Misoprostol 75-0.2 Mg Tab 1 Tab PO BID PRN Humira 2-Pack Inj (Adalimumab 2-Pack Inj) 40 Mg/0.8 Ml Syr 40 Mg SQ Q14D Dilantin (Phenytoin Extended) 100 Mg Cap 300 Mg PO HS Cialis (Tadalafil) 5 Mg Tab 5 Mg PO DAILY Do not exceed 1 dose/day. Ondansetron (Ondansetron HCl) 8 Mg Tab 8 Mg PO Q8HR PRN Amitriptyline (Amitriptyline HCl) 25 Mg Tab 75 Mg PO HS Clonazepam 2 Mg Tab 2 Mg PO BID [place] 5 Mg Tab 5 Mg PO TID PRN Citalopram (Citalopram Hydrobromide) 20 Mg Tab 20 Mg PO HS Levothyroxine (Levothyroxine Sodium) 112 Mcg Tab 112 Mcg PO DAILY Flomax (Tamsulosin HCl) 0.4 Mg Cap 0.4 Mg PO BID Allergies: Coded Allergies: cat dander (Unverified Allergy, Mild, Cough, 10/23/17) morphine (Unverified Allergy, Mild, Rash, 10/23/17) Family History Reviewed is significant for lupus with his mother Social History Reviewed and no report of tobacco, alcohol or illicit drug intake Physical Exam Vital Signs Vital Signs Date Time Temp Pulse Resp B/P (MAP) Pulse Ox O2 Delivery O2 Flow Rate FiO2 10/23/17 15:05 75 16 131/86 (101) 95 Nasal Cannula 2.00 10/23/17 13:18 101 20 159/83 (108) 99 Nasal Cannula 2.00 10/23/17 12:13 98.2 103 20 125/87 (100) 98 Physical Exam GENERAL: Obtunded SKIN: No rashes, ecchymoses or lesions. Cool and dry. HEAD: Atraumatic. Normocephalic. No temporal or scalp tenderness. EYES: Pupils equal round and reactive. Extraocular motions intact. No scleral icterus. No injection or drainage. ENT: Nose without bleeding, purulent drainage or septal hematoma. Throat without erythema, tonsillar hypertrophy or exudate. Uvula midline. Airway patent. NECK: Trachea midline. No JVD or lymphadenopathy. Supple, nontender, no meningeal signs. CARDIOVASCULAR: Regular rate and rhythm without murmurs, gallops, or rubs. RESPIRATORY: Clear to auscultation. Breath sounds equal bilaterally. No wheezes , rales, or rhonchi. GASTROINTESTINAL: Abdomen soft, non-tender, nondistended. No hepato-splenomegaly , or palpable masses. No guarding. MUSCULOSKELETAL: Extremities without clubbing, cyanosis, or edema. No joint tenderness, effusion, or edema noted. No calf tenderness. Negative Homans sign bilaterally. NEUROLOGICAL: Obtunded. Laboratory Laboratory Tests Test 10/23/17 12:23 10/23/17 12:40 White Blood Count 5.6 Red Blood Count 4.55 Hemoglobin 13.5 Hematocrit 38.8 Mean Corpuscular Volume 85.3 Mean Corpuscular Hemoglobin 29.8 Mean Corpuscular Hemoglobin Concent 34.9 Red Cell Distribution Width 13.9 Platelet Count 194 Mean Platelet Volume 8.4 Neutrophils (%) (Auto) 57.0 Lymphocytes (%) (Auto) 35.0 Monocytes (%) (Auto) 5.2 Eosinophils (%) (Auto) 2.0 Basophils (%) (Auto) 0.8 Neutrophils # (Auto) 3.2 Lymphocytes # (Auto) 2.0 Monocytes # (Auto) 0.3 Eosinophils # (Auto) 0.1 Basophils # (Auto) 0.0 CBC Comment DIFF FINAL Differential Comment Blood Urea Nitrogen 7 Creatinine 0.93 Random Glucose 90 Total Protein 7.3 Albumin 4.1 Calcium Level 8.7 Alkaline Phosphatase 61 Aspartate Amino Transf (AST/SGOT) 9 Alanine Aminotransferase (ALT/SGPT) 11 Total Bilirubin 0.3 Sodium Level 143 Potassium Level 3.3 Chloride Level 108 Carbon Dioxide Level 24.4 Anion Gap 11 Estimat Glomerular Filtration Rate 91 Phenytoin (Dilantin) Level 1.4 Urine Color LIGHT-YELLOW Urine Turbidity CLEAR Urine pH 6.0 Urine Specific [place] 1.010 Urine Protein NEG Urine Glucose (UA) NEG Urine Ketones NEG Urine Occult Blood NEG Urine Nitrite NEG Urine Bilirubin NEG Urine Urobilinogen LESS THAN 2.0 Urine Leukocyte Esterase NEG Urine RBC LESS THAN 1 Urine WBC LESS THAN 1 Microscopic Urinalysis Comment CULT NOT INDICATED Urine Opiates Screen NEG Urine Barbiturates Screen POS Urine Amphetamines Screen NEG Urine Benzodiazepines Screen NEG Urine Cocaine Screen NEG Urine Cannabinoids Screen NEG Result Diagram: 10/23/17 1223 10/23/17 1223 Caprini VTE Risk Assessment Caprini VTE Risk Assessment: No/Low Risk (score <= 1) Caprini Risk Assessment Model Point Value = 1 Point Value = 2 Point Value = 3 Point Value = 5 Age 41-60 Minor surgery BMI > 25 kg/m2 Swollen legs Varicose veins or History of unexplained or recurrent spontaneous Oral contraceptives or hormone replacement Sepsis (< 1 month) Serious lung disease, including pneumonia (< 1 month) Abnormal pulmonary function Acute myocardial infarction Congestive heart failure (< 1 month) History of inflammatory bowel disease Medical patient at bed rest Age 61-74 Arthroscopic surgery Major open surgery (> 45 min) Laparoscopic surgery (> 45 min) Malignancy Confined to bed (> 72 hours) Immobilizing plaster cast Central venous access Age >= 75 History of VTE Family history of VTE Factor V Leiden Prothrombin [id number] Lupus anticoagulant Anticardiolipin antibodies Elevated serum homocysteine Heparin-induced thrombocytopenia Other congenital or acquired thrombophilia Stroke (< 1 month) Elective arthroplasty Hip, pelvis, or leg fracture Acute spinal cord injury (< 1 month) Prophylaxis Regimen Total Risk Factor Score Risk Level Prophylaxis Regimen 0-1 Low Early ambulation 2 Moderate Order ONE of the following: *Sequential Compression Device (SCD) *Heparin 5000 units SQ BID 3-4 Higher Order ONE of the following medications: *Heparin 5000 units SQ TID *Enoxaparin/Lovenox 40 mg SQ daily (WT < 150 kg, CrCl > 30 mL/min) *Enoxaparin/Lovenox 30 mg SQ daily (WT < 150 kg, CrCl > 10-29 mL/min) *Enoxaparin/Lovenox 30 mg SQ BID (WT < 150 kg, CrCl > 30 mL/min) AND/OR *Sequential Compression Device (SCD) 5 or more Highest Order ONE of the following medications: *Heparin 5000 units SQ TID (Preferred with Epidurals) *Enoxaparin/Lovenox 40 mg SQ daily (WT < 150 kg, CrCl > 30 mL/min) *Enoxaparin/Lovenox 30 mg SQ daily (WT < 150 kg, CrCl > 10-29 mL/min) *Enoxaparin/Lovenox 30 mg SQ BID (WT < 150 kg, CrCl > 30 mL/min) AND *Sequential Compression Device (SCD) Assessment and Plan Problem List: (1) Seizure disorder ICD Code: G40.909 - Epilepsy, unspecified, not intractable, without status epilepticus Status: Chronic Assessment and Plan 37-year-old man with Seizure disorder Consult neurology for evaluation UDS negative ,Check EEG Seizure precaution, Ativan when necessary and consider fosphenytoin Phenytoin subtherapeutic level ,Resume by mouth antiepileptic drugs with patient able to tolerate Autoimmune disorders to include lupus, rheumatoid arthritis, ankylosing spondylitis, Crohn's disease Continue home medications when patient able to tolerate by mouth Patient should follow-up with 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 DVT prophylaxis: Bilateral SCDs Code Status Full code Discussed Condition With ED PA Physician Certification Order for Inpatient Services The services are ordered in accordance with Medicare regulations or non- Medicare payer requirements, as applicable. In the case of services not specified as inpatient-only, they are appropriately provided as inpatient services in accordance with the 2-midnight benchmark. days is the estimated time the patient will need to remain in the hospital, assuming treatment plan goals are met and no additional complications. Az Navarro MD Oct 23, 2017 15:11
[2017-10-23 16:45] VITALS: BP 107/72; PULSE 65; RESP 18; TEMP 98.2; O2SAT 100
--- NOTE | 2017-10-23 19:31 | PD ---
Data Data Last Documented VS Vital Signs Date Time Temp Pulse Resp B/P (MAP) Pulse Ox O2 Delivery O2 Flow Rate FiO2 10/23/17 13:18 101 20 159/83 (108) 99 Nasal Cannula 2.00 10/23/17 12:13 98.2 Orders Orders Complete Blood Count With Diff (10/23/17 12:23) Phenytoin (Dilantin) (10/23/17 12:23) Drug Screen, Random Urine (10/23/17 12:23) Electrocardiogram (10/23/17 ) Blood Glucose (10/23/17 12:23) Ecg Monitoring (10/23/17 12:23) Iv Access Insert/Monitor (10/23/17 12:23) Oximetry (10/23/17 12:23) Comprehensive Metabolic Panel (10/23/17 12:23) Sodium Chloride 0.9% Flush (Ns Flush) (10/23/17 12:30) Urinalysis - C+S If Indicated (10/23/17 12:23) Sodium Chlor 0.9% 1000 Ml Inj (Ns 1000 M (10/23/17 12:45) Acetamin-Hydrocod 325-10 Mg ([place] 10-32 (10/23/17 13:00) Lorazepam Inj (Ativan Inj) (10/23/17 12:57) Lorazepam Inj (Ativan Inj) (10/23/17 13:15) Fosphenytoin Inj (Cerebyx Inj) (10/23/17 13:30) Admit Order (Ed Use Only) (10/23/17 14:38) Consult Neurology (10/23/17 ) Admit To Inpatient (10/23/17 ) Code Status (10/23/17 14:37) Vital Signs (Adult) Q4H (10/23/17 14:37) Activity Oob With Assistance (10/23/17 14:37) Diet Heart Healthy (10/23/17 Dinner) Sodium Chloride 0.9% Flush (Ns Flush) (10/23/17 14:45) Sodium Chloride 0.9% Flush (Ns Flush) (10/23/17 21:00) Acetaminophen (Tylenol) (10/23/17 14:45) Comprehensive Metabolic Panel (10/24/17 06:00) Complete Blood Count With Diff (10/24/17 06:00) Case Management Consult (10/23/17 14:37) Scd Bilateral/Knee High BLANCHE.BID (10/23/17 14:37) Acetaminophen (Tylenol) (10/23/17 14:45) Naloxone Inj (Narcan Inj) (10/23/17 14:45) Magnesium Hydroxide Liq (Milk Of Magnesi (10/23/17 14:45) Inpatient Certification (10/23/17 ) Portable Eeg (10/23/17 ) Neuro Checks Q4H (10/23/17 14:37) Lorazepam Inj (Ativan Inj) (10/23/17 14:45) Ibuprofen (Motrin) (10/23/17 14:45) ^ Seizure Precautions (10/23/17 14:37) Labs Laboratory Tests Test 10/23/17 12:23 10/23/17 12:40 White Blood Count 5.6 TH/MM3 Red Blood Count 4.55 MIL/MM3 Hemoglobin 13.5 GM/DL Hematocrit 38.8 % Mean Corpuscular Volume 85.3 FL Mean Corpuscular Hemoglobin 29.8 PG Mean Corpuscular Hemoglobin Concent 34.9 % Red Cell Distribution Width 13.9 % Platelet Count 194 TH/MM3 Mean Platelet Volume 8.4 FL Neutrophils (%) (Auto) 57.0 % Lymphocytes (%) (Auto) 35.0 % Monocytes (%) (Auto) 5.2 % Eosinophils (%) (Auto) 2.0 % Basophils (%) (Auto) 0.8 % Neutrophils # (Auto) 3.2 TH/MM3 Lymphocytes # (Auto) 2.0 TH/MM3 Monocytes # (Auto) 0.3 TH/MM3 Eosinophils # (Auto) 0.1 TH/MM3 Basophils # (Auto) 0.0 TH/MM3 CBC Comment DIFF FINAL Differential Comment Blood Urea Nitrogen 7 MG/DL Creatinine 0.93 MG/DL Random Glucose 90 MG/DL Total Protein 7.3 GM/DL Albumin 4.1 GM/DL Calcium Level 8.7 MG/DL Alkaline Phosphatase 61 U/L Aspartate Amino Transf (AST/SGOT) 9 U/L Alanine Aminotransferase (ALT/SGPT) 11 U/L Total Bilirubin 0.3 MG/DL Sodium Level 143 MEQ/L Potassium Level 3.3 MEQ/L Chloride Level 108 MEQ/L Carbon Dioxide Level 24.4 MEQ/L Anion Gap 11 MEQ/L Estimat Glomerular Filtration Rate 91 ML/MIN Phenytoin (Dilantin) Level 1.4 MCG/ML Urine Color LIGHT-YELLOW Urine Turbidity CLEAR Urine pH 6.0 Urine Specific [place] 1.010 Urine Protein NEG mg/dL Urine Glucose (UA) NEG mg/dL Urine Ketones NEG mg/dL Urine Occult Blood NEG Urine Nitrite NEG Urine Bilirubin NEG Urine Urobilinogen LESS THAN 2.0 MG/DL Urine Leukocyte Esterase NEG Urine RBC LESS THAN 1 /hpf Urine WBC LESS THAN 1 /hpf Microscopic Urinalysis Comment CULT NOT INDICATED Urine Opiates Screen NEG Urine Barbiturates Screen POS Urine Amphetamines Screen NEG Urine Benzodiazepines Screen NEG Urine Cocaine Screen NEG Urine Cannabinoids Screen NEG MDM Supervised Visit with CRISTI: Yes Narrative Course The history, exam, and medical decision-making in the associated midlevel provider note were completed with my assistance. I reviewed and agree with the findings presented. I attest that I had a [id number] encounter with the patient on the same day, and personally performed and documented my assessment and findings in the medical record. *My assessment and Findings: This is a 37-year-old male who has multiple medical problems who presents to the emergency department having reportedly had 2 seizures with EMS and one seizure here in the emergency Department. I did witness a seizure. He seemed to have some volitional hand movements and I was unclear if this was a true seizure or pseudoseizure. He was given 2 mg of Ativan and received 4 mg of Ativan in the field. Labs were all reassuring. Patient did make multiple requests for IV pain medication and requested Dilaudid by name. He was given a loading dose of fosphenytoin as he was subtherapeutic. He will be admitted in the setting of multiple seizures. Physician Communication Physician Communication Discussed with Dr. Navarro Diagnosis Primary Impression: Seizure disorder Admitting Information Admitting Physician Requests: Admit Condition: Stable Anne Krause MD Oct 23, 2017 19:31
[2017-10-23] MEDS: ACETAMINOPHEN/HYDROcodone 325 MG/10 MG TAB PO PRN (20:09)
[2017-10-23] MEDS: SODIUM CHLORIDE 0.9% FLUSH 10 ML FLUSH IV FLUSH SCH (20:10)
[2017-10-23] MEDS: PHENYTOIN SODIUM 100 MG CAP PO SCH (21:49)
[2017-10-23] MEDS: oxyCODONE HCL 20 MG CONTROLLED RELEASE TAB PO SCH (21:50)
[2017-10-24] VITALS (7 sets, daily range): BP systolic 120–140; BP diastolic 73–100; PULSE 59–109; RESP 16–20; TEMP 96.7–98.5; O2SAT 98–100
[2017-10-24] MEDS: ACETAMINOPHEN/HYDROcodone 325 MG/10 MG TAB PO PRN ×5 (00:10→22:34)
[2017-10-24] MEDS: PHENYTOIN SODIUM 100 MG CAP PO SCH ×3 (05:37→22:29)
[2017-10-24 06:14] LABS: AUTOMATED NEUTROPHIL # 3.1 TH/MM3 (1.8-7.7); BASOPHIL % 0.6 % (0.0-2.0); EOSINOPHIL # 0.2 TH/MM3 (0-0.4); EOSINOPHIL % 3.6 % (0.0-4.0); HEMATOCRIT 38.9 % (39.0-51.0); HEMO FLAGS DIFF FINAL; LYMPH % 33.7 % (9.0-44.0); LYMPHOCYTE # 1.9 TH/MM3 (1.0-4.8); MEAN CELL VOLUME 85.3 FL (80.0-100.0); MEAN CORPUSCULAR HEMOGLOBIN 28.5 PG (27.0-34.0); MEAN CORPUSCULAR HGB CONC 33.4 % (32.0-36.0); MONO % 5.8 % (0.0-8.0); NEUT % 56.3 % (16.0-70.0); PLATELET COUNT 185 TH/MM3 (150-450); RED BLOOD COUNT 4.56 MIL/MM3 (4.50-5.90); RED CELL DISTRIBUTION WIDTH 14.1 % (11.6-17.2); WHITE BLOOD COUNT 5.5 TH/MM3 (4.0-11.0)
[2017-10-24 07:04] LABS: ALKALINE PHOSPHATASE 54 U/L (45-117); ALT (GPT) 13 U/L (12-78); ANION GAP 7 MEQ/L (5-15); AST (GOT) 11 U/L (15-37); BICARBONATE 27.9 MEQ/L (21.0-32.0); BLOOD UREA NITROGEN 7 MG/DL (7-18); CHLORIDE 105 MEQ/L (98-107); GLOMERULAR FILTRATION RATE 128 ML/MIN (>89); SODIUM (NA) 140 MEQ/L (136-145); TOTAL BILIRUBIN ADULT 0.3 MG/DL (0.2-1.0)
[2017-10-24 07:12] LABS: POTASSIUM 2.7 MEQ/L (3.5-5.1)
[2017-10-24] MEDS: oxyCODONE HCL 20 MG CONTROLLED RELEASE TAB PO SCH ×2 (08:42→22:22)
[2017-10-24] MEDS: SODIUM CHLORIDE 0.9% FLUSH 10 ML FLUSH IV FLUSH SCH ×2 (08:43→22:23)
[2017-10-24] MEDS ORDERED: NON-FORMULARY DRUG (Tadalafil (Cialis) 5 MG) PO SCH (09:00)
[2017-10-24] MEDS: PANTOPRAZOLE SOD 40 MG DELAYED RELEASE TAB PO SCH (09:15)
--- NOTE | 2017-10-24 10:23 | HHI.PR ---
Subjective Remarks Follow up seizure d/o 10/24/17-patient seen and examined, had no more seizure episodes since admission. states he had a total of 3 seizure activities yesterday. Only complains of FUNG and states Stadol works best for him , which the Hospital does not carry Objective Vitals Vital Signs Date Time Temp Pulse Resp B/P (MAP) Pulse Ox O2 Delivery O2 Flow Rate FiO2 10/24/17 08:00 96.7 80 20 140/85 (103) 98 10/24/17 04:00 97.4 59 16 128/88 (101) 99 10/24/17 01:31 17 10/24/17 00:00 96.8 89 18 133/85 (101) 98 10/23/17 23:43 Room Air 10/23/17 22:50 17 10/23/17 16:45 98.2 65 18 107/72 (84) 100 10/23/17 15:45 10/23/17 15:05 75 16 131/86 (101) 95 Nasal Cannula 2.00 10/23/17 13:18 101 20 159/83 (108) 99 Nasal Cannula 2.00 10/23/17 12:13 98.2 103 20 125/87 (100) 98 I/O 10/23/17 10/23/17 10/23/17 10/24/17 10/24/17 10/24/17 07:00 15:00 23:00 07:00 15:00 23:00 Intake Total 1130 ml 480 ml Output Total 1200 ml Balance 1130 ml -720 ml Intake Oral 480 ml IV Total 1130 ml Output Urine Total 1200 ml # Bowel Movements 0 Result Diagram: 10/24/1751610/24/17516 Objective Remarks GENERAL: NAD SKIN: Warm and dry. HEAD: Normocephalic. EYES: No scleral icterus. No injection or drainage. NECK: Supple, trachea midline. No JVD or lymphadenopathy. CARDIOVASCULAR: Regular rate and rhythm without murmurs, gallops, or rubs. RESPIRATORY: Breath sounds equal bilaterally. No accessory muscle use. GASTROINTESTINAL: Abdomen soft, non-tender, nondistended. MUSCULOSKELETAL: No cyanosis, or edema. BACK: Nontender without obvious deformity. No CVA tenderness. 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
[2017-10-24] MEDS: clonazePAM 1 MG TAB PO SCH ×2 (11:08→22:22)
[2017-10-24] MEDS: CYCLOBENZAPRINE HCL 10 MG TAB PO SCH ×2 (11:08→22:23)
[2017-10-24] MEDS: TAMSULOSIN HCL 0.4 MG CAP PO SCH ×2 (11:08→22:23)
[2017-10-24] MEDS: predniSONE 5 MG TAB PO SCH (11:08)
[2017-10-24] MEDS: LEVOTHYROXINE SODIUM 112 MCG TAB PO SCH (11:08)
[2017-10-24] MEDS: levETIRAcetam 500 MG TAB PO SCH (11:09)
[2017-10-24] MEDS: GABAPENTIN 300 MG CAP PO SCH ×4 (11:09→22:22)
[2017-10-24] MEDS: FOLIC ACID 1 MG TAB PO SCH (11:09)
[2017-10-24] MEDS: METAXALONE 800 MG TAB PO SCH ×3 (11:09→18:00)
[2017-10-24] MEDS ORDERED: POTASSIUM CHLORIDE 10 MEQ CONTROLLED RELEASE TAB PO ONE (11:30)
--- NOTE | 2017-10-24 13:18 | EKG ---
Date Performed: 10/23/2017 Time Performed: 12:26:17 PTAGE: 37 years EKG: Sinus rhythm MODERATE VOLTAGE CRITERIA FOR LVH, CONSIDER NORMAL VARIANT NONSPECIFIC ST & T-WAVE ABNORMALITY USSI CASTANEDA ECG Compared to PREVIOUS TRACING , the ST & T change slightly more prominent. QRS voltage is slightly hig her. PREVIOUS TRACING 04/15/2017 DOCTOR: Adal Moncada Interpretating Date/Time 10/24/2017 13:17:18
[2017-10-24] MEDS ORDERED: AMITRIPTYLINE HCL 25 MG TAB PO SCH (21:00)
[2017-10-24] MEDS ORDERED: PHENYTOIN SODIUM 100 MG CAP PO SCH (21:00)
[2017-10-24] MEDS ORDERED: CITALOPRAM HYDROBROMIDE 20 MG TAB PO SCH (21:00)
[2017-10-24] MEDS ORDERED: methylPREDNISolone SOD SUCC 125 MG/2 ML VIAL IV PUSH ONE (21:15)
--- NOTE | 2017-10-24 22:07 | MG ---
cc: CHRISTY VALENTE MD Lab No: Date: 10/24/17 Age: Sex: M Race: DATE OF [address] Navarro MEDICAL HISTORY History of arachnoid cyst, seizures, Prasad Prasad's palsy, migraines, gastroesophageal reflux disease, Crohn's disease, numbness, ulcer, UTI, rheumatoid arthritis, kidney transplant, diabetes, steroid-induced thyroid cancer, anxiety, lupus, vasculitis, ankylosing spondylitis, left hand surgery. MEDICATIONS 1. Dilantin. 2. [place]. 3. Neurontin. 4. Protonix. 5. Klonopin receive 2 mg 2 hours before the EEG, 6. Flexeril 7. Keppra. 8. Skelaxin. 9. Flomax 10. Folate. 11. Synthroid. 12. Deltasone 13. Oxycodone. 14. Motrin. DESCRIPTION The patient received Klonopin 2 mg at 11:08 a.m. and the recording of the EEG started at 13:17. The background activity is 9-10 Hz alpha located posteriorly superimposed by excess beta rhythm. Hyperventilation did not change the background of the EEG. Photic stimulation did not elicit a driving response. There was excessive movement and muscle artifact during the recording. During the recording, there was slowing of the background with appearance of K complexes transitioning to sleep. There were no electrographic seizures or epileptiform discharges noted during the recording. INTERPRETATION This is an normal awake, drowsy and asleep EEG. Beta activity is a nonspecific finding that may be and a medication adverse effect like benzos or barbiturates. There were no electrographic seizures or epileptiform discharges. Clinical correlation is recommended. MD WHITLEY Tapia/ /8:43 PM /9:55 PM MTDChris
--- NOTE | 2017-10-24 22:31 | MB ---
cc: GRUPOI,RAID DATE OF CONSULTATION 10/24/17 REASON FOR CONSULTATION Seizures. HISTORY OF PRESENT ILLNESS Mr. Arenas is a 37-year-old male who has extensive medical history of seizure disorder, chronic pain, rheumatoid arthritis, ankylosing spondylitis, systemic lupus erythematosus, vasculitis, Crohn's disease and cerebellar arachnoid cyst, bilateral posterior fossa arachnoid cyst. The patient is on Dilantin 300 mg nightly and Keppra 500 mg twice daily and he is adherent to the medication as he states and did not miss a dose. During the encounter, the patient was in severe pain with ice packs on his head and he stated he has chronic migraine. He has been on several medications for that the neurology medication that helps him is stadol which is a Opiate nasal spray. Otherwise, he has been on several rescue medications and preventative medications with no benefit. Currently on 600 mg of Gabapentin five times a day , Klonopin, OxyContin and several opiate medication as well as Xanax for chronic pains and he has been intermittently on small doses of steroids. He follows up with Dr. Walker of neurology. REVIEW OF SYSTEMS A 12-point review of systems is negative except for what is stated in the HPI. PAST MEDICAL HISTORY 1. Posterior fossa arachnoid cyst 2. Seizure disorder, 3. Migraine 4. Crohn's disease 5. Rheumatoid arthritis, 6. Lupus erythematosus 7. Ankylosing spondylitis 8. Hypothyroidism, 9. BPH. PAST SURGICAL HISTORY 1. Multiple endoscopies 2. Left wrist surgery. MEDICATIONS 1. [place] 2. Oxycodone. 3. Gabapentin 600 mg five times. 4. Omeprazole. 5. Folic acid 6. Methotrexate 7. Potassium 8. Keppra 500 mg twice 10. Stadol/ nasal spray 11. Protonix, 12. Tramadol, 13. Prednisone, 14. Metaxalone, 15. Diclofenac 17. Humira 19. Dilantin 100 mg 300 mg nightly 20. Cialis 21. Ondansetron 22. Amitriptyline 75 mg nightly, 23. Clonazepam 2 mg twice 24. [place] 25. Citalopram 26. Levothyroxine 27. Flomax ALLERGIES CAT DANDER MORPHINE FAMILY HISTORY Significant for lupus in his mother. SOCIAL HISTORY No reported tobacco, alcohol or illicit drug abuse. PHYSICAL EXAMINATION GENERAL: Alert, oriented in mild pain due to the acute migraine headache with an ice pack on his head. HEENT: Atraumatic, normocephalic. Intact hearing. Intact vision. NECK: Supple. No signs of meningeal irritation. CARDIOVASCULAR: Normal rate and rhythm. GASTROINTESTINAL: Soft abdomen nontender. MUSCULOSKELETAL: No clubbing, cyanosis or edema. NEUROLOGIC: Awake, alert, oriented to time, person and place. Left lower motor neuron facial palsy, Prasad's palsy, chronic. Motor examination 5/5 bilateral AND symmetrical. No abnormal movement, normal tone upper and lower extremities. Intact sensation and cerebellar function throughout. Reflexes 1+ bilateral symmetrical. Plantars are bilaterally downgoing. PSYCHIATRIC: Cooperative, normal mood and behavior LABORATORY DATA WBC 5.5, hemoglobin 13, platelet count 185.Sodium 140, potassium 2.7, calcium 8.4, AST 11, ALT 13, UDS positive for barbiturates. Dilantin initial reading was subtherapeutic at 1.4. Follow up reading 14.4. IMAGING STUDIES Review of diagnostic imaging 08/13/2016 - MRI brain with and without contrast revealed arachnoid cyst at the posterior fossa on the left side, stable in size and appearance since 2011 with measurement of 4.3 x 2.8 cm IMPRESSION 1. Arachnoid cyst chronic stable in the left cerebella pontine region 2. Breakthrough seizures 3. Migraine headache. - Likely this acute exacerbation is related to medication overuse headache as the patient is on several opiates, nonsteroidal anti-inflammatory, Steroids and anticonvulsants, gabapentin, tramadol, Klonopin. - Hypokalemia. PLAN 1. Neuro checks q. four hourly 2. Dilantin 100 mg three times daily 3. Obtain Dilantin next a.m. 4. Keppra 500 mg twice daily 5. Seizure precautions. 6. Methylprednisolone IV bolus once 7. Need modification adjustment of doses and strength of the polypharmacy/ opiate medication/overuse medications that are likely reason of medication overuse headache. This needs to be done by his primary care physician and follow up with his neurologist, Dr. Walker as outpatient. 8. Continue supportive medical therapy. 9. DVT prophylaxis. 10. GI prophylaxis. Thank you for the opportunity to participate in the care of your patient. MD WHITLEY Tapia/ /9:48 PM /10:03 PM ASUNCION
[2017-10-25 00:21] VITALS: BP 127/83; PULSE 88; RESP 17; TEMP 97.6; O2SAT 100
[2017-10-25] MEDS: GABAPENTIN 300 MG CAP PO SCH ×3 (05:08→12:33)
[2017-10-25] MEDS: PHENYTOIN SODIUM 100 MG CAP PO SCH ×2 (05:09→12:33)
[2017-10-25] MEDS: ACETAMINOPHEN/HYDROcodone 325 MG/10 MG TAB PO PRN ×2 (05:10→11:03)
[2017-10-25 05:44] LABS: BICARBONATE 24.8 MEQ/L (21.0-32.0); POTASSIUM 3.7 MEQ/L (3.5-5.1)
[2017-10-25 08:40] VITALS: BP 125/85; PULSE 94; RESP 18; TEMP 96.9; O2SAT 99
[2017-10-25] MEDS: PANTOPRAZOLE SOD 40 MG DELAYED RELEASE TAB PO SCH (08:41)
[2017-10-25] MEDS: levETIRAcetam 500 MG TAB PO SCH (08:41)
[2017-10-25] MEDS: clonazePAM 1 MG TAB PO SCH (08:41)
[2017-10-25] MEDS: LEVOTHYROXINE SODIUM 112 MCG TAB PO SCH (08:41)
[2017-10-25] MEDS: FOLIC ACID 1 MG TAB PO SCH (08:41)
[2017-10-25] MEDS: TAMSULOSIN HCL 0.4 MG CAP PO SCH (08:41)
[2017-10-25] MEDS: CYCLOBENZAPRINE HCL 10 MG TAB PO SCH (08:41)
[2017-10-25] MEDS: predniSONE 5 MG TAB PO SCH (08:41)
[2017-10-25] MEDS: SODIUM CHLORIDE 0.9% FLUSH 10 ML FLUSH IV FLUSH SCH (08:42)
[2017-10-25] MEDS: METAXALONE 800 MG TAB PO SCH ×2 (08:42→12:33)
[2017-10-25] MEDS: oxyCODONE HCL 20 MG CONTROLLED RELEASE TAB PO SCH (08:43)
[2017-10-25 11:02] VITALS: BP 139/84; PULSE 98; RESP 17; TEMP 96.8; O2SAT 98
--- NOTE | 2017-10-25 11:17 | HHI.PR ---
Subjective Remarks Follow up seizure d/o 10/24/17-patient seen and examined, had no more seizure episodes since admission. states he had a total of 3 seizure activities yesterday. Only complains of FUNG and states Stadol works best for him , which the Hospital does not carry 10/25/17-patient seen and examined, no reported seizure activity 72 hours since admission. Reports improvement of her headaches, it was advised on cutting down on narcotics.. Seen by neurology 10/24/17 and AEDs were adjusted accordingly. EEG report was discussed with patient. He is looking for discharge home. Objective Vitals Vital Signs Date Time Temp Pulse Resp B/P (MAP) Pulse Ox O2 Delivery O2 Flow Rate FiO2 10/25/17 11:02 96.8 98 17 139/84 (102) 98 10/25/17 08:45 Room Air 10/25/17 08:40 96.9 94 18 125/85 (98) 99 10/25/17 00:21 97.6 88 17 127/83 (98) 100 10/24/17 22:19 76 130/85 (100) 10/24/17 22:00 Room Air 10/24/17 20:15 97.8 86 17 127/93 (104) 100 10/24/17 16:17 18 10/24/17 16:00 98.0 96 20 120/73 (89) 99 10/24/17 12:00 98.5 109 20 123/100 (108) 98 I/O 10/24/17 10/24/17 10/24/17 10/25/17 10/25/17 10/25/17 07:00 15:00 23:00 07:00 15:00 23:00 Intake Total 480 ml 360 ml 240 ml 480 ml Output Total 1200 ml Balance -720 ml 360 ml 240 ml 480 ml Intake Oral 480 ml 360 ml 240 ml 480 ml Output Urine Total 1200 ml # Voids 6 1 3 # Bowel Movements 0 2 0 Result Diagram: 10/24/1717 10/25/17 0430 Objective Remarks GENERAL: NAD SKIN: Warm and dry. HEAD: Normocephalic. EYES: No scleral icterus. No injection or drainage. NECK: Supple, trachea midline. No JVD or lymphadenopathy. CARDIOVASCULAR: Regular rate and rhythm without murmurs, gallops, or rubs. RESPIRATORY: Breath sounds equal bilaterally. No accessory muscle use. GASTROINTESTINAL: Abdomen soft, non-tender, nondistended. MUSCULOSKELETAL: No cyanosis, or edema. BACK: Nontender without obvious deformity. No CVA tenderness. Procedures none A/P Problem List: (1) Seizure disorder ICD Code: G40.909 - Epilepsy, unspecified, not intractable, without status epilepticus Status: Chronic Assessment and Plan 37-year-old man with Seizure disorder No seizure activity 72 hours Appreciate input from Neurology Currently on Dilantin 100 mg 3 times a day, Keppra 500 mg twice a day Repeat Dilantin level 17 EEG report normal awake, drowsy and asleep EEG. Beta activity is a nonspecific finding that may be and a medication adverse effect like benzos or barbiturates. There were no electrographic seizures or epileptiform discharges. 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 He will follow outpatient with his PCP Hypokalemia Replace electrolyte DVT prophylaxis: Bilateral SCDs Az Navarro MD Oct 25, 2017 11:17
--- NOTE | 2017-10-25 11:23 | HHI.DS ---
Discharge Summary Admission Date Oct 23, 2017 at 14:41 Discharge Date: Oct 25, 2017 Admitting Diagnosis Seizure disorder (1) Seizure disorder ICD Code: G40.909 - Epilepsy, unspecified, not intractable, without status epilepticus Status: Chronic Procedures none Brief History - From Admission Patient is unable to communicate at this time during my exam and history is obtained from ED report and chart review below: "37y male with a history of seizures presents to the ED s/p seizure that occurred just prior to arrival. EVAC notified me that they gave him 4 mg of Ativan and the seizing ceased. They did not notice a postictal period. 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 Patient told medications including Dilantin, gabapentin, and clonidine. Patient denies tongue biting or urinary incontinence. He has a history of ankylosing spondylitis, Crohn's disease. Patient follows Dr. Bansal for his medications. He also goes to the [facility] for his brain cyst. Patient denies any recent trauma, new medications, illness, surgery." CBC/BMP: 10/24/17 0517 10/25/17 0430 Significant Findings Laboratory Tests Test 10/23/17 12:23 10/23/17 12:40 10/24/17 05:17 10/25/17 04:30 Hematocrit 38.8 % (39.0-51.0) 38.9 % (39.0-51.0) Aspartate Amino Transf (AST/SGOT) 9 U/L (15-37) 11 U/L (15-37) Alanine Aminotransferase (ALT/SGPT) 11 U/L (12-78) Potassium Level 3.3 MEQ/L (3.5-5.1) 2.7 MEQ/L (3.5-5.1) Chloride Level 108 MEQ/L (98-107) Phenytoin (Dilantin) Level 1.4 MCG/ML (10.0-20.0) Urine Barbiturates Screen POS (NEG) Calcium Level 8.4 MG/DL (8.5-10.1) Random Glucose 174 MG/DL (74-106) Estimat Glomerular Filtration Rate 88 ML/MIN (>89) PE at Discharge GENERAL: NAD SKIN: Warm and dry. HEAD: Normocephalic. EYES: No scleral icterus. No injection or drainage. NECK: Supple, trachea midline. No JVD or lymphadenopathy. CARDIOVASCULAR: Regular rate and rhythm without murmurs, gallops, or rubs. RESPIRATORY: Breath sounds equal bilaterally. No accessory muscle use. GASTROINTESTINAL: Abdomen soft, non-tender, nondistended. MUSCULOSKELETAL: No cyanosis, or edema. BACK: Nontender without obvious deformity. No CVA tenderness. Hospital Course Patient was admitted secondary to seizure activity for which he was initially treated with fosphenytoin IV 1 in ED, and placed on seizure precautions with Ativan when necessary. Neurology was consulted and EEG was obtained. Dilantin level was monitored. Patient was subsequently started back on his antiepileptic drugs which were adjusted accordingly by neurology and patient will be discharged home on Dilantin 100 mg 3 times a day, Keppra 500 mg twice a day. Hospitalization was complicated by headache which were felt to be secondary to narcotics overuse/abuse and it was recommended to the patient to follow outpatient with his PCP. Patient was also treated with Methylprednisolone IV bolus once 10/24/17. He was continued on his treatment for other chronic medical conditions. DVT and GI prophylaxis were provided. Prior to discharge, patient's condition improved and vital remained stable. Pt Condition on Discharge: Stable Discharge Disposition: Discharge Home Discharge Time: <= 30 minutes Discharge Instructions DIET: Follow Instructions for: Heart Healthy Diet Follow up Referrals: Neurology - 2 Weeks PCP Follow-up - 1 Week New Medications: Levetiracetam (Keppra) 500 Mg Tab 500 MG PO DAILY for Control Seizures, #60 TAB 3 Refills Phenytoin Extended (Dilantin) 100 Mg Cap 100 MG PO Q8HR for Control Seizures, #90 CAP 3 Refills Continued Medications: Adalimumab 2-Pack Inj (Humira 2-Pack Inj) 40 Mg/0.8 Ml Syr 40 MG SQ Q14D, #1 KIT 0 Refills Amitriptyline (Amitriptyline) 25 Mg Tab 75 MG PO HS for Control Depression, #30 TAB 0 Refills Butorphanol Nasal [place] (Butorphanol Nasal [place]) 10 Mg/Ml Soln 1 SPRAY NASAL Q3HR PRN for HEADACHE, #2.5 ML in one nostril (1 mg). If pain not reliefed in 60-90 minutes, a 1 mg repeat dose may be given. May repeat this in 3-4 hrs if needed. Citalopram (Citalopram) 20 Mg Tab 20 MG PO HS for Control Depression, #30 TAB 0 Refills Clonazepam (Clonazepam) 2 Mg Tab 2 MG PO BID, #60 TAB 0 Refills Cyclobenzaprine (Flexeril) 10 Mg Tab 10 MG PO BID for Muscle Spasm, #90 TAB 0 Refills Diclofenac-Misoprostol (Diclofenac-Misoprostol) 75-0.2 Mg Tab 1 TAB PO BID PRN for PAIN SCALE 5 TO 10, #60 TAB 0 Refills Folic Acid (Folic Acid) 1 Mg Tablet 1 MG PO DAILY for Nutritional Supplement Gabapentin (Gabapentin) 600 Mg Tab 600 MG PO 5 TIMES A DAY, #90 TAB 0 Refills Hydrocodone-Acetaminophen ([place]) 10-325 Mg Tab 1 TAB PO Q4HR PRN for PAIN, TAB 0 Refills Levothyroxine (Levothyroxine) 112 Mcg Tab 112 MCG PO DAILY, #30 TAB 0 Refills Metaxalone (Metaxalone) 800 Mg Tab 800 MG PO TID for Muscle Spasm, TAB 0 Refills Methotrexate Inj (Methotrexate Inj) 50 Mg/2 Ml Inj 0.6 ML IM WEEKLY Multivitamin (Men's Multi-Vitamin) 1 Each Tablet 1 TAB PO DAILY Omeprazole (Omeprazole) 40 Mg Cap 40 MG PO DAILY, #30 CAP 0 Refills Oxycodone ER (Oxycodone ER) 20 Mg Tab 20 MG PO BID for Pain Management, TAB 0 Refills Pantoprazole (Protonix) 40 Mg Tab 40 MG PO AC LUNCH for Reflux, #30 TAB 0 Refills Pilocarpine (Pilocarpine) 5 Mg Tab 5 MG PO TID PRN for DRY MOUTH, #90 TAB 0 Refills Potassium (Potassium) 99 Mg Tablet 99 MG PO BID Prednisone (Prednisone) 5 Mg Tab 5 MG PO DAILY, TAB 0 Refills Probiotic Product (Acidophilus) 1 Cap Cap 1 CAP PO DAILY Tadalafil (Cialis) 5 Mg Tab 5 MG PO DAILY, TAB 0 Refills Do not exceed 1 dose/day. Tamsulosin (Flomax) 0.4 Mg Cap 0.4 MG PO BID for Manage Prostate Problems, #30 CAP 0 Refills Tramadol (Tramadol) 50 Mg Tab 50 MG PO Q6H PRN for PAIN, TAB 0 Refills Discontinued Medications: Doxycycline Hyclate (Doxycycline Hyclate) 100 Mg Tab 100 MG PO BID for 10 Days, #20 TAB Levetiracetam (Levetiracetam) 500 Mg Tab 500 MG PO DAILY for Control Seizures, #60 TAB 0 Refills Ondansetron (Ondansetron) 8 Mg Tab 8 MG PO Q8HR PRN for NAUSEA OR VOMITING, TAB 0 Refills Phenytoin Extended (Dilantin) 100 Mg Cap 300 MG PO HS for Control Seizures, #270 CAP 0 Refills Az Navarro MD Oct 25, 2017 11:23
[2017-10-25] MEDS ORDERED: LEVE500 PO (11:29)
[2017-10-25] MEDS ORDERED: DILA100C PO (11:29)
== END 2017-10-25 13:20 | disposition home or self-care (01) | DRG 101 ==
LOC: NEPC 12:06 → NEDA 14:41 → N06B 16:01
PROVIDERS: ADMIT Hospitalist; ATTEND Hospitalist
DX: G40.909 Epilepsy, unspecified, not intractable, without status epilepticus (principal); K50.90 Crohn's disease, unspecified, without complications; M32.9 Systemic lupus erythematosus, unspecified; G93.0 Cerebral cysts; I10 Essential (primary) hypertension; G89.29 Other chronic pain; M45.9 Ankylosing spondylitis of unspecified sites in spine; K21.9 Gastro-esophageal reflux disease without esophagitis; E09.9 Drug or chemical induced diabetes mellitus without complications; G51.0 Bell's palsy; F32.9 Major depressive disorder, single episode, unspecified; F41.9 Anxiety disorder, unspecified; M06.9 Rheumatoid arthritis, unspecified; N40.0 Benign prostatic hyperplasia without lower urinary tract symptoms; E03.9 Hypothyroidism, unspecified; G43.909 Migraine, unspecified, not intractable, without status migrainosus; E87.6 Hypokalemia; F11.10 Opioid abuse, uncomplicated; T38.0X5S Adverse effect of glucocorticoids and synthetic analogues, sequela
CPT/HCPCS: 80048; 80053; 80185; 80307; 81001; 85025; 93005; 95819; 96365; 96375; J2060; J2930; J7030; J7512; Q2009

== ENCOUNTER 2017-11-19 20:34 | Emergency (ER) | payer BC ==
[~2017-11-19 20:34] MED LIST changes: -CARA1TAB6 PO; -DOXY100T PO; +HYDR-3366 PO; +LEVE500 PO; -LEVE500T8 PO; -ONDA8TAB7 PO; -PERC10TA27 PO; -TYLETAB34 PO
[2017-11-19 20:53] VITALS: BP 172/110; PULSE 102; RESP 20; O2SAT 97
--- NOTE | 2017-11-19 22:35 | PD ---
HPI Chief Complaint: Pain: Acute or Chronic Time Seen by Provider: 22:26 Travel History International Travel<30 days: No Contact w/Intl Traveler<30days: No Traveled to known affect area: No History of Present Illness HPI The patient is a 37-year-old male that has a history of lupus who complains of pain in the right abdomen in the right upper quadrant since last night. He denies any nausea, fever or vomiting. He does have a history of pancreatitis apparently caused by lupus. He had a gallbladder ultrasound done which was normal. He does have a history of urinary stones. PFSH Past Medical History Hx Anticoagulant Therapy: No Arthritis: Yes (RA) Asthma: No Autoimmune Disease: Yes (Lupus, RA, Vasculitis, Ankylosing spondylitis ) Blood Disorders: No Anxiety: Yes Depression: Yes Heart Rhythm Problems: No Cancer: Yes (Thyroid) Cardiovascular Problems: No High Cholesterol: No Chemotherapy: Yes Chest Pain: No Congestive Heart Failure: No COPD: No Cerebrovascular Accident: No Diabetes: No Diminished Hearing: No Endocrine: No Gastrointestinal Disorders: Yes (Chrohn's) GERD: Yes Genitourinary: No Headaches: No Hiatal Hernia: No Heparin Induced Thrombocytopen: No Hypertension: Yes Immune Disorder: No Implanted Vascular Access Dvce: No Kidney Stones: No Musculoskeletal: Yes Neurologic: Yes (SEIZURES, BRAIN CYST, BELLS PALSY) Psychiatric: No Reproductive: No Respiratory: No Immunizations Current: Yes Migraines: Yes Pancreatitis: Yes Radiation Therapy: Yes (Radioactive iodine for thyroid ) Renal Failure: No Seizures: Yes Sickle Cell Disease: No Sleep Apnea: No Thyroid Disease: Yes Ulcer: Yes Tetanus Vaccination: < 5 Years Influenza Vaccination: Yes PNEUMOCCOCAL Vaccine (Year): 1 Past Surgical History Abdominal Surgery: No AICD: No Arteriovenous Shunt: No Cardiac Surgery: No Ear Surgery: No Endocrine Surgery: No Eye Surgery: No Genitourinary Surgery: No Gynecologic Surgery: No Hysterectomy: No Insulin Pump: No Joint Replacement: No Neurologic Surgery: No Oral Surgery: No Pacemaker: No Thoracic Surgery: No Other Surgery: Yes (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 ) Social History Alcohol Use: No Tobacco Use: No Substance Use: No Allergies-Medications (Allergen,Severity, Reaction): Coded Allergies: cat dander (Unverified Allergy, Mild, Cough, 11/19/17) morphine (Unverified Allergy, Mild, Rash, 11/19/17) Reported Meds & Prescriptions Reported Meds & Active Scripts Active Keppra (Levetiracetam) 500 Mg Tab 500 Mg PO DAILY Dilantin (Phenytoin Extended) 100 Mg Cap 100 Mg PO Q8HR Reported [place] (Hydrocodone-Acetaminophen) 10-325 Mg Tab 1 Tab PO Q4HR PRN Oxycodone ER (Oxycodone HCl) 20 Mg Tab 20 Mg PO BID Gabapentin 600 Mg Tab 600 Mg PO 5 TIMES A DAY Omeprazole 40 Mg Cap 40 Mg PO DAILY Folic Acid 1 Mg Tablet 1 Mg PO DAILY Methotrexate Inj 50 Mg/2 Ml Inj 0.6 Ml IM WEEKLY Potassium 99 Mg Tablet 99 Mg PO BID Men's Multi-Vitamin (Multivitamin) 1 Each Tablet 1 Tab PO DAILY Acidophilus (Probiotic Product) 1 Cap Cap 1 Cap PO DAILY Butorphanol Nasal [place] (Butorphanol Tartrate) 10 Mg/Ml Soln 1 [place] NASAL Q3HR PRN in one nostril (1 mg). If pain not reliefed in 60-90 minutes, a 1 mg repeat dose may be given. May repeat this in 3-4 hrs if needed. Protonix (Pantoprazole Sodium) 40 Mg Tab 40 Mg PO AC LUNCH Tramadol (Tramadol HCl) 50 Mg Tab 50 Mg PO Q6H PRN Prednisone 5 Mg Tab 5 Mg PO DAILY Metaxalone 800 Mg Tab 800 Mg PO TID Flexeril (Cyclobenzaprine HCl) 10 Mg Tab 10 Mg PO BID Diclofenac-Misoprostol 75-0.2 Mg Tab 1 Tab PO BID PRN Humira 2-Pack Inj (Adalimumab 2-Pack Inj) 40 Mg/0.8 Ml Syr 40 Mg SQ Q14D Cialis (Tadalafil) 5 Mg Tab 5 Mg PO DAILY Do not exceed 1 dose/day. Amitriptyline (Amitriptyline HCl) 25 Mg Tab 75 Mg PO HS Clonazepam 2 Mg Tab 2 Mg PO BID Pilocarpine 5 Mg Tab 5 Mg PO TID PRN Citalopram (Citalopram Hydrobromide) 20 Mg Tab 20 Mg PO HS Levothyroxine (Levothyroxine Sodium) 112 Mcg Tab 112 Mcg PO DAILY Flomax (Tamsulosin HCl) 0.4 Mg Cap 0.4 Mg PO BID Review of Systems Except as stated in HPI: all other systems reviewed are Neg Physical Exam Narrative GENERAL: The patient is alert, oriented 3 in moderate apparent distress with his right sided abdominal pain area his vital signs show blood pressure 172/110 with heart rate of 102 but otherwise are normal. SKIN: Focused skin assessment warm/dry. There is a classic butterfly rash characteristic of lupus. HEAD: Atraumatic. Normocephalic. EYES: Pupils equal and round. No scleral icterus. No injection or drainage. ENT: No nasal bleeding or discharge. Mucous membranes pink and moist. NECK: Trachea midline. No JVD. CARDIOVASCULAR: Regular rate and rhythm. No murmur appreciated. RESPIRATORY: No accessory muscle use. Clear to auscultation. Breath sounds equal bilaterally. GASTROINTESTINAL: Abdomen soft, with tenderness to direct palpation in the right upper quadrant, nondistended. Hepatic and splenic margins not palpable. No guarding or rebound is present. MUSCULOSKELETAL: No obvious deformities. No clubbing. No cyanosis. No edema. NEUROLOGICAL: Awake and alert. No obvious cranial nerve deficits. Motor grossly within normal limits. Normal speech. PSYCHIATRIC: Appropriate mood and affect; insight and judgment normal. Data Data Last Documented VS Vital Signs Date Time Temp Pulse Resp B/P (MAP) Pulse Ox O2 Delivery O2 Flow Rate FiO2 11/19/17 20:53 102 20 172/110 (130) 97 Orders Orders Complete Blood Count With Diff (11/19/17 22:39) Comprehensive Metabolic Panel (11/19/17 22:39) Lipase (11/19/17 22:39) Urinalysis - C+S If Indicated (11/19/17 22:39) Iv Access Insert/Monitor (11/19/17 22:39) Ecg Monitoring (11/19/17 22:39) Oximetry (11/19/17 22:39) Ondansetron Inj (Zofran Inj) (11/19/17 22:45) Sodium Chlor 0.9% 1000 Ml Inj (Ns 1000 M (11/19/17 22:39) Sodium Chloride 0.9% Flush (Ns Flush) (11/19/17 22:45) Hydromorphone Pf Inj (Dilaudid Pf Inj) (11/19/17 23:15) Labs Laboratory Tests Test 11/19/17 23:06 White Blood Count 6.8 TH/MM3 Red Blood Count 4.60 MIL/MM3 Hemoglobin 13.1 GM/DL Hematocrit 39.6 % Mean Corpuscular Volume 86.0 FL Mean Corpuscular Hemoglobin 28.5 PG Mean Corpuscular Hemoglobin Concent 33.1 % Red Cell Distribution Width 14.2 % Platelet Count 187 TH/MM3 Mean Platelet Volume 7.5 FL Neutrophils (%) (Auto) 53.7 % Lymphocytes (%) (Auto) 34.6 % Monocytes (%) (Auto) 7.1 % Eosinophils (%) (Auto) 4.1 % Basophils (%) (Auto) 0.5 % Neutrophils # (Auto) 3.7 TH/MM3 Lymphocytes # (Auto) 2.3 TH/MM3 Monocytes # (Auto) 0.5 TH/MM3 Eosinophils # (Auto) 0.3 TH/MM3 Basophils # (Auto) 0.0 TH/MM3 CBC Comment DIFF FINAL Differential Comment Urine Color JAZZ Urine Turbidity CLEAR Urine pH 5.0 Urine Specific [place] GREATER THAN 1.035 Urine Protein NEG mg/dL Urine Glucose (UA) NEG mg/dL Urine Ketones TRACE mg/dL Urine Occult Blood NEG Urine Nitrite NEG Urine Bilirubin NEG Urine Leukocyte Esterase NEG Urine RBC 0-2 /hpf Urine WBC 0-2 /hpf Urine Squamous Epithelial Cells 0-5 /hpf Urine Bacteria NONE /hpf Microscopic Urinalysis Comment CULT NOT INDICATED Blood Urea Nitrogen 9 MG/DL Creatinine 0.83 MG/DL Random Glucose 90 MG/DL Total Protein 7.3 GM/DL Albumin 3.8 GM/DL Calcium Level 8.5 MG/DL Alkaline Phosphatase 79 U/L Aspartate Amino Transf (AST/SGOT) 14 U/L Alanine Aminotransferase (ALT/SGPT) 17 U/L Total Bilirubin 0.3 MG/DL Sodium Level 141 MEQ/L Potassium Level 4.0 MEQ/L Chloride Level 105 MEQ/L Carbon Dioxide Level 32.7 MEQ/L Anion Gap 3 MEQ/L Estimat Glomerular Filtration Rate 104 ML/MIN Lipase 159 U/L [facility] Medical Decision Making Medical Screen Exam Complete: Yes Emergency Medical Condition: Yes Medical Record Reviewed: Yes Interpretation(s) The urinalysis shows jazz color, specific gravity greater than 1.035, trace ketones and is otherwise normal and culture is not indicated. The complete metabolic profile shows a bicarbonate 32.7 but is otherwise unremarkable. The lipase is normal. The CBC is normal. Differential Diagnosis Dehydration, electrolyte disorder, pancreatitis, colitis, ulcer pain, reflux esophagitis, cholecystitis, gastritis Narrative Course There is evidence of dehydration with a very high specific gravity of the urine as well as ketones in the urine. There is no evidence of pancreatitis. The patient request Percocet 10 for pain. He will be given Percocet 5 and told to use is a little pain medicine as he can buy with. He states he has Zofran at home. Diagnosis Primary Impression: Gastritis Additional Impression: Mild dehydration Additional Instructions: Do not drink alcohol or drive on the Percocet. 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 Med/Other Pt SpecificInfo: Prescription(s) given Scripts Oxycodone-Acetaminophen (Percocet) 5-325 mg Tab 1-2 TAB PO Q4H Y for PAIN, #28 TAB 0 Refills Prov: Ward Peter MD 11/20/17 Disposition: 01 DISCHARGE HOME Condition: Stable Ward Peter MD Nov 19, 2017 22:35
[2017-11-19] MEDS ORDERED: SODIUM CHLOR 0.9% 1000 ML INJ 1,000 ML IV SCH (22:39)
[2017-11-19] MEDS ORDERED: SODIUM CHLORIDE 0.9% FLUSH 10 ML FLUSH IV FLUSH PRN (22:45)
[2017-11-19] MEDS ORDERED: ONDANSETRON HCL 4 MG/2 ML VIAL IVP ONE (22:45)
[2017-11-19 23:00] VITALS: O2SAT 98
[2017-11-19 23:09] LABS: BILIRUBIN, URINE NEG (NEG); BLOOD, URINE NEG (NEG); GLUCOSE,URINE NEG (NEG); KETONE, URINE TRACE mg/dL (NEG); NITRITE,URINE NEG (NEG); URINE LEUKOCYTE ESTERASE NEG (NEG)
[2017-11-19 23:14] LABS: AUTOMATED NEUTROPHIL # 3.7 TH/MM3 (1.8-7.7); BASOPHIL % 0.5 % (0.0-2.0); EOSINOPHIL # 0.3 TH/MM3 (0-0.4); EOSINOPHIL % 4.1 % (0.0-4.0); HEMATOCRIT 39.6 % (39.0-51.0); HEMOGLOBIN 13.1 GM/DL (13.0-17.0); LYMPH % 34.6 % (9.0-44.0); LYMPHOCYTE # 2.3 TH/MM3 (1.0-4.8); MEAN CORPUSCULAR HEMOGLOBIN 28.5 PG (27.0-34.0); MEAN CORPUSCULAR HGB CONC 33.1 % (32.0-36.0); MEAN PLATELET VOLUME 7.5 FL (7.0-11.0); MONO % 7.1 % (0.0-8.0); MONOCYTE # 0.5 TH/MM3 (0-0.9); NEUT % 53.7 % (16.0-70.0); PLATELET COUNT 187 TH/MM3 (150-450); RED CELL DISTRIBUTION WIDTH 14.2 % (11.6-17.2); WHITE BLOOD COUNT 6.8 TH/MM3 (4.0-11.0)
[2017-11-19 23:15] LABS: RBC, URINE 0-2 /hpf (0-3); SQUAMOUS EPITHELIAL CELL URINE 0-5 /hpf (0-5); URINE COLOR AMBER (YELLW/STRAW); WBC, URINE 0-2 /hpf (0-5)
[2017-11-19] MEDS ORDERED: HYDROmorphone HCL PF 2 MG/ML VIAL IV PUSH ONE (23:15)
[2017-11-19 23:17] LABS: CHLORIDE 105 MEQ/L (98-107); SODIUM (NA) 141 MEQ/L (136-145)
[2017-11-19 23:20] LABS: CALCIUM 8.5 MG/DL (8.5-10.1)
[2017-11-19 23:21] LABS: ALBUMIN 3.8 GM/DL (3.4-5.0); BICARBONATE 32.7 MEQ/L (21.0-32.0); BLOOD UREA NITROGEN 9 MG/DL (7-18); GLUCOSE,RANDOM 90 MG/DL (74-106); LIPASE 159 U/L (73-393)
[2017-11-19 23:24] LABS: ALT (GPT) 17 U/L (12-78); AST (GOT) 14 U/L (15-37); CREATININE 0.83 MG/DL (0.60-1.30); GLOMERULAR FILTRATION RATE 104 ML/MIN (>89)
[2017-11-19 23:25] LABS: TOTAL BILIRUBIN ADULT 0.3 MG/DL (0.2-1.0); TOTAL PROTEIN 7.3 GM/DL (6.4-8.2)
[2017-11-19 23:27] LABS: ALKALINE PHOSPHATASE 79 U/L (45-117)
[2017-11-20 00:03] VITALS: BP 130/78; PULSE 88; RESP 18; O2SAT 98
[2017-11-20] MEDS ORDERED: PERC5TAB12 PO (00:03)
== END 2017-11-20 00:55 | disposition home or self-care (01) ==
LOC: PHED 20:34
DX: K29.70 Gastritis, unspecified, without bleeding (principal); E86.0 Dehydration; M32.9 Systemic lupus erythematosus, unspecified; M06.9 Rheumatoid arthritis, unspecified; M45.9 Ankylosing spondylitis of unspecified sites in spine; F41.9 Anxiety disorder, unspecified; K21.9 Gastro-esophageal reflux disease without esophagitis; I10 Essential (primary) hypertension; Z87.19 Personal history of other diseases of the digestive system
CPT/HCPCS: 80053; 81001; 83690; 85025; 96374; 96375; 99284; J1170; J2405; J7030

== ENCOUNTER 2017-11-24 15:15 | Emergency (ER) | payer BC ==
[~2017-11-24] VITALS: Ht 182.9 cm; Wt 95.0 kg
[~2017-11-24 15:15] MED LIST changes: +PERC5TAB12 PO
[2017-11-24 15:21] VITALS: BP 160/90; PULSE 84; RESP 20; TEMP 98; O2SAT 100
[2017-11-24 16:19] VITALS: BP 180/142; PULSE 91; RESP 18; TEMP 98; O2SAT 100
[2017-11-24 16:24] LABS: AUTOMATED NEUTROPHIL # 2.8 TH/MM3 (1.8-7.7); BASOPHIL % 0.7 % (0.0-2.0); EOSINOPHIL # 0.1 TH/MM3 (0-0.4); EOSINOPHIL % 2.1 % (0.0-4.0); HEMATOCRIT 38.3 % (39.0-51.0); HEMOGLOBIN 12.8 GM/DL (13.0-17.0); LYMPH % 32.6 % (9.0-44.0); LYMPHOCYTE # 1.5 TH/MM3 (1.0-4.8); MEAN CORPUSCULAR HEMOGLOBIN 29.1 PG (27.0-34.0); MEAN CORPUSCULAR HGB CONC 33.4 % (32.0-36.0); MONO % 4.7 % (0.0-8.0); MONOCYTE # 0.2 TH/MM3 (0-0.9); NEUT % 59.9 % (16.0-70.0); PLATELET COUNT 180 TH/MM3 (150-450); RED BLOOD COUNT 4.41 MIL/MM3 (4.50-5.90); WHITE BLOOD COUNT 4.7 TH/MM3 (4.0-11.0)
[2017-11-24 16:44] LABS: ALBUMIN 3.8 GM/DL (3.4-5.0); AST (GOT) 15 U/L (15-37); BICARBONATE 29.1 MEQ/L (21.0-32.0); BLOOD UREA NITROGEN 10 MG/DL (7-18); CALCIUM 8.5 MG/DL (8.5-10.1); CHLORIDE 108 MEQ/L (98-107); CREATININE 0.81 MG/DL (0.60-1.30); GLOMERULAR FILTRATION RATE 107 ML/MIN (>89); GLUCOSE,RANDOM 97 MG/DL (74-106); LIPASE 83 U/L (73-393); SODIUM (NA) 144 MEQ/L (136-145)
[2017-11-24] MEDS ORDERED: SODIUM CHLOR 0.9% 1000 ML INJ 1,000 ML IV ONE (16:45)
[2017-11-24] MEDS ORDERED: METOCLOPRAMIDE HCL 10 MG/2 ML VIAL IV PUSH ONE (16:45)
[2017-11-24 16:47] LABS: ALKALINE PHOSPHATASE 72 U/L (45-117); ALT (GPT) 21 U/L (12-78); TOTAL BILIRUBIN ADULT 0.2 MG/DL (0.2-1.0); TOTAL PROTEIN 7.1 GM/DL (6.4-8.2)
--- NOTE | 2017-11-24 17:03 | PD ---
HPI Chief Complaint: Abdominal Pain Time Seen by Provider: 16:17 Travel History International Travel<30 days: No Contact w/Intl Traveler<30days: No Traveled to known affect area: No History of Present Illness HPI 37-year-old male with a history of Crohn's disease, lupus, and rheumatoid arthritis presents to the emergency department complaining of mid epigastric pain that started approximately 1 week ago. Patient states that he believes this exacerbation was caused by increased stress in his life. Patient states that his abdominal pain does change with each episode but does believe that this is related to his Crohn's disease. Patient denies any new medications or foods. Patient states he has felt mildly nauseous but takes Zofran as needed. Patient's last bowel movement was this morning after 3 days of constipation. Patient denies hematochezia, melena, hematemesis. Denies fever, chills, chest pain, shortness of breath. Patient states that when he has had this pain previously he was admitted and given protein shakes for nutrition. PFSH Past Medical History Hx Anticoagulant Therapy: No Arthritis: Yes (RA) Asthma: No Autoimmune Disease: Yes (Lupus, RA, Vasculitis, Ankylosing spondylitis ) Blood Disorders: No Anxiety: Yes Depression: Yes Heart Rhythm Problems: No Cancer: Yes (Thyroid) Cardiovascular Problems: No High Cholesterol: No Chemotherapy: Yes Chest Pain: No Congestive Heart Failure: No COPD: No Cerebrovascular Accident: No Diabetes: No Diminished Hearing: No Endocrine: No Gastrointestinal Disorders: Yes (Chrohn's) GERD: Yes Genitourinary: No Headaches: No Hiatal Hernia: No Heparin Induced Thrombocytopen: No Hypertension: Yes Immune Disorder: No Implanted Vascular Access Dvce: No Kidney Stones: No Musculoskeletal: Yes Neurologic: Yes (SEIZURES, BRAIN CYST, BELLS PALSY) Psychiatric: No Reproductive: No Respiratory: No Immunizations Current: Yes Migraines: Yes Pancreatitis: Yes Radiation Therapy: Yes (Radioactive iodine for thyroid ) Renal Failure: No Seizures: Yes Sickle Cell Disease: No Sleep Apnea: No Thyroid Disease: Yes Ulcer: Yes PNEUMOCCOCAL Vaccine (Year): 1 ?: Not Past Surgical History Abdominal Surgery: No AICD: No Arteriovenous Shunt: No Cardiac Surgery: No Ear Surgery: No Endocrine Surgery: No Eye Surgery: No Genitourinary Surgery: No Gynecologic Surgery: No Hysterectomy: No Insulin Pump: No Joint Replacement: No Neurologic Surgery: No Oral Surgery: No Pacemaker: No Thoracic Surgery: No Other Surgery: Yes (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 ) Social History Alcohol Use: No Tobacco Use: No Substance Use: No Allergies-Medications (Allergen,Severity, Reaction): Coded Allergies: cat dander (Unverified Allergy, Mild, Cough, 11/24/17) morphine (Unverified Allergy, Mild, Rash, 11/24/17) Reported Meds & Prescriptions Reported Meds & Active Scripts Active Percocet (Oxycodone-Acetaminophen) 5-325 mg Tab 1-2 Tab PO Q4H PRN Dilantin (Phenytoin Extended) 100 Mg Cap 100 Mg PO Q8HR Reported [place] (Hydrocodone-Acetaminophen) 10-325 Mg Tab 1 Tab PO Q4HR PRN Oxycodone ER (Oxycodone HCl) 20 Mg Tab 20 Mg PO BID Gabapentin 600 Mg Tab 600 Mg PO 5 TIMES A DAY Omeprazole 40 Mg Cap 40 Mg PO DAILY Folic Acid 1 Mg Tablet 1 Mg PO DAILY Methotrexate Inj 50 Mg/2 Ml Inj 0.6 Ml IM WEEKLY Potassium 99 Mg Tablet 99 Mg PO BID Men's Multi-Vitamin (Multivitamin) 1 Each Tablet 1 Tab PO DAILY Acidophilus (Probiotic Product) 1 Cap Cap 1 Cap PO DAILY Butorphanol Nasal [place] (Butorphanol Tartrate) 10 Mg/Ml Soln 1 [place] NASAL Q3HR PRN in one nostril (1 mg). If pain not reliefed in 60-90 minutes, a 1 mg repeat dose may be given. May repeat this in 3-4 hrs if needed. Protonix (Pantoprazole Sodium) 40 Mg Tab 40 Mg PO AC LUNCH Tramadol (Tramadol HCl) 50 Mg Tab 50 Mg PO Q6H PRN Prednisone 5 Mg Tab 5 Mg PO DAILY Metaxalone 800 Mg Tab 800 Mg PO TID Diclofenac-Misoprostol 75-0.2 Mg Tab 1 Tab PO BID PRN Humira 2-Pack Inj (Adalimumab 2-Pack Inj) 40 Mg/0.8 Ml Syr 40 Mg SQ Q14D Cialis (Tadalafil) 5 Mg Tab 5 Mg PO DAILY Do not exceed 1 dose/day. Amitriptyline (Amitriptyline HCl) 25 Mg Tab 75 Mg PO HS Clonazepam 2 Mg Tab 2 Mg PO TID [place] 5 Mg Tab 5 Mg PO TID PRN Levothyroxine (Levothyroxine Sodium) 112 Mcg Tab 112 Mcg PO DAILY Flomax (Tamsulosin HCl) 0.4 Mg Cap 0.4 Mg PO BID Review of Systems Except as stated in HPI: all other systems reviewed are Neg Physical Exam Narrative GENERAL: Well-developed well-nourished in no apparent distress SKIN: Focused skin assessment warm/dry. HEAD: Atraumatic. Normocephalic. EYES: Pupils equal and round. No scleral icterus. No injection or drainage. ENT: No nasal bleeding or discharge. Mucous membranes pink and moist. NECK: Trachea midline. No JVD. No lymphadenopathy CARDIOVASCULAR: Regular rate and rhythm. No murmur appreciated. RESPIRATORY: No accessory muscle use. Clear to auscultation. Breath sounds equal bilaterally. GASTROINTESTINAL: Voluntary guarding, midepigastric and right-sided abdominal tenderness to palpation, no rebound tenderness. Mild TTP left abdomen. MUSCULOSKELETAL: No obvious deformities. No clubbing. No cyanosis. No edema. Negative psoas sign, negative heel strike NEUROLOGICAL: Awake and alert. No obvious cranial nerve deficits. Motor grossly within normal limits. Normal speech. PSYCHIATRIC: Appropriate mood and affect; insight and judgment normal. Data Data Last Documented VS Vital Signs Date Time Temp Pulse Resp B/P (MAP) Pulse Ox O2 Delivery O2 Flow Rate FiO2 11/24/17 19:24 11/24/17 18:55 73 16 99 Room Air 11/24/17 16:19 98.0 Orders Orders Complete Blood Count With Diff (11/24/17 15:47) Comprehensive Metabolic Panel (11/24/17 15:47) Urinalysis - C+S If Indicated (11/24/17 15:47) Iv Access Insert/Monitor (11/24/17 15:47) Oxygen Administration (11/24/17 15:47) Oximetry (11/24/17 15:47) Lipase (11/24/17 15:47) Sodium Chlor 0.9% 1000 Ml Inj (Ns 1000 M (11/24/17 16:45) Metoclopramide Inj (Reglan Inj) (11/24/17 16:45) Fentanyl Inj (Fentanyl Inj) (11/24/17 16:45) Fentanyl Inj (Fentanyl Inj) (11/24/17 18:30) Ed Discharge Order (11/24/17 18:27) Labs Laboratory Tests Test 11/24/17 16:00 11/24/17 16:30 White Blood Count 4.7 TH/MM3 Red Blood Count 4.41 MIL/MM3 Hemoglobin 12.8 GM/DL Hematocrit 38.3 % Mean Corpuscular Volume 87.0 FL Mean Corpuscular Hemoglobin 29.1 PG Mean Corpuscular Hemoglobin Concent 33.4 % Red Cell Distribution Width 15.0 % Platelet Count 180 TH/MM3 Mean Platelet Volume 8.0 FL Neutrophils (%) (Auto) 59.9 % Lymphocytes (%) (Auto) 32.6 % Monocytes (%) (Auto) 4.7 % Eosinophils (%) (Auto) 2.1 % Basophils (%) (Auto) 0.7 % Neutrophils # (Auto) 2.8 TH/MM3 Lymphocytes # (Auto) 1.5 TH/MM3 Monocytes # (Auto) 0.2 TH/MM3 Eosinophils # (Auto) 0.1 TH/MM3 Basophils # (Auto) 0.0 TH/MM3 CBC Comment DIFF FINAL Differential Comment Blood Urea Nitrogen 10 MG/DL Creatinine 0.81 MG/DL Random Glucose 97 MG/DL Total Protein 7.1 GM/DL Albumin 3.8 GM/DL Calcium Level 8.5 MG/DL Alkaline Phosphatase 72 U/L Aspartate Amino Transf (AST/SGOT) 15 U/L Alanine Aminotransferase (ALT/SGPT) 21 U/L Total Bilirubin 0.2 MG/DL Sodium Level 144 MEQ/L Potassium Level 3.8 MEQ/L Chloride Level 108 MEQ/L Carbon Dioxide Level 29.1 MEQ/L Anion Gap 7 MEQ/L Estimat Glomerular Filtration Rate 107 ML/MIN Lipase 83 U/L Urine Color LIGHT-YELLOW Urine Turbidity CLEAR Urine pH 7.0 Urine Specific [place] 1.008 Urine Protein NEG mg/dL Urine Glucose (UA) NEG mg/dL Urine Ketones NEG mg/dL Urine Occult Blood NEG Urine Nitrite NEG Urine Bilirubin NEG Urine Urobilinogen LESS THAN 2.0 MG/DL Urine Leukocyte Esterase NEG Microscopic Urinalysis Comment CULT NOT INDICATED MDM Medical Decision Making Medical Screen Exam Complete: Yes Emergency Medical Condition: Yes Differential Diagnosis Acute exacerbation of Crohn's disease, gastritis, chronic abdominal pain Narrative Course 37-year-old male with a history of Crohn's disease, lupus, and rheumatoid arthritis presents to the emergency department complaining of mid epigastric pain that started approximately 1 week ago. Patient states that he believes this exacerbation was caused by increased stress in his life. Patient states that his abdominal pain does change with each episode but does believe that this is related to his Crohn's disease. Patient denies any new medications or foods. Patient states he has felt mildly nauseous but takes Zofran as needed. Patient's last bowel movement was this morning after 3 days of constipation. Patient denies hematochezia, melena, hematemesis. Denies fever, chills, chest pain, shortness of breath. Patient states that when he has had this pain previously he was admitted and given protein shakes for nutrition. Patient denies any new ingestions or illicit drugs. Says he went to his primary care physician today who gave him an injection of Toradol for his migraine and later recommended he follow up in the emergency department because of the abdominal pain. Vital signs stable. Physical exam findings- abdomen tenderness palpation of the right greater than left, mid epigastric pain. Patient states that this pain is similar to previous episodes and does not believe this is something more serious. Patient states that he was previously admitted for several days for nutrition. Says that he is trying to wean off of chronic pain medications however, he does have continuous exacerbations. I do not feel that imaging is necessary today. Fentanyl and IVF administered today with great improvement in symptoms. Patient follows multiple specialists and has close follow-up with them. In addition, patient reassures me that he has a good patient relationship with his physician and follows him regularly as well. Patient was given pain medication approximately 5 days ago for his Crohn's disease. Patient requests a change in his medication however, I do not feel this is appropriate today. Pt has a good relationship with his provider and I believe it would be best left to him. Diagnosis Primary Impression: Crohn's disease Qualified Codes: K50.90 - Crohn's disease, unspecified, without complications Referrals: Primary Care Physician Additional Instructions: Follow-up with primary care physician within 2-3 days. Ensure you have adequate fluid intake. Disposition: 01 DISCHARGE HOME Condition: Stable Shannon Dejesus Nov 24, 2017 17:03
[2017-11-24 17:04] LABS: BILIRUBIN, URINE NEG (NEG); BLOOD, URINE NEG (NEG); GLUCOSE,URINE NEG (NEG); KETONE, URINE NEG (NEG); NITRITE,URINE NEG (NEG); URINE COLOR LIGHT-YELLOW (YELLW/STRAW); URINE LEUKOCYTE ESTERASE NEG (NEG)
[2017-11-24 17:17] VITALS: BP 173/82; PULSE 80; RESP 17; O2SAT 98
[2017-11-24 18:55] VITALS: BP 138/86; PULSE 73; RESP 16; O2SAT 99
== END 2017-11-24 19:25 | disposition home or self-care (01) ==
LOC: NEPC 15:15
DX: K50.90 Crohn's disease, unspecified, without complications (principal); M06.9 Rheumatoid arthritis, unspecified; M32.9 Systemic lupus erythematosus, unspecified; M45.9 Ankylosing spondylitis of unspecified sites in spine; F32.9 Major depressive disorder, single episode, unspecified; K21.9 Gastro-esophageal reflux disease without esophagitis; I10 Essential (primary) hypertension; R56.9 Unspecified convulsions
CPT/HCPCS: 80053; 81001; 83690; 85025; 96361; 96374; 96375; 96376; 99284; J2765; J3010; J7030

== ENCOUNTER 2017-12-13 19:56 | Emergency (ER) | payer BC ==
[~2017-12-13 19:56] MED LIST changes: -CITA20TA4 PO; -CYCL10TA PO; -LEVE500 PO
[2017-12-13 20:01] VITALS: BP 163/102; PULSE 85; RESP 20; TEMP 97.7; O2SAT 100
[2017-12-13 21:31] VITALS: BP 131/77; PULSE 76; RESP 20; O2SAT 97
--- NOTE | 2017-12-13 21:40 | PD ---
HPI Chief Complaint: Pain: Acute or Chronic Time Seen by Provider: 21:39 Travel History International Travel<30 days: No Contact w/Intl Traveler<30days: No Traveled to known affect area: No History of Present Illness HPI Patient has history of lupus and says that all his joints and muscles are aching. He was recently discharged as of yesterday from [facility] after staying there for about 24 hours. Patient probably had a seizure episode and was transferred to [facility] from [facility]. Patient says that he was given some formal steroid there and they thought that his seizure was probably related to his lupus. Patient's patient support tech is from [place] as well but for some reason they never consulted them. Vital signs are stable. [facility] Past Medical History Narrative Medical List of his past medical, surgical, social and family history is reviewed from the nursing note. Hx Anticoagulant Therapy: No Arthritis: Yes (RA) Asthma: No Autoimmune Disease: Yes (Lupus, RA, Vasculitis, Ankylosing spondylitis ) Blood Disorders: No Anxiety: Yes Depression: Yes Heart Rhythm Problems: No Cancer: Yes (Thyroid) Cardiovascular Problems: No High Cholesterol: No Chemotherapy: Yes Chest Pain: No Congestive Heart Failure: No COPD: No Cerebrovascular Accident: No Diabetes: No Diminished Hearing: No Endocrine: No Gastrointestinal Disorders: Yes (Chrohn's) GERD: Yes Genitourinary: No Headaches: No Hiatal Hernia: No Heparin Induced Thrombocytopen: No Hypertension: Yes Immune Disorder: No Implanted Vascular Access Dvce: No Kidney Stones: No Musculoskeletal: Yes Neurologic: Yes (SEIZURES, BRAIN CYST, BELLS PALSY) Psychiatric: No Reproductive: No Respiratory: No Immunizations Current: Yes Migraines: Yes Pancreatitis: Yes Radiation Therapy: Yes (Radioactive iodine for thyroid ) Renal Failure: No Seizures: Yes Sickle Cell Disease: No Sleep Apnea: No Thyroid Disease: Yes Ulcer: Yes PNEUMOCCOCAL Vaccine (Year): 1 Past Surgical History Abdominal Surgery: No AICD: No Arteriovenous Shunt: No Cardiac Surgery: No Ear Surgery: No Endocrine Surgery: No Eye Surgery: No Genitourinary Surgery: No Gynecologic Surgery: No Hysterectomy: No Insulin Pump: No Joint Replacement: No Neurologic Surgery: No Oral Surgery: No Pacemaker: No Thoracic Surgery: No Other Surgery: Yes (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 ) Social History Alcohol Use: No Tobacco Use: No Substance Use: No Allergies-Medications (Allergen,Severity, Reaction): Coded Allergies: cat dander (Verified Allergy, Mild, Cough, 12/16/17) morphine (Verified Allergy, Mild, Rash, 12/16/17) Comments List of his allergies reviewed from the nursing note. Reported Meds & Prescriptions Reported Meds & Active Scripts Active Percocet (Oxycodone-Acetaminophen) 5-325 mg Tab 1-2 Tab PO Q4H PRN Dilantin (Phenytoin Extended) 100 Mg Cap 100 Mg PO Q8HR Reported Gabapentin 600 Mg Tab 600 Mg PO 5 TIMES A DAY Omeprazole 40 Mg Cap 40 Mg PO DAILY Folic Acid 1 Mg Tablet 1 Mg PO DAILY Methotrexate Inj 50 Mg/2 Ml Inj 0.6 Ml IM WEEKLY Men's Multi-Vitamin (Multivitamin) 1 Each Tablet 1 Tab PO DAILY Acidophilus (Probiotic Product) 1 Cap Cap 1 Cap PO DAILY Butorphanol Nasal [place] (Butorphanol Tartrate) 10 Mg/Ml Soln 1 [place] NASAL Q3HR PRN in one nostril (1 mg). If pain not reliefed in 60-90 minutes, a 1 mg repeat dose may be given. May repeat this in 3-4 hrs if needed. Protonix (Pantoprazole Sodium) 40 Mg Tab 40 Mg PO AC LUNCH Metaxalone 800 Mg Tab 800 Mg PO TID Diclofenac-Misoprostol 75-0.2 Mg Tab 1 Tab PO BID PRN Humira 2-Pack Inj (Adalimumab 2-Pack Inj) 40 Mg/0.8 Ml Syr 40 Mg SQ Q14D Cialis (Tadalafil) 5 Mg Tab 5 Mg PO DAILY Do not exceed 1 dose/day. Amitriptyline (Amitriptyline HCl) 25 Mg Tab 75 Mg PO HS Clonazepam 2 Mg Tab 2 Mg PO TID Pilocarpine 5 Mg Tab 5 Mg PO TID PRN Levothyroxine (Levothyroxine Sodium) 112 Mcg Tab 112 Mcg PO DAILY Flomax (Tamsulosin HCl) 0.4 Mg Cap 0.4 Mg PO BID Narrative Medication List of his home medications reviewed from the nursing note. Review of Systems Except as stated in HPI: all other systems reviewed are Neg Musculoskeletal: Positive: Myalgias Physical Exam Narrative GENERAL: Awake, alert, moderate distress SKIN: Focused skin assessment warm/dry. Malar rash HEAD: Atraumatic. Normocephalic. EYES: Pupils equal and round. No scleral icterus. No injection or drainage. ENT: No nasal bleeding or discharge. Mucous membranes pink and moist. NECK: Trachea midline. No JVD. CARDIOVASCULAR: Regular rate and rhythm. No murmur appreciated. RESPIRATORY: No accessory muscle use. Clear to auscultation. Breath sounds equal bilaterally. GASTROINTESTINAL: Abdomen soft, non-tender, nondistended. Hepatic and splenic margins not palpable. MUSCULOSKELETAL: No obvious deformities. No clubbing. No cyanosis. No edema. NEUROLOGICAL: Awake and alert. No obvious cranial nerve deficits. Motor grossly within normal limits. Normal speech. PSYCHIATRIC: Appropriate mood and affect; insight and judgment normal. Data Data Last Documented VS Vital Signs Date Time Temp Pulse Resp B/P (MAP) Pulse Ox O2 Delivery O2 Flow Rate FiO2 12/14/17 03:06 68 18 140/85 (103) 98 12/14/17 01:00 Room Air 12/13/17 20:01 97.7 Orders Orders Complete Blood Count With Diff (12/13/17 21:46) Comprehensive Metabolic Panel (12/13/17 21:46) [place] Sedimentation Rate (12/13/17 21:46) Creatine Kinase (Cpk) (12/13/17 21:46) Methylprednisolone So Succ Inj (Solumedr (12/13/17 22:00) Ketorolac Inj (Toradol Inj) (12/13/17 22:00) Sodium Chlor 0.9% 1000 Ml Inj (Ns 1000 M (12/14/17 01:30) Ondansetron Inj (Zofran Inj) (12/14/17 01:30) Ed Discharge Order (12/14/17 01:56) Hydromorphone Pf Inj (Dilaudid Pf Inj) (12/14/17 02:30) Labs Laboratory Tests Test 12/13/17 22:25 12/13/17 23:45 Blood Urea Nitrogen 17 MG/DL Creatinine 0.72 MG/DL Random Glucose 88 MG/DL Total Protein 7.4 GM/DL Albumin 4.0 GM/DL Calcium Level 8.4 MG/DL Alkaline Phosphatase 76 U/L Aspartate Amino Transf (AST/SGOT) 15 U/L Alanine Aminotransferase (ALT/SGPT) 19 U/L Total Bilirubin 0.3 MG/DL Sodium Level 141 MEQ/L Potassium Level 3.4 MEQ/L Chloride Level 107 MEQ/L Carbon Dioxide Level 27.4 MEQ/L Anion Gap 7 MEQ/L Estimat Glomerular Filtration Rate 122 ML/MIN Total Creatine Kinase 82 U/L White Blood Count 5.6 TH/MM3 Red Blood Count 4.53 MIL/MM3 Hemoglobin 13.1 GM/DL Hematocrit 40.4 % Mean Corpuscular Volume 89.2 FL Mean Corpuscular Hemoglobin 28.9 PG Mean Corpuscular Hemoglobin Concent 32.4 % Red Cell Distribution Width 15.9 % Platelet Count 172 TH/MM3 Mean Platelet Volume 8.2 FL Neutrophils (%) (Auto) 66.3 % Lymphocytes (%) (Auto) 26.9 % Monocytes (%) (Auto) 4.7 % Eosinophils (%) (Auto) 1.5 % Basophils (%) (Auto) 0.6 % Neutrophils # (Auto) 3.7 TH/MM3 Lymphocytes # (Auto) 1.5 TH/MM3 Monocytes # (Auto) 0.3 TH/MM3 Eosinophils # (Auto) 0.1 TH/MM3 Basophils # (Auto) 0.0 TH/MM3 CBC Comment DIFF FINAL Differential Comment Erythrocyte Sedimentation Rate 1 mm/hr MDM Medical Decision Making Medical Screen Exam Complete: Yes Emergency Medical Condition: Yes Medical Record Reviewed: Yes Differential Diagnosis Rhabdomyolysis, lupus flareup, chronic pain Narrative Course 10:15 PM awaiting for the blood test result. Patient is given IV Solu-Medrol and Toradol. 10:50 PM awaiting for the blood test result. Case will be signed over to the oncoming ER physician. Procedures EKG Prior to Arrival: Mohsen Henderson MD Dec 13, 2017 21:40
[2017-12-13] MEDS ORDERED: methylPREDNISolone SOD SUCC 125 MG/2 ML VIAL IV PUSH ONE (22:00)
[2017-12-13] MEDS ORDERED: KETOROLAC TROMETHAMINE 30 MG/ML (IVP) VIAL IV PUSH ONE (22:00)
[2017-12-13 22:47] VITALS: BP 129/87; PULSE 76; RESP 18; O2SAT 99
--- NOTE | 2017-12-13 22:56 | PD ---
Physical Exam Date Seen by Provider: Dec 13, 2017 Time Seen by Provider: 22:55 Narrative Accepted in transfer of care from Dr. Jamison Data Data Last Documented VS Vital Signs Date Time Temp Pulse Resp B/P (MAP) Pulse Ox O2 Delivery O2 Flow Rate FiO2 12/14/17 00:01 76 18 145/88 (107) 97 Room Air 12/13/17 20:01 97.7 Orders Orders Complete Blood Count With Diff (12/13/17 21:46) Comprehensive Metabolic Panel (12/13/17 21:46) [place]gren Sedimentation Rate (12/13/17 21:46) Creatine Kinase (Cpk) (12/13/17 21:46) Methylprednisolone So Succ Inj (Solumedr (12/13/17 22:00) Ketorolac Inj (Toradol Inj) (12/13/17 22:00) Sodium Chlor 0.9% 1000 Ml Inj (Ns 1000 M (12/14/17 01:30) Ondansetron Inj (Zofran Inj) (12/14/17 01:30) Ed Discharge Order (12/14/17 01:56) Hydromorphone Pf Inj (Dilaudid Pf Inj) (12/14/17 02:00) Labs Laboratory Tests Test 12/13/17 22:25 12/13/17 23:45 Blood Urea Nitrogen 17 MG/DL Creatinine 0.72 MG/DL Random Glucose 88 MG/DL Total Protein 7.4 GM/DL Albumin 4.0 GM/DL Calcium Level 8.4 MG/DL Alkaline Phosphatase 76 U/L Aspartate Amino Transf (AST/SGOT) 15 U/L Alanine Aminotransferase (ALT/SGPT) 19 U/L Total Bilirubin 0.3 MG/DL Sodium Level 141 MEQ/L Potassium Level 3.4 MEQ/L Chloride Level 107 MEQ/L Carbon Dioxide Level 27.4 MEQ/L Anion Gap 7 MEQ/L Estimat Glomerular Filtration Rate 122 ML/MIN Total Creatine Kinase 82 U/L White Blood Count 5.6 TH/MM3 Red Blood Count 4.53 MIL/MM3 Hemoglobin 13.1 GM/DL Hematocrit 40.4 % Mean Corpuscular Volume 89.2 FL Mean Corpuscular Hemoglobin 28.9 PG Mean Corpuscular Hemoglobin Concent 32.4 % Red Cell Distribution Width 15.9 % Platelet Count 172 TH/MM3 Mean Platelet Volume 8.2 FL Neutrophils (%) (Auto) 66.3 % Lymphocytes (%) (Auto) 26.9 % Monocytes (%) (Auto) 4.7 % Eosinophils (%) (Auto) 1.5 % Basophils (%) (Auto) 0.6 % Neutrophils # (Auto) 3.7 TH/MM3 Lymphocytes # (Auto) 1.5 TH/MM3 Monocytes # (Auto) 0.3 TH/MM3 Eosinophils # (Auto) 0.1 TH/MM3 Basophils # (Auto) 0.0 TH/MM3 CBC Comment DIFF FINAL Differential Comment Erythrocyte Sedimentation Rate 1 mm/hr [facility] Medical Record Reviewed: Yes Supervised Visit with CRISTI: No Differential Diagnosis Accepted in transfer of care from Dr. Jamison; please refer to her dictation Narrative Course Accepted in transfer of care from Dr. Jamison; follow up labs and disposition Patient denies any pain relief after Solu-Medrol 125 mg IV and Toradol 30 mg IV Patient states that he is scheduled to see his primary care provider Dr. Bansal on Thursday and his asbestos worker helper this week. Patient typically requires pulse dosing of steroids but states that he is here because of his pain and not prescription for his steroid therapy Patient reports that he took his pain medication today Percocet one dose 3 times daily without pain relief. Patient's had no fever or chills. Patient complains of myalgias and arthralgias typical of a flare of his lupus. Patient is informed that his CBC is automated differential and sedimentation rate as well as chemistries are all normal range heart rate is normal blood pressure is normal patient is afebrile. Patient is given a one-time dose of pain medication and is discharged to home Diagnosis Primary Impression: Chronic pain syndrome Referrals: Shantanu Bansal MD 1 day [employer] 2 days Patient Instructions: Narcotic given in the ED, General Instructions Additional Instruction: Follow-up with your asbestos worker helper Follow-up with your primary care provider Return to the emergency department for any concerns or change in condition Med/Other Pt SpecificInfo: No Change to Meds Disposition: 01 DISCHARGE HOME Condition: Stable Claudia Bruce MD Dec 13, 2017 22:56
[2017-12-13 23:12] LABS: CHLORIDE 107 MEQ/L (98-107); SODIUM (NA) 141 MEQ/L (136-145)
[2017-12-13 23:15] LABS: CALCIUM 8.4 MG/DL (8.5-10.1)
[2017-12-13 23:16] LABS: BICARBONATE 27.4 MEQ/L (21.0-32.0); BLOOD UREA NITROGEN 17 MG/DL (7-18); GLUCOSE,RANDOM 88 MG/DL (74-106)
[2017-12-13 23:19] LABS: ALT (GPT) 19 U/L (12-78); AST (GOT) 15 U/L (15-37); CREATININE 0.72 MG/DL (0.60-1.30); GLOMERULAR FILTRATION RATE 122 ML/MIN (>89)
[2017-12-13 23:20] LABS: TOTAL BILIRUBIN ADULT 0.3 MG/DL (0.2-1.0); TOTAL PROTEIN 7.4 GM/DL (6.4-8.2)
[2017-12-13 23:22] LABS: ALKALINE PHOSPHATASE 76 U/L (45-117)
[2017-12-13 23:59] LABS: AUTOMATED NEUTROPHIL # 3.7 TH/MM3 (1.8-7.7); BASOPHIL % 0.6 % (0.0-2.0); EOSINOPHIL # 0.1 TH/MM3 (0-0.4); EOSINOPHIL % 1.5 % (0.0-4.0); HEMATOCRIT 40.4 % (39.0-51.0); HEMOGLOBIN 13.1 GM/DL (13.0-17.0); LYMPH % 26.9 % (9.0-44.0); LYMPHOCYTE # 1.5 TH/MM3 (1.0-4.8); MEAN CELL VOLUME 89.2 FL (80.0-100.0); MEAN CORPUSCULAR HEMOGLOBIN 28.9 PG (27.0-34.0); MEAN CORPUSCULAR HGB CONC 32.4 % (32.0-36.0); MEAN PLATELET VOLUME 8.2 FL (7.0-11.0); MONO % 4.7 % (0.0-8.0); MONOCYTE # 0.3 TH/MM3 (0-0.9); NEUT % 66.3 % (16.0-70.0); PLATELET COUNT 172 TH/MM3 (150-450); RED BLOOD COUNT 4.53 MIL/MM3 (4.50-5.90); RED CELL DISTRIBUTION WIDTH 15.9 % (11.6-17.2); WHITE BLOOD COUNT 5.6 TH/MM3 (4.0-11.0)
[2017-12-14 00:01] VITALS: BP 145/88; PULSE 76; RESP 18; O2SAT 97
[2017-12-14 01:00] VITALS: BP 148/93; PULSE 72; RESP 18; O2SAT 97
[2017-12-14] MEDS ORDERED: ONDANSETRON HCL 4 MG/2 ML VIAL IV PUSH ONE (01:30)
[2017-12-14] MEDS ORDERED: SODIUM CHLOR 0.9% 1000 ML INJ 1,000 ML IV ONE (01:30)
[2017-12-14] MEDS ORDERED: HYDROmorphone HCL PF 1 MG/ML VIAL IV PUSH ONE (02:00)
[2017-12-14] MEDS ORDERED: HYDROmorphone HCL PF 2 MG/ML VIAL IV ONE (02:30)
[2017-12-14 03:01] VITALS: RESP 18
[2017-12-14 03:06] VITALS: BP 140/85
== END 2017-12-14 03:14 | disposition home or self-care (01) ==
LOC: PHED 19:56
DX: G89.4 Chronic pain syndrome (principal); M32.9 Systemic lupus erythematosus, unspecified; M06.9 Rheumatoid arthritis, unspecified; M45.9 Ankylosing spondylitis of unspecified sites in spine; I77.6 Arteritis, unspecified; I10 Essential (primary) hypertension; K21.9 Gastro-esophageal reflux disease without esophagitis; R56.9 Unspecified convulsions; Z87.19 Personal history of other diseases of the digestive system
CPT/HCPCS: 80053; 82550; 85025; 85652; 96361; 96374; 96375; 99284; J1170; J1885; J2405; J2930; J7030

== ENCOUNTER 2017-12-16 00:25 | Observation (INO) | payer BC ==
[~2017-12-16] VITALS: Ht 182.9 cm; Wt 95.4 kg
[~2017-12-16 00:25] MED LIST changes: -HYDR-3366 PO; -OXYC-405 PO; -PRED5TAB PO; -TRAM50TA PO
[2017-12-16 00:29] VITALS: BP 152/98; PULSE 104; RESP 16; TEMP 98; O2SAT 97
[2017-12-16] MEDS ORDERED: SODIUM CHLOR 0.9% 1000 ML INJ 1,000 ML IV ONE ×2 (00:39→00:45)
[2017-12-16] MEDS ORDERED: ONDANSETRON HCL 4 MG/2 ML VIAL IV PUSH ONE (00:45)
[2017-12-16] MEDS ORDERED: SODIUM CHLORIDE 0.9% FLUSH 10 ML FLUSH IVF PRN (00:45)
[2017-12-16] MEDS ORDERED: KETOROLAC TROMETHAMINE 30 MG/ML (IVP) VIAL IV PUSH ONE (00:45)
[2017-12-16 01:14] LABS: AUTOMATED NEUTROPHIL # 6.7 TH/MM3 (1.8-7.7); BASOPHIL % 0.1 % (0.0-2.0); HEMATOCRIT 45.2 % (39.0-51.0); HEMOGLOBIN 14.7 GM/DL (13.0-17.0); LYMPH % 8.3 % (9.0-44.0); LYMPHOCYTE # 0.6 TH/MM3 (1.0-4.8); MEAN CELL VOLUME 87.5 FL (80.0-100.0); MEAN CORPUSCULAR HEMOGLOBIN 28.4 PG (27.0-34.0); MEAN CORPUSCULAR HGB CONC 32.4 % (32.0-36.0); MEAN PLATELET VOLUME 8.3 FL (7.0-11.0); MONO % 0.3 % (0.0-8.0); NEUT % 91.3 % (16.0-70.0); PLATELET COUNT 220 TH/MM3 (150-450); RED BLOOD COUNT 5.17 MIL/MM3 (4.50-5.90); WHITE BLOOD COUNT 7.3 TH/MM3 (4.0-11.0)
[2017-12-16 01:14] LABS: BILIRUBIN, URINE NEG (NEG); BLOOD, URINE NEG (NEG); GLUCOSE,URINE NEG (NEG); KETONE, URINE NEG (NEG); NITRITE,URINE NEG (NEG); PH, URINE 5.5 (5.0-8.5); URINE LEUKOCYTE ESTERASE NEG (NEG)
--- NOTE | 2017-12-16 01:23 | PD ---
HPI Chief Complaint: General Weakness Time Seen by Provider: 00:39 Travel History International Travel<30 days: No Contact w/Intl Traveler<30days: No Traveled to known affect area: No History of Present Illness HPI 37 year-old male presents to the emergency department from home by EMS transport for complaint of abdominal and flank pain. Patient has history of kidney stones Crohn's disease and lupus reportedly. Patient was just here 2 days ago for complaint of pain associated with this lupus and was given a one- time dose of Solu-Medrol and Toradol and Dilaudid. Patient poorly followed up with his primary care provider Dr. Bansal today and was given a pulse dosing of oral prednisone but did not fill the prescription as he could not get to the pharmacy reportedly. Patient states that he was told by his [facility] gate technician who manages his history and medications for his diagnosis of lupus as well as his Crohn's disease that he should come to the [facility] with states because of issues with private vehicle transportation, his 's availability to drive, his daughters availability to drive and his seizure related inability to drive he has not gone to [facility] to be admitted as he was reportedly told to do so. Patient was just here 12/13/17 and stated that he had just been discharged from [facility] 12/13/17 after being transferred there from [facility] 2 days before for evaluation of possible CVA. 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 Patient states during that visit supposedly gate technician with consult to but he did not see a gate technician. Patient does not voice report of any fever chills nausea vomiting mucoid or bloody diarrhea. Patient reports he took his last pain medication Percocet 10/325 at midnight. Patient also reports that he is concerned that the flank pain that he is experiencing is related to his kidney stones. No voiced report of dysuria, frequency, urgency, or hematuria. Also complains of shortness of breath. Pain 8/10 in intensity. PFSH Past Medical History Narrative Medical Rheumatoid arthritis, lupus, Crohn's disease, seizure, vasculitis, ankylosing spondylitis, hypertension, brain cyst, hypothyroidism; upper endoscopy, colonoscopy, hand surgery; no tobacco use no alcohol use no substance use; nursing notes reviewed Hx Anticoagulant Therapy: No Arthritis: Yes (RA) Asthma: No Autoimmune Disease: Yes (Lupus, RA, Vasculitis, Ankylosing spondylitis ) Blood Disorders: No Anxiety: Yes Depression: Yes Heart Rhythm Problems: No Cancer: Yes (Thyroid) Cardiovascular Problems: No High Cholesterol: No Chemotherapy: Yes Chest Pain: No Congestive Heart Failure: No COPD: No Cerebrovascular Accident: No Diabetes: No Diminished Hearing: No Endocrine: No Gastrointestinal Disorders: Yes (Chrohn's) GERD: Yes Genitourinary: No Headaches: No Hiatal Hernia: No Heparin Induced Thrombocytopen: No Hypertension: Yes Immune Disorder: No Implanted Vascular Access Dvce: No Kidney Stones: No Musculoskeletal: Yes Neurologic: Yes (SEIZURES, BRAIN CYST, BELLS PALSY) Psychiatric: No Reproductive: No Respiratory: No Immunizations Current: Yes Migraines: Yes Pancreatitis: Yes Radiation Therapy: Yes (Radioactive iodine for thyroid ) Renal Failure: No Seizures: Yes Sickle Cell Disease: No Sleep Apnea: No Thyroid Disease: Yes Ulcer: Yes Influenza Vaccination: Yes PNEUMOCCOCAL Vaccine (Year): 1 Past Surgical History Abdominal Surgery: No AICD: No Arteriovenous Shunt: No Cardiac Surgery: No Ear Surgery: No Endocrine Surgery: No Eye Surgery: No Genitourinary Surgery: No Gynecologic Surgery: No Hysterectomy: No Insulin Pump: No Joint Replacement: No Neurologic Surgery: No Oral Surgery: No Pacemaker: No Thoracic Surgery: No Other Surgery: Yes (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 ) Social History Alcohol Use: No Tobacco Use: No Substance Use: No Allergies-Medications (Allergen,Severity, Reaction): Coded Allergies: cat dander (Verified Allergy, Mild, Cough, 12/16/17) morphine (Verified Allergy, Mild, Rash, 12/16/17) Reported Meds & Prescriptions Reported Meds & Active Scripts Active Percocet (Oxycodone-Acetaminophen) 5-325 mg Tab 1-2 Tab PO Q4H PRN Dilantin (Phenytoin Extended) 100 Mg Cap 100 Mg PO Q8HR Reported Gabapentin 600 Mg Tab 600 Mg PO 5 TIMES A DAY Omeprazole 40 Mg Cap 40 Mg PO DAILY Folic Acid 1 Mg Tablet 1 Mg PO DAILY Methotrexate Inj 50 Mg/2 Ml Inj 0.6 Ml IM WEEKLY Potassium 99 Mg Tablet 99 Mg PO BID Men's Multi-Vitamin (Multivitamin) 1 Each Tablet 1 Tab PO DAILY Acidophilus (Probiotic Product) 1 Cap Cap 1 Cap PO DAILY Butorphanol Nasal Cassatt (Butorphanol Tartrate) 10 Mg/Ml Soln 1 Cassatt NASAL Q3HR PRN in one nostril (1 mg). If pain not reliefed in 60-90 minutes, a 1 mg repeat dose may be given. May repeat this in 3-4 hrs if needed. Protonix (Pantoprazole Sodium) 40 Mg Tab 40 Mg PO AC LUNCH Metaxalone 800 Mg Tab 800 Mg PO TID Diclofenac-Misoprostol 75-0.2 Mg Tab 1 Tab PO BID PRN Humira 2-Pack Inj (Adalimumab 2-Pack Inj) 40 Mg/0.8 Ml Syr 40 Mg SQ Q14D Cialis (Tadalafil) 5 Mg Tab 5 Mg PO DAILY Do not exceed 1 dose/day. Amitriptyline (Amitriptyline HCl) 25 Mg Tab 75 Mg PO HS Clonazepam 2 Mg Tab 2 Mg PO TID Pilocarpine 5 Mg Tab 5 Mg PO TID PRN Levothyroxine (Levothyroxine Sodium) 112 Mcg Tab 112 Mcg PO DAILY Flomax (Tamsulosin HCl) 0.4 Mg Cap 0.4 Mg PO BID Review of Systems Except as stated in HPI: all other systems reviewed are Neg General / Constitutional: No: Fever, Chills HENT: No: Congestion Cardiovascular: Positive: Chest Pain or Discomfort (right lower posterior), No : Palpitations, Diaphoresis Respiratory: Positive: Shortness of Breath, No: Cough Gastrointestinal: Positive: Nausea, Abdominal Pain (RUQ and difuse), No: Vomiting, Diarrhea Genitourinary: Positive: Flank Pain (right ), No: Dysuria Musculoskeletal: Positive: Myalgias, Arthralgias Skin: No Rash Neurologic: No: Weakness Psychiatric: No: Anxiety Endocrine: No: Heat Intolerance Hematologic/Lymphatic: No: Easy Bruising Physical Exam Narrative GENERAL: Well-developed well-nourished male in no acute distress no respiratory distress SKIN: Warm and dry. Faint erythematous malar rash HEAD: Normocephalic. EYES: No scleral icterus. No injection or drainage. NECK: Supple, trachea midline. No JVD or lymphadenopathy. CARDIOVASCULAR: Regular rate and rhythm without murmurs, gallops, or rubs. RESPIRATORY: Breath sounds equal bilaterally. No accessory muscle use. GASTROINTESTINAL: Abdomen soft, diffusely tender without guarding or rebound, nondistended. MUSCULOSKELETAL: No cyanosis, or edema. BACK: Nontender without obvious deformity. No CVA tenderness. Data Data Last Documented VS Vital Signs Date Time Temp Pulse Resp B/P (MAP) Pulse Ox O2 Delivery O2 Flow Rate FiO2 12/16/17 03:45 82 16 126/92 (103) 98 Room Air 12/16/17 02:59 98.3 Orders Orders Complete Blood Count With Diff (12/16/17 00:39) Comprehensive Metabolic Panel (12/16/17 00:39) Urinalysis - C+S If Indicated (12/16/17 00:39) Ecg Monitoring (12/16/17 00:39) Iv Access Insert/Monitor (12/16/17 00:39) Ondansetron Inj (Zofran Inj) (12/16/17 00:45) Sodium Chloride 0.9% Flush (Ns Flush) (12/16/17 00:45) Sodium Chlor 0.9% 1000 Ml Inj (Ns 1000 M (12/16/17 00:39) Sodium Chlor 0.9% 1000 Ml Inj (Ns 1000 M (12/16/17 00:45) Ketorolac Inj (Toradol Inj) (12/16/17 00:45) Chest, Single Ap (12/16/17 ) Lipase (12/16/17 00:39) Drug Screen, Random Urine (12/16/17 00:39) Phenytoin (Dilantin) (12/16/17 01:03) Ct Pulmonary Angiogram (12/16/17 ) Ct Abd/Pel W Iv Contrast(Rout) (12/16/17 ) Iohexol 350 Inj (Omnipaque 350 Inj) (12/16/17 02:55) Blood Culture (12/16/17 03:23) Lactic Acid (12/16/17 03:23) Place In Observation (12/16/17 ) Vital Signs (Adult) Q4H (12/16/17 04:05) Activity Oob With Assistance (12/16/17 04:05) Diet Heart Healthy (12/16/17 Breakfast) Sodium Chloride 0.9% Flush (Ns Flush) (12/16/17 04:15) Sodium Chloride 0.9% Flush (Ns Flush) (12/16/17 09:00) Acetaminophen (Tylenol) (12/16/17 04:15) Ondansetron Inj (Zofran Inj) (12/16/17 04:15) Basic Metabolic Panel (Bmp) (12/17/17 06:00) Complete Blood Count With Diff (12/17/17 06:00) Naloxone Inj (Narcan Inj) (12/16/17 04:15) Docusate Sodium-Senna (Mariel-Colace) (12/16/17 09:00) Magnesium Hydroxide Liq (Milk Of Magnesi (12/16/17 04:15) Sennosides (Senokot) (12/16/17 04:15) Bisacodyl Supp (Dulcolax Supp) (12/16/17 04:15) Lactulose Liq (Lactulose Liq) (12/16/17 04:15) Methylprednisolone So Succ Inj (Solumedr (12/16/17 06:00) Methylprednisolone So Succ Inj (Solumedr (12/16/17 04:15) Admit Order (Ed Use Only) (12/16/17 ) Planning Engineer / Telemetry BLANCHE.Q8H (12/16/17 04:09) Activity Oob With Assistance (12/16/17 04:09) Notify Dr: Other (12/16/17 04:09) Labs Laboratory Tests Test 12/16/17 00:50 12/16/17 01:03 12/16/17 03:40 Urine Color STRAW Urine Turbidity CLEAR Urine pH 5.5 Urine Specific [place] 1.006 Urine Protein NEG mg/dL Urine Glucose (UA) NEG mg/dL Urine Ketones NEG mg/dL Urine Occult Blood NEG Urine Nitrite NEG Urine Bilirubin NEG Urine Leukocyte Esterase NEG Urine Squamous Epithelial Cells 0-5 /hpf Microscopic Urinalysis Comment CULT NOT INDICATED Urine Opiates Screen NEG Urine Barbiturates Screen POS Urine Amphetamines Screen NEG Urine Benzodiazepines Screen NEG Urine Cocaine Screen NEG Urine Cannabinoids Screen NEG White Blood Count 7.3 TH/MM3 Red Blood Count 5.17 MIL/MM3 Hemoglobin 14.7 GM/DL Hematocrit 45.2 % Mean Corpuscular Volume 87.5 FL Mean Corpuscular Hemoglobin 28.4 PG Mean Corpuscular Hemoglobin Concent 32.4 % Red Cell Distribution Width 16.0 % Platelet Count 220 TH/MM3 Mean Platelet Volume 8.3 FL Neutrophils (%) (Auto) 91.3 % Lymphocytes (%) (Auto) 8.3 % Monocytes (%) (Auto) 0.3 % Eosinophils (%) (Auto) 0.0 % Basophils (%) (Auto) 0.1 % Neutrophils # (Auto) 6.7 TH/MM3 Lymphocytes # (Auto) 0.6 TH/MM3 Monocytes # (Auto) 0.0 TH/MM3 Eosinophils # (Auto) 0.0 TH/MM3 Basophils # (Auto) 0.0 TH/MM3 CBC Comment DIFF FINAL Differential Comment Blood Urea Nitrogen 11 MG/DL Creatinine 0.88 MG/DL Random Glucose 157 MG/DL Total Protein 8.1 GM/DL Albumin 4.2 GM/DL Calcium Level 8.7 MG/DL Alkaline Phosphatase 82 U/L Aspartate Amino Transf (AST/SGOT) 12 U/L Alanine Aminotransferase (ALT/SGPT) 17 U/L Total Bilirubin 0.3 MG/DL Sodium Level 143 MEQ/L Potassium Level 3.6 MEQ/L Chloride Level 111 MEQ/L Carbon Dioxide Level 24.3 MEQ/L Estimat Glomerular Filtration Rate 97 ML/MIN Lipase 174 U/L Phenytoin (Dilantin) Level 5.7 MCG/ML Lactic Acid Level 2.1 mmol/L MDM Medical Decision Making Medical Screen Exam Complete: Yes Emergency Medical Condition: Yes Medical Record Reviewed: Yes Interpretation(s) CT pulmonary angiogram: CONCLUSION: 1. Negative for pulmonary embolism. No acute findings. Chavo Landers MD on December 16, 2017 at 3:03 Board Certified Radiologist. This report was verified electronically. CT abd/pel w/iv: FINDINGS: Lung bases demonstrate no consolidation or effusion. No acute findings in the liver, spleen, adrenals, kidneys or pancreas. No calcified gallstones or biliary ductal dilatation. There are scattered colonic diverticula. No evidence for diverticulitis. No acute bony abnormalities. CONCLUSION: 1. No acute findings. Colonic diverticulosis without diverticulitis. Appendix normal. Chavo Landers MD on December 16, 2017 at 3:04 Board Certified Radiologist. This report was verified electronically. CBC & BMP Diagram 12/16/17 01:03 Total Protein 8.1 #, Albumin 4.2, Calcium Level 8.7, Alkaline Phosphatase 82, Aspartate Amino Transf (AST/SGOT) 12 L, Alanine Aminotransferase (ALT/SGPT) 17, Total Bilirubin 0.3 ua: grossly wnl uds: Barbiturates dilantin: 5.7, subtherapeutic ua: wnl Last Impressions Chest X-Ray 12/16/17 0000 Signed Impressions: Service Date/Time: Saturday, December 16, 2017 00:50 - CONCLUSION: 1. No active disease. Chavo Landers MD CT Angiography 12/16/17 0000 Signed Impressions: Service Date/Time: Saturday, December 16, 2017 02:35 - CONCLUSION: 1. Negative for pulmonary embolism. No acute findings. Chavo Landers MD Abdomen/Pelvis CT 12/16/17 0000 Signed Impressions: Service Date/Time: Saturday, December 16, 2017 02:35 - CONCLUSION: 1. No acute findings. Colonic diverticulosis without diverticulitis. Appendix normal. Chavo Landers MD Differential Diagnosis Pleurisy PE pneumonia inflammatory bowel disease exacerbation diverticulitis pancreatitis choledocholithiasis dehydration acute on chronic abdominal pain, sepsis Narrative Course Patient with chronic pain syndrome related to multiple autoimmune disorder glucose Crohn's vasculitis rheumatoid arthritis ankylosing spondylitis. Patient returns after repeat visit 2 days ago with ongoing worsening pain was recently seen by his or [place] care provider and started on high-dose/pulse dose steroids but did not fill the prescription. Patient has had no fever chills. Patient has had pleuritic right sided chest pain shortness of breath with recent transport to [facility] hospitalization return home with decreased activity secondary to pain patient also complains of abdominal pain but does not report any bloody or mucoid stools has been afebrile patient has been taking his Percocet as prescribed without pain relief. IV access obtained specimens collected and sent for resulting IV fluids administered patient offered Toradol 30 mg IV for pain management Labs resulted CBC metabolic panel urinalysis and normal range CT pulmonary angiogram for pleuritic/pleurisy type symptoms with recent long distance travel bedrest hospitalization for psychiatric Process CT abdomen and pelvis reveals no acute abnormality In view of presentation with plan for outpatient pulse to see steroids as patient has observation for IV steroid therapy and consult to his gate technician. Patient's case discussed [facility] for OBS Claudia Bruce MD Dec 16, 2017 01:22
[2017-12-16 01:24] LABS: URINE COLOR STRAW (YELLW/STRAW)
--- NOTE | 2017-12-16 01:26 | RADRPT ---
EXAM DATE/TIME: 12/16/2017 00:50 [facility] COMPARISON: CHEST SINGLE AP, April 19, 2017, 18:55. INDICATIONS : Short of breath. MEDICAL HISTORY : Lupus. Carcinoma, thyroid. Rheumatoid arthritis, Ankylosing spondylitis. SURGICAL HISTORY : None. ENCOUNTER: Initial ACUITY: 1 day PAIN SCORE: 4/10 LOCATION: Bilateral chest FINDINGS: A single view of the chest demonstrates no focal consolidation or effusion. No pneumothorax. Heart si ze upper limits normal. CONCLUSION: 1. No active disease. Chavo Landers MD on December 16, 2017 at 1:23 Board Certified Radiologist. This report was verified electronically.
[2017-12-16 01:28] LABS: SQUAMOUS EPITHELIAL CELL URINE 0-5 /hpf (0-5)
[2017-12-16 01:49] LABS: CHLORIDE 111 MEQ/L (98-107); SODIUM (NA) 143 MEQ/L (136-145)
[2017-12-16 01:52] LABS: ALBUMIN 4.2 GM/DL (3.4-5.0); BICARBONATE 24.3 MEQ/L (21.0-32.0); CALCIUM 8.7 MG/DL (8.5-10.1); GLUCOSE,RANDOM 157 MG/DL (74-106); LIPASE 174 U/L (73-393)
[2017-12-16 01:53] LABS: BLOOD UREA NITROGEN 11 MG/DL (7-18)
[2017-12-16 01:55] LABS: ALT (GPT) 17 U/L (12-78); AST (GOT) 12 U/L (15-37); CREATININE 0.88 MG/DL (0.60-1.30); GLOMERULAR FILTRATION RATE 97 ML/MIN (>89)
[2017-12-16 01:57] LABS: TOTAL BILIRUBIN ADULT 0.3 MG/DL (0.2-1.0); TOTAL PROTEIN 8.1 GM/DL (6.4-8.2)
[2017-12-16 01:58] LABS: ALKALINE PHOSPHATASE 82 U/L (45-117)
[2017-12-16 02:10] LABS: PHENYTOIN (DILANTIN) 5.7 MCG/ML (10.0-20.0)
[2017-12-16] MEDS ORDERED: IOHEXOL 350 MG/ML 10 ML VIAL (for RAD DIAG) IVCONTRAST ONE (02:55)
[2017-12-16 02:59] VITALS: BP 152/76; PULSE 90; RESP 18; TEMP 98.3; O2SAT 98
--- NOTE | 2017-12-16 03:06 | RADRPT ---
EXAM DATE/TIME: 12/16/2017 02:35 [facility] COMPARISON: No previous studies available for comparison. INDICATIONS : Lower back pain. Evaluate for embolism. IV CONTRAST: 100 cc Omnipaque 350 (iohexol) IV ; Cumulative dose for multiple exams. RADIATION DOSE: 21.37 CTDIvol (mGy) MEDICAL HISTORY : Crohn's disease. Pancreatitis. Hypertension. SURGICAL HISTORY : None. ENCOUNTER: Initial ACUITY: 1 day PAIN SCALE: 8/10 LOCATION: chest TECHNIQUE: Volumetric scanning of the chest was performed using a pulmonary embolism protocol MIP images were re constructed. Using automated exposure control and adjustment of the mA and/or kV according to patien t size, radiation dose was kept as low as reasonably achievable to obtain optimal diagnostic quality images. DICOM format image data is available electronically for review and comparison. Follow-up recommendations for detected pulmonary nodules are based at a minimum on nodule size and pa tient risk factors according to Fleischner Society Guidelines. FINDINGS: PULMONARY ARTERIES: No filling defects are seen in the pulmonary arteries through the segmental level. LUNGS: There is no consolidation or pneumothorax . No concerning pulmonary nodule is visualized. PLEURAE: There is no pleural thickening or pleural effusion. MEDIASTINUM: There is good visualization of the great vessels of the middle mediastinum. No evidence of mediastin al or hilar adenopathy/mass. MUSCULOSKELETAL: Within normal limits for patient age. MISCELLANEOUS: The visualized upper abdominal organs demonstrate no acute abnormality. CONCLUSION: 1. Negative for pulmonary embolism. No acute findings. Chavo Landers MD on December 16, 2017 at 3:03 Board Certified Radiologist. This report was verified electronically.
--- NOTE | 2017-12-16 03:09 | RADRPT ---
EXAM DATE/TIME: 12/16/2017 02:35 [facility] COMPARISON: No previous studies available for comparison. INDICATIONS : Lower back pain. Abdominal pain. IV CONTRAST: 100 cc Omnipaque 350 (iohexol) IV ; Cumulative dose for multiple exams. ORAL CONTRAST: No oral contrast ingested. RADIATION DOSE: 18.62 CTDIvol (mGy) MEDICAL HISTORY : Pancreatitis. Hypertension. Crohn's. SURGICAL HISTORY : None. ENCOUNTER: Initial ACUITY: 1 day PAIN SCALE: 8/10 LOCATION: abdominal TECHNIQUE: Volumetric scanning of the abdomen and pelvis was performed. Using automated exposure control and ad justment of the mA and/or kV according to patient size, radiation dose was kept as low as reasonably achievable to obtain optimal diagnostic quality images. DICOM format image data is available electro nically for review and comparison. FINDINGS: Lung bases demonstrate no consolidation or effusion. No acute findings in the liver, spleen, adrenals, kidneys or pancreas. No calcified gallstones or angela iary ductal dilatation. There are scattered colonic diverticula. No evidence for diverticulitis. No acute bony abnormalities. CONCLUSION: 1. No acute findings. Colonic diverticulosis without diverticulitis. Appendix normal. Chavo Landers MD on December 16, 2017 at 3:04 Board Certified Radiologist. This report was verified electronically.
[2017-12-16 03:45] VITALS: BP 126/92; PULSE 82; RESP 16; O2SAT 98
[2017-12-16] MEDS ORDERED: LACTULOSE SYRUP 20 GM/30 ML CUP PO PRN (04:15)
[2017-12-16] MEDS ORDERED: BISACODYL 10 MG SUPP RECTAL PRN (04:15)
[2017-12-16] MEDS ORDERED: NALOXONE HCL 0.4 MG/ML AMP IV PUSH PRN (04:15)
[2017-12-16] MEDS ORDERED: ONDANSETRON HCL 4 MG/2 ML VIAL IVP PRN (04:15)
[2017-12-16] MEDS ORDERED: SODIUM CHLORIDE 0.9% FLUSH 10 ML FLUSH IV FLUSH PRN (04:15)
[2017-12-16] MEDS ORDERED: ACETAMINOPHEN 325 MG TAB PO PRN (04:15)
[2017-12-16] MEDS ORDERED: SENNOSIDES 8.6 MG TAB PO PRN (04:15)
[2017-12-16] MEDS ORDERED: PHENYTOIN SODIUM 100 MG CAP PO ONE (04:15)
[2017-12-16] MEDS ORDERED: methylPREDNISolone SOD SUCC 125 MG/2 ML VIAL IV PUSH ONE (04:15)
[2017-12-16] MEDS ORDERED: MAGNESIUM HYDROXIDE SUSP 30 ML CUP PO PRN (04:15)
[2017-12-16] MEDS: methylPREDNISolone SOD SUCC 40 MG/1 ML VIAL IV PUSH SCH ×2 (05:20→11:50)
[2017-12-16 05:30] VITALS: BP 136/91; PULSE 87; RESP 20; TEMP 96.1; O2SAT 98
[2017-12-16 08:00] VITALS: BP 140/81; PULSE 77; PULSE 85; RESP 16; TEMP 97.8; O2SAT 97
[2017-12-16] MEDS ORDERED: SODIUM CHLORIDE 0.9% FLUSH 10 ML FLUSH IV FLUSH SCH (09:00)
[2017-12-16] MEDS ORDERED: DOCUSATE SODIUM 50 MG/SENNA 8.6 MG TAB PO SCH (09:00)
--- NOTE | 2017-12-16 10:56 | HHI.DCPOC ---
Discharge Care Plan Diagnosis: (1) Pain Goals to Promote Your Health * To prevent worsening of your condition and complications * To maintain your health at the optimal level Directions to Meet Your Goals Take your medications as prescribed Follow your dietary instruction Follow activity as directed Keep your appointments as scheduled Take your immunizations and boosters as scheduled If your symptoms worsen call your PCP, if no PCP go to Urgent Care Center or Emergency Room Smoking is Dangerous to Your Health. Avoid second hand smoke Call the 24-hour hour crisis hotline for domestic abuse at Niya Sherman MD Dec 16, 2017 10:56
[2017-12-16] MEDS ORDERED: PILOCARPINE HCL 5 MG TAB PO PRN (11:00)
[2017-12-16] MEDS ORDERED: TAMSULOSIN HCL 0.4 MG CAP PO SCH (11:00)
[2017-12-16] MEDS ORDERED: oxyCODONE/ACETAMINOPHEN 5 MG/325 MG TAB PO PRN (11:00)
[2017-12-16] MEDS ORDERED: LEVOTHYROXINE SODIUM 112 MCG TAB PO SCH (11:00)
[2017-12-16] MEDS ORDERED: BUTORPHANOL TARTRATE 10 MG/ML NASAL PRN (11:15)
[2017-12-16] MEDS ORDERED: [UNRECOGNIZED DRUG - OTHER] PO PRN (11:30)
[2017-12-16] MEDS ORDERED: MISOPROSTOL PO PRN (11:30)
[2017-12-16] MEDS ORDERED: DICLOFENAC PO PRN (11:30)
--- NOTE | 2017-12-16 11:57 | HHI.HP ---
[facility] Service [facility] Primary Care Physician Shantanu Bansal MD Admission Diagnosis Gen weakness; h/o Crohn's; h/o Lupus Diagnoses: Chief Complaint: Back pain Travel History International Travel<30 Days: No Contact w/Intl Traveler <30 Da: No Traveled to Known Affected Are: No History of Present Illness This patient is a 37-year-old gentleman with multiple rheumatological diagnoses. He came to the emergency room because he was having lots of pain. Normally he takes Percocet 10 mg 3 times a day as prescribed by his primary care doctor. He had been trying to wean himself off of OxyContin. He has not had any fevers or chills. In fact he had appointment today and [facility] for follow-up of his multiple rheumatological diseases. He has requested transportation from our hospital facility as his family has been preoccupied with other medical problems and other family members.. Patient would not like any new pain medication however he says that his current regimen does not work well. For this he will follow up at the [facility]. I explained to the patient that we are not a transportation facility and at this point his rheumatological process appeared to be stable. His renal function, leukocytosis and other blood counts are quite stable. He does not have any other systemic complaints. Discharge plans have been discussed with the patient and he is agreeable. Review of Systems Constitutional: DENIES: Diaphoretic episodes, Fatigue, Fever, Weight gain, Weight loss, Chills, Dizziness, Change in appetite, Night Sweats Endocrine: DENIES: Heat/cold intolerance, Polydipsia, Polyuria, Polyphagia Eyes: DENIES: Blurred vision, Diplopia, Eye inflammation, Eye pain, Vision loss , Photosensitivity, Double Vision Ears, nose, mouth, throat: DENIES: Tinnitus, Hearing loss, Vertigo, Nasal discharge, Oral lesions, Throat pain, Hoarseness, Ear Pain, Running Nose, Epistaxis, Sinus Pain, Toothache, Odynophagia Respiratory: DENIES: Apneas, Cough, Snoring, Wheezing, Hemoptysis, Sputum production, Shortness of breath Cardiovascular: DENIES: Chest pain, Palpitations, Syncope, Dyspnea on Exertion , PND, Lower Extremity Edema, Orthopnea, Claudication Gastrointestinal: DENIES: Abdominal pain, Black stools, Bloody stools, Constipation, Diarrhea, Nausea, Vomiting, Difficulty Swallowing, Anorexia Genitourinary: DENIES: Sexual dysfunction, Urinary frequency, Urinary incontinence, Urgency, Hematuria, Dysuria, Nocturia, Penile Discharge, Testicular Pain, Testicular Swelling Musculoskeletal: COMPLAINS OF: Joint pain, Back pain, DENIES: Muscle aches, Stiffness, Joint Swelling, Neck pain Integumentary: DENIES: Abnormal pigmentation, Nail changes, Pruritus, Rash Hematologic/lymphatic: DENIES: Bruising, Lymphadenopathy Immunologic/allergic: DENIES: Eczema, Urticaria Psychiatric: DENIES: Anxiety, Confusion, Mood changes, Depression, Hallucinations, Agitation, Suicidal Ideation, Homicidal Ideation, Delusions Except as stated in HPI: all other systems reviewed are Neg Past Family Social History Past Medical History Crohn's disease Rheumatoid arthritis Ankylosing spondylosis Systemic lupus erythematosus Vasculitic disease Past Surgical History Left wrist surgery for compartment syndrome Reported Medications Reviewed in the EMR, patient denies taking OxyContin and takes only 10 mg of Percocet 3 times a day Allergies: Coded Allergies: cat dander (Verified Allergy, Mild, Cough, 12/16/17) morphine (Verified Allergy, Mild, Rash, 12/16/17) Active Ordered Medications Reviewed in the EMR Family History Mother has SLE and from motor vehicle accident, father has had a cardiac bypass 2 coronary disease Brother has rheumatoid arthritis and an uncle has Parkinson's Social History No current tobacco or alcohol, he is , 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 SKIN: Cheek erythema, ecchymoses or lesions. Cool and dry. HEAD: Atraumatic. Normocephalic. No temporal or scalp tenderness. EYES: Pupils equal round and reactive. Extraocular motions intact. No scleral icterus. No injection or drainage. ENT: Nose without bleeding, purulent drainage or septal hematoma. Throat without erythema, tonsillar hypertrophy or exudate. Uvula midline. Airway patent. NECK: Trachea midline. No JVD or lymphadenopathy. Supple, nontender, no meningeal signs. CARDIOVASCULAR: Regular rate and rhythm without murmurs, gallops, or rubs. RESPIRATORY: Clear to auscultation. Breath sounds equal bilaterally. No wheezes , rales, or rhonchi. GASTROINTESTINAL: Abdomen soft, non-tender, nondistended. No hepato-splenomegaly , or palpable masses. No guarding. MUSCULOSKELETAL: Extremities without clubbing, cyanosis, or edema. No joint tenderness, effusion, or edema noted. No calf tenderness. Negative Homans sign bilaterally. NEUROLOGICAL: Awake and alert. Cranial nerves II through XII intact. Motor and sensory grossly within normal limits. Five out of 5 muscle strength in all muscle groups. Normal speech. Laboratory Laboratory Tests Test 12/16/17 00:50 12/16/17 01:03 12/16/17 03:40 Urine Color STRAW Urine Turbidity CLEAR Urine pH 5.5 Urine Specific Beggs 1.006 Urine Protein NEG Urine Glucose (UA) NEG Urine Ketones NEG Urine Occult Blood NEG Urine Nitrite NEG Urine Bilirubin NEG Urine Leukocyte Esterase NEG Urine Squamous Epithelial Cells 0-5 Microscopic Urinalysis Comment CULT NOT INDICATED Urine Opiates Screen NEG Urine Barbiturates Screen POS Urine Amphetamines Screen NEG Urine Benzodiazepines Screen NEG Urine Cocaine Screen NEG Urine Cannabinoids Screen NEG White Blood Count 7.3 Red Blood Count 5.17 Hemoglobin 14.7 Hematocrit 45.2 Mean Corpuscular Volume 87.5 Mean Corpuscular Hemoglobin 28.4 Mean Corpuscular Hemoglobin Concent 32.4 Red Cell Distribution Width 16.0 Platelet Count 220 Mean Platelet Volume 8.3 Neutrophils (%) (Auto) 91.3 Lymphocytes (%) (Auto) 8.3 Monocytes (%) (Auto) 0.3 Eosinophils (%) (Auto) 0.0 Basophils (%) (Auto) 0.1 Neutrophils # (Auto) 6.7 Lymphocytes # (Auto) 0.6 Monocytes # (Auto) 0.0 Eosinophils # (Auto) 0.0 Basophils # (Auto) 0.0 CBC Comment DIFF FINAL Differential Comment Blood Urea Nitrogen 11 Creatinine 0.88 Random Glucose 157 Total Protein 8.1 Albumin 4.2 Calcium Level 8.7 Alkaline Phosphatase 82 Aspartate Amino Transf (AST/SGOT) 12 Alanine Aminotransferase (ALT/SGPT) 17 Total Bilirubin 0.3 Sodium Level 143 Potassium Level 3.6 Chloride Level 111 Carbon Dioxide Level 24.3 Estimat Glomerular Filtration Rate 97 Lipase 174 Phenytoin (Dilantin) Level 5.7 Lactic Acid Level 2.1 Date/Time Source Procedure Growth Status 12/16/17 03:40 Blood Peripheral Aerobic Blood Culture Pending Received 12/16/17 03:40 Blood Peripheral Anaerobic Blood Culture Pending Received Result Diagram: 12/16/17 0103 12/16/17 0103 Imaging Last Impressions Chest X-Ray 12/16/17 0000 Signed Impressions: Service Date/Time: Saturday, December 16, 2017 00:50 - CONCLUSION: 1. No active disease. Chavo Landers MD CT Angiography 12/16/17 0000 Signed Impressions: Service Date/Time: Saturday, December 16, 2017 02:35 - CONCLUSION: 1. Negative for pulmonary embolism. No acute findings. Chavo Landers MD Abdomen/Pelvis CT 12/16/17 0000 Signed Impressions: Service Date/Time: Saturday, December 16, 2017 02:35 - CONCLUSION: 1. No acute findings. Colonic diverticulosis without diverticulitis. Appendix normal. Chavo Landers MD Caprini VTE Risk Assessment Caprini VTE Risk Assessment: No/Low Risk (score <= 1) Caprini Risk Assessment Model Point Value = 1 Point Value = 2 Point Value = 3 Point Value = 5 Age 41-60 Minor surgery BMI > 25 kg/m2 Swollen legs Varicose veins or History of unexplained or recurrent spontaneous Oral contraceptives or hormone replacement Sepsis (< 1 month) Serious lung disease, including pneumonia (< 1 month) Abnormal pulmonary function Acute myocardial infarction Congestive heart failure (< 1 month) History of inflammatory bowel disease Medical patient at bed rest Age 61-74 Arthroscopic surgery Major open surgery (> 45 min) Laparoscopic surgery (> 45 min) Malignancy Confined to bed (> 72 hours) Immobilizing plaster cast Central venous access Age >= 75 History of VTE Family history of VTE Factor V Leiden Prothrombin [id number] Lupus anticoagulant Anticardiolipin antibodies Elevated serum homocysteine Heparin-induced thrombocytopenia Other congenital or acquired thrombophilia Stroke (< 1 month) Elective arthroplasty Hip, pelvis, or leg fracture Acute spinal cord injury (< 1 month) Prophylaxis Regimen Total Risk Factor Score Risk Level Prophylaxis Regimen 0-1 Low Early ambulation 2 Moderate Order ONE of the following: *Sequential Compression Device (SCD) *Heparin 5000 units SQ BID 3-4 Higher Order ONE of the following medications: *Heparin 5000 units SQ TID *Enoxaparin/Lovenox 40 mg SQ daily (WT < 150 kg, CrCl > 30 mL/min) *Enoxaparin/Lovenox 30 mg SQ daily (WT < 150 kg, CrCl > 10-29 mL/min) *Enoxaparin/Lovenox 30 mg SQ BID (WT < 150 kg, CrCl > 30 mL/min) AND/OR *Sequential Compression Device (SCD) 5 or more Highest Order ONE of the following medications: *Heparin 5000 units SQ TID (Preferred with Epidurals) *Enoxaparin/Lovenox 40 mg SQ daily (WT < 150 kg, CrCl > 30 mL/min) *Enoxaparin/Lovenox 30 mg SQ daily (WT < 150 kg, CrCl > 10-29 mL/min) *Enoxaparin/Lovenox 30 mg SQ BID (WT < 150 kg, CrCl > 30 mL/min) AND *Sequential Compression Device (SCD) Assessment and Plan Problem List: (1) Pain ICD Code: R52 - Pain, unspecified Plan: Patient with multiple rheumatological issues which appear to be stable at this time. He will need to follow-up with [facility]. Patient is advised to continue his home regimen as prescribed by his primary care doctor for pain. Patient expressed understanding Assessment and Plan Discharge home Activity unrestricted Diet regular Discussed Condition With Patient, nursing team Niya Sherman MD Dec 16, 2017 11:57
[2017-12-16 12:00] VITALS: BP_SYST 136; BP_SYST 151; BP_DIAS 89; BP_DIAS 95; PULSE 80; PULSE 85; RESP 18; TEMP 97.8; TEMP 98.1; O2SAT 100; O2SAT 96
[2017-12-16] MEDS ORDERED: METAXALONE 800 MG TAB PO SCH (13:00)
[2017-12-16] MEDS ORDERED: clonazePAM 1 MG TAB PO SCH (13:00)
[2017-12-16] MEDS ORDERED: PHENYTOIN SODIUM 100 MG CAP PO SCH (14:00)
[2017-12-16] MEDS ORDERED: GABAPENTIN 300 MG CAP PO SCH (14:00)
[2017-12-16] MEDS ORDERED: AMITRIPTYLINE HCL 25 MG TAB PO SCH (21:00)
[2017-12-17] MEDS ORDERED: PANTOPRAZOLE SOD 40 MG DELAYED RELEASE TAB PO SCH (09:00)
[2017-12-17] MEDS ORDERED: MULTIVITAMIN TAB PO SCH (09:00)
[2017-12-17] MEDS ORDERED: TADALAFIL 5 MG PO SCH (09:00)
[2017-12-17] MEDS ORDERED: FOLIC ACID 1 MG TAB PO SCH (09:00)
[2017-12-18] MEDS ORDERED: ADALIMUMAB 40 MG SQ SCH (09:00)
== END 2017-12-16 13:20 | disposition home or self-care (01) ==
LOC: PHED 00:25 → PHEDA 04:11 → PH3A 04:51
PROVIDERS: ADMIT Hospitalist; ATTEND Hospitalist
DX: M32.9 Systemic lupus erythematosus, unspecified (principal); G89.4 Chronic pain syndrome; E07.9 Disorder of thyroid, unspecified; N20.0 Calculus of kidney; G43.909 Migraine, unspecified, not intractable, without status migrainosus; F32.9 Major depressive disorder, single episode, unspecified; K21.9 Gastro-esophageal reflux disease without esophagitis; I10 Essential (primary) hypertension; D72.829 Elevated white blood cell count, unspecified; M06.9 Rheumatoid arthritis, unspecified; K57.30 Diverticulosis of large intestine without perforation or abscess without bleeding; G51.0 Bell's palsy; E03.9 Hypothyroidism, unspecified; K50.90 Crohn's disease, unspecified, without complications
CPT/HCPCS: 71045; 71275; 74177; 80053; 80185; 80307; 81001; 83605; 83690; 85025; 87040; 96361; 96374; 96375; 96376; 97161; 99285; G0378; G8987; G8988; J2405; J2920; J2930; J7030; Q9967

== ENCOUNTER 2018-02-04 10:12 | Emergency (ER) | payer BC ==
[2018-02-04] VITALS (7 sets, daily range): BP systolic 114–147; BP diastolic 59–96; PULSE 56–67; RESP 16; TEMP 97.7; O2SAT 99–100
[~2018-02-04] VITALS: Ht 182.9 cm; Wt 87.0 kg
[~2018-02-04 10:12] MED LIST changes: -POTA99TA4 PO
[2018-02-04] MEDS ORDERED: GADODIAMIDE PF 287 MG/ML 20 ML VIAL (for RAD MRI) IVCONTRAST ONE (10:13)
--- NOTE | 2018-02-04 10:45 | PD ---
HPI Chief Complaint: Neuro Symptoms/ Deficits Time Seen by Provider: 10:17 Travel History International Travel<30 days: No Contact w/Intl Traveler<30days: No Traveled to known affect area: No History of Present Illness HPI 37yo M with PMH of self reported lupus, crohns disease, chronic back pain, [place] palsy presents to the ED with c/o left sided weakness and numbness for 3 days. Said it involves his left face, arm and leg. Pt said he follows with visitor services coordinator and neurologist from [facility]. Also with sob for a few days. Pt is saturating at 100% on RA. +Chills. Denies any fever, chest pain, n/v, abdominal pain, history of CVA. PFSH Past Medical History Hx Anticoagulant Therapy: No Arthritis: Yes (RA) Asthma: No Autoimmune Disease: Yes (Lupus, RA, Vasculitis, Ankylosing spondylitis ) Blood Disorders: No Anxiety: Yes Depression: Yes Heart Rhythm Problems: No Cancer: Yes (Thyroid) Cardiovascular Problems: No High Cholesterol: No Chemotherapy: Yes (2005 ?) Chest Pain: No Congestive Heart Failure: No COPD: No Cerebrovascular Accident: No Diabetes: No Diminished Hearing: No Diverticulitis: Yes (??) Endocrine: No Gastrointestinal Disorders: Yes (Chrohn's) GERD: Yes Genitourinary: No Headaches: No Hiatal Hernia: No Heparin Induced Thrombocytopen: No Hypertension: No (states only when in pain, takes no meds) Immune Disorder: No Implanted Vascular Access Dvce: No Kidney Stones: Yes Medical other: Yes (chronic back pain) Musculoskeletal: Yes Neurologic: Yes (SEIZURES, BRAIN CYST, BELLS PALSY) Psychiatric: No Reproductive: No Respiratory: No Integumentary: Yes (hx of cellulitis left hand, hx of frequent mouth ulcers) Immunizations Current: Yes Migraines: Yes Pancreatitis: Yes Radiation Therapy: Yes (Radioactive iodine for thyroid 2005?) Renal Failure: No Seizures: Yes Sickle Cell Disease: No Sleep Apnea: No Thyroid Disease: Yes Ulcer: Yes (peptic ulcer) Tetanus Vaccination: < 5 Years Influenza Vaccination: Yes PNEUMOCCOCAL Vaccine (Year): 1 Past Surgical History Abdominal Surgery: No AICD: No Arteriovenous Shunt: No Cardiac Surgery: No Ear Surgery: No Endocrine Surgery: No Eye Surgery: No Genitourinary Surgery: No Gynecologic Surgery: No Hysterectomy: No Insulin Pump: No Joint Replacement: No Neurologic Surgery: No Oral Surgery: No Pacemaker: No Thoracic Surgery: No Other Surgery: Yes (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 ) Social History Alcohol Use: Yes (denies at present) Tobacco Use: No (denies at present) Substance Use: No (denies) Allergies-Medications (Allergen,Severity, Reaction): Coded Allergies: cat dander (Verified Allergy, Mild, Cough, 02/04/18) morphine (Verified Allergy, Mild, Rash, 02/04/18) Reported Meds & Prescriptions Reported Meds & Active Scripts Active Percocet (Oxycodone-Acetaminophen) 5-325 mg Tab 1-2 Tab PO Q4H PRN Reported Dilantin (Phenytoin Extended) 100 Mg Cap 300 Mg PO HS Gabapentin 600 Mg Tab 600 Mg PO TID Omeprazole 40 Mg Cap 40 Mg PO DAILY Folic Acid 1 Mg Tablet 1 Mg PO DAILY Methotrexate Inj 50 Mg/2 Ml Inj 0.6 Ml IM WEEKLY Men's Multi-Vitamin (Multivitamin) 1 Each Tablet 1 Tab PO DAILY Acidophilus (Probiotic Product) 1 Cap Cap 1 Cap PO DAILY Butorphanol Nasal [place] (Butorphanol Tartrate) 10 Mg/Ml Soln 1 [place] NASAL Q3HR PRN in one nostril (1 mg). If pain not reliefed in 60-90 minutes, a 1 mg repeat dose may be given. May repeat this in 3-4 hrs if needed. Metaxalone 800 Mg Tab 800 Mg PO TID PRN Diclofenac-Misoprostol 75-0.2 Mg Tab 1 Tab PO BID PRN Humira 2-Pack Inj (Adalimumab 2-Pack Inj) 40 Mg/0.8 Ml Syr 40 Mg SQ Q14D Cialis (Tadalafil) 5 Mg Tab 5 Mg PO DAILY Do not exceed 1 dose/day. Amitriptyline (Amitriptyline HCl) 25 Mg Tab 75 Mg PO HS Clonazepam 2 Mg Tab 2 Mg PO TID [place]ine 5 Mg Tab 5 Mg PO TID PRN Levothyroxine (Levothyroxine Sodium) 112 Mcg Tab 112 Mcg PO DAILY Flomax (Tamsulosin HCl) 0.4 Mg Cap 0.4 Mg PO BID Review of Systems Except as stated in HPI: all other systems reviewed are Neg Physical Exam Narrative GENERAL: 37yo M not in distress. SKIN: Focused skin assessment warm/dry. HEAD: Atraumatic. Normocephalic. EYES: Pupils equal and round at 4mm bilaterally. EOMI. Pt closes his left eyelid more during certain parts of the exam and then had normal elevation of both eyelids in other times. Pt raise both eyebrows symmetrically. ENT: No nasal bleeding or discharge. Mucous membranes pink and moist. NECK: Trachea midline. No JVD. CARDIOVASCULAR: Regular rate and rhythm. No murmur appreciated. RESPIRATORY: No accessory muscle use. Clear to auscultation. Breath sounds equal bilaterally. GASTROINTESTINAL: Abdomen soft, non-tender, nondistended. MUSCULOSKELETAL: No obvious deformities. No clubbing. No cyanosis. No edema. NEUROLOGICAL: Awake and alert. When pt smiles, he lifts right corner of mouth only. Decreased sensation in left face, left arm and left leg. Mildly weaker LUE compare to RUE. Muscle strength 5/5 in bilateral lower extremity. Data Data Last Documented VS Vital Signs Date Time Temp Pulse Resp B/P (MAP) Pulse Ox O2 Delivery O2 Flow Rate FiO2 02/04/18 17:36 02/04/18 16:11 62 100 Room Air 02/04/18 16:00 16 02/04/18 10:[address] Brain W/O Iv Contrast(Rout) (02/04/18 ) Complete Blood Count With Diff (02/04/18 10:27) Basic Metabolic Panel (Bmp) (02/04/18 10:27) Prothrombin Time / Inr (Pt) (02/04/18 10:27) Act Partial Throm Time (Ptt) (02/04/18 10:27) Chest, Single Ap (02/04/18 ) Phenytoin (Dilantin) (02/04/18 11:22) Electrocardiogram (02/04/18 ) Potassium Chloride (Kcl) (02/04/18 11:45) Mra Carotids W Contrast (02/04/18 ) Mra Brain W/O Contrast (Cow) (02/04/18 ) Mri Brain W/O Contrast (02/04/18 ) Oxycodone-Acetamin 5-325 Mg (Percocet (02/04/18 14:30) Gadodiamide Pf Inj (Omniscan Pf Inj) (02/04/18 10:13) Ed Discharge Order (02/04/18 17:24) Labs Laboratory Tests Test 02/04/18 11:00 White Blood Count 6.1 TH/MM3 Red Blood Count 4.11 MIL/MM3 Hemoglobin 11.8 GM/DL Hematocrit 36.0 % Mean Corpuscular Volume 87.4 FL Mean Corpuscular Hemoglobin 28.5 PG Mean Corpuscular Hemoglobin Concent 32.7 % Red Cell Distribution Width 13.6 % Platelet Count 229 TH/MM3 Mean Platelet Volume 7.9 FL Neutrophils (%) (Auto) 60.3 % Lymphocytes (%) (Auto) 25.2 % Monocytes (%) (Auto) 10.3 % Eosinophils (%) (Auto) 0.7 % Basophils (%) (Auto) 3.5 % Neutrophils # (Auto) 3.8 TH/MM3 Lymphocytes # (Auto) 1.5 TH/MM3 Monocytes # (Auto) 0.6 TH/MM3 Eosinophils # (Auto) 0.0 TH/MM3 Basophils # (Auto) 0.2 TH/MM3 CBC Comment DIFF FINAL Differential Comment Prothrombin Time 12.1 SEC Prothromb Time International Ratio 1.2 RATIO Activated Partial Thromboplast Time 25.8 SEC Blood Urea Nitrogen 9 MG/DL Creatinine 0.72 MG/DL Random Glucose 73 MG/DL Calcium Level 8.3 MG/DL Sodium Level 143 MEQ/L Potassium Level 3.1 MEQ/L Chloride Level 109 MEQ/L Carbon Dioxide Level 27.4 MEQ/L Anion Gap 7 MEQ/L Estimat Glomerular Filtration Rate 122 ML/MIN Phenytoin (Dilantin) Level 0.9 MCG/ML MDM Medical Decision Making Medical Screen Exam Complete: Yes Emergency Medical Condition: Yes Interpretation(s) EKG: NSR 69bpm. Normal axis. TWI III, V2. No ST segment elevation or depression. Differential Diagnosis CVA vs. malingering vs. lupus Narrative Course 37yo M with left sided weakness and numbness. Feel that exam is very subjective but pt said he does not feel as much on left face, arm and leg. Labs reviewed, no leukocytosis. H/H low at 11.8/36.0. Mild hypokalemia, replaced orally. Phenytoin level low. CXR negative. CT brain negative for acute intracranial hemorrhage. Stable arachnoid cyst. Discussed with Dr. Sherman who feel that pt can be rule out for CVA with MRI in the ED and pt was not accepted to her service. I discuss with patient and he does want to follow up with his own neurologist at [facility] after obtaining MRI here. MRI brain showed no findings to indicate acute cortical infarct. Aracnoid cyst. MRA Head negative. MRA neck showed carotid circulation and vertebral circulation widely patent. 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 Patient has known arachnoid cyst in posterior fossa. Pt is stable to follow up with his neurologist in [facility] which is what he prefers. Pt given a copy of his MRI results. Return precautions given. Diagnosis Primary Impression: Left-sided weakness Patient Instructions: General Instructions Departure Forms: Tests/Procedures Additional Instructions: Please follow up with your neurologist as soon as you can. Return to the ED if symptoms worsen. Med/Other Pt SpecificInfo: No Change to Meds Disposition: 01 DISCHARGE HOME Condition: Stable Indy Singleton DO Feb 04, 2018 10:45
[2018-02-04 11:09] LABS: AUTOMATED NEUTROPHIL # 3.8 TH/MM3 (1.8-7.7); BASOPHIL # 0.2 TH/MM3 (0-0.2); BASOPHIL % 3.5 % (0.0-2.0); EOSINOPHIL % 0.7 % (0.0-4.0); HEMOGLOBIN 11.8 GM/DL (13.0-17.0); LYMPH % 25.2 % (9.0-44.0); LYMPHOCYTE # 1.5 TH/MM3 (1.0-4.8); MEAN CELL VOLUME 87.4 FL (80.0-100.0); MEAN CORPUSCULAR HEMOGLOBIN 28.5 PG (27.0-34.0); MEAN CORPUSCULAR HGB CONC 32.7 % (32.0-36.0); MEAN PLATELET VOLUME 7.9 FL (7.0-11.0); MONO % 10.3 % (0.0-8.0); MONOCYTE # 0.6 TH/MM3 (0-0.9); NEUT % 60.3 % (16.0-70.0); PLATELET COUNT 229 TH/MM3 (150-450); RED BLOOD COUNT 4.11 MIL/MM3 (4.50-5.90); RED CELL DISTRIBUTION WIDTH 13.6 % (11.6-17.2); WHITE BLOOD COUNT 6.1 TH/MM3 (4.0-11.0)
[2018-02-04] MEDS ORDERED: DILA100C PO (11:20)
[2018-02-04 11:27] LABS: CALCIUM 8.3 MG/DL (8.5-10.1)
[2018-02-04 11:28] LABS: BICARBONATE 27.4 MEQ/L (21.0-32.0)
[2018-02-04 11:29] LABS: INTERNATIONAL NORMALIZED RATIO 1.2 RATIO; PROTHROMBIN TIME - PATIENT 12.1 SEC (9.8-11.6)
--- NOTE | 2018-02-04 11:30 | RADRPT ---
EXAM DATE/TIME: 02/04/2018 11:01 [facility] COMPARISON: CHEST SINGLE AP, December 16, 2017, 0:50. INDICATIONS : Chest pain, short of breath, left side weakness. MEDICAL HISTORY : None. Crohn's disease. pancreatitis. hypertension SURGICAL HISTORY : None. ENCOUNTER: Initial ACUITY: 3 days PAIN SCORE: 2/10 LOCATION: Bilateral chest FINDINGS: A single view of the chest demonstrates the lungs to be symmetrically aerated without evidence of mas s, infiltrate or effusion. The cardiomediastinal contours are unremarkable. Osseous structures are intact. CONCLUSION: No acute disease. Trevor Galvan MD on February 04, 2018 at 11:27 Board Certified Radiologist. This report was verified electronically.
[2018-02-04 11:31] LABS: CREATININE 0.72 MG/DL (0.60-1.30)
[2018-02-04] MEDS ORDERED: POTASSIUM CHLORIDE 20 MEQ CONTROLLED RELEASE TAB PO ONE (11:45)
--- NOTE | 2018-02-04 12:55 | RADRPT ---
EXAM DATE/TIME: 02/04/2018 12:38 [facility] COMPARISON: MRI BRAIN W & W/O CONTRAST, August 13, 2016, 12:37. CT BRAIN W/O CONTRAST, August 13, 2016, 1 0:54. INDICATIONS : Left facial, arm and leg weakness and numbness. RADIATION DOSE: 62.26 CTDIvol (mGy) MEDICAL HISTORY : Gastroesophageal reflux disease. Pancreatitis. Seizures.Thyroid cancer. Crohn's disease. bells pals y. hypertension. ulcer. lupus. SURGICAL HISTORY : Renal transplant. ENCOUNTER: Initial ACUITY: 3 days PAIN SCALE: 0/10 LOCATION: cranial TECHNIQUE: Multiple contiguous axial images were obtained of the head. Using automated exposure control and adj ustment of the mA and/or kV according to patient size, radiation dose was kept as low as reasonably a chievable to obtain optimal diagnostic quality images. DICOM format image data is available electro nically for review and comparison. FINDINGS: CEREBRUM: The ventricles are normal for age. No evidence of midline shift, mass lesion, hemorrhage or acute in farction. No extra-axial fluid collections are seen. POSTERIOR FOSSA: There is a stable arachnoid cyst along the base of the left posterior fossa measuring 4.0 x 2.5 cm. T his is unchanged compared to the prior CT. The cerebellar hemispheres midbrain are stable in their ap pearance compared to the prior exam. EXTRACRANIAL: The visualized portion of the orbits is intact. SKULL: The calvaria is intact. No evidence of skull fracture. CONCLUSION: 1. No focal or acute intracranial hemorrhage. 2. Stable arachnoid cyst along the base of the left posterior fossa Ivan Islas MD on February 04, 2018 at 12:51 Board Certified Radiologist. This report was verified electronically.
--- NOTE | 2018-02-04 13:41 | EKG ---
Date Performed: 02/04/2018 Time Performed: 10:18:59 PTAGE: 37 years EKG: Sinus rhythm MODERATE INTRAVENTRICULAR CONDUCTION DELAY BORDERLINE ECG Compared to prior electrocardiogram, Rate has decreased and nonspecific T-wave changes have resolved. PREVIOUS TRACING : 10/23/2017 12.26 DOCTOR: Roel Donnelly Interpretating Date/Time 02/04/2018 13:18:49
[2018-02-04] MEDS ORDERED: oxyCODONE/ACETAMINOPHEN 5 MG/325 MG TAB PO ONE (14:30)
--- NOTE | 2018-02-04 15:57 | RADRPT ---
EXAM DATE/TIME: 02/04/2018 15:03 [facility] COMPARISON: MRI LOWER LEG LEFT W & W/O CONTRAST, April 21, 2017, 15:09. INDICATIONS : CVA. Left sided weakness and left facial droop. MEDICAL HISTORY : Gastroesophageal reflux disease. Carcinoma, thyroid. Crohn's disease. Hypertension, seizures and jj s palsy. SURGICAL HISTORY : Left hand. ENCOUNTER: Initial ACUITY: 3 day PAIN SCORE: 0/10 LOCATION: Head. Please note a normal MRA of the brain does not entirely exclude the possibility of a small aneurysm, nor the possibility of distal intracranial vessel disease. TECHNIQUE: 3D time of flight MRA was performed. Source images, multiplanar STS MIP, and 3D volume MIP reconstru ctions were reviewed. FINDINGS: There is excellent visualization of the major intracranial arteries out to the second-order branch ve ssels. There is no evidence for aneurysm, vessel truncation or stenosis, and no evidence for vascula r malformation. CONCLUSION: 1. Negative examination. Shadi Brown MD on February 04, 2018 at 15:54 Board Certified Radiologist. This report was verified electronically.
--- NOTE | 2018-02-04 16:30 | RADRPT ---
EXAM DATE/TIME: 02/04/2018 15:03 [facility] COMPARISON: MRI LOWER LEG LEFT W & W/O CONTRAST, April 21, 2017, 15:09. INDICATIONS : CVA. Left sided weakness and left sided facial droop. MEDICAL HISTORY : Gastroesophageal reflux disease. Crohn's disease. Carcinoma, thyroid. Hypertension, seizures and jj s palsy. SURGICAL HISTORY : Left hand. ENCOUNTER: Initial ACUITY: 3 day PAIN SCORE: 0/10 LOCATION: Head. Known MRI PrecautionsSedation Utilized? No Anesthesia Present? MRI reaction? If YES expla in: TECHNIQUE: Multiplanar, multisequence MRI of the brain was performed without contrast. FINDINGS: CEREBRUM: The ventricles are normal for age. No evidence of midline shift, mass lesion, hemorrhage or acute in farction. No extraaxial fluid collections are seen. The pituitary gland and suprasellar cistern are normal in configuration. WHITE MATTER: No significant signal abnormalities are seen in the white matter. POSTERIOR FOSSA: The examination demonstrates a 2.7 x 4.3 cm CSF density collection just anterior to the left cerebell ar hemisphere. There is some slight displacement of the brainstem medially. This appears to be chroni c in etiology. There is no evidence of edema. Primary differential consideration would be a sizable a rachnoid cyst. DIFFUSION IMAGING: No focal areas of restricted diffusion are seen. No evidence of acute infarction. EXTRACRANIAL: The visualized portions of the orbits and paranasal sinuses are unremarkable. CONCLUSION: 1. No findings to indicate acute cortical infarct identified. 2. 2.7 x 4.3 cm arachnoid cyst in the left side of the posterior fossa. This is described in detail a gonzalez. Shadi Brown MD on February 04, 2018 at 16:19 Board Certified Radiologist. This report was verified electronically.
--- NOTE | 2018-02-04 16:43 | RADRPT ---
EXAM DATE/TIME: 02/04/2018 15:03 [facility] COMPARISON: MRI BRAIN W/O CONTRAST, February 04, 2018, 15:03. MRA BRAIN W/O CONTRAST, February 04, 2018, 15:03. MRI L OWER LEG LEFT W & W/O CONTRAST, April 21, 2017, 15:09. INDICATIONS : Stroke. Left sided weakness and left facial droop. CONTRAST: 20 cc Omniscan (gadodiamide) IV MEDICAL HISTORY : Gastroesophageal reflux disease. Carcinoma, thyroid. Crohn's disease. Hypertension, seizures and jj s palsy. SURGICAL HISTORY : Left hand surgery. ENCOUNTER: Initial ACUITY: 3 day PAIN SCORE: 0/10 LOCATION: Head. Percent stenosis is calculated using the diameter of the stenotic region over the diameter of the nor mal distal internal carotid artery. TECHNIQUE: Bolus infused MRA of the extracranial circulation was performed using a neurovascular coil. Post pro cessing was performed including rotating subvolume maximum intensity projections of each carotid wilberto ry, rotating full volume maximum intensity projections of both carotid arteries, sagittal and coronal sliding thin slab reformations of each carotid artery, and left oblique sliding thin slab reformatio n through the aortic arch to include the origin of the arch branch vessels. FINDINa GS: AORTIC ARCH: There is a three vessel origin of the great vessels from the aorta. No evidence of ostial narrowing. RIGHT CAROTID: The common carotid artery is intact. The carotid bulb has a normal configuration without ulceration or narrowing. The internal carotid artery lumen is smooth without stenosis. The external carotid ar beny is intact. LEFT CAROTID: The common carotid artery is intact. The carotid bulb has a normal configuration without ulceration or narrowing. The internal carotid artery lumen is smooth without stenosis. The external carotid ar beny is intact. VERTEBRALS: The vertebral arteries have a symmetric diameter. No stenotic lesions are seen. The exam demonstrate s slight displacement of the basilar artery towards the right. The patient has a known arachnoid cyst . CONCLUSION: 1. The carotid circulation and vertebral circulation is widely patent. 2. 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 The patient has a known arachnoid cyst in th e posterior fossa. Shadi Brown MD on February 04, 2018 at 16:35 Board Certified Radiologist. This report was verified electronically.
== END 2018-02-04 17:42 | disposition home or self-care (01) ==
LOC: PHED 10:12
DX: R53.1 Weakness (principal); R20.0 Anesthesia of skin; R06.02 Shortness of breath; E87.6 Hypokalemia; R94.31 Abnormal electrocardiogram [ECG] [EKG]; G93.0 Cerebral cysts; M06.9 Rheumatoid arthritis, unspecified; F41.8 Other specified anxiety disorders; K21.9 Gastro-esophageal reflux disease without esophagitis; E07.9 Disorder of thyroid, unspecified; Z87.19 Personal history of other diseases of the digestive system; Z87.442 Personal history of urinary calculi; Z87.39 Personal history of other diseases of the musculoskeletal system and connective tissue; Z86.69 Personal history of other diseases of the nervous system and sense organs
CPT/HCPCS: 70450; 70544; 70548; 70551; 71045; 80048; 80185; 85025; 85610; 85730; 92610; 93005; 99285; A9579

== ENCOUNTER 2018-08-02 09:40 | Observation (INO) ==
--- NOTE | 2018-08-02 09:53 | ED ---
Triage General Time Seen by Provider: 08/02/18 09:52 History of Present Illness HPI narrative: 38 y/o male here with RUQ abdominal pain, worsening, seen here twice last week, found to have a distended gallbladder. Discussed with his PCP Dr. Bansal who recommended returning to ED. Seen at triage desk, awaiting bed placement. Home Meds Home Medications Medication Instructions Recorded Confirmed acetaminophen 650 mg PO Q4H PRN 07/28/18 07/30/18 adalimumab [Humira Pen] 40 mg SUB-Q Q2W 07/28/18 07/30/18 hydroxychloroquine [Plaquenil] 200 mg PO DAILY 07/28/18 07/30/18 levothyroxine [Synthroid] 125 mcg PO DAILY 07/28/18 07/30/18 tramadol 50 mg PO Q6HR PRN 07/28/18 07/30/18 [id number]-[id number] 2 cap PO Q6H PRN 07/30/18 07/30/18 [Fiorinal] clonazepam [Klonopin] 2 mg PO BID 07/30/18 07/30/18 metaxalone [Skelaxin] 800 mg PO TID 07/30/18 07/30/18 oxycodone-acetaminophen [Percocet] 1 tab PO TID PRN 07/30/18 07/30/18 pregabalin [Lyrica] 75 mg PO BID 07/30/18 07/30/18 Previous Rx's Medication Instructions Recorded ciprofloxacin HCl [Cipro] 500 mg PO BID #14 tab 07/28/18 metronidazole [Flagyl] 500 mg PO BID #14 tab 07/28/18 hydrocodone-acetaminophen [[place]] 1 tab PO Q6H PRN #12 tab 07/30/18 Allergies Allergies Allergy/AdvReac Type Severity Reaction Status Date / Time cat dander Allergy Mild Cough Verified 07/30/18 14:44 morphine Allergy Mild Rash Verified 07/30/18 14:44 Vital Signs Recall Vital Signs: Initial Documented Vital Signs Temperature 98.1 F 08/02/18 09:48 Pulse Rate 73 08/02/18 09:48 Respiratory Rate 16 08/02/18 09:48 Blood Pressure 170/96 H 08/02/18 09:48 Pulse Oximetry 100 08/02/18 09:48 Last Documented Vital Signs Temperature 98.1 F 08/02/18 09:48 Pulse Rate 73 08/02/18 09:48 Respiratory Rate 16 08/02/18 09:48 Blood Pressure 170/96 H 08/02/18 09:48 Pulse Oximetry 100 08/02/18 09:48 Vital Signs 3 l l l l 08/02/18 09:48 l l 08/02/18 09:48 l l Height 182.88 cm l l Weight 81.647 kg l l BMI 24.4 l l BP 170/96 H l l Blood Pressure Location l l Position Sitting l l Respiration 16 l l Pulse 73 l l Pulse Source l l Temp 98.1 F l l Temp Source Oral l l Pulse Oximetry (%) 100 l l Oxygen Delivery Method l l Oxygen Flow Rate l l [facility] Social History Social History Substance History: No History of Abuse Second Hand Smoke Exposure: No Smoking Status: Never smoker How Often Do You Have a Drink Containing Alcohol: Never Recent Travel in [facility] within the Last 8 Weeks: No Recent Out of Country Travel within the Last 8 Weeks: No
[2018-08-02] MEDS ORDERED: Sod Chloride 0.9% Inj 1,000 ML IV.SIG ONE (18:09)
[2018-08-02] MEDS ORDERED: HYDROmorphone PF Inj 2 MG/ML Vial IV.PUSH ONE ×2 (18:11→20:23)
--- NOTE | 2018-08-02 18:23 | ED ---
HPI General Chief Complaint: Abdominal Pain Stated Complaint: doctor sent/gallbladder complaint Time Seen by Provider: 08/02/18 09:52 Source: patient Mode of arrival: ambulatory Limitations: no limitations History of Present Illness HPI narrative: 38-year-old male with PMH of Crohn's disease presents the ED for evaluation a 10 day history of intermittent right upper quadrant abdominal pain with associated anorexia, nausea, dry heaving and vomiting. The patient states that the pain came on gradually, he saw his PCP approximately 4 days after onset of symptoms. He was prescribed p.o. Cipro, Flagyl and prednisone. He has been compliant with these medications. He was then evaluated in the ED twice. There was some distention of his gallbladder from both workups but no elevation of the LFTs or evidence of cholelithiasis. A previous provider offered him admission but the patient chose to seek outpatient advice. He returns today with complaint of 8/10 right upper quadrant abdominal pain with associated anorexia, nausea, dry heaving and nonbloody, nonbilious vomiting. He states that he has been eating a clear liquid diet for the last few days, last drink a few sips of water around noon today. He denies fever, chills, constipation, melena, hematochezia. He states that he had a panendoscopy at the beginning of this year. He has been treating at home with [place] that was supplied as his last visit. Last dose around 8 AM today. Related Data Home Medications Medication Instructions Recorded Confirmed acetaminophen 650 mg PO Q4H PRN 07/28/18 08/02/18 adalimumab [Humira Pen] 40 mg SUB-Q Q2W 07/28/18 08/02/18 hydroxychloroquine [Plaquenil] 200 mg PO DAILY 07/28/18 08/02/18 levothyroxine [Synthroid] 125 mcg PO DAILY 07/28/18 08/02/18 tramadol 50 mg PO Q6HR PRN 07/28/18 08/02/18 [id number]-vnpdxur-[id number] 2 cap PO Q6H PRN 07/30/18 08/02/18 [Fiorinal] clonazepam [Klonopin] 2 mg PO BID 07/30/18 08/02/18 metaxalone [Skelaxin] 800 mg PO TID 07/30/18 08/02/18 oxycodone-acetaminophen [Percocet] 1 tab PO TID PRN 07/30/18 08/02/18 pregabalin [Lyrica] 75 mg PO BID 07/30/18 08/02/18 Previous Rx's Medication Instructions Recorded ciprofloxacin HCl [Cipro] 500 mg PO BID #14 tab 07/28/18 metronidazole [Flagyl] 500 mg PO BID #14 tab 07/28/18 hydrocodone-acetaminophen [[place]] 1 tab PO Q6H PRN #12 tab 07/30/18 Allergies Allergy/AdvReac Type Severity Reaction Status Date / Time cat dander Allergy Mild Cough Verified 08/02/18 18:03 morphine Allergy Mild Rash Verified 08/02/18 18:03 Review of Systems ROS: all other systems reviewed are negative [facility] Medical History Medical History BPH (benign prostatic hyperplasia) (Acute) Seizures (Acute) Headache (Acute) Hypothyroidism (Acute) Vasculitis (Acute) Ankylosing spondylitis (Acute) Lupus (Acute) Rheumatoid arthritis (Acute) Crohn disease (Acute) Surgical History Surgical History Hx of hand surgery (Acute) Family History Family History Other Coronary artery disease Social History Social History Substance History: No History of Abuse Second Hand Smoke Exposure: No Smoking Status: Never smoker How Often Do You Have a Drink Containing Alcohol: Monthly or less Recent Travel in [facility] within the Last 8 Weeks: No Recent Out of Country Travel within the Last 8 Weeks: No Immunization History Tetanus Immunization: Unsure Hx Influenza Vaccine This Season: No Exam Narrative Exam Narrative: GENERAL: Well-nourished, well-developed white male no acute distress. SKIN: Focused skin assessment warm/dry. HEAD: Atraumatic. Normocephalic. EYES: Pupils equal and round. No scleral icterus. No injection or drainage. ENT: No nasal bleeding or discharge. Mucous membranes pink and moist. NECK: Trachea midline. No JVD. CARDIOVASCULAR: Regular rate and rhythm. No murmur appreciated. RESPIRATORY: No accessory muscle use. Clear to auscultation. Breath sounds equal bilaterally. GASTROINTESTINAL: Abdomen soft, nondistended. Point tenderness in the right upper quadrant. Hyperactive bowel sounds. Hepatic and splenic margins not palpable. MUSCULOSKELETAL: No obvious deformities. No clubbing. No cyanosis. No edema. NEUROLOGICAL: Awake and alert. No obvious cranial nerve deficits. Motor grossly within normal limits. Normal speech. PSYCHIATRIC: Appropriate mood and affect; insight and judgment normal. Course Initial Documented Vital Signs Temperature 98.1 F 08/02/18 09:48 Pulse Rate 73 08/02/18 09:48 Respiratory Rate 16 08/02/18 09:48 Blood Pressure 170/96 H 08/02/18 09:48 Pulse Oximetry 100 08/02/18 09:48 Last Documented Vital Signs Temperature 98.1 F 08/02/18 09:48 Pulse Rate 77 08/02/18 18:07 Respiratory Rate 20 08/02/18 18:07 Blood Pressure 184/113 H 08/02/18 18:07 Pulse Oximetry 100 08/02/18 18:08 Medical Decision Making MDM Narrative Medical decision making narrative: 38-year-old male with PMH of Crohn's disease presents the ED for evaluation a 10 day history of intermittent right upper quadrant abdominal pain with associated anorexia, nausea, dry heaving and vomiting. Patient's BP 184/113 on presentation. On exam he is nontoxic appearing but does have tenderness to palpation in the right upper quadrant. I reviewed the patient's record, this is his third visit in 4 days for the similar complaint. At last visit he was offered admission but stated that he wanted to try to follow-up on outpatient basis. Today he states "I just want to get this thing over with." Patient was administered a milligram of Dilaudid and 4 mg of Zofran IV. Lab work, ultrasound of the gallbladder all unremarkable. On recheck patient reports improvement but not resolution of his pain. Will admit for intractable pain, possible HIDA scan and GI/surgery consult. I spoke with Dr. Orellana who agrees to accept the patient to the medicine service. Please see medicine notes for disposition. Medical Screen Exam Complete: Yes Emergency Medical Condition: Yes Differential Diagnosis Differential Diagnosis: Biliary colic versus choledocholithiasis versus cholecystitis versus other Lab Data Result diagrams: 08/02/18 18:15 08/02/18 18:15 Lab Results 08/02/18 08/02/18 08/02/18 Range/Units 18:15 18:15 18:15 WBC 5.9 (4.0-11.0) th/mm3 RBC 4.69 (4.50-5.90) mil/mm3 Hgb 13.5 (13.0-17.0) gm/dL Hct 41.2 (39.0-51.0) % MCV 87.8 (80.0-100.0) fL MCH 28.9 (27.0-34.0) pg MCHC 32.9 (32.0-36.0) % RDW 15.6 (11.6-17.2) % Plt Count 169 (150-450) th/mm3 MPV 8.4 (7.0-11.0) fL Neut % (Auto) 69.9 (16.0-70.0) % Lymph % (Auto) 23.9 (9.0-44.0) % [place] % (Auto) 4.4 (0.0-8.0) % Eos % (Auto) 1.3 (0.0-4.0) % Baso % (Auto) 0.5 (0.0-2.0) % Neut # (Auto) 4.1 (1.8-7.7) th/mm3 Lymph # (Auto) 1.4 (1.0-4.8) th/mm3 [place] # (Auto) 0.3 (0.0-0.9) th/mm3 Eos # (Auto) 0.1 (0.0-0.4) th/mm3 Baso # (Auto) 0.0 (0.0-0.2) th/mm3 WBC Differential . Differential Comment Auto diff final Sodium 144 (136-145) meq/L Potassium 3.4 L (3.5-5.1) meq/L Chloride 107 (98-107) meq/L Carbon Dioxide 29.7 (21.0-32.0) meq/L Anion Gap 7 (5-15) meq/L BUN 10 (7-18) mg/dL Creatinine 0.91 (0.60-1.30) mg/dL Estimated GFR Greater than 89 (>89) mL/min Random Glucose 86 (74-106) mg/dL Lactic Acid 1.3 (0.4-2.0) mmol/L Calcium 8.7 (8.5-10.1) mg/dL Total Bilirubin 0.6 (0.2-1.0) mg/dL AST 18 (15-37) U/L ALT 17 (12-78) U/L Alkaline Phosphatase 73 (45-117) U/L Total Protein 8.1 D (6.4-8.2) g/dL Albumin 4.6 (3.4-5.0) g/dL Lipase 103 (73-393) U/L Imaging Data Radiologist's impression: Gallbladder Ultrasound 08/02/18 18:11 CONCLUSION: 1. Gallbladder mildly distended. No gallstones or biliary ductal dilatation identified. Overall no significant change compared with July 30. Discharge Plan Discharge Disposition Patient Disposition: 30 Still Patient Physicians Team ED Provider: Luana Bernard ED Midlevel Provider: Vickie Hooker Primary Care Provider: Shantanu Bansal Attending Provider: Adrianna Orellana Discharge Interventions Interventions: Vital Signs Last Done: 08/02/18 18:07 Status ED Status: Admitted Observation Patient
[2018-08-02 18:38] LABS: Baso % (Auto) 0.5 % (0.0-2.0); Eos # (Auto) 0.1 th/mm3 (0.0-0.4); Eos % (Auto) 1.3 % (0.0-4.0); Hematocrit 41.2 % (39.0-51.0); Hemoglobin 13.5 gm/dL (13.0-17.0); Lymph # (Auto) 1.4 th/mm3 (1.0-4.8); Lymph % (Auto) 23.9 % (9.0-44.0); Mean Corpuscular HGB Conc 32.9 % (32.0-36.0); Mean Corpuscular Hemoglobin 28.9 pg (27.0-34.0); Mean Corpuscular Volume 87.8 fL (80.0-100.0); Mean Platelet Volume 8.4 fL (7.0-11.0); Mono # (Auto) 0.3 th/mm3 (0.0-0.9); Mono % (Auto) 4.4 % (0.0-8.0); Neut # (Auto) 4.1 th/mm3 (1.8-7.7); Neut % (Auto) 69.9 % (16.0-70.0); Platelet Count 169 th/mm3 (150-450); Red Blood Count 4.69 mil/mm3 (4.50-5.90); Red Cell Distribution Width 15.6 % (11.6-17.2); White Blood Count 5.9 th/mm3 (4.0-11.0)
[2018-08-02 19:04] LABS: Albumin 4.6 g/dL (3.4-5.0); Anion Gap 7 meq/L (5-15); Aspartate Aminotransferase 18 U/L (15-37); Blood Urea Nitrogen 10 mg/dL (7-18); Calcium 8.7 mg/dL (8.5-10.1); Carbon Dioxide 29.7 meq/L (21.0-32.0); Chloride 107 meq/L (98-107); Glomerular Filtration Rate Greater Than 89 mL/min (>89); Glucose,Random 86 mg/dL (74-106); Lipase 103 U/L (73-393); Potassium 3.4 meq/L (3.5-5.1); Sodium 144 meq/L (136-145)
[2018-08-02 19:05] LABS: Alanine Aminotransferase 17 U/L (12-78)
[2018-08-02 19:07] LABS: Alkaline Phosphatase 73 U/L (45-117); Total Protein 8.1 g/dL (6.4-8.2)
--- NOTE | 2018-08-02 19:21 | US ---
EXAM DATE: 08/02/2018 6:49 PM EDT AGE/SEX: 38 years / Male INDICATIONS: Right upper quadrant pain. CLINICAL DATA: This is the patient's initial encounter. Patient reports that signs and symptoms have been present for 1 week and indicates a pain score of 8/10. MEDICAL/SURGICAL HISTORY: Hypothyroidism. Rheumatoid arthritis. Ankylosing spondylitis. Benign prostatic hyperplasia. Crohn disease. Seizures. Vasculitis. Lupus. . Hand surgery. [place] [facility] [place]. . MEASUREMENTS: Liver:__ 14.7 cm. Common Bile Duct:__ 4mm. FINDINGS: Liver: Normal echotexture without focal lesion or ductal dilatation. Portal Vein: Hepatopedal flow seen in portal vein. Common Duct: No intraluminal mass or stone visualized. Gallbladder: Mildly distended. No gallstones identified. Pancreas: Not well visualized. Right Kidney: Normal echotexture and cortical thickness. No mass or hydronephrosis. Other: None. CONCLUSION: 1. Gallbladder mildly distended. No gallstones or biliary ductal dilatation identified. Overall no s ignificant change compared with July 30. Electronically signed by: Chavo Landers MD 08/02/2018 7:20 PM EDT
--- NOTE | 2018-08-02 20:51 | P.HP ---
History of Present Illness Service: [facility] Primary Care Physician: Shantanu Bansal MD History of Present Illness: 38-year-old male with a past medical history significant for ankylosing spondylitis, BPH, Crohn's, hypothyroidism, lupus, rheumatoid arthritis and seizure disorder presents to the emergency department for the evaluation of right upper quadrant abdominal pain. Patient was seen in the emergency department twice since last week and found to have a distended gallbladder on CT scan. Gallbladder ultrasound today showed distended gallbladder with no pericholecystic fluid or stones. LFTs within normal limit. No fevers/chills. No leukocytosis. Patient denies chest pain or shortness of breath. No emesis or diarrhea. No lateralizing signs/symptoms. Review of Systems All other systems reviewed negative except as stated in HPI PMFSH - History History Provided By: Patient - Medical History Medical History: Medical History (Last Reviewed 08/02/18 @ 18:22 by DARIUS Shelton) BPH (benign prostatic hyperplasia) (Acute) Seizures (Acute) Headache (Acute) Hypothyroidism (Acute) Vasculitis (Acute) Ankylosing spondylitis (Acute) Lupus (Acute) Rheumatoid arthritis (Acute) Crohn disease (Acute) - Surgical History Surgical History: Surgical History (Last Reviewed 08/02/18 @ 18:22 by DARIUS Shelton) Hx of hand surgery (Acute) - Family History Family History: Family History (Last Updated 08/02/18 @ 20:47 by Adrianna Orellana MD) Other Coronary artery disease - Tobacco History Second Hand Smoke Exposure: No Smoking Status: Never smoker - Alcohol History How Often Do You Have a Drink Containing Alcohol: Monthly or less - Substance Use History Substance History: No History of Abuse - Travel History Recent Travel in the [place] Within the Last 8 Weeks: No Recent Travel Out of the Country Within the Last 8 Weeks: No - Immunization History Tetanus Immunization: Unsure Hx Influenza Vaccine This Season: No Medications and Allergies Active Medications: Active Medications Sodium Chloride (Ns Flush) 2 ml IV.FLUSH PRN PRN PRN Reason: FLUSH AFTER USING IV ACCESS Allergies Allergy/AdvReac Type Severity Reaction Status Date / Time cat dander Allergy Mild Cough Verified 08/02/18 18:03 morphine Allergy Mild Rash Verified 08/02/18 18:03 Home Medications Medication Instructions Recorded Confirmed Type acetaminophen 650 mg PO Q4H PRN 07/28/18 08/02/18 History adalimumab [Humira Pen] 40 mg SUB-Q Q2W 07/28/18 08/02/18 History hydroxychloroquine [Plaquenil] 200 mg PO DAILY 07/28/18 08/02/18 History levothyroxine [Synthroid] 125 mcg PO DAILY 07/28/18 08/02/18 History tramadol 50 mg PO Q6HR PRN 07/28/18 08/02/18 History dwgoooqwjv-zdcoshg-owzlzauo 2 cap PO Q6H PRN 07/30/18 08/02/18 History [Fiorinal] clonazepam [Klonopin] 2 mg PO BID 07/30/18 08/02/18 History metaxalone [Skelaxin] 800 mg PO TID 07/30/18 08/02/18 History oxycodone-acetaminophen [Percocet] 1 tab PO TID PRN 07/30/18 08/02/18 History pregabalin [Lyrica] 75 mg PO BID 07/30/18 08/02/18 History Exam Vital signs: Vital Signs 08/02/18 09:48 08/02/18 18:07 08/02/18 18:08 Temperature 98.1 F Pulse Rate 73 77 Respiratory Rate 16 20 Blood Pressure 170/96 H 184/113 H Pulse Oximetry 100 100 100 Intake & Output 08/02/18 08/02/18 08/03/18 06:59 18:59 06:59 Intake Total 1000 / 1000 Balance 1000 / 1000 Weight 81.647 kg Intake: IV 1000 / 1000 NS Inj 1,000 ML @ Wide Open IV. 1000 / 1000 SIG BOLUS ONE Rx#:[id number] Narrative: Gen.: No acute distress Head: Normocephalic. Atraumatic. EENT: Pupils equal round and reactive to light. Nose without drainage. Airway intact. Throat without injection. Cardiovascular: Regular rate and rhythm. No murmurs, rubs or gallops. Respiratory: Lungs clear to auscultation bilaterally. No wheezes or rhonchi. Abdomen: Soft, ttp in the RUQ, nondistended. No peritoneal signs. Musculoskeletal: No gross deformities. No edema. Skin: No obvious rashes or erythema. Neuro: Sensory and motor grossly intact. Cranial nerves II through XII grossly intact. Results - Labs CBC & Chem 7: 08/02/18 18:15 08/02/18 18:15 Labs: Laboratory Results - last 24 hr 08/02/18 08/02/18 08/02/18 18:15 18:15 18:15 WBC 5.9 RBC 4.69 Hgb 13.5 Hct 41.2 MCV 87.8 MCH 28.9 MCHC 32.9 RDW 15.6 Plt Count 169 MPV 8.4 Neut % (Auto) 69.9 Lymph % (Auto) 23.9 [place] % (Auto) 4.4 Eos % (Auto) 1.3 Baso % (Auto) 0.5 Neut # (Auto) 4.1 Lymph # (Auto) 1.4 [place] # (Auto) 0.3 Eos # (Auto) 0.1 Baso # (Auto) 0.0 WBC Differential . Differential Comment Auto diff final Sodium 144 Potassium 3.4 L Chloride 107 Carbon Dioxide 29.7 Anion Gap 7 BUN 10 Creatinine 0.91 Estimated GFR Greater than 89 Random Glucose 86 Lactic Acid 1.3 Calcium 8.7 Total Bilirubin 0.6 AST 18 ALT 17 Alkaline Phosphatase 73 Total Protein 8.1 D Albumin 4.6 Lipase 103 - Imaging Impressions Gallbladder Ultrasound 08/02/18 18:11 CONCLUSION: 1. Gallbladder mildly distended. No gallstones or biliary ductal dilatation identified. Overall no significant change compared with July 30. Caprini VTE Risk Assessment Caprini VTE Risk Assessment: No/Low Risk (score <= 1) Caprini Risk Assessment Model: Point Value = 1 Point Value = 2 Point Value = 3 Point Value = 5 Age 41-60 Minor surgery BMI > 25 kg/m2 Swollen legs Varicose veins or History of unexplained or recurrent spontaneous Oral contraceptives or hormone replacement Sepsis (< 1 month) Serious lung disease, including pneumonia (< 1 month) Abnormal pulmonary function Acute myocardial infarction Congestive heart failure (< 1 month) History of inflammatory bowel disease Medical patient at bed rest Age 61-74 Arthroscopic surgery Major open surgery (> 45 min) Laparoscopic surgery (> 45 min) Malignancy Confined to bed (> 72 hours) Immobilizing plaster cast Central venous access Age >= 75 History of VTE Family history of VTE Factor V Leiden Prothrombin [id number] Lupus anticoagulant Anticardiolipin antibodies Elevated serum homocysteine Heparin-induced thrombocytopenia Other congenital or acquired thrombophilia Stroke (< 1 month) Elective arthroplasty Hip, pelvis, or leg fracture Acute spinal cord injury (< 1 month) Prophylaxis Regimen: Total Risk Factor Score Risk Level Prophylaxis Regimen 0-1 Low Early ambulation 2 Moderate Order ONE of the following: *Sequential Compression Device (SCD) *Heparin 5000 units SQ BID 3-4 Higher Order ONE of the following medications: *Heparin 5000 units SQ TID *Enoxaparin/Lovenox 40 mg SQ daily (WT < 150 kg, CrCl > 30 mL/min) *Enoxaparin/Lovenox 30 mg SQ daily (WT < 150 kg, CrCl > 10-29 mL/min) *Enoxaparin/Lovenox 30 mg SQ BID (WT < 150 kg, CrCl > 30 mL/min) AND/OR *Sequential Compression Device (SCD) 5 or more Highest Order ONE of the following medications: *Heparin 5000 units SQ TID (Preferred with Epidurals) *Enoxaparin/Lovenox 40 mg SQ daily (WT < 150 kg, CrCl > 30 mL/min) *Enoxaparin/Lovenox 30 mg SQ daily (WT < 150 kg, CrCl > 10-29 mL/min) *Enoxaparin/Lovenox 30 mg SQ BID (WT < 150 kg, CrCl > 30 mL/min) AND *Sequential Compression Device (SCD) Assessment and Plan - Plan Assessment/plan: 1. Abdominal pain CT scan from a week ago showed mildly distended gallbladder with no pericholecystic fluid or stones identified Ultrasound of the gallbladder today showed a mildly distended gallbladder without stones or fluid LFTs within normal limits Leukocytosis Unclear etiology May be secondary to Crohn's flare Recommend follow-up outpatient with manager residential Patient was referred to a general surgeon by his PCP, recommend outpatient follow-up 2. Crohn's Continue home medications 4. RA/ankylosing spondylitis Continue home medications 5. Hypothyroidism Continue home Synthroid FEN Regular diet as tolerated NS at 100 cc/hour
[2018-08-02] MEDS ORDERED: Acetaminophen 325 MG Tablet PO PRN (21:00)
[2018-08-02] MEDS ORDERED: Bisacodyl 10 MG Supp RECTAL PRN (21:00)
[2018-08-02] MEDS: Ciprofloxacin 500 MG Tablet PO SCH (21:26)
[2018-08-02] MEDS: Sod Chloride 0.9% Inj 1,000 ML IV.CONT SCH (21:26)
[2018-08-02] MEDS: metroNIDAZOLE 500 MG Tablet PO SCH (21:27)
[2018-08-02] MEDS: Senna/Docusate Sodium 8.6/50 MG Tablet PO SCH (21:47)
[2018-08-02] MEDS: clonazePAM 1 MG Tablet PO SCH (21:47)
[2018-08-03] MEDS ORDERED: HYDROmorphone PF Inj 2 MG/ML Vial IV.PUSH ONE (01:31)
[2018-08-03] MEDS: Levothyroxine 125 MCG Tablet PO SCH (05:48)
[2018-08-03 07:08] LABS: Baso % (Auto) 0.6 % (0.0-2.0); Eos # (Auto) 0.2 th/mm3 (0.0-0.4); Eos % (Auto) 3.6 % (0.0-4.0); Hematocrit 35.1 % (39.0-51.0); Lymph # (Auto) 1.7 th/mm3 (1.0-4.8); Lymph % (Auto) 35.1 % (9.0-44.0); Mean Corpuscular HGB Conc 34.2 % (32.0-36.0); Mean Corpuscular Hemoglobin 29.2 pg (27.0-34.0); Mean Corpuscular Volume 85.5 fL (80.0-100.0); Mean Platelet Volume 8.5 fL (7.0-11.0); Mono # (Auto) 0.3 th/mm3 (0.0-0.9); Mono % (Auto) 6.4 % (0.0-8.0); Neut # (Auto) 2.7 th/mm3 (1.8-7.7); Neut % (Auto) 54.3 % (16.0-70.0); Platelet Count 140 th/mm3 (150-450); Red Blood Count 4.11 mil/mm3 (4.50-5.90); Red Cell Distribution Width 15.8 % (11.6-17.2); White Blood Count 4.9 th/mm3 (4.0-11.0)
[2018-08-03 07:32] LABS: Chloride 108 meq/L (98-107); Glucose,Random 77 mg/dL (74-106); Potassium 3.2 meq/L (3.5-5.1); Sodium 145 meq/L (136-145)
[2018-08-03 07:44] LABS: Alanine Aminotransferase 16 U/L (12-78); Albumin 3.5 g/dL (3.4-5.0); Alkaline Phosphatase 54 U/L (45-117); Anion Gap 10 meq/L (5-15); Aspartate Aminotransferase 10 U/L (15-37); Blood Urea Nitrogen 11 mg/dL (7-18); Calcium 7.8 mg/dL (8.5-10.1); Carbon Dioxide 27.3 meq/L (21.0-32.0); Glomerular Filtration Rate Greater Than 89 mL/min (>89); Total Protein 6.4 g/dL (6.4-8.2)
[2018-08-03] MEDS: clonazePAM 1 MG Tablet PO SCH ×2 (08:16→21:51)
[2018-08-03] MEDS: Ciprofloxacin 500 MG Tablet PO SCH (08:16)
[2018-08-03] MEDS: Senna/Docusate Sodium 8.6/50 MG Tablet PO SCH ×2 (08:18→21:51)
[2018-08-03] MEDS: Potassium Chlor 10 mEq Premix 10 MEQ/100 ML PIGGYBACK IV.SIG SCH ×4 (08:19→12:58)
[2018-08-03] MEDS: Hydroxychloroquine 200 MG Tablet PO SCH (08:19)
[2018-08-03] MEDS: HYDROmorphone PF Inj 2 MG/ML Vial IV.PUSH PRN ×4 (08:19→22:02)
[2018-08-03] MEDS: metroNIDAZOLE 500 MG Tablet PO SCH (08:19)
[2018-08-03] MEDS: Sod Chloride 0.9% Inj 1,000 ML IV.CONT SCH (08:50)
[2018-08-03] MEDS: Metaxalone 800 MG Tablet PO SCH ×3 (09:03→22:40)
--- NOTE | 2018-08-03 10:53 | P.CONGI ---
History of Present Illness Consult date: 08/03/18 Consult reason: Abdominal pain Chief complaint: Intractable RUQ Pain History of Present Illness: This is a well-nourished 38-year-old male who was admitted on 08/02/2018 with uncontrolled abdominal pain, pain scale 10 out of 10, in the mid to right upper quadrant. Onset of symptoms was approximately 9 days ago and according to the patient and the record he was seen in the emergency room twice this past week for the same symptoms. Patient was given medications over the weekend and was encouraged to see a general surgeon for evaluation as outpatient. Patient failed outpatient treatment and is now back in the hospital for continued evaluation. Patient does have a significant history of Crohn's disease for approximately 10 years, lupus, RA. Patient is currently has medical management at the [facility] but has been seen by the advanced GI group within the past 5 years. Patient states last EGD and colonoscopy done in December 2017 at the [facility]. Patient states colonoscopy fairly unremarkable except possible history of some polyps found. Patient also has a history of GE. and takes omeprazole 40 mg daily; Humira for his Crohn's and Plaquenil for 5 or 6 years for his lupus. Currently patient states he did have some mild nausea and vomiting approximately 7 times over the past week which was clear or bilious fluid. Patient also states once his right upper quadrant pain started he put himself on clear liquids which is his usual norm with a Crohn's outburst. Patient states this right upper quadrant pain does feel different than his Crohn 's and is currently being managed with Cipro and Flagyl. Aggregating factors to the right upper quadrant pain is usually greasy foods and worse in the evenings mild dyspepsia. Relieving factors Tums 2 and clear liquid diet. Ultrasound of the gallbladder does show mild gallbladder distention but no obvious gallstones. Patient states his functional norm is 2-3 loose stools a day, and noted 2 episodes of blood in the stools in the past 9 days which is now subsided. Hemoccult was negative in last weeks ER setting. Current labs show hemoglobin 12, platelet count 140, bilirubin and LFTs normal. Gastroenterology was consulted to assist with patient's current symptoms of right upper quadrant abdominal pain, history and plan of care. <Jodi Garcia - Last Filed: 08/03/18 11:07> Review of Systems All other systems reviewed negative except as stated in HPI <Jodi Garcia - Last Filed: 08/03/18 11:07> PMFSH - History History Provided By: Patient - Medical History Medical History: Medical History (Last Reviewed 08/02/18 @ 18:22 by DARIUS Shelton) BPH (benign prostatic hyperplasia) (Acute) Seizures (Acute) Headache (Acute) Hypothyroidism (Acute) Vasculitis (Acute) Ankylosing spondylitis (Acute) Lupus (Acute) Rheumatoid arthritis (Acute) Crohn disease (Acute) - Surgical History Surgical History: Surgical History (Last Reviewed 08/02/18 @ 18:22 by DARIUS Shelton) Hx of hand surgery (Acute) - Family History Family History: Family History (Last Updated 08/02/18 @ 20:47 by Adrianna Orellana MD) Other Coronary artery disease - Tobacco History Second Hand Smoke Exposure: No Smoking Status: Never smoker - Alcohol History How Often Do You Have a Drink Containing Alcohol: Monthly or less - Substance Use History Substance History: No History of Abuse - Travel History Recent Travel in the [place] Within the Last 8 Weeks: No Recent Travel Out of the Country Within the Last 8 Weeks: No - Immunization History Tetanus Immunization: Unsure Hx Influenza Vaccine This Season: No <Jodi Garcia - Last Filed: 08/03/18 11:07> - Medical History Medical History: Medical History (Last Reviewed 08/02/18 @ 18:22 by DARIUS Shelton) BPH (benign prostatic hyperplasia) (Acute) Seizures (Acute) Headache (Acute) Hypothyroidism (Acute) Vasculitis (Acute) Ankylosing spondylitis (Acute) Lupus (Acute) Rheumatoid arthritis (Acute) Crohn disease (Acute) - Surgical History Surgical History: Surgical History (Last Reviewed 08/02/18 @ 18:22 by DARIUS Shelton) Hx of hand surgery (Acute) - Family History Family History: Family History (Last Updated 08/02/18 @ 20:47 by Adrianna Orellana MD) Other Coronary artery disease <Tacos Westfall - Last Filed: 08/03/18 22:07> Medications and Allergies Active Medications: Active Medications Acetaminophen (Tylenol) 650 mg PO Q4H PRN PRN Reason: Temp > 100.4 Al Hydroxide/Mg Hydroxide (Milk Of Magnesia Liq) 30 ml PO Q12H PRN PRN Reason: Mild Constipation Bisacodyl (Dulcolax Supp) 10 mg RECTAL DAILY PRN PRN Reason: SEVERE CONSITIPATION Ciprofloxacin HCl (Cipro) 500 mg PO BID [facility] Last Admin: 08/03/18 08:16 Dose: 500 mg Clonazepam (Klonopin) 2 mg PO BID [facility] Last Admin: 08/03/18 08:16 Dose: 2 mg Hydromorphone HCl (Dilaudid Pf Inj) 0.5 mg IV.PUSH Q4H PRN PRN Reason: PAIN SCALE 6 TO 10 Last Admin: 08/03/18 08:19 Dose: 0.5 mg Hydroxychloroquine Sulfate (Plaquenil) 200 mg PO DAILY [facility] Last Admin: 08/03/18 08:19 Dose: 200 mg Potassium Chloride (Kcl 10 Meq Premix Inj) 10 meq in 100 mls @ 100 mls/hr IV.SIG Q1H [facility] Stop: 08/03/18 12:59 Last Admin: 08/03/18 09:47 Dose: 100 mls/hr Potassium Chloride/Sodium Chloride (Ns + Kcl 20 Meq Inj) 1,000 mls @ 100 mls/ hr IV.CONT .Q10H [facility] Last Admin: 08/03/18 08:20 Dose: 100 mls/hr Lactulose (Lactulose Liq) 30 ml PO DAILY PRN PRN Reason: SEVERE CONSITIPATION Levothyroxine Sodium (Synthroid) 125 mcg PO DAILY@0600 [facility] Last Admin: 08/03/18 05:48 Dose: 125 mcg Metaxalone (Skelaxin) 800 mg PO TID [facility] Last Admin: 08/03/18 09:03 Dose: Not Given Metronidazole (Flagyl) 500 mg PO BID [facility] Last Admin: 08/03/18 08:19 Dose: 500 mg Ondansetron HCl (Zofran Inj) 4 mg IV.PUSH Q6H PRN PRN Reason: NAUSEA OR VOMITING Last Admin: 08/03/18 01:48 Dose: 4 mg Senna/Docusate Sodium (Mariel-Colace) 1 tab PO BID [facility] Last Admin: 08/03/18 08:18 Dose: 1 tab Sennosides (Senokot) 17.2 mg PO Q12H PRN PRN Reason: Moderate Constipation Sodium Chloride (Ns Flush) 2 ml IV.FLUSH PRN PRN PRN Reason: FLUSH AFTER USING IV ACCESS <Jodi Garcia M - Last Filed: 08/03/18 11:07> Active Medications: Active Medications Acetaminophen (Tylenol) 650 mg PO Q4H PRN PRN Reason: Temp > 100.4 Al Hydroxide/Mg Hydroxide (Milk Of Magnesia Liq) 30 ml PO Q12H PRN PRN Reason: Mild Constipation Bisacodyl (Dulcolax Supp) 10 mg RECTAL DAILY PRN PRN Reason: SEVERE CONSITIPATION Clonazepam (Klonopin) 2 mg PO BID [facility] Last Admin: 08/03/18 21:51 Dose: 2 mg Hydromorphone HCl (Dilaudid Pf Inj) 0.5 mg IV.PUSH Q4H PRN PRN Reason: PAIN SCALE 6 TO 10 Last Admin: 08/03/18 22:02 Dose: 0.5 mg Hydroxychloroquine Sulfate (Plaquenil) 200 mg PO DAILY [facility] Last Admin: 08/03/18 08:19 Dose: 200 mg Potassium Chloride/Sodium Chloride (Ns + Kcl 20 Meq Inj) 1,000 mls @ 100 mls/ hr IV.CONT .Q10H [facility] Last Infusion: 08/03/18 18:40 Dose: 0 mls/hr Piperacillin/Tazobactam/Dextrose (Zosyn 3.375 Gm Premix) 50 mls @ 100 mls/hr IV.SIG Q8H [facility] Last Infusion: 08/03/18 16:41 Dose: Infused Lactated Ringer's (Lr 1000 Ml Inj) 1,000 mls @ 100 mls/hr IV.CONT .Q10H [facility] Last Admin: 08/03/18 20:30 Dose: 100 mls/hr Ketorolac Tromethamine (Toradol Inj) 15 mg IV.PUSH Q6H PRN PRN Reason: PAIN SCALE 6 TO 10 Stop: 08/08/18 20:04 Lactulose (Lactulose Liq) 30 ml PO DAILY PRN PRN Reason: SEVERE CONSITIPATION Levothyroxine Sodium (Synthroid) 125 mcg PO DAILY@0600 [facility] Last Admin: 08/03/18 05:48 Dose: 125 mcg Metaxalone (Skelaxin) 800 mg PO TID [facility] Last Admin: 08/03/18 12:59 Dose: Not Given Miscellaneous Information (Misc Nursing Information) 1 each OTHER UNSCH PRN PRN Reason: SEE LABEL COMMENTS Stop: 08/04/18 20:07 Ondansetron HCl (Zofran Inj) 4 mg IV.PUSH Q6H PRN PRN Reason: NAUSEA OR VOMITING Last Admin: 08/03/18 01:48 Dose: 4 mg Senna/Docusate Sodium (Mariel-Colace) 1 tab PO BID [facility] Last Admin: 08/03/18 21:51 Dose: Not Given Sennosides (Senokot) 17.2 mg PO Q12H PRN PRN Reason: Moderate Constipation Sodium Chloride (Ns Flush) 2 ml IV.FLUSH PRN PRN PRN Reason: FLUSH AFTER USING IV ACCESS <Tacos Westfall E - Last Filed: 08/03/18 22:07> Allergies Allergy/AdvReac Type Severity Reaction Status Date / Time cat dander Allergy Mild Cough Verified 08/02/18 18:03 morphine Allergy Mild Rash Verified 08/02/18 18:03 Home Medications Medication Instructions Recorded Confirmed Type acetaminophen 650 mg PO Q4H PRN 07/28/18 08/02/18 History adalimumab [Humira Pen] 40 mg SUB-Q Q2W 07/28/18 08/02/18 History hydroxychloroquine [Plaquenil] 200 mg PO DAILY 07/28/18 08/02/18 History levothyroxine [Synthroid] 125 mcg PO DAILY 07/28/18 08/02/18 History tramadol 50 mg PO Q6HR PRN 07/28/18 08/02/18 History hehyyioiji-qbktibj-npzdleso 2 cap PO Q6H PRN 07/30/18 08/02/18 History [Fiorinal] clonazepam [Klonopin] 2 mg PO BID 07/30/18 08/02/18 History metaxalone [Skelaxin] 800 mg PO TID 07/30/18 08/02/18 History oxycodone-acetaminophen [Percocet] 1 tab PO TID PRN 07/30/18 08/02/18 History pregabalin [Lyrica] 75 mg PO BID 07/30/18 08/02/18 History Flomax BID 08/03/18 History Exam Vital signs: Vital Signs 08/02/18 18:07 08/02/18 18:08 08/02/18 21:27 Temperature Pulse Rate 77 58 L Respiratory Rate 20 17 Blood Pressure 184/113 H 131/68 Pulse Oximetry 100 100 08/02/18 21:43 08/02/18 21:47 08/02/18 23:35 Temperature 97.6 F 97.8 F Pulse Rate 65 52 L Respiratory Rate 16 16 16 Blood Pressure 167/93 H 159/86 H Pulse Oximetry 100 100 08/03/18 04:00 08/03/18 07:58 Temperature 98.0 F 97.9 F Pulse Rate 45 L 50 L Respiratory Rate 16 18 Blood Pressure 142/84 H 146/86 H Pulse Oximetry 99 100 Intake & Output 08/02/18 08/03/18 08/03/18 18:59 06:59 18:59 Intake Total 1180 / 1180 1100 / 1100 Output Total 600 / 600 Balance 580 / 580 1100 / 1100 Weight 81.647 kg 84.395 kg Intake: IV 1000 / 1000 1100 / 1100 NS Inj 1,000 ML @ 100 mls/hr IV 1000 / 1000 .CONT .Q10H [facility] Rx#:[id number] KCl 10 mEq Premix Inj 10 meq In 100 / 100 100 ml @ 100 mls/hr IV.SIG Q1H [facility] Rx#:[id number] NS Inj 1,000 ML @ Wide Open IV. 1000 / 1000 SIG BOLUS ONE Rx#:[id number] Oral 180 / 180 Output: Urine 600 / 600 Other: # Bowel Movements 0 Weight On Admission 83.2 kg - Constitutional mild distress, average body habitus - Routine HEENT Exam ENT: Present: mucous membranes moist - Routine Neck Exam Present: supple - Routine Respiratory Exam Present: accessory muscle use (Even, unlabored) - Routine Cardiovascular Exam Present: S1, S2 - Routine Abdominal Exam Present: soft, normoactive bowel sounds (Round,), tenderness (Mid and right upper quadrant discomfort,) - Routine Skin Exam Present: intact - Routine Neurological Exam Present: alert (Good historian) <Jodi Garcia - Last Filed: 08/03/18 11:07> Vital signs: Vital Signs 08/02/18 23:35 08/03/18 04:00 08/03/18 07:58 Temperature 97.8 F 98.0 F 97.9 F Pulse Rate 52 L 45 L 50 L Respiratory Rate 16 16 18 Blood Pressure 159/86 H 142/84 H 146/86 H Pulse Oximetry 100 99 100 08/03/18 11:55 08/03/18 16:00 08/03/18 20:08 Temperature 97.9 F 98.8 F 97.8 F Pulse Rate 53 L 60 76 Respiratory Rate 18 18 12 Blood Pressure 134/75 134/80 183/93 H Pulse Oximetry 95 98 100 08/03/18 20:09 08/03/18 20:15 08/03/18 20:30 Temperature Pulse Rate 76 54 L 64 Respiratory Rate 15 8 L 10 L Blood Pressure 162/86 H 130/62 137/70 Pulse Oximetry 100 86 L 100 08/03/18 20:45 08/03/18 21:00 08/03/18 21:39 Temperature 98.0 F 97.5 F L Pulse Rate 76 68 57 L Respiratory Rate 16 15 19 Blood Pressure 145/91 H 157/95 H 147/81 H Pulse Oximetry 100 100 99 Intake & Output 08/03/18 08/03/18 08/04/18 06:59 18:59 06:59 Intake Total 1180 / 1180 1450 / 1450 1200 / 1200 Output Total 600 / 600 700 / 700 5 / 5 Balance 580 / 580 750 / 750 1195 / 1195 Weight 84.395 kg 83.2 kg Intake: IV 1000 / 1000 1450 / 1450 NS Inj 1,000 ML @ 100 mls/hr IV 1000 / 1000 .CONT .Q10H [facility] Rx#:[id number] Zosyn 3.375 GM Premix 50 ML @ 50 / 50 100 mls/hr IV.SIG Q8H [facility] Rx#: [id number] KCl 10 mEq Premix Inj 10 meq In 400 / 400 100 ml @ 100 mls/hr IV.SIG Q1H [facility] Rx#:[id number] NS Inj 1,000 ML @ Wide Open IV. 1000 / 1000 SIG BOLUS ONE Rx#:[id number] Oral 180 / 180 Anesthesia Amount 1200 / 1200 Output: Urine 600 / 600 700 / 700 Estimated Blood Loss 5 / 5 Other: # Voids 2 # Bowel Movements 0 Weight On Admission 83.2 kg <Tacos Westfall E - Last Filed: 08/03/18 22:07> Results - Labs CBC & Chem 7: 08/03/18 05:40 08/03/18 05:40 Labs: Laboratory Results - last 24 hr 08/02/18 08/02/18 08/02/18 18:15 18:15 18:15 WBC 5.9 RBC 4.69 Hgb 13.5 Hct 41.2 MCV 87.8 MCH 28.9 MCHC 32.9 RDW 15.6 Plt Count 169 MPV 8.4 Neut % (Auto) 69.9 Lymph % (Auto) 23.9 [place] % (Auto) 4.4 Eos % (Auto) 1.3 Baso % (Auto) 0.5 Neut # (Auto) 4.1 Lymph # (Auto) 1.4 [place] # (Auto) 0.3 Eos # (Auto) 0.1 Baso # (Auto) 0.0 WBC Differential . Differential Comment Auto diff final Sodium 144 Potassium 3.4 L Chloride 107 Carbon Dioxide 29.7 Anion Gap 7 BUN 10 Creatinine 0.91 Estimated GFR Greater than 89 Random Glucose 86 Lactic Acid 1.3 Calcium 8.7 Total Bilirubin 0.6 AST 18 ALT 17 Alkaline Phosphatase 73 Total Protein 8.1 D Albumin 4.6 Lipase 103 08/03/18 08/03/18 05:40 05:40 WBC 4.9 RBC 4.11 L Hgb 12.0 L Hct 35.1 L MCV 85.5 MCH 29.2 MCHC 34.2 RDW 15.8 Plt Count 140 L MPV 8.5 Neut % (Auto) 54.3 Lymph % (Auto) 35.1 [place] % (Auto) 6.4 Eos % (Auto) 3.6 Baso % (Auto) 0.6 Neut # (Auto) 2.7 Lymph # (Auto) 1.7 [place] # (Auto) 0.3 Eos # (Auto) 0.2 Baso # (Auto) 0.0 WBC Differential . Differential Comment Auto diff final Sodium 145 Potassium 3.2 L Chloride 108 H Carbon Dioxide 27.3 Anion Gap 10 BUN 11 Creatinine 0.80 Estimated GFR Greater than 89 Random Glucose 77 Lactic Acid Calcium 7.8 L D Total Bilirubin 0.6 AST 10 L ALT 16 Alkaline Phosphatase 54 Total Protein 6.4 D Albumin 3.5 D Lipase - Imaging Impressions Gallbladder Ultrasound 08/02/18 18:11 CONCLUSION: 1. Gallbladder mildly distended. No gallstones or biliary ductal dilatation identified. Overall no significant change compared with July 30. <Jodi Garcia - Last Filed: 08/03/18 11:07> - Labs CBC & Chem 7: 08/03/18 05:40 08/03/18 05:40 Labs: Laboratory Results - last 24 hr 08/03/18 08/03/18 05:40 05:40 WBC 4.9 RBC 4.11 L Hgb 12.0 L Hct 35.1 L MCV 85.5 MCH 29.2 MCHC 34.2 RDW 15.8 Plt Count 140 L MPV 8.5 Neut % (Auto) 54.3 Lymph % (Auto) 35.1 [place] % (Auto) 6.4 Eos % (Auto) 3.6 Baso % (Auto) 0.6 Neut # (Auto) 2.7 Lymph # (Auto) 1.7 [place] # (Auto) 0.3 Eos # (Auto) 0.2 Baso # (Auto) 0.0 WBC Differential . Differential Comment Auto diff final Sodium 145 Potassium 3.2 L Chloride 108 H Carbon Dioxide 27.3 Anion Gap 10 BUN 11 Creatinine 0.80 Estimated GFR Greater than 89 Random Glucose 77 Calcium 7.8 L D Total Bilirubin 0.6 AST 10 L ALT 16 Alkaline Phosphatase 54 Total Protein 6.4 D Albumin 3.5 D <Tacos Westfall - Last Filed: 08/03/18 22:07> Assessment and Plan - Plan uncontrolled abdominal pain, pain scale 10 out of 10, in the mid to right upper quadrant. Onset of symptoms was approximately 9 days ago and according to the patient and the record he was seen in the emergency room twice this past week for the same symptoms. Patient was given medications over the weekend and was encouraged to see a general surgeon for evaluation as outpatient. Patient failed outpatient treatment and is now back in the hospital for continued evaluation. history of Crohn's disease for approximately 10 years, lupus, RA. Patient is currently has medical management at the [facility] but has been seen by the advanced GI group within the past 5 years. Patient states last EGD and colonoscopy done in December 2017 at the [facility]. Patient states colonoscopy fairly unremarkable except possible history of some polyps found. Patient also has a history of GE. and takes omeprazole 40 mg daily; Humira for his Crohn's and Plaquenil for 5 or 6 years for his lupus. mild nausea and vomiting approximately 7 times over the past week which was clear or bilious fluid. Patient also states once his right upper quadrant pain started he put himself on clear liquids which is his usual norm with a Crohn's outburst. Patient states this right upper quadrant pain does feel different than his Crohn's and is currently being managed with Cipro and Flagyl. Aggregating factors to the right upper quadrant pain is usually greasy foods and worse in the evenings mild dyspepsia. Relieving factors Tums 2 and clear liquid diet. Ultrasound of the gallbladder does show mild gallbladder distention but no obvious gallstones. Patient states his functional norm is 2-3 loose stools a day, and noted 2 episodes of blood in the stools in the past 9 days which is now subsided. Hemoccult was negative in last weeks ER setting. Current labs show hemoglobin 12, anemia probable chronic, platelet count 140, bilirubin and LFTs normal. Patient's current abdominal pain could be related to his autoimmune disease with direct effect to his gallbladder function and distention. Plan Diet n.p.o. for now PPI Consider general surgery consult and input Monitor labs Supportive care Further recommendations to follow Patient was seen per myself and Dr. Westfall, note was written on his behalf <Jodi Garcia - Last Filed: 08/03/18 11:07> - Plan Patient seen and examined Status post surgery for incarcerated umbilical hernia Further plans as per the general surgery service We will sign off <Tacos Westfall - Last Filed: 08/03/18 22:07>
--- NOTE | 2018-08-03 13:26 | P.PN ---
Subjective Interval history: Follow up for abdominal pain, Crohn's disease. The patient reports mild improvement compared to yesterday. He has continued constant RUQ pain, does get some relief with IV dilaudid. Denies fevers/chills, nausea/vomiting. He has not had a bowel movement since prior to arrival although has been on clear liquid diet for multiple days and now NPO. He states usually with his Crohn's flares, he has pain at the RLQ. He has been diagnosed with Crohn's flares usually at the terminal ileum. He states this pain is slightly different. Denies any urinary complaints or hematuria. Denies any other medical complaints at this time. Physical Exam Vital signs: Vital Signs 08/02/18 18:07 08/02/18 18:08 08/02/18 21:27 Temperature Pulse Rate 77 58 L Respiratory Rate 20 17 Blood Pressure 184/113 H 131/68 Pulse Oximetry 100 100 08/02/18 21:43 08/02/18 21:47 08/02/18 23:35 Temperature 97.6 F 97.8 F Pulse Rate 65 52 L Respiratory Rate 16 16 16 Blood Pressure 167/93 H 159/86 H Pulse Oximetry 100 100 08/03/18 04:00 08/03/18 07:58 08/03/18 11:55 Temperature 98.0 F 97.9 F 97.9 F Pulse Rate 45 L 50 L 53 L Respiratory Rate 16 18 18 Blood Pressure 142/84 H 146/86 H 134/75 Pulse Oximetry 99 100 95 Intake & Output 08/02/18 08/03/18 08/03/18 18:59 06:59 18:59 Intake Total 1180 / 1180 1300 / 1300 Output Total 600 / 600 Balance 580 / 580 1300 / 1300 Weight 81.647 kg 84.395 kg Intake: IV 1000 / 1000 1300 / 1300 NS Inj 1,000 ML @ 100 mls/hr IV 1000 / 1000 .CONT .Q10H [facility] Rx#:[id number] KCl 10 mEq Premix Inj 10 meq In 300 / 300 100 ml @ 100 mls/hr IV.SIG Q1H [facility] Rx#:[id number] NS Inj 1,000 ML @ Wide Open IV. 1000 / 1000 SIG BOLUS ONE Rx#:[id number] Oral 180 / 180 Output: Urine 600 / 600 Other: # Bowel Movements 0 Weight On Admission 83.2 kg Narrative: GENERAL: Well-nourished, well-developed middle aged male patient in NAD. SKIN: Warm and dry. No rash. HEENT: Normocephalic. Atraumatic. Pupils equal and round. Mucous membranes pink and moist. CARDIOVASCULAR: Regular rate and rhythm. No murmur appreciated. RESPIRATORY: No accessory muscle use. Clear to auscultation. Breath sounds equal bilaterally. GASTROINTESTINAL: Abdomen soft, nondistended, TTP at RUQ and epigastric region. Normoactive bowel sounds x4. MUSCULOSKELETAL: No obvious deformities. Extremities without clubbing, cyanosis , or edema. NEUROLOGICAL: Awake and alert. No obvious cranial nerve deficits. Motor grossly within normal limits. Moving all extremities spontaneously. Normal speech. PSYCHIATRIC: Appropriate mood and affect; insight and judgment normal. Results - Labs CBC & Chem 7: 08/03/18 05:40 08/03/18 05:40 Laboratory Results - last 24 hr 08/02/18 08/02/18 08/02/18 18:15 18:15 18:15 WBC 5.9 RBC 4.69 Hgb 13.5 Hct 41.2 MCV 87.8 MCH 28.9 MCHC 32.9 RDW 15.6 Plt Count 169 MPV 8.4 Neut % (Auto) 69.9 Lymph % (Auto) 23.9 [place] % (Auto) 4.4 Eos % (Auto) 1.3 Baso % (Auto) 0.5 Neut # (Auto) 4.1 Lymph # (Auto) 1.4 [place] # (Auto) 0.3 Eos # (Auto) 0.1 Baso # (Auto) 0.0 WBC Differential . Differential Comment Auto diff final Sodium 144 Potassium 3.4 L Chloride 107 Carbon Dioxide 29.7 Anion Gap 7 BUN 10 Creatinine 0.91 Estimated GFR Greater than 89 Random Glucose 86 Lactic Acid 1.3 Calcium 8.7 Total Bilirubin 0.6 AST 18 ALT 17 Alkaline Phosphatase 73 Total Protein 8.1 D Albumin 4.6 Lipase 103 08/03/18 08/03/18 05:40 05:40 WBC 4.9 RBC 4.11 L Hgb 12.0 L Hct 35.1 L MCV 85.5 MCH 29.2 MCHC 34.2 RDW 15.8 Plt Count 140 L MPV 8.5 Neut % (Auto) 54.3 Lymph % (Auto) 35.1 [place] % (Auto) 6.4 Eos % (Auto) 3.6 Baso % (Auto) 0.6 Neut # (Auto) 2.7 Lymph # (Auto) 1.7 [place] # (Auto) 0.3 Eos # (Auto) 0.2 Baso # (Auto) 0.0 WBC Differential . Differential Comment Auto diff final Sodium 145 Potassium 3.2 L Chloride 108 H Carbon Dioxide 27.3 Anion Gap 10 BUN 11 Creatinine 0.80 Estimated GFR Greater than 89 Random Glucose 77 Lactic Acid Calcium 7.8 L D Total Bilirubin 0.6 AST 10 L ALT 16 Alkaline Phosphatase 54 Total Protein 6.4 D Albumin 3.5 D Lipase - Imaging Impressions Gallbladder Ultrasound 08/02/18 18:11 CONCLUSION: 1. Gallbladder mildly distended. No gallstones or biliary ductal dilatation identified. Overall no significant change compared with July 30. Assessment and Plan - Plan 38-year-old male with a past medical history significant for ankylosing spondylitis, BPH, Crohn's, hypothyroidism, lupus, rheumatoid arthritis and seizure disorder presents to the emergency department for the evaluation of right upper quadrant abdominal pain. Abdominal pain: failed outpatient, unclear etiology, possibly biliary colic vs Crohn's flare. -CT abd/pelvis done 07/28 showed distended gallbladder without evidence of cholelithiasis, wall thickening or pericholecystic fluid. -GB U/S 08/02 showed a mildly distended gallbladder without stones or fluid -LFTs within normal limits -Pain control with IV Dilaudid prn -Supportive treatment with IVF hydration, antiemetics prn -Consult gastroenterology, appreciate assistance, recommended surgical evaluation -Consult general surgery Crohn's Disease: with possible Crohn's flare -Started on Cipro/Flagyl -GI consulted as above -Consider steroids, patient recently completed 5days of prednisone 20mg bid, however states he usually does better with high doses of IV Solumedrol during a flare -Will defer determination of steroids to the GI team RA/lupus/ankylosing spondylitis: chronic -Continue home medications including metazalone, lyrica, plaquenil -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
--- NOTE | 2018-08-03 15:01 | P.CONGS ---
[facility] Gen Surgery Consult Note Consult date: 08/03/18 Reason for consult: abdominal pain Requesting physician: Tamia Fox Narrative: This is a 38 year old male with a past medical history of Crohn's disease, RA, lupus and ankylosing spondylitis. He presented to the ED yesterday with complaints of RUQ pain that has been persistent for about 10 days. He reports associated nausea and vomiting. He reports associated fever and chills. He reports he has had several similar episodes in the past few years. The patient has had two other recent ED visits. On July [address] a [address] abdomen/pelvis was showed a distended gallbladder without evidence of cholelithiasis, wall thickening or pericholecystic fluid. On July 30 the patient was again in the ED and an US of the gallbladder was obtained which shows a mildly distended gallbladder without evidence of wall thickening, cholelithiasis or pericholecystic fluid. He was given the option of a possible HIDA scan and surgical consultation but the patient preferred to go home on Thursday and follow up as an outpatient. The patient's pain was not controlled at home and he returns back to the ED. The patient does report some dietary intolerance to fatty and greasy foods. A General Surgery consultation has been requested. Review of Systems All other systems reviewed negative except as stated in [facility] - History History Provided By: Patient - Medical History Medical History: Medical History (Last Reviewed 08/03/18 @ 15:23 by RO Sousa) BPH (benign prostatic hyperplasia) (Acute) Seizures (Acute) Headache (Acute) Hypothyroidism (Acute) Vasculitis (Acute) Ankylosing spondylitis (Acute) Lupus (Acute) Rheumatoid arthritis (Acute) Crohn disease (Acute) - Surgical History Surgical History: Surgical History (Last Reviewed 08/03/18 @ 15:23 by RO Sousa) Hx of hand surgery (Acute) - Family History Family History: Family History (Last Updated 08/02/18 @ 20:47 by Adrianna Orellana MD) Other Coronary artery disease - Tobacco History Second Hand Smoke Exposure: No Smoking Status: Never smoker - Alcohol History How Often Do You Have a Drink Containing Alcohol: Monthly or less - Substance Use History Substance History: No History of Abuse - Travel History Recent Travel in the [place] Within the Last 8 Weeks: No Recent Travel Out of the Country Within the Last 8 Weeks: No - Immunization History Tetanus Immunization: Unsure Hx Influenza Vaccine This Season: No Medications and Allergies Allergies Allergy/AdvReac Type Severity Reaction Status Date / Time cat dander Allergy Mild Cough Verified 08/02/18 18:03 morphine Allergy Mild Rash Verified 08/02/18 18:03 Home Medications Medication Instructions Recorded Confirmed Type acetaminophen 650 mg PO Q4H PRN 07/28/18 08/02/18 History adalimumab [Humira Pen] 40 mg SUB-Q Q2W 07/28/18 08/02/18 History hydroxychloroquine [Plaquenil] 200 mg PO DAILY 07/28/18 08/02/18 History levothyroxine [Synthroid] 125 mcg PO DAILY 07/28/18 08/02/18 History tramadol 50 mg PO Q6HR PRN 07/28/18 08/02/18 History ehtcpwlapr-znyonld-kmhiawug 2 cap PO Q6H PRN 07/30/18 08/02/18 History [Fiorinal] clonazepam [Klonopin] 2 mg PO BID 07/30/18 08/02/18 History metaxalone [Skelaxin] 800 mg PO TID 07/30/18 08/02/18 History oxycodone-acetaminophen [Percocet] 1 tab PO TID PRN 07/30/18 08/02/18 History pregabalin [Lyrica] 75 mg PO BID 07/30/18 08/02/18 History Flomax BID 08/03/18 History Active Medications: Active Medications Acetaminophen (Tylenol) 650 mg PO Q4H PRN PRN Reason: Temp > 100.4 Al Hydroxide/Mg Hydroxide (Milk Of Magnjace Liq) 30 ml PO Q12H PRN PRN Reason: Mild Constipation Bisacodyl (Dulcolax Supp) 10 mg RECTAL DAILY PRN PRN Reason: SEVERE CONSITIPATION Ciprofloxacin HCl (Cipro) 500 mg PO BID FOR[facility]LY [facility], [facility]1983 Last Admin: 08/03/18 08:16 Dose: 500 mg Clonazepam (Klonopin) 2 mg PO BID FOR[facility]LY [facility], [facility] Last Admin: 08/03/18 08:16 Dose: 2 mg Hydromorphone HCl (Dilaudid Pf Inj) 0.5 mg IV.PUSH Q4H PRN PRN Reason: PAIN SCALE 6 TO 10 Last Admin: 08/03/18 11:38 Dose: 0.5 mg Hydroxychloroquine Sulfate (Plaquenil) 200 mg PO DAILY FOR[facility]LY [facility], [facility] Last Admin: 08/03/18 08:19 Dose: 200 mg Potassium Chloride/Sodium Chloride (Ns + Kcl 20 Meq Inj) 1,000 mls @ 100 mls/ hr IV.CONT .Q10H [facility], [facility] Last Admin: 08/03/18 08:20 Dose: 100 mls/hr Lactulose (Lactulose Liq) 30 ml PO DAILY PRN PRN Reason: SEVERE CONSITIPATION Levothyroxine Sodium (Synthroid) 125 mcg PO DAILY@0600 FOR[facility], [facility] Last Admin: 08/03/18 05:48 Dose: 125 mcg Metaxalone (Skelaxin) 800 mg PO TID [facility], [facility] Last Admin: 08/03/18 12:59 Dose: Not Given Metronidazole (Flagyl) 500 mg PO BID [facility], [facility] Last Admin: 08/03/18 08:19 Dose: 500 mg Ondansetron HCl (Zofran Inj) 4 mg IV.PUSH Q6H PRN PRN Reason: NAUSEA OR VOMITING Last Admin: 08/03/18 01:48 Dose: 4 mg Senna/Docusate Sodium (Mariel-Colace) 1 tab PO BID [facility] Last Admin: 08/03/18 08:18 Dose: 1 tab Sennosides (Senokot) 17.2 mg PO Q12H PRN PRN Reason: Moderate Constipation Sodium Chloride (Ns Flush) 2 ml IV.FLUSH PRN PRN PRN Reason: FLUSH AFTER USING IV ACCESS Exam Vital signs: Vital Signs 08/02/18 18:07 08/02/18 18:08 08/02/18 21:27 Temperature Pulse Rate 77 58 L Respiratory Rate 20 17 Blood Pressure 184/113 H 131/68 Pulse Oximetry 100 100 08/02/18 21:43 08/02/18 21:47 08/02/18 23:35 Temperature 97.6 F 97.8 F Pulse Rate 65 52 L Respiratory Rate 16 16 16 Blood Pressure 167/93 H 159/86 H Pulse Oximetry 100 100 08/03/18 04:00 08/03/18 07:58 08/03/18 11:55 Temperature 98.0 F 97.9 F 97.9 F Pulse Rate 45 L 50 L 53 L Respiratory Rate 16 18 18 Blood Pressure 142/84 H 146/86 H 134/75 Pulse Oximetry 99 100 95 Intake & Output 09/17/18 09/18/18 09/18/18 18:59 06:59 18:59 Intake Total 1180 / 1180 1400 / 1400 Output Total 600 / 600 Balance 580 / 580 1400 / 1400 Weight 81.647 kg 84.395 kg Intake: IV 1000 / 1000 1400 / 1400 NS Inj 1,000 ML @ 100 mls/hr IV 1000 / 1000 .CONT .Q10H DARRYL Rx#:[id number] KCl 10 mEq Premix Inj 10 meq In 400 / 400 100 ml @ 100 mls/hr IV.SIG Q1H DARRYL Rx#:[id number] NS Inj 1,000 ML @ Wide Open IV. 1000 / 1000 SIG BOLUS ONE Rx#:[id number] Oral 180 / 180 Output: Urine 600 / 600 Other: # Bowel Movements 0 Weight On Admission 83.2 kg Narrative: GENERAL: Very pleasant 38 year old male resting in bed in no acute distress. SKIN: Warm and dry. HEAD: Atraumatic. Normocephalic. EYES: Pupils equal and round. No scleral icterus. No injection or drainage. ENT: No nasal bleeding or discharge. Mucous membranes pink and moist. NECK: Trachea midline. CARDIOVASCULAR: Regular rate and rhythm. RESPIRATORY: No accessory muscle use. Clear to auscultation. Breath sounds equal bilaterally. GASTROINTESTINAL: Abdomen soft, nondistended. RUQ tenderness with palpation. Small reducible umbilical hernia. MUSCULOSKELETAL: Extremities without clubbing, cyanosis, or edema. No obvious deformities. NEUROLOGICAL: Awake and alert. No obvious cranial nerve deficits. Motor grossly within normal limits. Five out of 5 muscle strength in the arms and legs. Normal speech. PSYCHIATRIC: Appropriate mood and affect; insight and judgment normal. Results - Labs 08/03/18 05:40 08/03/18 05:40 Laboratory Results WBC 4.9 th/mm3 (4.0-11.0) 08/03/18 05:40 RBC 4.11 mil/mm3 (4.50-5.90) L 08/03/18 05:40 Hgb 12.0 gm/dL (13.0-17.0) L 08/03/18 05:40 Hct 35.1 % (39.0-51.0) L 08/03/18 05:40 MCV 85.5 fL (80.0-100.0) 08/03/18 05:40 MCH 29.2 pg (27.0-34.0) 08/03/18 05:40 MCHC 34.2 % (32.0-36.0) 08/03/18 05:40 RDW 15.8 % (11.6-17.2) 08/03/18 05:40 Plt Count 140 th/mm3 (150-450) L 08/03/18 05:40 MPV 8.5 fL (7.0-11.0) 08/03/18 05:40 Neut % (Auto) 54.3 % (16.0-70.0) 08/03/18 05:40 Lymph % (Auto) 35.1 % (9.0-44.0) 08/03/18 05:40 [place] % (Auto) 6.4 % (0.0-8.0) 08/03/18 05:40 Eos % (Auto) 3.6 % (0.0-4.0) 08/03/18 05:40 Baso % (Auto) 0.6 % (0.0-2.0) 08/03/18 05:40 Neut # (Auto) 2.7 th/mm3 (1.8-7.7) 08/03/18 05:40 Lymph # (Auto) 1.7 th/mm3 (1.0-4.8) 08/03/18 05:40 [place] # (Auto) 0.3 th/mm3 (0.0-0.9) 08/03/18 05:40 Eos # (Auto) 0.2 th/mm3 (0.0-0.4) 08/03/18 05:40 Baso # (Auto) 0.0 th/mm3 (0.0-0.2) 08/03/18 05:40 WBC Differential . 08/03/18 05:40 Differential Comment Auto diff final 08/03/18 05:40 Sodium 145 meq/L (136-145) 08/03/18 05:40 Potassium 3.2 meq/L (3.5-5.1) L 08/03/18 05:40 Chloride 108 meq/L (98-107) H 08/03/18 05:40 Carbon Dioxide 27.3 meq/L (21.0-32.0) 08/03/18 05:40 Anion Gap 10 meq/L (5-15) 08/03/18 05:40 BUN 11 mg/dL (7-18) 08/03/18 05:40 Creatinine 0.80 mg/dL (0.60-1.30) 08/03/18 05:40 Estimated GFR Greater than 89 mL/min (>89) 08/03/18 05:40 Random Glucose 77 mg/dL (74-106) 08/03/18 05:40 Lactic Acid 1.3 mmol/L (0.4-2.0) 08/02/18 18:15 Calcium 7.8 mg/dL (8.5-10.1) L D 08/03/18 05:40 Total Bilirubin 0.6 mg/dL (0.2-1.0) 08/03/18 05:40 AST 10 U/L (15-37) L 08/03/18 05:40 ALT 16 U/L (12-78) 08/03/18 05:40 Alkaline Phosphatase 54 U/L (45-117) 08/03/18 05:40 Total Protein 6.4 g/dL (6.4-8.2) D 08/03/18 05:40 Albumin 3.5 g/dL (3.4-5.0) D 08/03/18 05:40 Lipase 103 U/L (73-393) 08/02/18 18:15 Impressions Gallbladder Ultrasound 08/02/18 18:11 CONCLUSION: 1. Gallbladder mildly distended. No gallstones or biliary ductal dilatation identified. Overall no significant change compared with July 30. - Imaging Additional studies: US gallbladder reviewed Assessment and Plan - Assessment (1) Right upper quadrant abdominal pain Code(s): R10.11 - Right upper quadrant pain Status: Acute Plan: 38 year old male with RUQ pain; nausea/vomiting -NPO -Will discuss with the OR about availability for laparoscopic cholecystectomy; possible open procedure; possible intraoperative cholangiogram and primary umbilical hernia repair. -Procedure explained in detail and all questions answered -Obtain consents -Discussed with patient; all questions answered -Thank you for this consult; We will continue to follow - Plan I personally evaluated the patient in room G 75 to the emergency department. Patient is a fairly complex 38-year-old with history of Crohn's disease as well as lupus. He has got autoimmune disorders for which she has been intermittently treated with the appropriate medications including just recently underwent a 5 day course of 20 mg of prednisone twice a day for an assumed Crohn 's flareup. He has had multiple CT scans, ultrasounds in about 3 years ago had a HIDA scan. HIDA scan report was evaluated and he did have reproduction of his symptoms associated with the administration of cholecystokinin. Ultrasounds of never shown gallstones. Most recent CT scan and 2 ultrasounds showed a distended gallbladder. He has not been eating much recently due to his pain and nausea vomiting. He has had subjective fevers and a malar rash. His abdominal exam is significant for an umbilical hernia as well as tenderness in the right subcostal position which goes along with his distended gallbladder. There is no evidence of active Crohn's disease on the CT scan from 6 days ago. Specifically his terminal ileum is noninflamed. I had a lengthy discussion with the patient going over the classic symptoms of gallbladder disease, expected findings on ultrasound and/or HIDA scan and his specific imaging findings and history. He understands he does not fit the classic history of gallbladder disease however do believe it is reasonable to consider laparoscopic cholecystectomy and repair of his umbilical hernia. After discussing all the options and alternatives he wishes to proceed with the surgery as well. I communicated with the operating room about when we could potentially do this and they have availability for this evening. He wished to proceed. The risks of the surgery including bleeding infection injury to intra-abdominal contents including liver bile duct or bowel possible open surgery DVT pulmonary embolus and expectations for recovery reviewed. I discussed with him that he specifically is at increased risk for wound healing problems giving his overall autoimmune disorders in the recent treatment with steroid medications. He expressed a complete understanding, feels fully informed, and wishes to proceed. He has been on antibiotics. He will receive sequential compression devices intraoperatively. Discussed Condition With: Dr. Jose Arenas
[2018-08-03] MEDS: Piperacil/Tazo 3.375 GM Premix 50 ML IV.SIG SCH (16:03)
[2018-08-03] MEDS ORDERED: Bupivacaine/Epinephrine Inj 0.25% 50 ML Vial ONE (18:04)
[2018-08-03] MEDS ORDERED: fentaNYL Citrate Inj 250 MCG/5 ML Ampul ONE (18:55)
[2018-08-03] MEDS ORDERED: Neostigmine Inj 5 MG/5 ML Syringe IV.PUSH ONE (19:00)
[2018-08-03] MEDS ORDERED: Glycopyrrolate Inj 1 MG/5 ML Syringe IV.PUSH ONE (19:00)
[2018-08-03] MEDS ORDERED: Labetalol HCl Inj 100 MG/20 ML Vial IV.CONT ONE (19:00)
[2018-08-03] MEDS ORDERED: Post-op Orders (for Pharmacy) OTHER ONE (20:05)
[2018-08-03] MEDS ORDERED: Ketorolac Inj 30 MG/ML (IVP) Vial IV.PUSH PRN (20:05)
[2018-08-03] MEDS ORDERED: *Meperidine Inj 25 MG/ML Vial PERIprocedural Use ONLY ONE (20:10)
--- NOTE | 2018-08-03 20:16 | P.OP ---
- Preoperative Diagnosis (1) Acalculous cholecystitis - Postoperative Diagnosis (1) Acalculous cholecystitis Date of procedure: 08/03/18 Procedure: Laparoscopic cholecystectomy with open repair incarcerated umbilical hernia Anesthesia: LLOYD Surgeon: Kevin Garcia MD Cardiac Cath Lab Technologist: Rodger Estimated blood loss (mL): 5 Pathology: other (Gallbladder to pathology) Operation and Findings: Patient was identified as Nael Arenas, taken to the operating room, placed in a supine position. Sequential compression device were placed on bilateral lower extremities. Following induction of adequate general endotracheal anesthesia the patient's abdomen was prepped and draped in usual sterile fashion with Betadine. A timeout procedure was performed. Following completion timeout procedure everyone's satisfaction within the room, local anesthetic was infiltrated above and around the umbilicus. A 2-1/2 cm transverse incision above the umbilicus was carried out with a scalpel. Metzenbaum scissors were used to separate herniated preperitoneal fatty tissue which was incarcerated through an umbilical hernia defect from the overlying umbilical skin. Harmonic scalpel was used to amputate redundant preperitoneal fatty tissue which was discarded. The hernia defect was retracted anteriorly and entering the peritoneal cavity facilitative the hemostat. The applied medical balloon Perez trocar was placed in the peritoneal cavity, its balloon inflated and CO2 insufflation to level of 15 mmHg ensued. Patient was placed in a reverse Trendelenburg position turn to the left. 2 upper abdominal 5 mm trochars were placed into the peritoneal cavity under direct laparoscopic view after incision and skin with a scalpel. The gallbladder was immediately identified. It was distended. It was edematous. There were inflammatory adhesions to it. Inflammatory adhesions were taken down using the harmonic scalpel. The gallbladder was then removed from the gallbladder fossa and a dome down technique using the harmonic scalpel. The cystic artery was divided with a harmonic scalpel. The cystic duct was isolated from surrounding tissues and ligated proximally distally with 0 PDS Endoloops. Cystic duct was divided between the Endoloops using the harmonic scalpel. Gallbladder was placed into an Endo retrieval bag which was then removed through the umbilical hernia defect which had to be extended slightly superiorly to allow up with his large distended gallbladder to be removed. The gallbladder was passed off the field for pathologic evaluation. The gallbladder fossa was examined it was dry. There was no bloody or bilious drainage. The cystic duct ligature remained intact. The cystic arterial stump was hemostatic. Right lower quadrant was evaluated there was no evidence of inflammatory bowel disease changes. No creeping fat or erythema was identified. Photograph was taken. Remaining local anesthetic was placed in the subhepatic position. Trochars were removed under direct visualization there was no evidence of bleeding from trocar sites. The abdomen was actively desufflated through the umbilical port which was then removed. The umbilical fascial defect was closed with multiple interrupted inverted 0 Prolene sutures. The umbilicus was reformed to its normal inward projection with 2 2-0 Vicryl sutures. 2-0 Vicryl was placed in the deep dermis and the skin incisions were approximated with 4-0 Monocryl subcuticular sutures. Dressings were applied with Mastisol and half-inch brown Steri-Strips. Gauze and Tegaderm cover the umbilicus. The patient tolerated the procedure without apparent complication. Sponge needle and instrument counts were correct at the end of the case. Patient was transported to PACU in stable condition.
[2018-08-04] MEDS: Piperacil/Tazo 3.375 GM Premix 50 ML IV.SIG SCH ×2 (01:23→09:09)
[2018-08-04] MEDS: HYDROmorphone PF Inj 2 MG/ML Vial IV.PUSH PRN ×3 (02:13→10:31)
[2018-08-04 05:13] LABS: Baso % (Auto) 0.2 % (0.0-2.0); Hematocrit 39.3 % (39.0-51.0); Hemoglobin 13.3 gm/dL (13.0-17.0); Lymph # (Auto) 0.5 th/mm3 (1.0-4.8); Lymph % (Auto) 8.7 % (9.0-44.0); Mean Corpuscular HGB Conc 33.8 % (32.0-36.0); Mean Corpuscular Hemoglobin 29.2 pg (27.0-34.0); Mean Corpuscular Volume 86.4 fL (80.0-100.0); Mean Platelet Volume 8.6 fL (7.0-11.0); Mono # (Auto) 0.1 th/mm3 (0.0-0.9); Mono % (Auto) 2.6 % (0.0-8.0); Neut # (Auto) 4.8 th/mm3 (1.8-7.7); Neut % (Auto) 88.5 % (16.0-70.0); Platelet Count 151 th/mm3 (150-450); Red Blood Count 4.55 mil/mm3 (4.50-5.90); Red Cell Distribution Width 15.1 % (11.6-17.2); White Blood Count 5.4 th/mm3 (4.0-11.0)
[2018-08-04] MEDS: Levothyroxine 125 MCG Tablet PO SCH (05:22)
[2018-08-04 05:46] LABS: Anion Gap 11 meq/L (5-15); Blood Urea Nitrogen 13 mg/dL (7-18); Calcium 8.8 mg/dL (8.5-10.1); Carbon Dioxide 27.2 meq/L (21.0-32.0); Chloride 102 meq/L (98-107); Glomerular Filtration Rate Greater Than 89 mL/min (>89); Glucose,Random 105 mg/dL (74-106); Potassium 3.6 meq/L (3.5-5.1); Sodium 140 meq/L (136-145)
[2018-08-04] MEDS: Senna/Docusate Sodium 8.6/50 MG Tablet PO SCH (09:07)
[2018-08-04] MEDS: clonazePAM 1 MG Tablet PO SCH (09:08)
[2018-08-04] MEDS: Hydroxychloroquine 200 MG Tablet PO SCH (09:08)
[2018-08-04] MEDS: Metaxalone 800 MG Tablet PO SCH ×2 (09:08→12:48)
[2018-08-04] MEDS ORDERED: oxyCODONE/Acetaminophen 10/325 Tablet PO PRN (09:14)
--- NOTE | 2018-08-04 11:45 | P.PN ---
Subjective Interval history: duplicate cancel Physical Exam Vital signs: Vital Signs 08/03/18 11:55 08/03/18 16:00 08/03/18 20:08 Temperature 97.9 F 98.8 F 97.8 F Pulse Rate 53 L 60 76 Respiratory Rate 18 18 12 Blood Pressure 134/75 134/80 183/93 H Pulse Oximetry 95 98 100 08/03/18 20:09 08/03/18 20:15 08/03/18 20:30 Temperature Pulse Rate 76 54 L 64 Respiratory Rate 15 8 L 10 L Blood Pressure 162/86 H 130/62 137/70 Pulse Oximetry 100 86 L 100 08/03/18 20:45 08/03/18 21:00 08/03/18 21:39 Temperature 98.0 F 97.5 F L Pulse Rate 76 68 57 L Respiratory Rate 16 15 19 Blood Pressure 145/91 H 157/95 H 147/81 H Pulse Oximetry 100 100 99 08/04/18 00:00 08/04/18 04:00 08/04/18 08:00 Temperature 98.4 F 97.2 F L 97.7 F Pulse Rate 60 65 48 L Respiratory Rate 18 18 19 Blood Pressure 127/76 161/87 H 164/98 H Pulse Oximetry 100 99 99 Intake & Output 08/03/18 08/04/18 08/04/18 18:59 06:59 18:59 Intake Total 1450 / 1450 2850 / 2850 50 / 50 Output Total 700 / 700 2305 / 2305 Balance 750 / 750 545 / 545 50 / 50 Weight 80 kg Intake: IV 1450 / 1450 1050 / 1050 50 / 50 LR 1000 mL Inj 1,000 ML @ 100 1000 / 1000 mls/hr IV.CONT .Q10H DARRYL Rx#: [id number] NS Inj 1,000 ML @ 100 mls/hr IV 1000 / 1000 .CONT .Q10H DARRYL Rx#:[id number] Zosyn 3.375 GM Premix 50 ML @ 50 / 50 50 / 50 50 / 50 100 mls/hr IV.SIG Q8H DARRYL Rx#: [id number] KCl 10 mEq Premix Inj 10 meq In 400 / 400 100 ml @ 100 mls/hr IV.SIG Q1H ADRRYL Rx#:[id number] Oral 600 / 600 Anesthesia Amount 1200 / 1200 Output: Urine 700 / 700 2300 / 2300 Estimated Blood Loss 5 / 5 Other: # Voids 2 Narrative: GENERAL: Well-nourished, well-developed middle aged male patient in NAD. SKIN: Warm and dry. No rash. HEENT: Normocephalic. Atraumatic. Pupils equal and round. Mucous membranes pink and moist. CARDIOVASCULAR: Regular rate and rhythm. No murmur appreciated. RESPIRATORY: No accessory muscle use. Clear to auscultation. Breath sounds equal bilaterally. GASTROINTESTINAL: Abdomen soft, nondistended, TTP at RUQ and epigastric region. Normoactive bowel sounds x4. MUSCULOSKELETAL: No obvious deformities. Extremities without clubbing, cyanosis , or edema. NEUROLOGICAL: Awake and alert. No obvious cranial nerve deficits. Motor grossly within normal limits. Moving all extremities spontaneously. Normal speech. PSYCHIATRIC: Appropriate mood and affect; insight and judgment normal. Results - Labs CBC & Chem 7: 08/04/18 04:00 08/04/18 04:00 Laboratory Results - last 24 hr 08/04/18 08/04/18 04:00 04:00 WBC 5.4 RBC 4.55 Hgb 13.3 Hct 39.3 MCV 86.4 MCH 29.2 MCHC 33.8 RDW 15.1 Plt Count 151 MPV 8.6 Neut % (Auto) 88.5 H Lymph % (Auto) 8.7 L [place] % (Auto) 2.6 Eos % (Auto) 0.0 Baso % (Auto) 0.2 Neut # (Auto) 4.8 Lymph # (Auto) 0.5 L [place] # (Auto) 0.1 Eos # (Auto) 0.0 Baso # (Auto) 0.0 WBC Differential . Differential Comment Auto diff final Sodium 140 Potassium 3.6 Chloride 102 Carbon Dioxide 27.2 Anion Gap 11 BUN 13 Creatinine 0.82 Estimated GFR Greater than 89 Random Glucose 105 Calcium 8.8 D - Procedures Laparoscopic cholecystectomy with open repair incarcerated umbilical hernia by Dr Garcia gen surg on 08/04/18
--- NOTE | 2018-08-04 11:46 | P.PN ---
Subjective Interval history: In nad No cp, sob, n/v/d/c. Ambulates No fever or chills Pain in his belly at surgical site controlled by meds Cleared by surgical team for DC Physical Exam Vital signs: Vital Signs 08/03/18 11:55 08/03/18 16:00 08/03/18 20:08 Temperature 97.9 F 98.8 F 97.8 F Pulse Rate 53 L 60 76 Respiratory Rate 18 18 12 Blood Pressure 134/75 134/80 183/93 H Pulse Oximetry 95 98 100 08/03/18 20:09 08/03/18 20:15 08/03/18 20:30 Temperature Pulse Rate 76 54 L 64 Respiratory Rate 15 8 L 10 L Blood Pressure 162/86 H 130/62 137/70 Pulse Oximetry 100 86 L 100 08/03/18 20:45 08/03/18 21:00 08/03/18 21:39 Temperature 98.0 F 97.5 F L Pulse Rate 76 68 57 L Respiratory Rate 16 15 19 Blood Pressure 145/91 H 157/95 H 147/81 H Pulse Oximetry 100 100 99 08/04/18 00:00 08/04/18 04:00 08/04/18 08:00 Temperature 98.4 F 97.2 F L 97.7 F Pulse Rate 60 65 48 L Respiratory Rate 18 18 19 Blood Pressure 127/76 161/87 H 164/98 H Pulse Oximetry 100 99 99 Intake & Output 08/03/18 08/04/18 08/04/18 18:59 06:59 18:59 Intake Total 1450 / 1450 2850 / 2850 50 / 50 Output Total 700 / 700 2305 / 2305 Balance 750 / 750 545 / 545 50 / 50 Weight 80 kg Intake: IV 1450 / 1450 1050 / 1050 50 / 50 LR 1000 mL Inj 1,000 ML @ 100 1000 / 1000 mls/hr IV.CONT .Q10H DARRYL Rx#: [id number] NS Inj 1,000 ML @ 100 mls/hr IV 1000 / 1000 .CONT .Q10H DARRYL Rx#:[id number] Zosyn 3.375 GM Premix 50 ML @ 50 / 50 50 / 50 50 / 50 100 mls/hr IV.SIG Q8H DARRYL Rx#: [id number] KCl 10 mEq Premix Inj 10 meq In 400 / 400 100 ml @ 100 mls/hr IV.SIG Q1H DARRYL Rx#:[id number] Oral 600 / 600 Anesthesia Amount 1200 / 1200 Output: Urine 700 / 700 2300 / 2300 Estimated Blood Loss 5 / 5 Other: # Voids 2 Narrative: GENERAL: Well-nourished, well-developed middle aged male patient in NAD. SKIN: Warm and dry. No rash. HEENT: Normocephalic. Atraumatic. Pupils equal and round. Mucous membranes pink and moist. CARDIOVASCULAR: Regular rate and rhythm. No murmur appreciated. RESPIRATORY: No accessory muscle use. Clear to auscultation. Breath sounds equal bilaterally. GASTROINTESTINAL: Abdomen soft, nondistended, TTP at RUQ and epigastric region. Normoactive bowel sounds x4. MUSCULOSKELETAL: No obvious deformities. Extremities without clubbing, cyanosis , or edema. NEUROLOGICAL: Awake and alert. No obvious cranial nerve deficits. Motor grossly within normal limits. Moving all extremities spontaneously. Normal speech. PSYCHIATRIC: Appropriate mood and affect; insight and judgment normal. Results - Labs CBC & Chem 7: 08/04/18 04:00 08/04/18 04:00 Laboratory Results - last 24 hr 08/04/18 08/04/18 04:00 04:00 WBC 5.4 RBC 4.55 Hgb 13.3 Hct 39.3 MCV 86.4 MCH 29.2 MCHC 33.8 RDW 15.1 Plt Count 151 MPV 8.6 Neut % (Auto) 88.5 H Lymph % (Auto) 8.7 L [place] % (Auto) 2.6 Eos % (Auto) 0.0 Baso % (Auto) 0.2 Neut # (Auto) 4.8 Lymph # (Auto) 0.5 L [place] # (Auto) 0.1 Eos # (Auto) 0.0 Baso # (Auto) 0.0 WBC Differential . Differential Comment Auto diff final Sodium 140 Potassium 3.6 Chloride 102 Carbon Dioxide 27.2 Anion Gap 11 BUN 13 Creatinine 0.82 Estimated GFR Greater than 89 Random Glucose 105 Calcium 8.8 D - Procedures Laparoscopic cholecystectomy with open repair incarcerated umbilical hernia by Dr Garcia gen surg on 08/04/18 Assessment and Plan - Plan 38-year-old male with a past medical history significant for ankylosing spondylitis, BPH, Crohn's, hypothyroidism, lupus, rheumatoid arthritis and seizure disorder presents to the emergency department for the evaluation of right upper quadrant abdominal pain. Abdominal pain: failed outpatient, unclear etiology, possibly biliary colic vs Crohn's flare. -CT abd/pelvis done 07/28 showed distended gallbladder without evidence of cholelithiasis, wall thickening or pericholecystic fluid. -GB U/S 08/02 showed a mildly distended gallbladder without stones or fluid -LFTs within normal limits -Pain control with IV Dilaudid prn -Supportive treatment with IVF hydration, antiemetics prn -Consult gastroenterology, appreciate assistance, recommended surgical evaluation -Consult general surgery Crohn's Disease: with possible Crohn's flare -Started on Cipro/Flagyl -GI consulted as above -Consider steroids, patient recently completed 5days of prednisone 20mg bid, however states he usually does better with high doses of IV Solumedrol during a flare -Will defer determination of steroids to the GI team RA/lupus/ankylosing spondylitis: chronic -Continue home medications including metazalone, lyrica, plaquenil -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
--- NOTE | 2018-08-04 11:51 | P.DS ---
Date of admission: 08/02/18 20:23 Primary care physician: Shantanu Bansal MD Brief History from admission: 38-year-old male with a past medical history significant for ankylosing spondylitis, BPH, Crohn's, hypothyroidism, lupus, rheumatoid arthritis and seizure disorder presents to the emergency department for the evaluation of right upper quadrant abdominal pain. Patient was seen in the emergency department twice since last week and found to have a distended gallbladder on CT scan. Gallbladder ultrasound today showed distended gallbladder with no pericholecystic fluid or stones. LFTs within normal limit. No fevers/chills. No leukocytosis. Patient denies chest pain or shortness of breath. No emesis or diarrhea. No lateralizing signs/symptoms. DS: Diagnosis - Discharge Diagnosis (1) Right upper quadrant abdominal pain Status: Acute (2) Acalculous cholecystitis Status: Acute (3) Hx of hand surgery Status: Acute (4) BPH (benign prostatic hyperplasia) Status: Acute (5) Seizures Status: Acute (6) Headache Status: Acute (7) Hypothyroidism Status: Acute DS: Medications - Discharge Medications Prescriptions: oxycodone-acetaminophen 1 tab PO Q4H PRN #18 tab PRN Reason: acute post op pain exception DS: Summary Hospital Course: 38-year-old male with a past medical history significant for ankylosing spondylitis, BPH, Crohn's, hypothyroidism, lupus, rheumatoid arthritis and seizure disorder presents to the emergency department for the evaluation of right upper quadrant abdominal pain. Abdominal pain: failed outpatient, unclear etiology, possibly biliary colic vs Crohn's flare. -CT abd/pelvis done 07/28 showed distended gallbladder without evidence of cholelithiasis, wall thickening or pericholecystic fluid. -GB U/S 08/02 showed a mildly distended gallbladder without stones or fluid -LFTs within normal limits -Pain control with IV Dilaudid prn -Supportive treatment with IVF hydration, antiemetics prn -Consult gastroenterology, appreciate assistance, recommended surgical evaluation -Consult general surgery Crohn's Disease: with possible Crohn's flare -Started on Cipro/Flagyl -GI consulted as above -Consider steroids, patient recently completed 5days of prednisone 20mg bid, however states he usually does better with high doses of IV Solumedrol during a flare -Will defer determination of steroids to the GI team RA/lupus/ankylosing spondylitis: chronic -Continue home medications including metazalone, lyrica, plaquenil -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 cutter at [place] Hypothyroidism: chronic -Continue home Synthroid DVT Prophylaxis: teds/SCDs; avoid chemical prophylaxis incase surgery is indicated Discussed with the patient, nurse, Dr Garcia Cleared for DC by Dr Garcia to follow up as OP - Time Spent with Patient Total time spent providing and/or coordinating discharge services: Greater than 30 minutes - Quality: VTE Deep Vein Thrombosis/Pulmonary Embolism Present on Admission: No Exam Vital signs: Vital Signs 08/03/18 11:55 08/03/18 16:00 08/03/18 20:08 Temperature 97.9 F 98.8 F 97.8 F Pulse Rate 53 L 60 76 Respiratory Rate 18 18 12 Blood Pressure 134/75 134/80 183/93 H Pulse Oximetry 95 98 100 08/03/18 20:09 08/03/18 20:15 08/03/18 20:30 Temperature Pulse Rate 76 54 L 64 Respiratory Rate 15 8 L 10 L Blood Pressure 162/86 H 130/62 137/70 Pulse Oximetry 100 86 L 100 08/03/18 20:45 08/03/18 21:00 08/03/18 21:39 Temperature 98.0 F 97.5 F L Pulse Rate 76 68 57 L Respiratory Rate 16 15 19 Blood Pressure 145/91 H 157/95 H 147/81 H Pulse Oximetry 100 100 99 08/04/18 00:00 08/04/18 04:00 08/04/18 08:00 Temperature 98.4 F 97.2 F L 97.7 F Pulse Rate 60 65 48 L Respiratory Rate 18 18 19 Blood Pressure 127/76 161/87 H 164/98 H Pulse Oximetry 100 99 99 Intake & Output 08/03/18 08/04/18 08/04/18 18:59 06:59 18:59 Intake Total 1450 / 1450 2850 / 2850 50 / 50 Output Total 700 / 700 2305 / 2305 Balance 750 / 750 545 / 545 50 / 50 Weight 80 kg Intake: IV 1450 / 1450 1050 / 1050 50 / 50 LR 1000 mL Inj 1,000 ML @ 100 1000 / 1000 mls/hr IV.CONT .Q10H DARRYL Rx#: [id number] NS Inj 1,000 ML @ 100 mls/hr IV 1000 / 1000 .CONT .Q10H DARRYL Rx#:[id number] Zosyn 3.375 GM Premix 50 ML @ 50 / 50 50 / 50 50 / 50 100 mls/hr IV.SIG Q8H DARRYL Rx#: [id number] KCl 10 mEq Premix Inj 10 meq In 400 / 400 100 ml @ 100 mls/hr IV.SIG Q1H DARRYL Rx#:[id number] Oral 600 / 600 Anesthesia Amount 1200 / 1200 Output: Urine 700 / 700 2300 / 2300 Estimated Blood Loss 5 / 5 Other: # Voids 2 Narrative: GENERAL: Well-nourished, well-developed middle aged male patient in NAD. SKIN: Warm and dry. No rash. HEENT: Normocephalic. Atraumatic. Pupils equal and round. Mucous membranes pink and moist. CARDIOVASCULAR: Regular rate and rhythm. No murmur appreciated. RESPIRATORY: No accessory muscle use. Clear to auscultation. Breath sounds equal bilaterally. GASTROINTESTINAL: Abdomen soft, nondistended, TTP at RUQ and epigastric region. Normoactive bowel sounds x4. MUSCULOSKELETAL: No obvious deformities. Extremities without clubbing, cyanosis , or edema. NEUROLOGICAL: Awake and alert. No obvious cranial nerve deficits. Motor grossly within normal limits. Moving all extremities spontaneously. Normal speech. PSYCHIATRIC: Appropriate mood and affect; insight and judgment normal. Results Procedures completed during hospitalization: Laparoscopic cholecystectomy with open repair incarcerated umbilical hernia by Dr Garcia gen surg on 08/04/18 Pending studies at discharge: Pending at discharge 08/03/18 07:31 Surgical [PTH] Routine Labs on day of discharge: Labs from last 24 hours 08/04/18 08/04/18 04:00 04:00 WBC 5.4 RBC 4.55 Hgb 13.3 Hct 39.3 MCV 86.4 MCH 29.2 MCHC 33.8 RDW 15.1 Plt Count 151 MPV 8.6 Neut % (Auto) 88.5 H Lymph % (Auto) 8.7 L Mcculloch % (Auto) 2.6 Eos % (Auto) 0.0 Baso % (Auto) 0.2 Neut # (Auto) 4.8 Lymph # (Auto) 0.5 L Mcculloch # (Auto) 0.1 Eos # (Auto) 0.0 Baso # (Auto) 0.0 WBC Differential . Differential Comment Auto diff final Sodium 140 Potassium 3.6 Chloride 102 Carbon Dioxide 27.2 Anion Gap 11 BUN 13 Creatinine 0.82 Estimated GFR Greater than 89 Random Glucose 105 Calcium 8.8 D - Impressions ITS Impressions Gallbladder Ultrasound 08/02/18 18:11 CONCLUSION: 1. Gallbladder mildly distended. No gallstones or biliary ductal dilatation identified. Overall no significant change compared with July 30. Discharge Plan - Discharge Disposition Patient Disposition: 01 Discharge Home - Discharge Condition Condition: Stable - Discharge Order Discharge Orders: Discharge Order (Routine); Ordered 08/04/18 Ordered By: Mai Moe General Surgery Clear for Discharge (Routine); Ordered 08/04/18 Ordered By: Kevin Garcia - Discharge Details Discharge Comment: Apply ice on and off every 15-20 minutes to the incision sites. Leave umbilical dressing on for 1 week. May shower starting 08/05/2018. Avoid abdominal strain. No driving until off pain medications - Physicians Team Primary Care Provider: Shantanu Bansal Attending Provider: Mai Moe Other Providers: Tacos Westfall MD ; Kevin Garcia MD
[2018-08-04 12:02] VITALS: BP 138/75; PULSE 60; RESP 17; TEMP 98.2; O2SAT 98
--- NOTE | 2018-08-04 12:02 | P.PNGS ---
Subjective Patient reports: feels better (Patient has normal postoperative tenderness at incision sites. He is walk the halls done 5 or 6 laps without problems. He is tolerating oral diet. He is passing urine normally. He is ready to go home.) Physical Exam Vital signs: Vital Signs 08/03/18 16:00 08/03/18 20:08 08/03/18 20:09 Temperature 98.8 F 97.8 F Pulse Rate 60 76 76 Respiratory Rate 18 12 15 Blood Pressure 134/80 183/93 H 162/86 H Pulse Oximetry 98 100 100 08/03/18 20:15 08/03/18 20:30 08/03/18 20:45 Temperature Pulse Rate 54 L 64 76 Respiratory Rate 8 L 10 L 16 Blood Pressure 130/62 137/70 145/91 H Pulse Oximetry 86 L 100 100 08/03/18 21:00 08/03/18 21:39 08/04/18 00:00 Temperature 98.0 F 97.5 F L 98.4 F Pulse Rate 68 57 L 60 Respiratory Rate 15 19 18 Blood Pressure 157/95 H 147/81 H 127/76 Pulse Oximetry 100 99 100 08/04/18 04:00 08/04/18 08:00 Temperature 97.2 F L 97.7 F Pulse Rate 65 48 L Respiratory Rate 18 19 Blood Pressure 161/87 H 164/98 H Pulse Oximetry 99 99 Intake & Output 08/03/18 08/04/18 08/04/18 18:59 06:59 18:59 Intake Total 1450 / 1450 2850 / 2850 50 / 50 Output Total 700 / 700 2305 / 2305 Balance 750 / 750 545 / 545 50 / 50 Weight 80 kg Intake: IV 1450 / 1450 1050 / 1050 50 / 50 LR 1000 mL Inj 1,000 ML @ 100 1000 / 1000 mls/hr IV.CONT .Q10H DARRYL Rx#: [id number] NS Inj 1,000 ML @ 100 mls/hr IV 1000 / 1000 .CONT .Q10H DARRYL Rx#:[id number] Zosyn 3.375 GM Premix 50 ML @ 50 / 50 50 / 50 50 / 50 100 mls/hr IV.SIG Q8H DARRYL Rx#: [id number] KCl 10 mEq Premix Inj 10 meq In 400 / 400 100 ml @ 100 mls/hr IV.SIG Q1H DARRYL Rx#:[id number] Oral 600 / 600 Anesthesia Amount 1200 / 1200 Output: Urine 700 / 700 2300 / 2300 Estimated Blood Loss 5 / 5 Other: # Voids 2 Narrative: All 3 incision sites appear to be healing well. The 2 upper ones are covered by Band-Aid strips. There is an occlusive dressing over gauze which is dry at his umbilicus. There is no erythema. Assessment and Plan - Assessment (1) Right upper quadrant abdominal pain Code(s): R10.11 - Right upper quadrant pain Status: Acute Plan: 38 year old male with RUQ pain; nausea/vomiting -NPO -Will discuss with the OR about availability for laparoscopic cholecystectomy; possible open procedure; possible intraoperative cholangiogram and primary umbilical hernia repair. -Procedure explained in detail and all questions answered -Obtain consents -Discussed with patient; all questions answered -Thank you for this consult; We will continue to follow - Plan Postop day 1 status post laparoscopic cholecystectomy for acalculous cholecystitis and open repair of incarcerated umbilical hernia. The patient is doing very well. He is eligible for discharge home today. I verbally gave him instructions on wound care, showering, avoiding abdominal strain, and calling my office for a postoperative appointment. Discussed Condition With: Patient and Dr Moe.
== END 2018-08-04 13:40 | disposition home or self-care (01) ==
LOC: NEPE 09:40 → NEDA 09:40 → NEPGCP 21:33 → N07 08-03 21:27
PROVIDERS: ADMIT Hospitalist; ATTEND Hospitalist